=== PATIENT | male | born 1940 | race Caucasian/White ===

== ENCOUNTER → 2018-07-02 | Outpatient (CLI) | payer MEDICARE ==
[~2018-07-02] MED LIST: ADV250INH INH; ALBU17IN INH; AMLO5TAB6 PO; ASPI81TA85 PO; ATOR1TAB19 PO; CENTTAB PO; FLAX1200 PO; VITA200025 PO; VITA500T53 PO
[2018-07-02 08:03] LABS: BASO # 0.1 10^3/uL (0.0-0.2); BASO % 0.9 % (0.0-1.0); EOS # 0.2 10^3/uL (0.0-0.50); EOS % 3.2 % (0.0-3.0); HEMATOCRIT 41.2 % (42.0-52.0); HEMOGLOBIN 13.6 g/dl (13.5-17.5); LYMPH # 0.8 10^3/uL (1.5-4.5); MEAN CORPUSCULAR HEMOGLOBIN 32.5 pg (27.0-33.0); MEAN CORPUSCULAR VOLUME 98.6 fl (80.0-96.0); MONO # 0.5 10^3/uL (0.0-0.8); MONO % 9.1 % (0.0-5.0); NEUTROPHILS % 71.6 % (36.0-66.0); PLATELET COUNT, AUTOMATED 141 10^3/uL (150-450); RED BLOOD COUNT 4.18 10^6/uL (4.30-6.10); WHITE BLOOD COUNT 5.6 10^3/uL (4.0-10.0)
[2018-07-02 08:30] LABS: ALT/SGPT 39 U/L (12-78); BILIRUBIN,TOTAL 0.7 MG/DL (0.2-1.0); BLOOD UREA NITROGEN 23 MG/DL (7-18); CALCIUM LEVEL 8.4 MG/DL (8.8-10.2); CARBON DIOXIDE LEVEL 28 MEQ/L (21-32); CHLORIDE LEVEL 109 MEQ/L (98-107); CREATININE FOR GFR 0.95 MG/DL (0.70-1.30); GLOMERULAR FILTRATION RATE > 60.0 (>42); GLUCOSE, FASTING 125 MG/DL (70-100); SODIUM LEVEL 144 MEQ/L (136-145); TOTAL PROTEIN 6.4 GM/DL (6.4-8.2)
--- NOTE | 2018-07-02 09:20 | REP ---
CHEST, TWO VIEW: Two views of the chest are performed and compared with prior study of 03/02/2015. There is mild bibasilar fibrotic change which appears stable. No new infiltrate is seen. Heart is normal in size. There is calcification of the thoracic aorta. The mediastinal silhouette is unchanged. There are mild degenerative changes of the spine. IMPRESSION: Mild stable chronic findings without acute infiltrate. Electronically Signed by Ad Erwin MD 07/02/2018 04:58 P
--- NOTE | 2018-07-03 07:12 | ECGEPIP ---
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
== END ==
LOC: M LAB 07:22
PROVIDERS: ATTEND Podiatrist
DX: Z01.818 Encounter for other preprocedural examination (principal); M20.42 Other hammer toe(s) (acquired), left foot; M79.675 Pain in left toe(s); I70.0 Atherosclerosis of aorta; J84.10 Pulmonary fibrosis, unspecified; I44.0 Atrioventricular block, first degree

== ENCOUNTER 2018-07-17 07:11 | Day surgery (SDC) | payer MEDICARE ==
[~2018-07-17] VITALS: Ht 175.3 cm; Wt 94.1 kg
[~2018-07-17 07:11] MED LIST changes: +ALBU1TAB4 PO; +LR 1,000 ML IV ONE; +OCUVTAB PO; +VANCOMYCIN HCL 1,000 MG, VIAL MATE ADAPTER 1 EACH in D5W 250 ML IV ONE
[2018-07-17] MEDS ORDERED: NEOSPORIN GU IRRIG 20 ML VIAL As Ordered ONE (07:40)
[2018-07-17] MEDS ORDERED: LIDOCAINE 2% MDV 20 ML VIAL As Ordered ONE (07:40)
[2018-07-17] MEDS ORDERED: BUPIVACAINE HCL 0.5% 30 ML VIAL As Ordered ONE (07:40)
[2018-07-17] MEDS ORDERED: dexameTHASONE 4 MG/ML 1ML VIAL (J1100) As Ordered ONE ×2 (07:40→07:47)
[2018-07-17] MEDS ORDERED: BACITRACIN PWD 50,000 UNITS VIAL As Ordered ONE (07:40)
[2018-07-17] MEDS ORDERED: LIDOCAINE 2% INJ 100 MG/5 ML SDV (FOR ANES.) As Ordered ONE (07:47)
[2018-07-17] MEDS ORDERED: ONDANSETRON 4MG/2ML VIAL (J2405) As Ordered ONE (07:47)
[2018-07-17] MEDS ORDERED: PROPOFOL 500 MG/50 ML VIAL As Ordered ONE (07:49)
[2018-07-17] MEDS ORDERED: MIDAZOLAM INJ 2 MG/2 ML VIAL (J2250) As Ordered ONE (07:49)
[2018-07-17] MEDS ORDERED: fentaNYL 100 MCG/2 ML INJECTION (J3010) As Ordered ONE (07:49)
[2018-07-17] MEDS ORDERED: LIDOCAINE 1% MDV 20ML VIAL As Ordered ONE (09:13)
--- NOTE | 2018-07-17 09:21 | REP ---
Left foot three views History: None provided There is no acute fracture or dislocation. There is an old healed fracture of the 5th proximal phalange. There is narrowing of the first metatarsal-phalangeal joint space. The remaining joint spaces are normal in appearance. An osteophyte is present on the inferior calcaneus. Impression: There is no acute fracture or dislocation. Electronically Signed by Thad Bronson MD 07/17/2018 09:12 A
[2018-07-17 10:45] VITALS: BP 169/74
[2018-07-17] MEDS ORDERED: LR 1,000 ML IV SCH (11:00)
[2018-07-17] MEDS ORDERED: METOCLOPRAMIDE INJ 10MG/2ML VIAL (J2765) IV PRN (11:00)
[2018-07-17] MEDS ORDERED: fentaNYL 100 MCG/2 ML INJECTION (J3010) IV PRN (11:00)
[2018-07-17] MEDS ORDERED: PERCOCET 5MG/325MG TAB PO PRN (11:00)
[2018-07-17] MEDS ORDERED: ONDANSETRON 4MG/2ML VIAL (J2405) IV PRN (11:00)
--- NOTE | 2018-07-17 14:59 | REP ---
LEFT FOOT SERIES: THREE VIEWS OBTAINED PORTABLY. HISTORY: Postop. Comparison portable left foot radiographs are from July 17, 2018 before surgery. FINDINGS: Plantar heel spurring is noted. The patient has undergone osteotomy with removal of the distal aspect of the proximal phalanx of the 5th toe as well as the 2nd and 3rd toes distal phalanges. There are pins transfixing the IP joints of the 2nd, 3rd, and 4th digits. Associated soft tissue swelling and emphysema is seen. IMPRESSION: Postoperative changes as above. Electronically Signed by Geovani Childs MD 07/17/2018 04:17 P
--- NOTE | 2018-07-18 11:16 | RO ---
DATE OF PROCEDURE: 07/17/2018 PREOPERATIVE DIAGNOSES: 1. Hammertoe deformity 2nd toe, left foot. 2. Hammertoe deformity 3rd toe, left foot. 3. Hammertoe deformity 4th toe, left foot. 4. Hammertoe deformity 5th toe, left foot. POSTOPERATIVE DIAGNOSES: 1. Hammertoe deformity 2nd toe, left foot. 2. Hammertoe deformity 3rd toe, left foot. 3. Hammertoe deformity 4th toe, left foot. 4. Hammertoe deformity 5th toe, left foot. PROCEDURES PERFORMED: 1. Proximal interphalangeal joint arthroplasty with external wire fixation 0.045 times one, 2nd toe, left foot. 2. Proximal interphalangeal joint arthroplasty with external wire fixation 0.045 times one, 3rd toe, left foot. 3. Proximal interphalangeal joint arthroplasty with external wire fixation 0.045 times one, 4th toe, left foot. 4. Proximal interphalangeal joint arthroplasty, 5th toe, left foot. 5. Second metatarsophalangeal joint capsulotomy, left foot. 6. Third metatarsophalangeal joint capsulotomy, left foot. 7. Fourth metatarsophalangeal joint dorsal capsulotomy, left foot. 8. Fifth metatarsophalangeal joint dorsal capsulotomy, left foot. HARDWARE UTILIZED: 0.045 K wire times three. HEMOSTASIS: Ankle pneumatic tourniquet at 200 mmHg for 55 minutes. SURGEON: Yariel Vance DPM CHARTER DRIVER: None ANESTHESIA: Local MAC. IRRIGATION: Dilute bacitracin, neomycin and polymyxin B solution. IMPLANTABLES USED: DESCRIPTION OF OPERATION: On 07/17/2018, this 77-year-old white male was taken from his hospital room to the operating room and placed on the operating table in the supine position. Following the induction of intravenous (IV) sedation and local and regional anesthesia, the left lower extremity was prepped and draped in the usual aseptic manner. Attention was directed to the patient's second toe, where there was noted to be a hammertoe deformity. At this time, the following procedure was performed: PROXIMAL INTERPHALANGEAL JOINT ARTHROPLASTY WITH EXTERNAL WIRE FIXATION, 0.045 TIMES ONE, SECOND TOE, LEFT FOOT: Attention was directed to the patient's foot and there was noted to be a hammertoe deformity. At this time, a 3 cm incision was placed over the proximal interphalangeal joint, the incision was deepened into the subcutaneous tissues, and all coursing venous tributaries were identified, underscored, clamped, cut, ligated, and electrocoagulated as necessary. A transverse tenotomy and capsulotomy was performed to the level of the proximal interphalangeal joint and the extensor tendon was dissected free along the extensor expansion and wright. Medial and lateral collateral ligaments were sharply dissected free from the head of the proximal phalanx and utilizing a power saw, an osteotomy was performed to the level of the anatomical neck of the proximal phalanx from dorsal to plantar, through and through. Attention was then directed to the base of the middle phalanx, where utilizing a power saw an osteotomy was performed just distal to the cartilage on the middle phalanx from dorsal to plantar, through and through. This was extirpated from the wound in toto. There was still noted to be a contracture at the second metatarsophalangeal joint. Therefore, the following procedure was performed: DORSAL CAPSULOTOMY SECOND METATARSOPHALANGEAL JOINT OF THE LEFT FOOT: The incision was lengthened approximately 1 cm and attention was directed towards the second metatarsophalangeal joint. This was noted to be contracted and utilizing a scalpel, this was released dorsally. Utilizing a metatarsal elevator, the plantar plate was released. The wound was flushed with copious amounts of dilute bacitracin, neomycin, and polymyxin B solution. Attention was directed towards fixation, where utilizing a 0.045 Manjinder wire, a wire was driven through the middle and distal phalanx and was retrograded into the proximal phalanx, utilizing a C-Arm to control position of the K wire. The wire was then bent and a protective ball was placed on the distal end of the Manjinder wire. The extensor tendon was coapted and maintained utilizing #4-0 braided nylon loop suture with a four-stranded core repair. Attention was then directed towards skin closure where the skin was coapted and maintained utilizing #4-0 Prolene in a simple, interrupted and horizontal mattress type fashion. Attention was then directed to the patient's fourth toe of the left foot where the following procedure was performed: PROXIMAL INTERPHALANGEAL JOINT ARTHROPLASTY WITH EXTERNAL WIRE FIXATION, 0.045 TIMES ONE OF THE THIRD TOE OF THE LEFT FOOT: Attention was directed to the patient's third toe of the left foot. The procedure performed on the second toe was now performed on the third toe without variation or deletion, the only exception being that of anatomical location. Then, the following procedure was performed: THIRD METATARSOPHALANGEAL JOINT CAPSULOTOMY, LEFT FOOT: Attention was then directed to the patient's third metatarsophalangeal joint where the procedure performed on the second metatarsophalangeal joint was then performed on the third metatarsophalangeal joint without variation or deletion and the only exception being made was that of the anatomical location. Attention was then directed to the patient's third toe where the following procedure was performed: PROXIMAL INTERPHALANGEAL JOINT ARTHROPLASTY WITH EXTERNAL WIRE FIXATION, 0.045 TIMES ONE OF THE FOURTH TOE OF THE LEFT FOOT: Attention was directed to the patient's fourth toe of the left foot. The procedure performed on the second toe was now performed on the fourth toe without variation or deletion, the only exception being that of anatomical location. Attention was then directed to the fourth metatarsophalangeal joint where the following procedure was performed: FOURTH METATARSOPHALANGEAL JOINT CAPSULOTOMY, LEFT FOOT: Attention was then directed to the fourth metatarsophalangeal joint where the procedure performed on the second metatarsophalangeal joint was then performed on the fourth metatarsophalangeal joint without variation or deletion and the only exception being made was that of the anatomical location. Attention was then directed to the fifth toe of the left foot where the following procedure was performed: PROXIMAL INTERPHALANGEAL JOINT ARTHROPLASTY OF THE IRENE TOE OF THE LEFT FOOT: Attention was directed to the patient's fifth toe of the left foot. The procedure performed on the second toe was now performed on the fifth toe with the following variations: The base of the middle phalanx was not resected and no K wire was used for stabilization. Attention was then directed to the patient's fifth metatarsophalangeal joint where the following procedure was performed: FIFTH METATARSOPHALANGEAL JOINT CAPSULOTOMY, LEFT FOOT: Attention was directed to the patient's fifth toe of the left foot where the procedure performed on the second metatarsophalangeal joint was now performed on the fifth metatarsophalangeal joint without variation or deletion, the only exception being that of anatomical location. Attention was then directed towards bandaging where a sterile compressive bandage consisting of Adaptic, 4 x 4's, 4 x 4 splints, Romina, Kerlix, and Coban. The ankle pneumatic tourniquet was rapidly deflated, and instantaneous capillary filling time was noted in digits 1 through 5 of the patient's left foot. The patient, apparently having tolerated the surgical procedure well, was taken from the operating room (OR) to the recovery room for further monitoring by the anesthesia department. Postoperative instructions given upon discharge. CAMERON
== END 2018-07-17 12:00 | disposition home or self-care (01) ==
LOC: M SDC 07:11
PROVIDERS: ATTEND Podiatrist
DX: M20.42 Other hammer toe(s) (acquired), left foot (principal); M79.675 Pain in left toe(s); I10 Essential (primary) hypertension; E78.5 Hyperlipidemia, unspecified; J45.909 Unspecified asthma, uncomplicated; Z79.82 Long term (current) use of aspirin; Z79.899 Other long term (current) drug therapy; Z87.891 Personal history of nicotine dependence; Z79.51 Long term (current) use of inhaled steroids; Z88.0 Allergy status to penicillin
CPT/HCPCS: 28270; 28285; 73630; 88300; 97116; J1100; J2250; J2405; J3010; J3370

== ENCOUNTER → 2018-08-17 | Outpatient (CLI) | payer MEDICARE ==
[~2018-08-17] MED LIST changes: -LR 1,000 ML IV ONE; -VANCOMYCIN HCL 1,000 MG, VIAL MATE ADAPTER 1 EACH in D5W 250 ML IV ONE; +VITA500T17 PO; -VITA500T53 PO
== END ==
LOC: M RAD 10:52
PROVIDERS: ATTEND Podiatrist
DX: R22.42 Localized swelling, mass and lump, left lower limb (principal)

== ENCOUNTER → 2021-01-22 | Outpatient (CLI) | payer MEDICARE ==
[~2021-01-22] MED LIST changes: +AMLO1TAB24 PO; -AMLO5TAB6 PO; -ASPI81TA85 PO; +ASPI81TA86 PO; +CENT1TAB12 PO; +CHLO125TA OR; +D31000TA2 PO; +ECOT81TA5 PO; +FLAX100016 PO; +MYRB50TA PO; +RAMI1CAP22 OR; +TAMS1CAP17 PO
== END ==
LOC: M LABSMTC 10:44
PROVIDERS: ATTEND Anesthesiology
DX: Z01.812 Encounter for preprocedural laboratory examination (principal); Z20.822 Contact with and (suspected) exposure to COVID-19

== ENCOUNTER 2021-01-26 09:53 | Day surgery (SDC) | payer MEDICARE ==
[~2021-01-26] VITALS: Ht 175.3 cm; Wt 81.6 kg
[~2021-01-26 09:53] MED LIST changes: +NS 1,000 ML IV ONE
[2021-01-26] MEDS ORDERED: propofoL 200 MG/20 ML VIAL As Ordered ONE (10:16)
[2021-01-26] MEDS ORDERED: LIDOCAINE 2% 100MG/5ML SDV (FOR ANES.) As Ordered ONE (10:16)
[2021-01-26] MEDS ORDERED: PHENYLephrine 500MCG 5ML (100MCG/ML) SYRINGE As Ordered ONE (13:23)
--- NOTE | 2021-01-26 13:29 | ROOR ---
Patient Name: Charlie Falcon Procedure Date: 01/26/2021 1:01 PM Date of : 1940 Age: 80 Room: [facility] Gender: Male Note Status: Finalized Procedure: Colonoscopy Indications: High risk colon cancer surveillance: Personal history of colonic polyps, Last colonoscopy: September 2015 Providers: Rich Mcginnis MD Referring MD: MARVIN KIMBLE DO Requesting Provider: Medicines: Monitored Anesthesia Care Complications: No immediate complications. Procedure: Pre-Anesthesia Assessment: - The heart rate, respiratory rate, oxygen saturations, blood pressure, adequacy of pulmonary ventilation, and response to care were monitored throughout the procedure. The Colonoscope was introduced through the anus and advanced to the cecum, identified by appendiceal orifice and ileocecal valve. The colonoscopy was performed without difficulty. The patient tolerated the procedure well. The quality of the bowel preparation was good. Findings: The perianal and digital rectal examinations were normal. (EXAM: Complete, PREP: Suboptimal) Three sessile polyps were found in the rectum and sigmoid colon. The polyps were 4 to 5 mm in size. These polyps were removed with a cold snare. Resection and retrieval were complete. Mild to moderate sigmoid diverticulosis and small internal hemorrhoids. The exam was otherwise without abnormality on direct and retroflexion views. Impression: - (EXAM: Complete, PREP: Suboptimal) - Three 4 to 5 mm polyps in the rectum and in the sigmoid colon, removed with a cold snare. Resected and retrieved. - Mild to moderate sigmoid diverticulosis and small internal hemorrhoids. - The examination was otherwise normal on direct and retroflexion views. Recommendation: - Await pathology results. - Telephone endoscopist for pathology results in 2 weeks. - No repeat colonoscopy. Procedure Code(s): --- Professional --- 03169, Colonoscopy, flexible; with removal of tumor(s), polyp(s), or other lesion(s) by snare technique Diagnosis Code(s): --- Professional --- K63.5, Polyp of colon K62.1, Rectal polyp Z86.010, Personal history of colonic polyps CPT copyright 2019 [employer]. All rights reserved. The codes documented in this report are preliminary and upon mixer operator hot metal review may be revised to meet current compliance requirements. Rich Mcginnis MD Rich Mcginnis MD 01/26/2021 1:28:29 PM Electronically signed by Rich Mcginnis MD Number of Addenda: 0 Note Initiated On: 01/26/2021 1:01 PM Estimated Blood Loss: Estimated blood loss: none.
[2021-01-26 13:55] VITALS: BP 116/57
== END 2021-01-26 14:04 | disposition home or self-care (01) ==
LOC: M OPP 09:53
PROVIDERS: ATTEND Internal Medicine Gastroenterology
DX: Z12.11 Encounter for screening for malignant neoplasm of colon (principal); Z86.010 Personal history of colon polyps; Z80.0 Family history of malignant neoplasm of digestive organs; K63.5 Polyp of colon; K57.30 Diverticulosis of large intestine without perforation or abscess without bleeding; K64.8 Other hemorrhoids; Z79.899 Other long term (current) drug therapy; Z88.0 Allergy status to penicillin
CPT/HCPCS: 45385; 88305; J2370

== ENCOUNTER 2021-02-20 18:05 | Inpatient (IN) | payer MEDICARE, OTHER ==
[~2021-02-20] VITALS: Ht 177.8 cm; Wt 82.4 kg
[~2021-02-20 18:05] MED LIST changes: -CHLO125TA OR; +CHLO125TA PO; -NS 1,000 ML IV ONE; -RAMI1CAP22 OR; +RAMI1CAP22 PO
[2021-02-20 18:47] LABS: BASO # 0.1 10^3/uL (0.0-0.2); BASO % 0.8 % (0.0-1.0); EOS # 0.4 10^3/uL (0.0-0.5); EOS % 4.8 % (0.0-3.0); HEMATOCRIT 37.8 % (42.0-52.0); HEMOGLOBIN 12.6 g/dl (13.5-17.5); LYMPH % 23.5 % (24.0-44.0); MEAN CORPUSCULAR HEMOGLOBIN 32.3 pg (27.0-33.0); MEAN CORPUSCULAR HGB CONC 33.3 g/dl (32.0-36.5); MEAN CORPUSCULAR VOLUME 96.9 fl (80.0-96.0); MONO # 0.7 10^3/uL (0.0-0.8); MONO % 8.7 % (2.0-8.0); NEUTROPHILS # 5.2 10^3/uL (1.5-8.5); NEUTROPHILS % 61.6 % (36.0-66.0); PLATELET COUNT, AUTOMATED 177 10^3/uL (150-450); WHITE BLOOD COUNT 8.5 10^3/uL (4.0-10.0)
[2021-02-20 19:11] LABS: INR 1.07; PARTIAL THROMBOPLASTIN TIME 29.9 SECONDS (25.9-37.0); PROTHROMBIN TIME 14.3 SECONDS (12.7-14.5)
--- NOTE | 2021-02-20 19:13 | REP ---
INDICATION: CHEST PAIN. COMPARISON: PA and lateral chest, 07/02/2018 TECHNIQUE: Upright AP portable chest image was obtained. FINDINGS: There is scarring in the left lung base. The lungs are otherwise clear. There are no pleural effusions. There is cardiomegaly without congestive heart failure. There is calcific vascular disease of the thoracic aorta. IMPRESSION: Cardiomegaly. No evidence of acute cardiopulmonary pathology. <Electronically signed by Adelso Nelson > 02/20/21 1919
[2021-02-20 19:15] LABS: RSV AMPLIFICATION NEGATIVE (NEGATIVE)
[2021-02-20 19:21] LABS: ALBUMIN 3.3 GM/DL (3.2-5.2); ALT/SGPT 32 U/L (12-78); BILIRUBIN,DIRECT < 0.1 MG/DL (0.0-0.2); BILIRUBIN,TOTAL 0.5 MG/DL (0.2-1.0); BLOOD UREA NITROGEN 28 MG/DL (7-18); CALCIUM LEVEL 8.8 MG/DL (8.8-10.2); CARBON DIOXIDE LEVEL 30 MEQ/L (21-32); CHLORIDE LEVEL 103 MEQ/L (98-107); CPK CREATINE PHOSPHOKINASE 326 U/L (39-308); CREATININE FOR GFR 1.18 MG/DL (0.70-1.30); FREE T4 1.18 NG/DL (0.76-1.46); GLOMERULAR FILTRATION RATE > 60.0 (>35); GLUCOSE, FASTING 132 MG/DL (70-100); LIPASE 251 U/L (73-393); MB/CK RELATIVE INDEX 1.84 (< OR =4); NT-PRO BNP 102 PG/ML (<450); POTASSIUM SERUM 3.6 MEQ/L (3.5-5.1); SODIUM LEVEL 140 MEQ/L (136-145); TOTAL PROTEIN 6.6 GM/DL (6.4-8.2); TROPONIN I < 0.02 NG/ML (< 0.10)
--- OUTSIDE RECORDS SUMMARY | 2021-02-20 19:27 | CCD | Continuity of Care Document ---
Author Author Urology Resource Schedule, Sina Means Organization Unknown Address [address] [place] [id number] Phone [phone] Care Team Providers Care Stope Miner Name Role Phone Kelvin Sutton DO AUTM Unavailable Problems Active Problems Provider Date Essential hypertension Luis Alas M.D. Onset: 10/04/2020 Pure hypercholesterolemia Luis Alas M.D. Onset: 021 Overactive bladder GEORGINA Valera Onset: 2020 Social History Type Date Description Comments Sex Unknown Tobacco Use Start: Unknown End: Unknown Quit Tobacco Use Start: Unknown End: Unknown Quit Tobacco Use Start: Unknown End: Unknown Quit Smoking Status Reviewed: 10/25/20 Quit Tobacco Use Start: Unknown Never Used Smokeless Tobacco ETOH Use Occasionally consumes alcohol Tobacco Use Start: Unknown End: Unknown Patient is a former smoker Recreational Drug Use Denies Drug Use Allergies, Adverse Reactions, Alerts Active Allergies Criticality Reaction | Severity Comments Date Penicillins Unable to assess criticality rash 10/04/2020 Medications Active Medications SIG Qnty Indications Ordering Provide r Date Myrbetriq 50mg Tablets ER 24HR 1 by mouth every day 90tabs Luis Alas M.D. 12/26/2020 Advair Diskus 250-50mcg/Dose Aeros ol Inhale One puff By Mouth Twice A Day Unknown Atorvastatin Calcium 10mg Tablets Kelvin Sutton, Tamsulosin HCL 0.4mg Capsules Take One Capsule By Mouth Every Day Unknown Chlorthalidone 25mg Tablets Take One Tablet By Mouth Every Day Unknown Ramipril 2.5mg Capsules Take One Capsule By Mouth Every Day Unknown Centrum Silver 50+Men 50+Men Tablets Unknown Aspirin 81 Low Dose 81mg Chewtabs 1 tab by mouth 3x/week Unknown Vitamin D 50mcg (1999 Ut) Capsules 1 by mouth every day Unknown Vitamin B Complex Tablets 1 by mouth every day Unknown Preservision Areds Capsules Unknown History Medications Myrbetriq 25mg Tablets ER 24HR 1 by mouth every day 30tabs Luis Alas M.D. 10/25/2020 - 12/26/2020 Immunizations Description No Information Available Vital Signs Date Vital Result Comment 10/25/2020 9:58am BP Systolic 133 mmHg BP Diastolic 80 mmHg Heart Rate 66 /min O2 % BldC Oximetry 94 % Weight 183.00 lb Weight 83.009 kg 10/04/2020 1:58pm BP Systolic 133 mmHg BP Diastolic 75 mmHg Heart Rate 80 /min O2 % BldC Oximetry 95 % Weight 183.00 lb Weight 83.009 kg Height 69 inches 5'9" BMI (Body Mass Index) 27.0 kg/m2 BSA (Body Surface Area) 1.99 m2 Results Test Acquired Date Facility Test Result H/L Range Note Inhouse [facility] 10/04/2020 In Office [facility] Color yellow Normal: Yellow Ua Appearance clear Normal: Clear Spec [place] 1.015 1.001-1.030 Ua PH Test Strip 5 5-9 Leukocytes - Normal: Negative Ua Nitrate - Normal: Negative Ua Protein trace Normal: Negative Inhouse Glucose - Normal: Negative Ua Ketones - Noraml: Negative Urobilinogen - Normal: Negative Ua Bilirubin - Normal: Negative Blood - Noraml: Negative Procedures Date Code Description Status 12/26/2020 02359 Phone Evaluation/Management By Ryan cochran 5-10 Mins Completed 10/25/2020 52199 Office/Outpatient Established w MDM 20-29 Min Completed 10/25/2020 53346 Measurement Post Voi ding Residual Urine By Ultrasound,Non-Imaging Completed 10/04/2020 46817 Office/Outpatient New MDM 15- 29 Minutes Completed Medical Devices Description No Information Available Encounters Type Date Location Provider Dx Diagnosis Office Visit 12/26/2020 1:45p [facility] GEORGINA Campbell N32.81 Overactive bladder Assessments Date Code Description Provider 12/26/2020 N32.81 Overactive bladder GEORGINA Kilpatrick 10/25/2020 N32.81 Overactive bladder GEORGINA Kilpatrick 10/04/2020 R97.20 Elevated prostate specific antig en [PSA] Luis Alas M.D. 10/04/2020 R35.0 Frequency of micturition Luis Alas M.D. 10/04/2020 R39.15 Urgency of urination Luis apodaca M.D. 10/04/2020 R32 Unspecified urinary incontinence Luis Alas M.D. 10/04/2020 N50.3 Cyst of epididymis Luis Alas M.D. Plan of Treatment Future Appointment(s):* 05/01/2021 2:30 pm - Urology Resource Schedule at [facility] 12/26/2020 - GEORGINA Valera* N32.81 Overactive bladder* Comments:* Patient with history of elevated PSA, urinary frequency, urgency and urge incontinence was consulted via phone for medication check (Myrbetriq). Patient doing pretty well on Myrbetriq 25 mg PO daily, but medication seems to stop working as well around 1400. Physical examination and urinalysis were not performed as this is a telemedicine consultation. Patient dose was increased from 25 mg to 50 mg PO daily. Patient was advised to take the whole dose in the morning or to split the dose to 25 mg and take it morning and evening. Potential side effects of dry eyes, dry mouth and constipation were discussed in detail with the patient.Patient voiced understanding and agreement with plan of care.Patient will follow up with us in 4 months for medication check. * Follow up:* 4 Months * All * New Medication:* Myrbetriq 50 mg - 1 by mouth every day Functional Status Description No Information Available Mental Status Description No Information Available Referrals Description No Information Available
--- OUTSIDE RECORDS SUMMARY | 2021-02-20 19:27 | CCD | Continuity of Care Document ---
Author Author Charlie AMADOR PA Organization Unknown Address [facility] [place] [address] Phone [phone] Care Team Providers Care Levee Superintendent Name Role Phone Kelvin Sutton DO AUTM [...] Day Unknown Atorvastatin Calcium 10mg Tablets Kelvin Sutton DO Tamsulosin HCL 0.4mg Capsules Take One Capsule [...] Yellow Ua Appearance clear Normal: Clear Spec [place] 1.015 1.001-1.030 Ua PH Test Strip 5 5-9 Leukocytes - Normal: Negative Ua Nitrate - Normal: Negative Ua Protein trace Normal: Negative Inhouse Glucose - Normal: Negative Ua Ketones - Noraml: Negative Urobilinogen - Normal: Negative Ua Bilirubin - Normal: Negative Blood - Noraml: Negative Procedures Date Code Description Status 12/26/2020 85425 Phone Evaluation/Management By Ryan cochran 5-10 Mins Completed 10/25/2020 55441 Office/Outpatient Established w MDM 20-29 Min Completed 10/25/2020 91658 Measurement Post Voi ding Residual Urine By Ultrasound,Non-Imaging Completed 10/04/2020 62495 Office/Outpatient New MDM 15- 29 Minutes Completed Medical Devices Description No Information Available Encounters Type Date Location Provider Dx Diagnosis Office Visit 12/26/2020 1:45p [facility] GEORGINA Campbell N32.81 Overactive [...] 2:30 pm - Urology Resource Schedule at [facility] 12/26/2020 - GEORGINA Valera* [...]
--- OUTSIDE RECORDS SUMMARY | 2021-02-20 19:27 | CCD | Continuity of Care Document ---
Author Author Charlie AMADOR PA Organization Unknown Address [facility] [place] [address] Phone [phone] Care Team Providers Care It Project Manager Name Role Phone Kelvin Sutton DO AUTM [...] Yellow Ua Appearance clear Normal: Clear Spec [place] 1.015 1.001-1.030 Ua PH Test Strip 5 5-9 Leukocytes - Normal: Negative Ua Nitrate - Normal: Negative Ua Protein trace Normal: Negative Inhouse Glucose - Normal: Negative Ua Ketones - Noraml: Negative Urobilinogen - Normal: Negative Ua Bilirubin - Normal: Negative Blood - Noraml: Negative Procedures Date Code Description Status 12/26/2020 93509 Phone Evaluation/Management By Ryan cochran 5-10 Mins Completed 10/25/2020 15645 Office/Outpatient Established w MDM 20-29 Min Completed 10/25/2020 47117 Measurement Post Voi ding Residual Urine By Ultrasound,Non-Imaging Completed 10/04/2020 64580 Office/Outpatient New MDM 15- 29 Minutes Completed Medical Devices Description No Information Available Encounters Type Date Location Provider Dx Diagnosis Office Visit 12/26/2020 1:45p [facility] GEORGINA Campbell N32.81 Overactive [...] 2:30 pm - Urology Resource Schedule at [facility] 12/26/2020 - GEORGINA Valera* [...]
--- OUTSIDE RECORDS SUMMARY | 2021-02-20 19:27 | CCD ---
Author Author [facility] Organization [facility] Address Unknown Phone Unavailable Care Team Providers Care Upholsterer [employer] Name Role Phone Tessa Lorenzana Unavailable PROBLEMS No Information ALLERGIES No Known Allergies ENCOUNTERS from 1940 to 2021-02-03 Encounter Location Date Provider Diagnosis [facility] [address] [place] [address] [place] [address] Dec, Tessa Lorenzana Closed head injury, initial encounter S09.90XA and Fall, initial encounter W19.XXXA IMMUNIZATIONS No Information SOCIAL HISTORY Sex Assigned At : Social History Observation Description Sex Assigned At Unknown Language: Question Answer Notes Languages spoken: Greenlandic Gnosticist: Question Answer Notes Gnosticist 21 [address]ze REASON FOR REFERRAL No Information VITAL SIGNS Weight 182.8 lbs Dec, Weight-kg 82.92 kg Dec, Height 70 in Dec, BMI 26.23 kg/m2 Dec, Heart Rate 80 /min Dec, Respiratory Rate 18 /min Dec, Temperature 97.6 degrees Fahrenheit Dec, Oximetry 96 Dec, Blood pressure systolic 144 mm Hg Dec, Blood pressure diastolic 82 mm Hg Dec, MEDICATIONS Medication SIG (Take, Route, Frequency, Duration) Notes Start Da te End Date Status D3 50 MCG (1999) 1 tablet Orally Once a day for 30 day(s) Active Ramipril 2.5 MG 1 capsule Orally Once a day for 30 day(s) Active Tamsulosin HCl 0.4 MG 1 capsule Orally Once a day for 30 day(s) Active Myrbetriq 50 MG 1 tablet Orally Once a day Active Advair Diskus 100-50 MCG/DOSE 1 puff Inhalation Twice a day Active Aspirin 81 81 MG 1 tablet Orally Once a day for 30 day(s) Active Chlorthalidone 25 MG 1 tablet in the morning with food Orally Once a day for 30 day(s) Active B Complex - as directed Orally Activ e Centrum Silver Ultra Mens Active PreserVision AREDS 2+Multi Vit - as directed Orally Active Flaxseed Oil - as directed Active Atorvastatin Calcium 10 MG 1 tablet Orally Once a day for 30 day(s) Active PROCEDURES No Information RESULTS No Results REASON FOR VISIT Workers Comp MEDICAL (GENERAL) HISTORY Type Description Date Medical History Asthmatic Medical History hypertension Surgical History hammer toe repair Hospitalization History No know Hospitalization history Goals Section No Information Health Concerns No Information MEDICAL EQUIPMENT No Information MENTAL STATUS No Information FUNCTIONAL STATUS No Information ASSESSMENTS Encounter Date Diagnosis Assessment Notes Treatment Notes Treatm ent Clinical Notes Dec, Closed head injury, initial encounter (I CD-10 - S09.90XA) Symptoms have resolved, return in 4 weeks just to check up, and he is encouraged to call sooner if he should have any signs or symptoms of concussion Dec, Fall, initial encounter (ICD-10 - W19.XXXA) PLAN OF TREATMENT Next Appt Details 4 Weeks, 60 min Reason:w/c - post concus karen Provider Name:Tessa Lorenzana, 2020-10-2 8 10:00:00 AM, [address] [facility], , [place], [address], Follow Up:4 Weeks, 60 minw/c - post concussion Insurance Providers Payer Name Payer Address Payer Phone Insured Name Patient Relati onship to Insured Coverage Start Date Coverage End Date [address] MORRIS ANTHONY self 2020
--- OUTSIDE RECORDS SUMMARY | 2021-02-20 19:27 | CCD | Continuity of Care Document ---
Author Author Charlie AMADOR PA Organization Unknown Address [facility] [place] [address] Phone [phone] Care Team Providers Care Type Copyist Name Role Phone Kelvin Sutton DO AUTM [...] Yellow Ua Appearance clear Normal: Clear Spec [place] 1.015 1.001-1.030 Ua PH Test Strip 5 5-9 Leukocytes - Normal: Negative Ua Nitrate - Normal: Negative Ua Protein trace Normal: Negative Inhouse Glucose - Normal: Negative Ua Ketones - Noraml: Negative Urobilinogen - Normal: Negative Ua Bilirubin - Normal: Negative Blood - Noraml: Negative Procedures Date Code Description Status 12/26/2020 90135 Phone Evaluation/Management By Ryan cochran 5-10 Mins Completed 10/25/2020 83235 Office/Outpatient Established w MDM 20-29 Min Completed 10/25/2020 63736 Measurement Post Voi ding Residual Urine By Ultrasound,Non-Imaging Completed 10/04/2020 90904 Office/Outpatient New MDM 15- 29 Minutes Completed Medical Devices Description No Information Available Encounters Type Date Location Provider Dx Diagnosis Office Visit 12/26/2020 1:45p [facility] GEORGINA Campbell N32.81 Overactive [...] 2:30 pm - Urology Resource Schedule at [facility] 12/26/2020 - GEORGINA Valera* [...]
--- OUTSIDE RECORDS SUMMARY | 2021-02-20 19:27 | CCD | Continuity of Care Document ---
Author Author Charlie MCGINNIS MD Organization Unknown Address [address] [place] [address] Phone [phone] Care Team Providers Care Band Head Saw Operator Name Role Phone Kelvin Sutton Chichi AUTM [phone] Problems Active Problems Provider Date Digestive symptom Rich Mcginnis MD Onset: 07/08/2012 Benign neoplasm of colon Rich Mcginnis MD Onset: 07/09/19 13 Family history of malignant neoplasm of gastrointestinal tra ct Rich Mcginnis MD Onset: 07/08/2012 History of polyp of colon Rich Mcginnis MD Onset: 013 Cough Cheryl Brown M.D. Onset: 07/2014 Pulmonary function studies abnormal Cheryl Brown M.D. Onset: 03/01/2015 Posterior rhinorrhea Cheryl Brown M.D. Onset: Ex-smoker Cheryl Brown M.D. Onset: 07/2014 Other nonspecific abnormal finding of lung field Cheryl Rankin M.D. Onset: 03/01/2015 Mild persistent asthma Cheryl Brown M.D. Onset: 03/01/2015 Solitary nodule of lung Cheryl Brown M.D. Onset: 07/26/2015 Social History Type Date Description Comments Sex Unknown ETOH Use 2 A Day Tobacco Use Start: Unknown End: Unknown Patient is a former smoker hx: pipe x 25 yrs, quit 2005, cigs <1ppd x 7yrs, quit age 25 Allergies and adverse reactions Active Allergies Criticality Reaction | Severity Comments Date Penicillin Unable to assess criticality 06/28/2009 Medications Active Medications SIG Qnty Indications Ordering Provide r Date Miralax 17GM/Scoop Powder use as instructed by doctor for bowel prep 510gm Z12.11 Rich Mcginnis MD 10/26/2020 Milk Of Magnesia 1200mg/15ML Suspe nsion take 45 milliliters by mouth as directed on colonoscopy prep sheet. Z12.11 Rich Mcginnis MD 10/26/2020 Ventolin HFA 108(90Base) mcg/Act A erosol Inhale 2 Puffs By Mouth Four Times A Day as Needed 18units Cheryl Brown M.D. 03/01/2015 Advair Diskus 250-50mcg/Dose Misc 1 puff bid rinse mouth after using 1units Unknown Vitamin D-3 25mcg (1000 Ut) Capsul es 1 po qd 30caps Unknown Atorvastatin Calcium 10mg Tablets 1 tab po daily Unknown Centrum Silver Tablets 1 tab po daily Unknown Flaxseed Oil 1200mg Capsules 1 tab po daily Unknown Chlorthalidone 25mg Tablets 1 by mouth every day Unknown Vitamin B Complex Tablets on ce a day Unknown Ramipril 2.5mg Capsules 1 by mouth every day Unknown Preservision Areds Tablets 2 daily Unknown Tamsulosin HCL 0.4mg Capsules 1 by mouth every day Unknown Myrbetriq 25mg Tablets ER 24HR 1 by mouth every day Unknown Miralax 17GM/Scoop Powder prn Unknown Aspirin 81mg Tablets DR Take 1 tablet by mouth M, W, and F. Unknown Immunizations CPT Code Status Date Vaccine Lot # [id number] Given 02/19/2016 Influenza Virus Split 3 Yrs And Above For Intramuscular Use 82416 Given 04/03/2015 Influenza Virus Split 3 Yrs And Above For Intramuscular Use Vital Signs Date Vital Result Comment 10/26/2020 2:53pm BP Systolic 142 mmHg BP Diastolic 72 mmHg Height 69 inches 5'9" Weight 187.00 lb BMI (Body Mass Index) 27.6 kg/m2 [place] Body Weight 160 lb Weight 84.823 kg BSA (Body Surface Area) 2.01 m2 02/06/2017 7:59am BP Systolic 130 mmHg BP Diastolic 70 mmHg Heart Rate 66 /min O2 % BldC Oximetry 95 % Room Air Height 69 inches 5'9" Weight 204.00 lb BMI (Body Mass Index) 30.1 kg/m2 [place] Body Weight 160 lb Weight 92.534 kg BSA (Body Surface Area) 2.08 m2 Results Test Acquired Date Facility Test Result H/L Range Note Laboratory test finding 01/26/2021 [facility] Main Lab [address] [place] [address] [phone] Pathology Request For Service (SEE NOTE) 1 1 FINAL DIAGNOSIS A - Sigmoid colon, polyps, polypectomy: Adenomatous polyp/tubular adenoma fragments. B - Rectal polyp, polypectomy: Hyperplastic polyp. 01/29/2021 - 8 CLINICAL DIAGNOSIS Colon polyps 01/29/2021 - 722 GROSS DIAGNOSIS A - Received in formalin labeled "sigmoid polyps" is a 0.8 x 0.6 x 0.4 cm. aggregate of mucosal fragments. All in one. B - Received in formalin labeled "rectal polyp" is a 0.5 x 0.3 x 0.3 cm. portion of mucosa. All in one. - 01/29/2021 - 722 Signed Isabel Holbrook MD 01/29/2021 1405 Procedures Date Code Description Status 01/26/2021 03942 Colonoscopy W/ Poly Completed Medical Devices Description No Information Available Encounters Description No Information Available Assessments Date Code Description Provider 01/26/2021 Z12.11 Encounter for screening for uriel gnant neoplasm of colon Rich Mcginnis MD 01/26/2021 Z86.010 Personal history of colonic poly ps Rich Mcginnis MD 01/26/2021 D12.5 Benign neoplasm of sigmoid colon Rich Mcginnis MD 01/26/2021 K62.1 Rectal polyp Rich Mcginnis MD 10/26/2020 Z12.11 Encounter for screening for uriel gnant neoplasm of colon BO Rollins 10/26/2020 Z86.010 Personal history of colonic poly ps BO Rollins Plan of Treatment 10/26/2020 - BO Rollins* Z12.11 Encounter for screening for malignant neoplasm of colon * Z86.010 Personal history of colonic polyps * * New Medication:* Miralax 17 GM/Scoop * Milk Of Magnesia 1200 mg/15ML * New Orders:* Colonoscopy, Ordered: 10/26/20 * Comments:* Will arrange for colonoscopy. Reviewed risks and benefits of the procedure, as well as other options, with the patient. Bowel prep procedure was discussed with patient, as well as risks and side effects associated with the bowel prep. Patient verbalized understanding of all of the above and is in agreement to proceed. Patient will seek medical attention for any acute changes. Will monitor. * Follow up:* As scheduled, sooner if needed. Functional Status Functional Condition Comment Date Status Independent with all ADL's Activ e Independent with all IADL's Acti ve Mental Status Mental Condition Comment Date Status Cognitive ability not impaired A ctive Referrals Description No Information Available
--- OUTSIDE RECORDS SUMMARY | 2021-02-20 19:27 | CCD | Continuity of Care Document ---
Author Author Charlie MCGINNIS MD Organization Unknown Address [address] [place] [address] Phone [phone] Care Team Providers Care Agricultural Services Director Name Role Phone Kelvin Sutton Chichi AUTM [phone] Problems Active Problems Provider Date Digestive symptom Rich Mcginnis MD Onset: 07/08/2012 Benign neoplasm of colon Rihc Mcginnis MD Onset: 07/09/19 13 Family history [...] M.D. Onset: 03/01/2015 Solitary nodule of lung Cheyrl Brown M.D. Onset: 07/26/2015 Social History Type [...] CPT Code Status Date Vaccine Lot # [id number] Given 02/19/2016 Influenza Virus Split 3 Yrs And Above For Intramuscular Use 12367 Given 04/03/2015 Influenza Virus Split 3 Yrs And Above For Intramuscular Use Vital Signs Date Vital Result Comment 10/26/2020 2:53pm BP Systolic 142 mmHg BP Diastolic 72 mmHg Height 69 inches 5'9" Weight 187.00 lb BMI (Body Mass Index) 27.6 kg/m2 [place] Body Weight 160 lb Weight 84.823 kg BSA (Body Surface Area) 2.01 m2 02/06/2017 7:59am BP Systolic 130 mmHg BP Diastolic 70 mmHg Heart Rate 66 /min O2 % BldC Oximetry 95 % Room Air Height 69 inches 5'9" Weight 204.00 lb BMI (Body Mass Index) 30.1 kg/m2 [place] Body Weight 160 lb Weight 92.534 kg BSA (Body Surface Area) 2.08 m2 Results Test Acquired Date Facility Test Result H/L Range Note Laboratory test finding 01/26/2021 [facility] Main Lab [address] [place] [address] [phone] Pathology Request For Service (SEE NOTE) 1 [...] 1405 Procedures Date Code Description Status 01/26/2021 61175 Colonoscopy W/ Poly Completed Medical Devices Description No Information Available Encounters Description No Information Available Assessments Date Code Description Provider 01/26/2021 Z12.11 Encounter for screening for urile gnant neoplasm of colon Rich Mcginnis MD [...]
--- OUTSIDE RECORDS SUMMARY | 2021-02-20 19:28 | CCD | Continuity of Care Document ---
Author Author Charlie KIMBLE D.O. Organization Unknown Address [address] [place] [address] Phone [phone] Problems Active Problems Provider Date Asthma without status asthmaticus Mauro Cordoba M.D. Onse t: 01/08/2002 Hyperlipidemia Onset: 01/08/2002 Allergic rhinitis Mauro Cordoba M.D. Onset: 01/08/2002 Osteoarthritis Onset: 01/08/2002 Benign prostatic hyperplasia without outflow obstruction Fra cecil Cordoba M.D. Onset: 05/19/2006 Benign essential hypertension Mauro Cordoba M.D. Onset: 0 01/12/2008 Impaired fasting glycemia Mauro Cordoba M.D. Onset: 11/14 Nutritional anemia Dex Lucas, [facility] Onset: 05/22/2009 Social History Type Date Description Comments Sex Unknown Tobacco Use Start: Unknown Former pipe smoker: smoked 3 pipes daily for 30 years, quit 03/28/07. ETOH Use Consumes 2 glasses of wine per d ay Tobacco Use Start: Unknown End: Unknown Patient is a former smoker pipe-quit 2006 Smoking Status Reviewed: 11/23/20 Patient is a former smoker pi pe-quit 2006 Allergies, Adverse Reactions, Alerts Active Allergies Reaction Severity Comments Date Penicillin 01/08/2002 Medications Active Medications SIG Qnty Indications Ordering Provide r Date Tamsulosin HCL 0.4mg Capsules 1 by mouth every day 90caps Kelvin Kimble D.O., FAAFP Ramipril 2.5mg Capsules take one capsule by mouth every day 90caps Kelvin Kimble D.O., FAAFP 01/27/2020 Chlorthalidone 25mg Tablets take one tablet by mouth every day 90tabs Kelvin Kimble D.O., [facility] 10/12/2019 Shingrix 50mcg Suspension Rec recieved 1st inj 1 intramuscular today repeat in 2-6 months 1units Kelvin Kimble D.O., FAAFP Prevnar 13 Suspension as directed Done Kelvin Kimble D.O., FAAFP 02/06/2017 Proair HFA 108(90Base) mcg/Act Aer osol 1-2 puffs every 4-6 hours as needed for sob 8.500gm Kelvin iKmble D.O., FAAFP 01/09/2017 Atorvastatin Calcium 10mg Tablets take one tablet by mouth once daily mdd 1 90tabs [facility]., [facility] 09/07/2015 Advair Diskus 250-50mcg/Dose Aeros ol inhale one puff by mouth twice a day 60units Kelvin Kimble D.O., [facility] 05/06/2012 Myrbetriq 25mg Tablets ER 24HR 1 by mouth every day Unknown [employer] [place] Covid-19 Vaccine 30mcg/0.3ML Suspension both Unknown Ocuvite Extra Tablets OTC Unknown Vitamin B-12 100mcg Tablets 1 tab by mouth once a day OTC Unknown Vitamin D-3 2500 Capsules 1 by mouth every day Unknown Flaxseed Oil Capsules 1 vero y Unknown Super B Complex/C Unknown 000 Asa 81 Capsules m, w fri Unknown MV-One Capsules 1 by mouth d aily Unknown Medications Administered in Office Medication SIG Qnty Indications Ordering Provider Date Injection (SC)/(Im) Injection Kelvin Kimble D.O., FAAFP 03/11/2012 Injection (SC)/(Im) Injection Kelvin Kimble D.O., FAAFP 01/23/2012 Injection (SC)/(Im) Injection Kelvin Kimble D.O., FAAFP 01/31/2011 Injection (SC)/(Im) Injection Kelvin Kimble D.O., FAAFP 04/19/2010 Injection Subcutaneous Or Intramuscular Injection Fabiana Raymond RPA 6 Immunizations CPT Code Status Date Vaccine Lot # [id number] Given 01/27/2020 Influenza Virus Vaccine, Quadrivalent, Slit Virus, Im Use 3Y & Up [id number] 92048 Given 03/04/2019 Influenza Virus Vaccine, Quadrivalent, Slit Virus, Im Use 3Y & Up [id number] 50046 Given 02/06/2017 Influenza Virus Vaccine, Quadrivalent, Slit Virus, Im Use 3Y & Up [id number] 83318 Given 01/11/2016 Influenza Vaccin e (Fluzone) 3Yrs Of Age Or Older Medicare Plans [id number] 52914 Given 03/02/2015 Influenza Vaccin e (Fluzone) 3Yrs Of Age Or Older Medicare Plans [id number] 13539 Given 02/24/2014 Influenza Vaccin e (Fluzone) 3Yrs Of Age Or Older Medicare Plans [id number] 48193 Given 02/03/2013 Influenza Vaccin e (Fluzone) 3Yrs Of Age Or Older Medicare Plans 15640 Given 02/03/2013 Influenza Virus Vac. Split Virus Individuals 3 Years And Above [id number] 46822 Given 03/11/2012 [id number] 50776 Given 01/23/2012 Influenza Virus Vac. Split Virus Individuals 3 Years And Above [id number] 10032 Given 01/31/2011 Influenza Virus Vac. Split Virus Individuals 3 Years And Above [id number] 35135 Given 04/19/2010 Influenza Virus Vac. Split Virus Individuals 3 Years And Above [id number] 83216 Given 03/12/2006 Influenza Virus Vac. Split Virus Individuals 3 Years And Above Vital Signs Date Vital Result Comment 11/23/2020 1:08pm BP Systolic 140 mmHg BP Diastolic 70 mmHg Body Temperature 97.8 F Heart Rate 68 /min Respiratory Rate 16 /min Height 70 inches 5'10" Weight 181.00 lb [place] Body Weight 166 lb BMI (Body Mass Index) 26.0 kg/m2 O2 % BldC Oximetry 97 % 08/10/2020 10:27am BP Systolic 116 mmHg BP Diastolic 66 mmHg Body Temperature 98.1 F Heart Rate 78 /min Respiratory Rate 16 /min Height 70 inches 5'10" Weight 187.00 lb [place] Body Weight 166 lb BMI (Body Mass Index) 26.8 kg/m2 O2 % BldC Oximetry 97 % Results Test Acquired Date Facility Test Result H/L Range Note U/A DIP FPA 11/16/2020 [facility] Asso ciates Color Urine YELLOW Yellow Appearance CLEAR Clear Specific [place] 1.025 1.00-1.03 PH Urine 6.5 5.0-8.0 Glucose Urine NEG Negative Bilirubin Urine NEG Negative Ketones NEG Negative Blood Urine NEG Negative Protein Urine NEG Negative Urobilinogen .2 EU/dl 0.2-1.0 Nitrite NEG Negative Leukocytes NEG Negative CBC 11/16/2020 FPA/Inhouse WBC 6.5 10E3/uL 4.1 - 10.9 1 RBC 3.87 10E6/uL Low 4.20 - 6.30 HGB 12.5 g/dL 12.0 - 18.0 HCT 37.7 % 37.0 - 51.0 MCV 97.4 fL High 80.0 - 97.0 MCH 32.3 pg High 26.0 - 32.0 MCHC 33.2 g/dL 31.0 - 36.0 PLT 217 10E3/uL 140 - 440 RDW-CV 13.7 % 11.5 - 14.5 Lym% 18.0 % 10.0 - 58.5 Neut% 72.3 % 37.0 - 92.0 MXD% 9.7 % 0.1 - 24.0 Lym# 1.2 10E3/uL 0.6 - 4.1 Neut# 4.7 % 2.0 - 7.8 MXD# 0.6 10E3/uL 0.0 - 1.8 MPV 10.1 fL 9.0 - 13.0 CMP 11/16/2020 FPA/Inhouse Glu 109 mg/dL 70 - 110 BUN 27 mg/dL High 8 - 23 Creat 1.1 mg/dL 0.7 - 1.2 BUN/Creatinine Ratio 24.1 CALC Na 140 mmol/L 136 - 145 K 3.5 mmol/L 3.5 - 5.1 CL 100.2 mmol/L 98.0 - 107.0 Co2 23.9 mmol/L 22.0 - 29.0 CA 8.9 mg/dL 8.6 - 10.2 TP 6.2 g/dL Low 6.6 - 8.7 Alb 4.2 g/dL 3.5 - 5.2 A/G Ratio 2.0 CALC Globulin 2.1 CALC Alp 126.3 U/L 40 - 129 Alt (SGPT) 22 U/L 0 - 41 Ast (Sgot) 25 U/L 0 - 40 Tbili 0.51 mg/dL 0.0 - 1.2 Osmolality-Calculated 286.1 CALC Anion Gap 20 mmol/L eGFR 73 # Calc 2 eGFR Non-Afr. Gabonese 63 # Calc 3 Lipid Panel 11/16/2020 FPA/Inhouse Chol 115 mg/dL 0 - 200 Trig 39 mg/dL 35 - 200 HDL 57 mg/dL High 35 - 55 LDL_C 50 Calc Low 75 - 129 Cho/HDL Ratio 2.0 CALC Laboratory test finding 11/16/2020 FPA/Inhouse CK 271 U/L 39 - 308 U/A DIP FPA 08/02/2020 [facility] Asso ciates Color Urine YELLOW Yellow Appearance CLEAR Clear Specific [place] 1.025 1.00-1.03 PH Urine 7.0 5.0-8.0 Glucose Urine NEG Negative Bilirubin Urine NEG Negative Ketones NEG Negative Blood Urine NEG Negative Protein Urine NEG Negative Urobilinogen .2 EU/dl 0.2-1.0 Nitrite NEG Negative Leukocytes NEG Negative CBC 08/02/2020 FPA/Inhouse WBC 6.6 10E3/uL 4.1 - 10.9 RBC 3.84 10E6/uL Low 4.20 - 6.30 HGB 12.6 g/dL 12.0 - 18.0 HCT 37.8 % 37.0 - 51.0 MCV 98.4 fL High 80.0 - 97.0 MCH 32.8 pg High 26.0 - 32.0 MCHC 33.3 g/dL 31.0 - 36.0 PLT 292 10E3/uL 140 - 440 RDW-CV 13.1 % 11.5 - 14.5 Lym% 19.3 % 10.0 - 58.5 Neut% 73.1 % 37.0 - 92.0 MXD% 7.6 % 0.1 - 24.0 Lym# 1.3 10E3/uL 0.6 - 4.1 Neut# 4.8 % 2.0 - 7.8 MXD# 0.5 10E3/uL 0.0 - 1.8 MPV 9.6 fL 9.0 - 13.0 CMP 08/02/2020 FPA/Inhouse Glu 120 mg/dL High 70 - 110 BUN 29 mg/dL High 8 - 23 Creat 1.2 mg/dL 0.7 - 1.2 BUN/Creatinine Ratio 24.8 CALC Na 138 mmol/L 136 - 145 K 3.8 mmol/L 3.5 - 5.1 CL 101.1 mmol/L 98.0 - 107.0 Co2 25.3 mmol/L 22.0 - 29.0 CA 8.7 mg/dL 8.6 - 10.2 TP 6.3 g/dL Low 6.6 - 8.7 Alb 4.0 g/dL 3.5 - 5.2 A/G Ratio 1.7 CALC Globulin 2.3 CALC Alp 66.2 U/L 40 - 129 Alt (SGPT) 25 U/L 0 - 41 Ast (Sgot) 27 U/L 0 - 40 Tbili 0.38 mg/dL 0.0 - 1.2 Osmolality-Calculated 282.6 CALC Anion Gap 15 mmol/L eGFR 66 # Calc 4 eGFR Non-Afr. [place]e 57 # Calc 5 Lipid Panel 08/02/2020 FPA/Inhouse Chol 120 mg/dL 0 - 200 Trig 57 mg/dL 35 - 200 HDL 51 mg/dL 35 - 55 LDL_C 57 Calc Low 75 - 129 Cho/HDL Ratio 2.3 CALC Laboratory test finding 08/02/2020 FPA/Inhouse CK 290 U/L 39 - 308 1 NORMAL RANGES Age WBC RBC HGB HCT MCV PLT Adult M 4.1-10.9 4.20-6.30 12.0-18.0 37.0-51.0 80-97 140-440 Adult F 4.1-10.9 4.04-5.48 12.0-18.0 37.0-51.0 80-97 140-440 0 -1 Yr 5.0-20.0 3.9-5.9 15-18 MV: 44 MV: 91 MV: 277 2-9 Yr. 6.0-17.0 3.8-5.4 11-13 MV: 37 MV: 78 MV: 300 10 Yrs. 5.0-13.0 3.8-5.4 12-15 MV: 39 MV: 80 MV: 250 NOTE: * FOR ADULT BLACK MALES AND FEMALES, NORMAL WBC IS 2.9-7.7 K/ML * FOR ADULT BLACK MALES AND FEMALES, NORMAL RBC,HGB, AND HCT IS 5% LESS SOURCE FOR DATA: [employer] 1800 OPERATION MANUAL( AUTOMATED BLOOD COUNTS AND DIFF.) APPENDIX B-3 CHRONIC KIDNEY DISEASE STAGING PER NKF: MALE GFR INTERPRETATION: 20-49 YRS: >60 mL/min Normal 50-59 YRS: >56 mL/min Normal 60-69 YRS: >49 mL/min Normal 70-79 YRS: >42 mL/min Normal 80 and above >35 mL/min Normal FEMALE GRF INTERPRETATION: 20-39 YRS: >60 mL/min Normal 40-49 YRS: >58 mL/min Normal 50-59 YRS: >51 mL/min Normal 60-69 YRS: >45 mL/min Normal 70-79 YRS: >39 mL/min Normal 80 and above >32 mL/min NormalCLASSIFICATION CHOLESTEROL FOR ADULTS CHILDREN/ADOLESCENTS* DESIRABLE: <200 MG/DL <170 MG/DL BORDER-LINE HIGH RISK: 200-239 MG/DL 170-199 MG/DL HIGH RISK: >240 MG/DL >200 MG/DL CLASS. FOR PRIMARY LDL CHOL PREVENTION: LDL CHOL-CHILD/ADOLESCENTS* DESIRABLE: <130 MG/DL <110 MG/DL BORDERLINE-HIGH RISK: 130-159 MG/DL 110-129 MG/DL HIGH RISK: >160 MG/DL >130 MG/DL *CHILDREN AND ADOLESCENTS REPRESENTS INDIVIDUALA AGED 2-19 YEARS EXCLUSIVE. 2 CKD-EPI 3 CKD-EPI 4 CKD-EPI 5 CKD-EPI Procedures Date Code Description Status 08/10/2020 20268 Office/Outpatient Established Mo d MDM 30-39 Min Completed Medical Devices Description No Information Available Encounters Type Date Location Provider Dx Diagnosis Office Visit 08/10/2020 10:20a [place] Office Harika Burgess, [facility] I10 Essential (primary) hypertension E78.5 Hyperlipidemia, unspecified R73.01 Impaired fasting glucose J45.20 Mild intermittent asthma, un complicated R35.0 Frequency of micturition R39.15 Urgency of urination R97.20 Elevated prostate specific a ntigen [PSA] Assessments Date Code Description Provider 11/16/2020 R73.01 Impaired fasting glucose Kelvin Kimble D.O., [facility] 11/16/2020 R73.01 Impaired fasting glucose Laborat ory [place] Schedule 11/16/2020 I10 Essential (primary) hypertension Kelvin Kimble D.O., [facility] 11/16/2020 I10 Essential (primary) hypertension Laboratory [place] Schedule 11/16/2020 E78.5 Hyperlipidemia, unspecified Tutu Kimble D.O., [facility] 11/16/2020 E78.5 Hyperlipidemia, unspecified Labo ratory [place] Schedule 08/10/2020 I10 Essential (primary) hypertension Kelvin Kimble D.O., [facility] 08/10/2020 E78.5 Hyperlipidemia, unspecified Tutu skye Kimble D.O., [facility] 08/10/2020 R73.01 Impaired fasting glucose Kelvin Kimble D.O., [facility] 08/10/2020 J45.20 Mild intermittent asthma, uncomp licated Kelvin Kimble D.O., [facility] 08/10/2020 R35.0 Frequency of micturition Kelvin Kimble D.O., [facility] 08/10/2020 R39.15 Urgency of urination Kelvin Kimble D.O., [facility] 08/10/2020 R97.20 Elevated prostate specific antig en [PSA] Kelvin Kimble D.O., FAAFP 08/02/2020 I10 Essential (primary) hypertension Prashant Galvan M.D. 08/02/2020 I10 Essential (primary) hypertension Laboratory [place] Schedule 08/02/2020 E78.5 Hyperlipidemia, [facility] 08/02/2020 E78.5 Hyperlipidemia, unspecified Labo ratory [place] Schedule Plan of Treatment No Information Available Functional Status Description No Information Available Mental Status Description No Information Available Referrals Refer to Reason for Referral Status Appt Date Luis Alas MD lower urinary tract symptoms and elevated psa 4.2020 in 2012 1.61 Sent 10/04/2020 [facility] Urologist [address] [place] [id number] [phone]
--- OUTSIDE RECORDS SUMMARY | 2021-02-20 19:28 | CCD | Continuity of Care Document ---
Author Author Charlie KIMBLE D.O. Organization Unknown Address [address] [place] [address] Phone [phone] Problems Active Problems Provider Date Asthma without status asthmaticus Mauro Cordoba M.D. Onse t: 01/08/2002 Hyperlipidemia Onset: 01/08/2002 Allergic rhinitis Mauro Cordoba M.D. Onset: 01/08/2002 Osteoarthritis Onset: 01/08/2002 Benign prostatic hyperplasia without outflow obstruction Fra cecil Cordoba M.D. Onset: 05/19/2006 Benign essential hypertension Mauro Cordoba M.D. Onset: 0 01/12/2008 Impaired fasting glycemia Mauro Cordoba M.D. Onset: 11/14 Nutritional anemia Dex Lucas, [facility] Onset: 05/22/2009 Social History Type Date Description Comments Sex Unknown Tobacco Use Start: Unknown Former pipe smoker: smoked 3 pipes daily for 30 years, quit 03/28/07. ETOH Use Consumes 2 glasses of wine per d ay Tobacco Use Start: Unknown End: Unknown Patient is a former smoker pipe-quit 2006 Smoking Status Reviewed: 08/10/20 Patient is a former smoker pi pe-quit 2006 Allergies, Adverse Reactions, Alerts Active Allergies Reaction Severity Comments Date Penicillin 01/08/2002 Medications Active Medications SIG Qnty Indications Ordering Provide r Date Tamsulosin HCL 0.4mg Capsules Take One Capsule By Mouth Every Day 90caps Kelvin Kimble D.O. , FAAFP 08/10/2020 Ramipril 2.5mg Capsules take one capsule by mouth every day 90caps Kelvin Kimble D.O., FAAFP 01/27/2020 Chlorthalidone 25mg Tablets take one tablet by mouth every day 90tabs Harika BurgessO., FAAFP 10/12/2019 Shingrix 50mcg Suspension Rec recieved 1st inj 1 intramuscular today repeat in 2-6 months 1units Kelvin Kimble D.O., FAAFP Prevnar 13 Suspension as directed Done Kelvin Kimble D.O., FAAFP 02/06/2017 Proair HFA 108(90Base) mcg/Act Aer osol 1-2 puffs every 4-6 hours as needed for sob 8.500gm Kelvin Kimble D.O., FAAFP 01/09/2017 Atorvastatin Calcium 10mg Tablets take one tablet by mouth once daily mdd 1 90tabs Kelvin Kimble D.O., FAAFP 09/07/2015 Advair Diskus 250-50mcg/Dose Aeros ol inhale one puff by mouth twice a day 60units [facility] 05/06/2012 Myrbetriq 25mg Tablets ER 24HR 1 by mouth every day Unknown [employer] Covid-19 Vaccine 30mcg/0.3ML Suspension both Unknown Ocuvite [...] CPT Code Status Date Vaccine Lot # [id number] Given 01/27/2020 Influenza Virus Vaccine, Quadrivalent, Slit Virus, Im Use 3Y & Up [id number] 97688 Given 03/04/2019 Influenza Virus Vaccine, Quadrivalent, Slit Virus, Im Use 3Y & Up [id number] 60046 Given 02/06/2017 Influenza Virus Vaccine, Quadrivalent, Slit Virus, Im Use 3Y & Up [id number] 27428 Given 01/11/2016 Influenza Vaccin e (Fluzone) 3Yrs Of Age Or Older Medicare Plans [id number] 09562 Given 03/02/2015 Influenza Vaccin e (Fluzone) 3Yrs Of Age Or Older Medicare Plans [id number] 24891 Given 02/24/2014 Influenza Vaccin e (Fluzone) 3Yrs Of Age Or Older Medicare Plans [id number] 54092 Given 02/03/2013 Influenza Vaccin e (Fluzone) 3Yrs Of Age Or Older Medicare Plans 97966 Given 02/03/2013 Influenza Virus Vac. Split Virus Individuals 3 Years And Above [id number] 37553 Given 03/11/[address] [id number] 19549 Given 01/23/2012 Influenza Virus Vac. Split Virus Individuals 3 Years And Above [id number] 89624 Given 01/31/2011 Influenza Virus Vac. Split Virus Individuals 3 Years And Above [id number] 29047 Given 04/19/2010 Influenza Virus Vac. Split Virus Individuals 3 Years And Above [id number] 58280 Given 03/12/2006 Influenza Virus Vac. Split Virus Individuals 3 Years And Above Vital Signs Date Vital Result Comment 11/23/2020 1:08pm BP Systolic 140 mmHg BP Diastolic 70 mmHg Body Temperature 97.8 F Heart Rate 68 /min Respiratory Rate 16 /min Height 70 inches 5'10" Weight 181.00 lb [place] Body Weight 166 lb BMI (Body Mass Index) 26.0 kg/m2 O2 % BldC Oximetry 97 % 08/10/2020 10:27am BP Systolic 116 mmHg BP Diastolic 66 mmHg Body Temperature 98.1 F Heart Rate 78 /min Respiratory Rate 16 /min Height 70 inches 5'10" Weight 187.00 lb [place] Body Weight 166 lb BMI (Body Mass Index) 26.8 kg/m2 O2 % BldC Oximetry 97 % Results Test Acquired Date Facility Test Result H/L Range Note CBC W/Automated Diff 11/23/2020 [place] [address] [phone] CBC W/Automated Diff (SEE NOTE) 1 WBC 7.3 10^3/uL 4.2 - 11.0 RBC 4.09 10^6/uL Low 4.50 - 6.30 Hemoglobin 13.5 g/dL Low 14.0 - 16.0 Hematocrit 39.5 % Low 41.0 - 51.0 MCV 96.6 fL High 80.0 - 94.0 MCH 33.0 pg 27.0 - 34.0 MCHC 34.2 g/dL 31.0 - 36.0 RDW 13.1 % 11.5 - 14.8 Platelets 210 10^3/uL 150 - 450 MPV 10.1 fL 7.4 - 10.4 Neut 75.5 % 37.0 - 80.0 Lymph 13.7 % Low 25.0 - 40.0 Jack 7.9 % 3.0 - 8.0 Eos 1.8 % 0.0 - 7.0 Baso 0.7 % 0.0 - 2.0 %Ig 0.4 % High 0.0 - 0.0 %NRBC 0.0 % 0.0 - 0.0 #Neut 5.53 10^3/uL 2.00 - 6.90 #Lymph 1.00 10^3/uL 0.60 - 3.40 #Jack 0.58 10^3/uL 0.00 - 0.90 #Eos 0.13 10^3/uL 0.00 - 0.70 #Baso 0.05 10^3/uL 0.00 - 0.20 #Ig 0.03 10^3/uL 0.00 - 0.10 #NRBC 0.00 10^3/uL 0.00 - 0.00 Manual Diff NOT INDICATED RBC Morph NOT INDICATED Comprehensive Metabolic Panel 11/23/2020 [place] [address] [phone] Comprehensive Metabo (SEE NOTE) 2 Sodium 141 mEq/L 134 - 153 Potassium 3.7 mEq/L 3.6 - 5.0 Chloride 102 mEq/L 98 - 107 Co2 29 mEq/L 22 - 30 Glucose 85 mg/dL 70 - 99 BUN 19 mg/dL 7 - 21 Creatinine 1.0 mg/dL 0.7 - 1.5 BUN/Creat 19 8 - 27 Total Protein 7.1 g/dL 6.3 - 8.2 Albumin 4.3 g/dL 3.9 - 5.0 Globulin 2.8 GM/DL 2.4 - 3.2 A/G Ratio 1.5 0.8 - 2.0 Calcium 9.5 mg/dL 8.4 - 10.2 Total Bili <0.7 mg/dL 0.2 - 1.3 Alkaline Phos 146 U/L High 38 - 126 Sgot/Ast 26 U/L 5 - 40 SGPT/Alt 22 U/L 7 - 56 Anion Gap 10.0 mmol/L 8.0 - 16.0 Age 80 yrs Non-Aa GFR >60 mL/min Afr Amer GFR >60 mL/min 3 Laboratory test finding 11/23/2020 [place] [id number] [phone] Magnesium Serum 2.1 mg/dL 1.7 - 2.2 U/A DIP FPA 11/16/2020 [facility] Asso ciates Color Urine YELLOW Yellow Appearance CLEAR Clear Specific [place] 1.025 1.00-1.03 PH Urine 6.5 5.0-8.0 Glucose Urine NEG Negative Bilirubin Urine NEG Negative Ketones NEG Negative Blood Urine NEG Negative Protein Urine NEG Negative Urobilinogen .2 EU/dl 0.2-1.0 Nitrite NEG Negative Leukocytes NEG Negative CBC 11/16/2020 FPA/Inhouse WBC 6.5 10E3/uL 4.1 - 10.9 4 RBC 3.87 10E6/uL Low 4.20 - 6.30 [...] Gap 20 mmol/L eGFR 73 # Calc 5 eGFR Non-Afr. Ukrainian 63 # Calc 6 Lipid Panel 11/16/2020 FPA/Inhouse Chol 115 mg/dL 0 - 200 Trig 39 mg/dL 35 - 200 HDL 57 mg/dL High 35 - 55 LDL_C 50 Calc Low 75 - 129 Cho/HDL Ratio 2.0 CALC Laboratory test finding 11/16/2020 FPA/Inhouse CK 271 U/L 39 - 308 U/A DIP FPA 08/02/2020 [facility] Asso ciates Color Urine YELLOW Yellow Appearance CLEAR Clear Specific [place] 1.025 1.00-1.03 PH Urine 7.0 5.0-8.0 Glucose [...] Gap 15 mmol/L eGFR 66 # Calc 7 eGFR Non-Afr. Ukrainian 57 # Calc 8 Lipid Panel 08/02/2020 FPA/Inhouse Chol 120 mg/dL 0 - 200 Trig 57 mg/dL 35 - 200 HDL 51 mg/dL 35 - 55 LDL_C 57 Calc Low 75 - 129 Cho/HDL Ratio 2.3 CALC Laboratory test finding 08/02/2020 FPA/Inhouse CK 290 U/L 39 - 308 1 COMPLETE BLOOD COUNT 2 COMPREHENSIVE METABOLIC PANE L 3 Male GFR Interprentation 20-49 yrs >60 mL/min Normal 50-59 yrs >56 mL/min Normal 60-69 yrs >49 mL/min Normal 70-79yrs >42 mL/min Normal 80 and above >35 mL/min Normal Female GFR Interpretation 20-39 yrs >60 mL/min Normal 40-49 yrs >58 mL/min Normal 50-59 yrs >51 mL/min Normal 60-69 yrs >45 mL/min Normal 70-79 yrs >39 mL/min Normal 80 and above >32 mL/min Normal 4 NORMAL RANGES Age WBC RBC HGB HCT [...] HCT IS 5% LESS SOURCE FOR DATA: [email or web address] 1800 OPERATION MANUAL( AUTOMATED BLOOD COUNTS AND [...] ADOLESCENTS REPRESENTS INDIVIDUALA AGED 2-19 YEARS EXCLUSIVE. 5 CKD-EPI 6 CKD-EPI 7 CKD-EPI 8 CKD-EPI Procedures Date Code Description Status 11/23/2020 18211 Office/Outpatient Established Mo d MDM 30-39 Min Completed 08/10/2020 02810 Office/Outpatient Established Mo d MDM 30-39 Min Completed Medical Devices Description No Information Available Encounters Type Date Location Provider Dx Diagnosis Office Visit 11/23/2020 1:00p [place] [facility] Harika Burgess, FAAFP I10 Essential (primary) hypertension Office Visit 08/10/2020 10:20a [place] [facility] Harika Burgess, FAAFP I10 Essential (primary) hypertension E78.5 Hyperlipidemia, unspecified R73.01 Impaired fasting glucose J45.20 Mild intermittent asthma, un complicated R35.0 Frequency of micturition R39.15 Urgency of urination R97.20 Elevated prostate specific a ntigen [PSA] Assessments Date Code Description Provider 11/23/2020 I10 Essential (primary) hypertension Kelvin Kimble D.O., [facility] 11/16/2020 R73.01 Impaired fasting glucose Kelvin Kimble D.O., [facility] 11/16/2020 R73.01 Impaired fasting glucose Laborat ory [place] Schedule 11/16/2020 I10 Essential (primary) hypertension Kelvin Kimble D.O., [facility] 11/16/2020 I10 Essential (primary) hypertension Laboratory [place] Schedule 11/16/2020 E78.5 Hyperlipidemia, unspecified Tutu skye Kimble D.O., [facility] 11/16/2020 E78.5 Hyperlipidemia, unspecified Labo ratory [place] Schedule 08/10/2020 I10 Essential (primary) hypertension Kelvin Kimble D.O., [facility] 08/10/2020 E78.5 Hyperlipidemia, unspecified Tutu skye Kimble D.O., [facility] 08/10/2020 R73.01 Impaired fasting glucose Kelvin Kimble D.O., [facility] 08/10/2020 J45.20 Mild intermittent asthma, uncomp licated Kelvin Kimble D.O., [facility] 08/10/2020 R35.0 Frequency of micturition Kelvin Kimble D.O., [facility] 08/10/2020 R39.15 Urgency of urination Kelvin Kimble D.O., [facility] 08/10/2020 R97.20 Elevated prostate specific antig en [PSA] Kelvin Kimble D.O., [facility] 08/02/2020 I10 Essential (primary) hypertension Prashant Galvan M.D. 08/02/2020 I10 Essential (primary) hypertension Laboratory [place] Schedule 08/02/2020 E78.5 [facility] 08/02/2020 E78.5 Hyperlipidemia, unspecified Labo ratory [place] Schedule Plan of Treatment Future Appointment(s):* 02/22/2021 9:30 am - Laboratory [place] Schedule at [facility] * 03/01/2021 1:30 pm - Kelvin Kimble D.O., FAAFP at [facility] Functional Status Description No Information Available Mental Status Description No Information Available Referrals Refer to Reason for Referral Status Appt Date Luis Alas MD lower urinary tract symptoms and elevated psa 4.2020 in 2012 1.61 Sent 10/04/2020 [facility] Urologist [address] [place] [address] [phone]
--- OUTSIDE RECORDS SUMMARY | 2021-02-20 19:29 | CCD ---
Author Author [facility] Organization [facility] Address Unknown Phone Unavailable Care Team Providers Care Environmental Intern Name Role Phone Nakita Bedoya PA Unavailable Unavailable Nakita Bedoya Jacinda PA Unavailable Unavailable Nakita Bedoya Jacinda PA Unavailable Unavailable Nakita Bedoya Jacinda PA Unavailable Unavailable Nakita Bedoya Jacinda PA Unavailable Unavailable Nakita Bedoya Jacinda PA Unavailable Unavailable Nakita Bedoya Jacinda PA Unavailable Unavailable Luis E Handy MD Unavailable Unavailable Luis E Handy MD Unavailable Unavailable Luis E Handy MD Unavailable Unavailable Luis E Handy MD Unavailable Unavailable Luis E Handy MD Unavailable Unavailable Luis E Handy MD Unavailable Unavailable BartoszeRose man MS, RPA-C Unavailable Unav ailable Bartoszewski, Rose Ade MS, RPA-C Unavailable Unav ailable Bartoszewski, Rose Ade MS, RPA-C Unavailable Unav ailable Bartoszewski, Rose Ade MS, RPA-C Unavailable Unav ailable Bartoszewski, Rose Ade MS, RPA-C Unavailable Unav ailable Bartoszewski, Rose Ade MS, RPA-C Unavailable Unav ailable Bartoszewski, Rose Ade MS, RPA-C Unavailable Unav ailable Bartoszewski, Rose Ade MS, RPA-C Unavailable Unav ailable Bartoszewski, Rose Ade MS, RPA-C Unavailable Unav ailable Bartoszewski, Rose Ade MS, RPA-C Unavailable Unav ailable Bartoszewski, Rose Ade MS, RPA-C Unavailable Unav ailable Bartoszewski, Rose Ade MS, RPA-C Unavailable Unav ailable Bartoszewski, Rose Ade MS, RPA-C Unavailable Unav ailable Bartoszewski, Rose Ade MS, RPA-C Unavailable Unav ailable Bartoszewski, Rose Ade MS, RPA-C Unavailable Unav ailable Bartoszewski, Rose Ade MS, RPA-C Unavailable Unav ailable Bartoszewski, Rose Ade MS, RPA-C Unavailable Unav ailable Bartoszewski, Rose Ade MS, RPA-C Unavailable Unav ailable Bartoszewski, Rose Ade MS, RPA-C Unavailable Unav ailable Bartoszewski, Rose Ade MS, RPA-C Unavailable Unav ailable Bartoszewski, Rose Ade MS, RPA-C Unavailable Unav ailable Bartoszewski, Rose Ade MS, RPA-C Unavailable Unav ailable Bartoszewski, Rose Ade MS, RPA-C Unavailable Unav ailable Bartoszewski, Rose Ade MS, RPA-C Unavailable Unav ailable Bartoszewski, Rose Ade MS, RPA-C Unavailable Unav ailable Bartoszewski, Rose Ade MS, RPA-C Unavailable Unav ailable Bartoszewski, Rose Ade MS, RPA-C Unavailable Unav ailable Bartoszewski, Rose Ade MS, RPA-C Unavailable Unav ailable Bartoszewski, Rose Ade MS, RPA-C Unavailable Unav ailable Sina SMALLS MD Unavailable Unavailable Sina SMALLS MD Unavailable Unavailable Sina SMALLS MD Unavailable Unavailable Sina SMALLS MD Unavailable Unavailable OBSina KING MD Unavailable Unavailable OBFERNANDO T VENKATESH CELAYA Unavailable Unavailable OBSina KING MD Unavailable Unavailable OBFERNANDO T VENKATESH CELAYA Unavailable Unavailable OBEN, T VENKATESH MD Unavailable Unavailable OBEN, T VENKATESH MD Unavailable Unavailable OBEN, T VENKATESH MD Unavailable Unavailable OBEN, T VENKATESH MD Unavailable Unavailable OBEN, T VENKATESH MD Unavailable Unavailable OBEN, T VENKATESH MD Unavailable Unavailable OBEN, T VENKATESH MD Unavailable Unavailable OBEN, T VENKATESH MD Unavailable Unavailable OBEN, T VENKATESH MD Unavailable Unavailable OBEN, T VENKATESH MD Unavailable Unavailable OBEN, T VENKATESH MD Unavailable Unavailable OBEN, T VENKATESH MD Unavailable Unavailable OBEN, T VENKATESH MD Unavailable Unavailable OBEN, T VENKATESH MD Unavailable Unavailable OBEN, T VENKATESH MD Unavailable Unavailable OBEN, T VENKATESH MD Unavailable Unavailable OBEN, T VENKATESH MD Unavailable Unavailable OBEN, T VENKATESH MD Unavailable Unavailable OBEN, T VENKATESH MD Unavailable Unavailable OBEN, T VENKATESH MD Unavailable Unavailable OBEN, T VENKATESH MD Unavailable Unavailable OBEN, T VENKATESH MD Unavailable Unavailable OBEN, T VENKATESH MD Unavailable Unavailable OBEN, T VENKATESH MD Unavailable Unavailable OBEN, T VENKATESH MD Unavailable Unavailable OBEN, T VENKATESH MD Unavailable Unavailable OBEN, T VENKATESH MD Unavailable Unavailable OBEN, T VENKATESH MD Unavailable Unavailable OBEN, T VENKATESH MD Unavailable Unavailable OBEN, T VENKATESH MD Unavailable Unavailable OBEN, T VENKATESH MD Unavailable Unavailable OBEN, T VENKATESH MD Unavailable Unavailable OBEN, T VENKATESH MD Unavailable Unavailable OBEN, T VENKATESH MD Unavailable Unavailable OBEN, T VENKATESH MD Unavailable Unavailable OBEN, T VENKATESH MD Unavailable Unavailable OBEN, T VENKATESH MD Unavailable Unavailable OBEN, T VENKATESH MD Unavailable Unavailable OBEN, T VENKATESH MD Unavailable Unavailable OBEN, T VENKATESH MD Unavailable Unavailable OBEN, T VENKATESH MD Unavailable Unavailable OBEN, T VENKATESH MD Unavailable Unavailable OBEN, T VENKATESH MD Unavailable Unavailable OBEN, T VENKATESH MD Unavailable Unavailable OBEN, T VENKATESH MD Unavailable Unavailable OBEN, T VENKATESH MD Unavailable Unavailable OBEN, T VENKATESH MD Unavailable Unavailable OBEN, T VENKATESH MD Unavailable Unavailable OBEN, T VENKATESH MD Unavailable Unavailable Fish, J Kelvin Unavailable Unavailable Fish, J Kelvin Unavailable Unavailable Fish, J Kelvin Unavailable Unavailable Fish, J Kelvin Unavailable Unavailable Fish, J Kelvin Unavailable Unavailable Fish, J Kelvin Unavailable Unavailable Fish, J Kelvin Unavailable Unavailable Fish, J Kelvin Unavailable Unavailable Fish, J Kelvin Unavailable Unavailable Fish, J Kelvin Unavailable Unavailable Fish, J Kelvin Unavailable Unavailable Fish, J Kelvin Unavailable Unavailable Fish, J Kelvin Unavailable Unavailable Fish, J Kelvin Unavailable Unavailable Fish, J Kelvin Unavailable Unavailable Fish, J Kelvin Unavailable Unavailable Fish, J Kelvin Unavailable Unavailable Fish, J Kelvin Unavailable Unavailable Fish, J Kelvin Unavailable Unavailable Fish, J Kelvin Unavailable Unavailable Fish, J Kelvin Unavailable Unavailable Fish, J Kelvin Unavailable Unavailable Fish, J Kelvin Unavailable Unavailable Fish, J Kelvin Unavailable Unavailable Fish, J Kelvin Unavailable Unavailable Fish, J Kelvin Unavailable Unavailable Fish, J Kelvin Unavailable Unavailable Fish, J Kelvin Unavailable Unavailable Fish, J Kelvin Unavailable Unavailable Fish, J Kelvin Unavailable Unavailable Fish, J Kelvin Unavailable Unavailable Fish, J Kelvin Unavailable Unavailable Fish, J Kelvin Unavailable Unavailable Fish, J Kelvin Unavailable Unavailable Fish, J Kelvin Unavailable Unavailable Fish, J Kelvin Unavailable Unavailable Fish, J Kelvin Unavailable Unavailable Fish, J Kelvin Unavailable Unavailable Fish, J Kelvin Unavailable Unavailable Fish, J Kelvin Unavailable Unavailable Fish, J Kelvin Unavailable Unavailable Fish, J Kelvin Unavailable Unavailable Fish, J Kelvin Unavailable Unavailable Fish, J Kelvin Unavailable Unavailable Fish, J Kelvin Unavailable Unavailable Fish, J Kelvin Unavailable Unavailable Fish, J Kelvin Unavailable Unavailable Fish, J Kelvin Unavailable Unavailable Fish, J Kelvin Unavailable Unavailable Fish, J Kelvin Unavailable Unavailable Fish, J Kelvin Unavailable Unavailable Fish, J Kelvin Unavailable Unavailable Fish, J Kelvin Unavailable Unavailable Fish, J Kelvin Unavailable Unavailable Fish, J Kelvin Unavailable Unavailable Fish, J Kelvin Unavailable Unavailable Fish, J Kelvin Unavailable Unavailable Fish, J Kelvin Unavailable Unavailable Fish, J Kelvin Unavailable Unavailable Fish, J Kelvin Unavailable Unavailable Fish, J Kelvin Unavailable Unavailable Fish, J Kelvin Unavailable Unavailable Fish, J Kelvin Unavailable Unavailable Fish, J Kelvin Unavailable Unavailable Fish, J Kelvin Unavailable Unavailable Fish, J Kelvin Unavailable Unavailable Fish, J Kelvin Unavailable Unavailable Fish, J Kelvin Unavailable Unavailable Fish, J Kelvin Unavailable Unavailable Fish, J Kelvin Unavailable Unavailable Fish, J Kelvin Unavailable Unavailable Fish, J Kelvin Unavailable Unavailable Fish, J Kelvin Unavailable Unavailable Fish, J Kelvin Unavailable Unavailable Fish, J Kelvin Unavailable Unavailable Fish, J Kelvin Unavailable Unavailable Fish, J Kelvin Unavailable Unavailable Fish, J Kelvin Unavailable Unavailable Fish, J Kelvin Unavailable Unavailable Fish, J Kelvin Unavailable Unavailable Fish, J Kelvin Unavailable Unavailable Fish, J Kelvin Unavailable Unavailable Fish, J Kelvin Unavailable Unavailable Fish, J Kelvin Unavailable Unavailable OBEN, T VENKATESH MD Unavailable Unavailable OBEN, T VENKATESH MD Unavailable Unavailable OBEN, T VENKATESH MD Unavailable Unavailable OBEN, T VENKATESH MD Unavailable Unavailable OBEN, T VENKATESH MD Unavailable Unavailable OBEN, T VENKATESH MD Unavailable Unavailable OBEN, T VENKATESH MD Unavailable Unavailable OBEN, T VENKATESH MD Unavailable Unavailable OBEN, T VENKATESH MD Unavailable Unavailable OBEN, T VENKATESH MD Unavailable Unavailable OBEN, T VENKATESH MD Unavailable Unavailable OBEN, T VENKATESH MD Unavailable Unavailable OBEN, T VENKATESH MD Unavailable Unavailable OBEN, T VENKATESH MD Unavailable Unavailable OBEN, T VENKATESH MD Unavailable Unavailable OBEN, T VENKATESH MD Unavailable Unavailable OBEN, T VENKATESH MD Unavailable Unavailable OBEN, T VENKATESH MD Unavailable Unavailable OBEN, T VENKATESH MD Unavailable Unavailable OBEN, T VENKATESH MD Unavailable Unavailable OBEN, T VENKATESH MD Unavailable Unavailable OBEN, T VENKATESH MD Unavailable Unavailable OBEN, T VENKATESH MD Unavailable Unavailable OBEN, T VENKATESH MD Unavailable Unavailable OBEN, T VENKATESH MD Unavailable Unavailable OBEN, T VENKATESH MD Unavailable Unavailable OBEN, T VENKATESH MD Unavailable Unavailable OBEN, T VENKATESH MD Unavailable Unavailable OBEN, T VENKATESH MD Unavailable Unavailable OBEN, T VENKATESH MD Unavailable Unavailable OBEN, T VENKATESH MD Unavailable Unavailable OBEN, T VENKATESH MD Unavailable Unavailable OBEN, T VENKATESH MD Unavailable Unavailable OBEN, T VENKATESH MD Unavailable Unavailable OBEN, T VENKATESH MD Unavailable Unavailable OBEN, T VENKATESH MD Unavailable Unavailable OBEN, T VENKATESH MD Unavailable Unavailable OBEN, T VENKATESH MD Unavailable Unavailable OBEN, T VENKATESH MD Unavailable Unavailable OBEN, T VENKATESH MD Unavailable Unavailable OBEN, T VENKATESH MD Unavailable Unavailable OBEN, T VENKATESH MD Unavailable Unavailable OBEN, T VENKATESH MD Unavailable Unavailable OBEN, T VENKATESH MD Unavailable Unavailable OBEN, T VENKATESH MD Unavailable Unavailable OBEN, T VENKATESH MD Unavailable Unavailable OBEN, T VENKATESH MD Unavailable Unavailable OBEN, T VENKATESH MD Unavailable Unavailable OBEN, T VENKATESH MD Unavailable Unavailable OBEN, T VENKATESH MD Unavailable Unavailable OBEN, T VENKATESH MD Unavailable Unavailable OBEN, T VENKATESH MD Unavailable Unavailable OBEN, T VENKATESH MD Unavailable Unavailable OBEN, T VENKATESH MD Unavailable Unavailable OBEN, T VENKATESH MD Unavailable Unavailable OBEN, T VENKATESH MD Unavailable Unavailable OBEN, T VENKATESH MD Unavailable Unavailable Fish, J Kelvin Unavailable Unavailable Fish, J Kelvin Unavailable Unavailable Fish, J Kelvin Unavailable Unavailable Fish, J Kelvin Unavailable Unavailable Fish, J Kelvin Unavailable Unavailable Fish, J Kelvin Unavailable Unavailable Fish, J Kelvin Unavailable Unavailable Fish, J Kelvin Unavailable Unavailable Fish, J Kelvin Unavailable Unavailable Fish, J Kelvin Unavailable Unavailable Fish, J Kelvin Unavailable Unavailable Fish, J Kelvin Unavailable Unavailable Fish, J Kelvni Unavailable Unavailable Fish, J Kelvin Unavailable Unavailable Fish, J Kelvin Unavailable Unavailable Fish, J Kelvin Unavailable Unavailable Fish, J Kelvin Unavailable Unavailable Fish, J Kelvin Unavailable Unavailable Fish, J Kelvin Unavailable Unavailable Fish, J Kelvin Unavailable Unavailable Fish, J Kelvin Unavailable Unavailable Fish, J Kelvin Unavailable Unavailable Fish, J Kelvin Unavailable Unavailable Fish, J Kelvin Unavailable Unavailable Fish, J Kelvin Unavailable Unavailable Fish, J Kelvin Unavailable Unavailable Fish, J Kelvin Unavailable Unavailable Fish, J Kelvin Unavailable Unavailable Fish, J Kelvin Unavailable Unavailable Fish, J Kelvin Unavailable Unavailable Fish, J Kelvin Unavailable Unavailable Fish, J Kelvin Unavailable Unavailable Fish, J Kelvin Unavailable Unavailable Fish, J Kelvin Unavailable Unavailable Fish, J Kelvin Unavailable Unavailable Fish, J Kelvin Unavailable Unavailable Fish, J Kelvin Unavailable Unavailable Fish, J Kelvin Unavailable Unavailable Fish, J Kelvin Unavailable Unavailable Fish, J Kelvin Unavailable Unavailable Fish, J Kelvin Unavailable Unavailable Fish, J Kelvin Unavailable Unavailable Fish, J Kelvin Unavailable Unavailable Fish, J Kelvin Unavailable Unavailable Fish, J Kelvin Unavailable Unavailable Fish, J Kelvin Unavailable Unavailable Fish, J Kelvin Unavailable Unavailable Fish, J Kelvin Unavailable Unavailable Fish, J Kelvin Unavailable Unavailable Fish, J Kelvin Unavailable Unavailable Fish, J Kelvin Unavailable Unavailable Fish, J Kelvin Unavailable Unavailable Fish, J Kelvin Unavailable Unavailable Fish, J Kelvin Unavailable Unavailable Fish, J Kelvin Unavailable Unavailable Fish, J Kelvin Unavailable Unavailable Fish, J Kelvin Unavailable Unavailable Fish, J Kelvin Unavailable Unavailable Fish, J Kelvin Unavailable Unavailable Fish, J Kelvin Unavailable Unavailable Fish, J Kelvin Unavailable Unavailable Fish, J Kelvin Unavailable Unavailable Fish, J Kelvin Unavailable Unavailable Fish, J Kelvin Unavailable Unavailable Fish, J Kelvin Unavailable Unavailable Fish, J Kelvin Unavailable Unavailable Fish, J Kelvin Unavailable Unavailable Fish, J Kelvin Unavailable Unavailable Fish, J Kelvin Unavailable Unavailable Fish, J Kelvin Unavailable Unavailable Fish, J Kelvin Unavailable Unavailable Fish, J Kelvin Unavailable Unavailable Fish, J Kelvin Unavailable Unavailable Fish, J Kelvin Unavailable Unavailable Fish, J Kelvin Unavailable Unavailable Fish, J Kelvin Unavailable Unavailable Fish, J Kelvin Unavailable Unavailable Fish, J Kelvin Unavailable Unavailable Fish, J Kelvin Unavailable Unavailable Fish, J Kelvin Unavailable Unavailable Fish, J Kelvin Unavailable Unavailable Fish, J Kelvin Unavailable Unavailable Fish, J Kelvin Unavailable Unavailable Fish, J Kelvin Unavailable Unavailable Re-disclosure Warning The records that you are about to access may contain information from federally-assisted alcohol or drug abuse programs. If such information is present, then the following federally mandated warning applies: This information has been disclosed to you from records protected by federal confidentiality rules (42 CFR part 2). The federal rules prohibit you from making any further disclosure of this information unless further disclosure is expressly permitted by the written consent of the person to whom it pertains or as otherwise permitted by 42 CFR part 2. A general authorization for the release of medical or other information is NOT sufficient for this purpose. The Federal rules restrict any use of the information to criminally investigate or prosecute any alcohol or drug abuse patient.The records that you are about to access may contain highly sensitive health information, the redisclosure of which is protected by Article 27-F of the [place] State Public Health law. If you continue you may have access to information: Regarding HIV / AIDS; Provided by facilities licensed or operated by the [facility] Office of Mental Health; or Provided by the [facility] Office for People With Developmental Disabilities. If such information is present, then the following [facility] mandated warning applies: This information has been disclosed to you from confidential records which are protected by state law. State law prohibits you from making any further disclosure of this information without the specific written consent of the person to whom it pertains, or as otherwise permitted by law. Any unauthorized further disclosure in violation of state law may result in a fine or care home sentence or both. A general authorization for the release of medical or other information is NOT sufficient authorization for further disc losure. Family History Family Member Name Family Member Gender Family Member Status Date o f Status Description Data Source(s) Unknown Unknown Problem [facility] ([facility] Encounters Encounter Providers Location Date Indications Data Source(s ) Outpatient [id number] [place] [id number] 01/25/2021 12:00:00 AM EDT eCW1 ([facility]) Outpatient Attender: VENKATESH SMALLS MDConsultant: Kelvin Sutton 12/26/2020 02:26:00 PM EDT - 12/26/2020 02:26:00 PM EDT [facility] Office Visit Attender: Ade Abernathy MS, RPA-C Family [facility] 12/26/2020 01:45:00 PM EDT [facility] ([facility] Emergency Attender: Luis E Handy MDConsultant: Kelvin Sutton 11/23/2020 02:27:00 PM EDT - 11/23/2020 04:12:00 PM EDT [facility] Patient discharged. Outpatient Attender: Kelvin Sutton [place] [facility] 11/23/2020 01:00:0 0 PM EDT [facility] ([facility] Outpatient Attender: VENKATESH SMALLS MDConsultant: Kelvin Sutton 10/25/2020 09:42:00 AM EDT - 10/25/2020 09:42:00 AM EDT [facility] Out[facility] Attender: VENKATESH SMALLS MD Family [facility] 10/04/2020 02:00:0 0 PM EDT [facility] ([facility]) Outpatient Attender: VENKATESH SMALLS MDConsultant: Kelvin Sutton 10/04/2020 01:44:00 PM EDT - 10/04/2020 01:44:00 PM EDT [facility] Outpatient Attender: Kelvin Sutton [place] [facility] 08/10/2020 10:20:0 0 AM EDT [facility] ([facility] Outpatient Attender: Kelvin Sutton [place] [facility] 05/04/2020 09:00:0 0 AM EST [facility] ([facility] 03/07/2020 01:00:00 PM EST [facility] Outpatient Attender: Jacinda ERICKSON [facility] 02/29/2020 01:00:00 PM EST [facility] ([facility] Outpatient Attender: Kelvin Herman [place] [facility] 01/27/2020 01:00:0 0 PM EDT [facility] ([facility] Immunizations Vaccine Date Status Description Data Source(s) COVID-19 VACCINE [facility] 06/18/2020 12:00:00 AM EST completed [facility] Vaccine Series Complete: YESThis Data wa s Submitted to [facility] Via [email or web address]. COVID-19 VACCINE Pfizer 05/28/2020 12:00:00 AM EST completed [facility] Vaccine Series Complete: NOThis Data was Submitted to [facility] Via [email or web address]. New in 2012. IIV4 01/27/2020 01:05:00 PM EDT completed [facility] ([facility] Medications Medication Brand Name Start Date Product Form Dose Route Admi nistrative Instructions Pharmacy Instructions Status Indications Reaction Description Data Source(s) 2.5 mg 01/23/2021 12:00:00 AM EDT capsule 90 TAKE ONE CAPSULE BY MOUTH EVERY DAY TAKE ONE CAPSULE BY MOUTH EVERY DAY SOLD: 01/27/2021 [facility] 25 mg 01/23/2021 12:00:00 AM EDT tablet 90 TAKE ONE TABLET BY MOUTH EVERY DAY TAKE ONE TABLET BY MOUTH EVERY DAY SOLD: 01/27/2021 [facility] 240 mcg/0.7 mL 01/17/2021 12:00:00 AM EDT syringe 0 DIRECTED IN THE LEFT ARM DIRECTED IN THE LEFT ARM SOLD: 01/17/2021 [facility] 50 mg 12/27/2020 12:00:00 AM EDT tablet extended release 24 hr 90 TAKE ONE TABLET BY MOUTH ONCE DAILY TAKE ONE TABLET BY MOUTH ONCE DAILY SOLD: 01/08/2021 [facility] 24 HR mirabegron 50 MG Extended Release Oral Tablet [Myrbetr iq] Myrbetriq 12/26/2020 12:00:00 AM EDT ORAL active [facility] ([facility]) atorvastatin 10 MG Oral Tablet ATORVASTATIN CALCIUM 11/24/2020 1 2:00:00 AM EDT tablet 90 TAKE ONE TABLET BY MOUTH EVERY D AY TAKE ONE TABLET BY MOUTH EVERY DAY SOLD: 11/25/2020 [facility] 0.4 mg 11/24/2020 12:00:00 AM EDT capsule 90 TAKE ONE CAPSULE BY MOUTH EVERY DAY TAKE ONE CAPSULE BY MOUTH EVERY DAY SOLD: 11/25/2020 [facility] 25 mg 10/26/2020 12:00:00 AM EDT tablet 90 TAKE ONE TABLET BY MOUTH EVERY DAY TAKE ONE TABLET BY MOUTH EVERY DAY SOLD: 10/27/2020 [facility] 2.5 mg 10/26/2020 12:00:00 AM EDT capsule 90 TAKE ONE CAPSULE BY MOUTH EVERY DAY TAKE ONE CAPSULE BY MOUTH EVERY DAY SOLD: 10/27/2020 [facility] POLYETHYLENE GLYCOL 3350 142 MG/ML Oral Solution [Miralax] M iralax 10/26/2020 12:00:00 AM EDT active [facility] ([facility] ) Magnesium Hydroxide 80 MG/ML Oral Suspension Milk Of Magnesi a 10/26/2020 12:00:00 AM EDT ORAL active [facility] ([facility] ) 25 mg 10/25/2020 12:00:00 AM EDT tablet extended release 24 hr 30 TAKE ONE TABLET BY MOUTH EVERY DAY TAKE ONE TABLET BY MOUTH EVERY DAY SOLD: 12/21/2020 [facility] 25 mg 10/25/2020 12:00:00 AM EDT tablet extended release 24 hr 30 TAKE ONE TABLET BY MOUTH EVERY DAY TAKE ONE TABLET BY MOUTH EVERY DAY SOLD: 11/24/2020 [facility] 24 HR mirabegron 25 MG Extended Release Oral Tablet [Myrbetr iq] Myrbetriq 10/25/2020 12:00:00 AM EDT ORAL completed [facility] ([facility]) 25 mg 10/25/2020 12:00:00 AM EDT tablet extended release 24 hr 30 TAKE ONE TABLET BY MOUTH EVERY DAY TAKE ONE TABLET BY MOUTH EVERY DAY SOLD: 10/25/2020 [facility] 0.4 mg 08/10/2020 12:00:00 AM EDT capsule 90 TAKE ONE CAPSULE BY MOUTH EVERY DAY TAKE ONE CAPSULE BY MOUTH EVERY DAY SOLD: 08/12/2020 [facility] Tamsulosin hydrochloride 0.4 MG Oral Capsule Tamsulosin HCL 08/10/2020 12:00:00 AM EDT active [facility] ([facility] 25 mg 07/26/2020 12:00:00 AM EDT tablet 90 TAKE ONE TABLET BY MOUTH EVERY DAY TAKE ONE TABLET BY MOUTH EVERY DAY SOLD: 07/29/2020 [facility] 2.5 mg 07/26/2020 12:00:00 AM EDT capsule 90 TAKE ONE CAPSULE BY MOUTH EVERY DAY TAKE ONE CAPSULE BY MOUTH EVERY DAY SOLD: 07/29/2020 [facility] atorvastatin 10 MG Oral Tablet ATORVASTATIN CALCIUM 05/04/2020 1 2:00:00 AM EST tablet 90 TAKE ONE TABLET BY MOUTH EVERY D AY TAKE ONE TABLET BY MOUTH EVERY DAY SOLD: 05/06/2020 [facility] 60 ACTUAT Fluticasone propionate 0.25 MG /ACTUAT / salmeterol 0.05 MG/ACTUAT Dry Powder Inhaler [Advair] 250-50 mcg/dose FLUTICASONE PROPION/SALMETEROL 05/04/2020 12:00:00 AM EST blister with device 60 I NHALE ONE PUFF BY MOUTH TWICE A DAY INHALE ONE PUFF BY MOUTH TWICE A DAY SOLD: 11/17/2020 [facility] atorvastatin 10 MG Oral Tablet ATORVASTATIN CALCIUM 05/04/2020 1 2:00:00 AM EST tablet 90 TAKE ONE TABLET BY MOUTH EVERY D AY TAKE ONE TABLET BY MOUTH EVERY DAY SOLD: 08/19/2020 [facility] 60 ACTUAT Fluticasone propionate 0.25 MG /ACTUAT / salmeterol 0.05 MG/ACTUAT Dry Powder Inhaler [Advair] 250-50 mcg/dose FLUTICASONE PROPION/SALMETEROL 05/04/2020 12:00:00 AM EST blister with device 60 I NHALE ONE PUFF BY MOUTH TWICE A DAY INHALE ONE PUFF BY MOUTH TWICE A DAY SOLD: 09/25/2020 [facility] 250-50 mcg/dose 05/04/2020 12:00:00 AM EST blister with chandrakant ce 60 INHALE ONE PUFF BY MOUTH TWICE A DAY INHALE ONE PUFF BY MOUTH TWICE A DAY SOLD: 05/06/2020 [facility] 60 ACTUAT Fluticasone propionate 0.25 MG /ACTUAT / salmeterol 0.05 MG/ACTUAT Dry Powder Inhaler [Advair] 250-50 mcg/dose FLUTICASONE PROPION/SALMETEROL 05/04/2020 12:00:00 AM EST blister with device 60 I NHALE ONE PUFF BY MOUTH TWICE A DAY INHALE ONE PUFF BY MOUTH TWICE A DAY SOLD: 01/10/2021 [facility] 250-50 mcg/dose 05/04/2020 12:00:00 AM EST blister with chandrakant ce 60 INHALE ONE PUFF BY MOUTH TWICE A DAY INHALE ONE PUFF BY MOUTH TWICE A DAY SOLD: 07/16/2020 [facility] 2.5 mg 04/26/2020 12:00:00 AM EST capsule 90 TAKE ONE CAPSULE BY MOUTH EVERY DAY TAKE ONE CAPSULE BY MOUTH EVERY DAY SOLD: 04/28/2020 [facility] 25 mg 04/26/2020 12:00:00 AM EST tablet 90 TAKE ONE TABLET BY MOUTH EVERY DAY TAKE ONE TABLET BY MOUTH EVERY DAY SOLD: 04/28/2020 [facility] atorvastatin 10 MG Oral Tablet ATORVASTATIN CALCIUM 02/24/2020 1 2:00:00 AM EDT tablet 90 TAKE ONE TABLET BY MOUTH EVERY D AY TAKE ONE TABLET BY MOUTH EVERY DAY SOLD: 02/26/2020 [facility] 2.5 mg 01/28/2020 12:00:00 AM EDT capsule 90 TAKE ONE CAPSULE BY MOUTH EVERY DAY TAKE ONE CAPSULE BY MOUTH EVERY DAY SOLD: 01/28/2020 [facility] 25 mg 01/28/2020 12:00:00 AM EDT tablet 90 TAKE ONE TABLET BY MOUTH EVERY DAY TAKE ONE TABLET BY MOUTH EVERY DAY SOLD: 01/28/2020 [facility] Ramipril 2.5 MG Oral Capsule Ramipril 01/27/2020 12:00:00 AM EDT ORAL active [facility] ([facility] 250-50 mcg/dose 06/17/2019 12:00:00 AM EST blister with chandrakant ce 60 INHALE ONE PUFF BY MOUTH TWICE A DAY INHALE ONE PUFF BY MOUTH TWICE A DAY SOLD: 01/28/2020 [facility] 250-50 mcg/dose 06/17/2019 12:00:00 AM EST blister with chandrakant ce 60 INHALE ONE PUFF BY MOUTH TWICE A DAY INHALE ONE PUFF BY MOUTH TWICE A DAY SOLD: 04/05/2020 [facility] Insurance Providers Payer name Policy type / Coverage type Policy ID Covered republican ID Covered republican's relationship to villanueva Policy [place] Plan Information MEDICARE COMPLETE [id number] SP [id number] MEDICARE COMPLETE [id number] SP [id number] MEDICARE COMPLETE [id number] SP [id number] [facility] PPO [id number] SP [id number] DSI MET-TECH [id number] Medicare Ppo [id number] Self [id number] Medicare Ppo [employer] MEDICARE O/P [id number] 18 [id number] [employer] MEDICARE O/P [id number] 18 [id number] MEDICARE [id number] SP [id number] A DSI MET-TECH [id number] Self [id number] Medicare [place] Medicare Primary [id number] Self 0 [id number] [employer] Medigap Part B [id number] Family Dependent [id number] [facility] Medicare Commercial [id number] Self 9 [id number] Medicare [facility] Medicare Primary [id number] Self 0 [id number] Excell[employer] [facility] Medigap Part B [id number] Family Dependent [id number] Medicare [facility] Medicare Primary [id number] Self Excellus [facility] Medigap Part B [id number] Family Dependent [facility] Medicare Commercial [id number] Self [employer] O [id number] S [id number] [facility] O [id number] S [id number] [place] [id number] 18 [id number] [facility] [id number] 0 [id number] [facility]LY [facility] MEDICARE COMPLETE -[place] [id number] 18 [id number] [facility] -O/P [id number] 20 [id number] Problems, Conditions, and Diagnoses Code Display Name Description Problem Type Effective Dates Data Source(s) Y9289 Other specified places as the place of o ccurrence of the external cause Other specified places as the place of occurrence of the external cause Diagnosis 11/23/2020 02:27:00 PM EDT [facility] [id number] Fall on same level from slip ping, tripping and stumbling with subsequent striking against other object, initial encounter Fall on same level from slipping, tripping and stumbling with subsequent striking against other object, initial encounter Diagnosis 11/23/2020 02:27:00 PM EDT [facility] 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 [facility] (cu rrent) use of aspirin Diagnosis 11/23/2020 02:27:00 PM T [facility] 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, first degree Atrioventri cular block, first degree Diagnosis 11/23/2020 02:27:00 PM T [facility] R569 Unspecified convulsions Unspecified convulsions Diagno sis 11/23/2020 02:27:00 PM T [facility] [id number] Unspecified asthma, uncomplicated Unspecified as thma, uncomplicated Diagnosis 11/23/2020 02:27:00 PM EDT [facility] I10 Essential (primary) hypertension Essential (primary) h ypertension Diagnosis 11/23/2020 02:27:00 PM EDT [facility] [id number] Concussion with loss of cons ciousness of 30 minutes or less, initial encounter Concussion with loss of consciousness of 30 minutes or less, initial encounter Diagnosis 11/23/2020 02:27:00 PM EDT [facility] [id number] Unspecified injury of head, initial enco unter Unspecified injury of head, initial encounter Diagnosis 11/23/2020 02:27:00 PM EDT [facility] N503 Cyst of epididymis Cyst of epididymis Diagnosis 01:44:00 PM EDT [facility] R32 Unspecified urinary incontinence Unspecified urinary i ncontinence Diagnosis 10/04/2020 01:44:00 PM EDT [facility] R3915 Urgency of urination Urgency of urination Diagnosis 10/04/2020 01:44:00 PM EDT [facility] R350 Frequency of micturition Frequency of micturition Diag nosis 10/04/2020 01:44:00 PM EDT [facility] R9720 Elevated prostate specific antigen [PSA] Elevated prostate specific antigen [PSA] Diagnosis 10/04/2020 01:44:00 PM EDT [facility] N32.81 Overactive bladder Overactive bladder Problem 12:00:00 AM EDT [facility] ([facility]) [id number] Pure hypercholesterolemia Pure hypercholesterolemia Pr oblem 10/04/2020 12:00:00 AM EDT [facility] ([facility]) [id number] Essential hypertension Essential hypertension Problem 10/04/2020 12:00:00 AM EDT [facility] ([facility]) Surgeries/Procedures Procedure Description Date Indications Data Source(s) Colonoscopy W/ Poly 01/26/2021 12:00:00 AM EDT [facility] ([facility], ) PHYSICIAN TELEPHONE EVALUATION 5-10 MIN 12/26/2020 12: 00:00 AM EDT [facility] ([facility]) OFFICE OUTPATIENT VISIT 25 MINUTES 11/23/2020 12:00:00 AM EDT [facility] ([facility] Measurement Post Voiding Residual Urine By Ultrasound,Non-Im aging 10/25/2020 12:00:00 AM EDT [facility] ([facility]) OFFICE OUTPATIENT VISIT 15 MINUTES 10/25/2020 12:00:00 AM EDT [facility] ([facility]) OFFICE OUTPATIENT NEW 20 MINUTES 10/04/2020 12:00:00 A M EDT [facility] ([facility]) OFFICE OUTPATIENT VISIT 25 MINUTES 08/10/2020 12:00:00 AM EDT [facility] ([facility] Results ID Date Data Source [id number] 01/26/2021 01:13:00 PM EDT [facility] ([facility] ) Name Value Range Interpretation Code Description Data Denise rce(s) Supporting Document(s) Surgical pathology study Laboratory test result [facility] ([facility], ) FINAL DIAGNOSIS A - Sigmoid colon, polyps, polypectomy: Adenomatous polyp/tubular adenoma fragments. B - Rectal polyp, polypectomy: Hyperplastic polyp. 01/29/20211247 CLINICAL DIAGNOSIS Colon polyps 01/29/2021722 GROSS DIAGNOSIS A - Received in formalin labeled "sigmoid polyps" is a 0.8 x 0.6 x 0.4 cm. aggregate of mucosal fragments. All in one. B - Received in formalin labeled "rectal polyp" is a 0.5 x 0.3 x 0.3 cm. portion of mucosa. All in one. - 01/29/2021722 Signed Isabel [place] MD 01/29/2021 1405 ID Date Data Source [id number] 01/22/2021 10:40:00 AM EDT [facility] Name Value Range Interpretation Code Description Data Denise rce(s) Supporting Document(s) SARS-CoV-2 (COVID-19) RNA [Presence] in Respiratory specimen by ANAND with probe detection Not Detected [facility] This lab was ordered by [facility] and reported by [employer] ID Date Data Source [id number] 11/27/2020 09:46:00 AM EDT [facility] [address] [place] [address] PHONE: [phone] FAX: [phone] Name .................. : GABRIELLE Means Acct Number.................. : [id number] ROOM. ................. : TR-06 MR Number ................... : [id number] Stay type ............. : E/R Discharge Date......... ... : 11/23/20 Admit Date ......... : 11/23/20 Admit Phys .................... : AYLEEN Lentz Date of ....... : 1940 Family Phys ................... : HERMAN TIERNEY Phone .................. : [phone] Age ................................ : 80 Film# .................. .:[id number] Sex ................................. : M Unsigned transcriptions are preliminary reports and do not represent a medical or legal document CT HEAD W/O CONTRAST 55150 COMPLETE:11/23/20 16:01 [place] [address] Reason(s): Head Injury CT OF THE HEAD WITHOUT CONTRAST: CLINICAL HISTORY: Head injury and headache. FINDINGS: The basal cisterns and ventricles are within normal limits. No space occupying lesions or any intracranial bleeds. No signs of any intracranial bleeds or any other significant findings identified. There is no evidence for any fractures to the skull. No signs of any acute abnormalities noted. IMPRESSION: No acute abnormalities noted. While performing the above CT examination, radiation dose reduction was accomplished utilizing automated exposure control, adjusting of the mA and kV based on the patient's body size and/or the use of imperative reconstructive techniques. CT dose: 894.4 mGycm Electronically Reviewed and Signed By CALLY HOLT MD , 11/27/20 09:46, [facility] Transcribe Initials: DZ , Transcribe Date: 11/23/20 23:16, Dictation Date: Copy for: HERMAN WONG via fax Copy for: EMERGENCY DEPT via [facility] Copy for: [facility] DISCHARGED Page 1 of 1 Name Value Range Interpretation Code Description Data Denise rce(s) Supporting Document(s) ID Date Data Source [id number] 11/24/2020 03:41:00 [place] [address] RESPIRATORY CARE REPORT ==== ---------NAME------- NUMBER SEX AGE ADMIT DISC. XRAY# F/C KAMERON Means [id number] M 80 11/23/20 11/23/20 [id number] HEATHER E/R DATE OF : 1940 M/R# [id number] PH#: [phone] TR-06 LOCATION: EMERGENCY DEPT EKG 11290 COMP LETE:11/24/20 07:59 [facility] [address] PHYSICIAN: AYLEEN Lentz Name Value Range Interpretation Code Description Data Denise rce(s) Supporting Document(s) ID Date Data Source [id number] 11/23/2020 02:27:00 PM EDT [facility] 1 OrderSheet [facility] Emergency Department [address] [place] [address] Phone #: ext- [phone] 11/23/2020 14:18 Patient: MORRIS ANTHONY Sex: M : 1940 Age: 80yWEIGHT:82.1 kg (S) HEIGHT:69 inches (S) BMI:26.7ALLERGIES: PenicillinsCHIEF COMPLAINT: headDIAGNOSIS: ConcussionLAB ORDERSOrder Description Priority Entered Acknowledged InitialedCMP STAT 14:54 11/23/2020 14:57 Luis E Olmedo ; Scarlett RNCBC w Diff STAT 14:54 11/23/2020 14:57 Luis E Olmedo ; Scarlett RNMagnesium STAT 14:54 11/23/2020 14:57 Luis E Olmedo ; Scarlett RNDIAGNOSTIC STUDY ORDERSOrder Description Priority Entered Acknowledged InitialedCT Head W/O Cont STAT 14:54 11/23/2020 14:57 José(Oxygen?(No)) Luis E Handy ; Scarlett RENTERIA Reason for Study: Head Injury, HeadacheMEDICATION/IV/DRIP/FLUID ORDERSOrder Description Priority Entered Acknowledged InitialedGENERAL ORDERSOrder Description Priority Entered Acknowledged InitialedEKG 14:54 11/23/2020 15:09 Luis E Olmedo ; Scarlett RN[Electronically signed by Luis E Handy (18:11 11/23/2020)][Electronically signed by José Pantoja RN (18:48 11/23/2020)][Electronically locked by José Pantoja RN (18:48 11/23/2020)] Name Value Range Interpretation Code Description Data Denise rce(s) Supporting Document(s) ID Date Data Source [id number] 11/23/2020 02:27:00 PM EDT [facility] 1 Medication Reconciliation Report [facility] Emergency Department [address] [place] [address] Phone #: ext- [phone] 11/23/2020 14:18 Patient: MORRIS ANTHONY Sex: M : 1940 Age: 80yWeight: 82.1 kgHeight/Length: 69 in.BMI: 26.7ALLERGIES: PenicillinsThe patient's Home Medications are listed below:CONTINUE TAKING THE FOLLOWING MEDICATIONS: Advair Diskus Inhalation Aspir-Low Oral (81 mg) 1 tablet, daily, on friday, friday, friday Flaxseed (Linseed) Oral Lobectr ic Multivitamin Prevavision Ramipril Oral Vitamin B Complex OralThe source(s) of the original Home Medication information:Not obtained.The following Medications were given to the patient in the Emergency Department:None.The following Medications were prescribed to the patient:None. Name Value Range Interpretation Code Description Data [facility](s) Supporting Document(s) ID Date Data Source [id number] 11/23/2020 02:27:00 PM EDT [place] [address] Medication Administration Record [facility] Emergency Department [address] [place] [address] Phone #: ext- [phone] 11/23/2020 14:18 Patient: MORRIS ANTHONY Sex: M : 1940 Age: 80yWeight: 82.1 kgHeight/Length: 69 inBMI: 26.7ALLERGIES: PenicillinsDate/Time Medication Administered Medication Ordered Name Value Range Interpretation Code Description Data [facility](s) Supporting Document(s) ID Date Data Source [id number] 11/23/2020 02:27:00 PM EDT [facility] 1 General Instructions [facility] Emergency Department [address] [place] [address] Phone #: ext- [phone] 11/23/2020 14:18 Patient: MORRIS ANTHONY Sex: M : 1940 Age: 80yConcussion. Loss of consciousness for less than one minute. Seizure.INSTRUCTIONSWarnings: HEAD INJURY PRECAUTIONS: An observer must check on the patient frequently for the next24 hours to confirm that the patient responds as expected, is not confused, has no new weakness ornumbness, and has no other problems.GENERAL WARNINGS: Return or contact your physician immediately if your condition worsens orchanges unexpectedly, if not improving as expected, or if other problems arise.Your Current Medications: Your current home medications have been reviewed.CONTINUE TAKING THE FOLLOWING MEDICATIONS:Advair Diskus Inhalation.Aspir-Low Oral : Tablet Delayed Release 81 mg, 1 tablet daily, on , friday, friday.Flaxseed (Linseed) Oral.Lobectric*.Multivitamin*.Prevavision*.Ramipril Oral.Vitamin B Complex Oral.Understanding of the discharge instructions verbalized by patient.Follow-up with: Kelvin Sutton, , , [address] [place], [address] Follow up in three days if not well. Call for an appointment. Reason for referral: evaluation. ADDITIONAL INFORMATIONHead Injury with Sleep Monitoring (Adult) 2 General Instructions [facility] Emergency Department [address] [place] [address] Phone #: ext- [phone] 11/23/2020 14:18 Patient: MORRIS ANTHONY Sex: M : 1940 Age: 80yYou have a head injury. It does not appear serious at this time. But symptoms of a more seriousproblem, such as mild brain injury (concussion), or bruising or bleeding in the brain, may appear later.For this reason, you and someone caring for you will need to watch for the symptoms listedbelow. Once at home, also be sure to follow any care instructions you're given.Home careWatch for the following symptomsSomeone must stay with you for the next 24 hours (or longer, if directed). If you fall asleep, thisperson should wake you up every 2 hours, or as directed, to check your symptoms. This is calledsleep monitoring. Symptoms to watch for include: Headache Nausea or vomiting Dizziness Sensitivity to light or noise Unusual sleepiness or grogginess Trouble falling asleep Personality changes Vision changes Memory loss 3 General Instructions [facility] Emergency Department [address] [place] [address] Phone #: ext- [phone] 11/23/2020 14:18 Patient: MORRIS ANTHONY Sex: M : 1940 Age: 80y Confusion Trouble walking or clumsiness Loss of consciousness (even for a short time) Inability to be awakened Stiff neck Weakness or numbness in any part of the body Seizures Bruising behind the ears or around the eyesIf you develop any of these symptoms, seek emergency medical care right away. If none ofthese symptoms are noted during the first 24 hours, keep watching for symptoms for the next day orso. Ask your provider if someone should stay with you during this time.General care If you were prescribed medicines for pain, use them as directed. Don't use other pain medicines without checking with your provider first. To help reduce swelling and pain, apply a cold source to the injured area for up to 20 minutes at a time. Do this as often as directed. Use a cold pack or bag of ice wrapped in a thin towel. Never apply a cold source directly to the skin. If you have cuts or scrapes as a result of your injury, care for them as directed. For the next 24 hours (or longer, if instructed): o Don't drink alcohol or use sedatives or other medicines that make you sleepy. o Don't drive or operate machinery. o Don't do anything strenuous, such as heavy lifting or straining. o Limit tasks that require concentration. This includes reading, using a smartphone or computer, watching TV, and playing video games. o Don't return to sports or other activity that could result in another head injury.Follow-up careFollow up with your healthcare provider, or as directed. If imaging tests were done, they will bereviewed by a doctor. You will be told the results and any new findings that may affect your care. 4 General Instructions [facility] Emergency Department [address] [place] [address] Phone #: ext- [phone] 11/23/2020 14:18 Patient: MORRIS ANTHONY Sex: M : 1940 Age: 80yWhen to seek medical adviceCall your healthcare provider right away if any of these occur: Pain doesn't get better or worsens New or increased swelling or bruising Fever of 100.4F (38C) or higher, or as directed by your provider Redness, warmth, bleeding, or drainage from the injured area Any depression or bony abnormality in the injured area Fluid drainage or bleeding from the nose or ears Bruising behind the ears or around the eyes Lethargy or excessive sleepiness [phone] [employer]. [address] [place] [address], [place] [address]. All rights reserved. This information is not intended as asubstitute for professional medical care. Always follow your healthcare professional's instructions. You have been given the following additional information: Head Injury with Sleep Monitoring (Adult)(Electronically signed by Luis E Handy 11/23/2020 18:11) Name Value Range Interpretation Code Description Data Denise rce(s) Supporting Document(s) ID Date Data Source [id number] 11/23/2020 02:27:00 PM EDT [facility] 1 Clinical Report - Nurses [facility] Emergency Department [address] [place] [address] Phone #: ext- [phone] 11/23/2020 14:18 Patient: MORRIS ANTHONY Sex: M : 1940 Age: 80yTRIAGEArrived by private vehicle. Historian: patient. ( 3 weeks ago pt fell at work striking back of head on benchor floor loosing consciousness for 1 minute, past week pt has had 3 episodes of body tensing with armsdrawn in with pt not aware of what is happening , episodes only last a few seconds. last episode [id number]).Triage time: 14:24 11/23/2020. Acuity: LEVEL 3.Chief Complaint: (? seizures).14:25 11/23/20.Onset. (1 weeks ago). No fever, weakness, cough, difficulty breathing or skin rash. 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 SEPSIS SCREEN NEGATIVE. No suspected or confirmedsigns of infection present. (14:43 11/23/2020). --14:44 11/23/20 José Pantoja RN14:25 11/23/20. BP: 153/89. MAP: 110. HR: 59. RR: 21. O2 saturation: 97% on room air. Temp: 96.6 F(oral). Pain level now: 0/10. --14:44 11/23/20 José Pantoja RN.Weight: 82.1 kg stated. Height/Length: 69 inches Per Patient. BMI: 26.7. --14:33 11/23/20 José Pantoja RN.MedicationsAdvair Diskus Inhalation. --14:45 11/23/20 José Pantoja RN Ramipril Oral. --14:45 11/23/20 José Pantoja RN Lobectric. --14:46 11/23/20 José Pantoja RN Prevavision. --14:46 11/23/20 José Pantoja RN Multivitamin. --14:47 11/23/20 José Pantoja RN Flaxseed (Linseed) Oral. --14:47 11/23/20 José Pantoja RN Aspir-Low Oral (Tablet Delayed Release 81 mg) 1 tablet, daily (on friday, friday, friday). --14:4711/23/20 José Pantoja RN Vitamin B Complex Oral. --14:48 11/23/20 José Pantoja RN.AllergiesPenicillins. --14:48 11/23/20 José Pantoja RN.PROBLEMS: 2 Clinical Report - Nurses [facility] Emergency Department [address] [place] [address] Phone #: ext- [phone] 11/23/2020 14:18 [id number] Sex: M : 1940 Age: 80y Hy pertension. Hypercholesterolemia. Asthma. --14:48 11/23/20 José Pantoja RN. ADDITIONAL SURGERIES: Circumcision. --14:48 11/23/20 José Pantoja RN. History 14:25 11/23/20. PAST MEDICAL HX: Hypertension. SOCIAL HX: Never smoker. Alcohol use; consumes two wine daily. No drug use. He was offered HIV testing but declined and hepatitis C testing but declined. He has not traveled outside the [place] Infectious disease exposure: No infectious disease exposure. SELF HARM ASSESSMENT: Self harm assessment was performed. The patient answered "no" to the question(s) "Have you recently felt down, depressed, or hopeless?", "Do you have thoughts of harming or killing yourself?", "Do you have a plan for harming or killing yourself?", "Have you recently had thoughts about harming or killing others?", "Do you have any dangerous items in your possession?", "Have you noticed less interest or pleasure in doing things?", "Are you here because you tried to hurt yourself?" and "Have you ever tried to hurt yourself before today?". ABUSE ASSESSMENT: Abuse history: reports abuse. (no). Abuse assessment. No suspicion of abuse. NUTRITIONAL RISK ASSESSMENT: The nutritional risk assessment revealed no deficiencies. FUNCTIONAL ASSESSMENT: Functional assessment: no impairments noted. LEARNING NEEDS ASSESSMENT: The learning needs assessment revealed no barriers. FALL RISK ASSESSMENT: Fall risk assessment completed. No risk factors identified. SKIN INTEGRITY ASSESSMENT: Skin integrity risk assessment completed. No skin integrity risk identified. --14:44 11/23/20 José Pantoja RN. Interventions 14:25 11/23/20. Identification band on patient. To room. --14:44 11/23/20 José Pantoja RN Allergy band on patient. --14:45 11/23/20 José Pantoja RN.PHYSICAL [id number]:44 11/23/20. Ambulatory to room.GENERAL / NEURO / PSYCH: Alert. Oriented X 4.HEENT: No facial asymmetry noted. Mucous membranes are pink. 3 Clinical Report - Nurses [facility] Emergency Department [address] [place] [address] Phone #: ext- [phone] 11/23/2020 14:18 Patient: MORRIS ANTHONY Sex: M : 1940 Age: 80y RESPIRATORY: Respirations not labored. Chest nontender. Breath sounds within normal limits. CVS: Capillary refill less than 2 seconds. Pulses within normal limits. GI / : Abdomen soft and nontender and normal bowel sounds. SKIN: Skin is warm and dry. --14:44 11/23/20 José Pantoja RN.NURSING PROGRESS NOTES14:45 11/23/20. Head of bed elevated 75 degrees. Two patient identifiers checked. Call light placed inreach. Bed placed in lowest position. Brakes of bed on. Patient ready for evaluation- ED physiciannotified. --14:45 11/23/20 José Pantoja RN 15:02 11/23/20. BP: 160/84. --15:02 11/23/20 [facility] Tech1 EKG time: (15:03 11/23/2020). EKG was performed by a nurse and shown to the ED physician. 1 degree av block. Checked patient name and birthdate. Blood samples drawn by tech. (1500). --15:10 11/23/20 José Pantoja RN Patient transported to CT by wheelchair with mask and proof technician. (1505). --15:10 11/23/20 José Pantoja RN Patient returned from CT by wheelchair with mask and proof technician. (1515). --15:16 11/23/20 José Pantoja RN 15:58 11/23/20. BP: 133/86. HR: 75. RR: 16. O2 saturation: 94%. --15:58 11/23/20 [facility].DISPOSITION / DISCHARGE 15:58 11/23/20. BP: 133/86. MAP: 101. HR: 75. RR: 16. O2 saturation: 94% on room air. Temp: 97.1 F (oral). Pain level now: 0/10. --16:09 11/23/20 José Pantoja RN 16:12 11/23/20. Departure time: 16:12 11/23/2020. Condition at departure: unchanged. No learning barriers present. Discharge instructions provided and reviewed with the patient and spouse. Reviewed medication(s) (no changes). Reviewed referrals. Provided to follow-up provider. Patient and spouse verbalized understanding. Written instructions provided in Nicaraguan. The patient was discharged by the physician. He was discharged home and accompanied by spouse. He left ambulatory and via private vehicle. Spouse driving. --16:17 11/23/20 José Pantoja RN.Locked/Released at 11/23/2020 18:48 by José Pantoja RN 4 Clinical Report - Nurses [facility] Emergency Department [address] [place] [address] Phone #: ext- [phone] 11/23/2020 14:18 Patient: MORRIS VALDOVINOS Sex: M : 1940 Age: 80y Name Value Range Interpretation Code Description Data Denise rce(s) Supporting Document(s) ID Date Data Source [id number] 11/23/2020 02:27:00 PM EDT [facility] 1 Clinical Report - Physicians/Mid Levels [facility] Emergency Department [address] [place] [address] Phone #: ext- [phone] 11/23/2020 14:18 Patient: MORRIS ANTHONY Sex: M : 1940 Age: 80y Time Seen: 14:53 11/23/2020. Arrived- By private vehicle. Historian- patient.HISTORY OF PRESENT ILLNESS Chief Complaint: INJURY TO HEAD. Location of injuries- head. The injury occurred 3 weeks ago. Occurred at work. ( He believes he tripped at work walking around a bench, and hit ground.). Fell: The patient complains of mild pain. The patient sustained a blow to the head. He had seizure activity. (Pressure to front of head for 3 weeks, better at end of day. reported observing two brief(seconds) seizure activity last week and yesterday.).REVIEW OF SYSTEMSNo numbness, hearing loss, nausea, chest pain or depression. No weakness, loss of vision, vomiting,difficulty breathing or fever. No fatigue, urinary incontinence, back pain, joint pain or neck pain. Nodizziness, headache, numbness, diabetic symptoms or easy bruising. The patient sustained skinlaceration and had seizure activity. Has not recently been ill. He sustained a single small skin lacerationto the scalp. No difficulty walking. All other systems reviewed and are negative.PAST HISTORYSee nurses notes. Hypertension. Tetanus immunization status is up-to-date. Problems: Hypertension. Hypercholesterolemia. Asthma. Additional Surgeries: Circumcision. Medications: Vitamin B Complex Oral. Aspir-Low Oral (Tablet Delayed Release 81 mg) 1 tablet, daily (on friday, friday, friday). Flaxseed (Linseed) Oral. Multivitamin. Prevavision. Lobectric. Ramipril Oral. Advair Diskus Inhalation. 2 Clinical Report - Physicians/Mid Levels [facility] Emergency Department [address] [place] [address] Phone #: ext- [phone] 11/23/2020 14:18 Patient: MORRIS ANTHONY Sex: M : 1940 Age: 80y Allergies: Penicillins.SOCIAL HISTORYNever smoker. Alcohol use. No recent travel.ADDITIONAL NOTESThe nursing notes have been reviewed.PHYSICAL EXAMVital Signs: 11/23/2020 14:25 BP: 153/89. MAP: 110. HR: 59. RR: 21. O2 saturation: 97% on room air.Temp: 96.6 F. Pain level now: 0/10.Appearance: Alert. No acute distress.Head: Head non-tender. No swelling of head. Left parietal area: mild swelling.Eyes: Pupils equal, round and reactive to light. EOM intact.ENT: No de ntal injury. Pharynx normal.Neck: Neck non-tender. Painless ROM.CVS: Heart sounds normal. Pulses normal.Respiratory: Chest nontender.Abdomen: Soft and nontender.Back: No tenderness.Skin: Skin intact. Skin warm.Extremities: Normal inspection. Pelvis stable. Extremities atraumatic.Neuro: Oriented X 3. Mood/affect normal. Speech normal. No motor deficit. Normal gait. No sensorydeficit. Reflexes normal.LABS, X-RAYS, AND EKGEKG: EKG time: 15:03 11/23/2020. No acute ischemia. Rate: 69. Normal P waves. First- degreeatrioventricular block. Normal QRS complex. Normal ST and T waves and QT. The study has beeninterpreted contemporaneously by me. Interpretation time: 15:07 11/23/2020.Laboratory Tests: CMP: (MAURO: 11/23/2020 15:03) ( MsgRcvd 11/23/2020 15:28) Final results Test Result Flag Units (Reference) COMPREHENSIVE METABOLIC PANEL COMPREHENSIVE METABOLIC PANEL SODIUM 141 mEq/L (134 - 153) POTASSIUM 3.7 mEq/L (3.6 - 5.0) CHLORIDE 102 mEq/L (98 - 107) CO2 29 MEQ/L (22 - 30) GLUCOSE 85 MG/DL (70 - 99) BUN 19 MG/DL (7 - 21) CREATININE 1.0 MG/DL (0.7 - 1.5) BUN/CREAT 19 (8 - 27) TOTAL PROTEIN 7.1 G/DL (6.3 - 8.2) ALBUMIN 4.3 G/DL (3.9 - 5.0) GLOBULIN 2.8 GM/DL (2.4 - 3.2) A/G RATIO 1.5 (0.8 - 2.0) 3 Clinical Report - Physicians/Mid Levels [facility] Emergency Department [address] [place] [address] Phone #: [phone]- [phone] 11/23/2020 14:18 Patient: MORRIS ANTHONY Sex: M : 1940 Age: 80y CALCIUM 9.5 MG/DL (8.4 - 10.2) TOTAL BILI <0.7 MG/DL (0.2 - 1.3) ALKALINE PHOS 146 H U/L (38 - 126) SGOT/AST 26 U/L (5 - 40) SGPT/ALT 22 U/L (7 - 56) ANION GAP 10.0 mmol/L (8.0 - 16.0) AGE 80 yrs NON-AA GFR >60 mL/min AFR AMER GFR > 60 mL/min Male GFR Interprentation 20-49 yrs >60 mL/min [id number] yrs >56 mL/min Normal 60-69 yrs >49 mL/min Normal 70-79yrs>42 mL/min Normal 80 and above >35 mL/min Normal Female GFRInterpretation 20-39 yrs >60 mL/min Normal 40-49 yrs >58 mL/minNormal 50-59 yrs >51 mL/min Normal 60-69 yrs >45 mL/min [id number] yrs >39 mL/min Normal 80 and above >32 mL/min NormalCBC w Diff: (MAURO: 11/23/2020 15:03) ( MsgRcvd 11/23/2020 15:13) Final results Test Result Flag Units (Reference) CBC W/AUTOMATED DIFF COMPLETE BLOOD COUNT WBC 7.3 10/uL (4.2 - 11.0) RBC 4.09 L 10/uL (4.50 - 6.30) HEMOGLOBIN 13.5 L g/dL (14.0 - 16.0) HEMATOCRIT 39.5 L % (41.0 - 51.0) MCV 96.6 H fL (80.0 - 94.0) MCH 33.0 pg (27.0 - 34.0) MCHC 34.2 g/dL (31.0 - 36.0) RDW 13.1 % (11.5 - 14.8) PLATELETS 210 10/uL (150 - 450) MPV 10.1 fL (7.4 - 10.4) NEUT 75.5 % (37.0 - 80.0) LYMPH 13.7 L % (25.0 - 40.0) MONO 7.9 % (3.0 - 8.0) EOS 1.8 % (0.0 - 7.0) BASO 0.7 % (0.0 - 2.0) %IG 0.4 H % (0.0 - 0.0) %NRBC 0.0 % (0.0 - 0.0) #NEUT 5.53 10/uL (2.00 - 6.90) #LYMPH 1.00 10/uL (0.60 - 3.40) #MONO 0.58 10/uL (0.00 - 0.90) #EOS 0.13 10/uL (0.00 - 0.70) #BASO 0.05 10/uL (0.00 - 0.20) #IG 0.03 10/uL (0.00 - 0.10) #NRBC 0.00 10/uL (0.00 - 0.00) MANUAL DIFF NOT INDICATED RBC MORPH NOT INDICATEDMagnesium: (MAURO: 11/23/2020 15:03) ( [facility] 11/23/2020 15:28) Final results Test Result Flag Units (Reference) MAGNESIUM 2.1 MG/DL (1.7 - 2.2)CT Head W/O Cont: (MAURO: 11/23/2020 14:54) ( [facility] 11/23/2020 16:01) In ProgressCT HEAD W/O CONTRASTReason(s): Head InjuryTRANSPORTATION: S IV? O2? Oxygen?(No) Room: ED 4 Clinical Report - Physicians/Mid Levels [facility] Emergency Department [address] [place] [address] Phone #: ext- [phone] 11/23/2020 14:18 [id number] Sex[facility] M : 1940 Age: 80y.PROGRESS AND PROCEDURESCourse of Care: 15:08 11/23/20. Seizure disorder vs vasovagal syncope. CT done to rule out subduralhematoma. No evidence of any skull fracture. No focal neurologic findings. 15:53 11/23/20. CT head unremarkable. Patient has no complaints at this time. Patient and made aware of possibility of seizure. Disposition: Discharged. Condition: stable.CLINICAL IMPRESSION Concussion. Loss of consciousness for less than one minute. Seizure.INSTRUCTIONS Warnings: HEAD INJURY PRECAUTIONS: An observer must check on the patient frequently for the next 24 hours to confirm that the patient responds as expected, is not confused, has no new weakness or numbness, and has no other problems. GENERAL WARNINGS: Return or contact your physician immediately if your condition worsens or changes unexpectedly, if not improving as expected, or if other problems arise. Your Current Medications: Your current home medications have been reviewed. CONTINUE TAKING THE FOLLOWING MEDICATIONS: Advair Diskus Inhalation. Aspir-Low Oral : Tablet Delayed Release 81 mg, 1 tablet daily, on friday, friday, friday. Flaxseed (Linseed) Oral. Lobectric*. Multivitamin*. Prevavision*. Ramipril Oral. Vitamin B Complex Oral. Understanding of the discharge instructions verbalized by patient. Follow-up with: Kelvin Sutton, , , [address] [place] [address], [facility] Follow up in three days if not well. Call for an appointment. Reason for referral: evaluation. 5 Clinical Report - Physicians/[facility] Emergency Department [address] [place] [address] Phone #: ext- [phone] 11/23/2020 14:18 Patient: MORRIS ANTHONY Sex: M : 1940 Age: 80y(Electronically signed by Luis E Handy 11/23/2020 18:11) Name Value Range Interpretation Code Description Data Denise rce(s) Supporting Document(s) ID Date Data Source [id number] 11/23/2020 03:03:00 PM EDT [facility] ([facility] Name Value Range Interpretation Code Description Data Denise rce(s) Supporting Document(s) Magnesium [Mass/volume] in Serum or Plasma 2.1 mg/dL 1.7-2.2 [facility] ([facility] ID Date Data Source [id number] 11/23/2020 03:03:00 PM EDT [facility] ([facility] Name Value Range Interpretation Code Description Data Denise rce(s) Supporting Document(s) Comprehensive [employer] Laboratory test result [facility] ([facility] COMPREHENSIVE METABOLIC PANEL Sodium 141 meq/L 134-153 [facility] ([facility] Chloride 102 meq/L 98-107 [facility] ([facility] Potassium 3.7 meq/L 3.6-5.0 [facility] ([facility] Co2 29 meq/L 22-30 [facility] ([facility] Glucose 85 mg/dL 70-99 [facility] ([facility] BUN 19 mg/dL 7-21 [facility] ([facility] Creatinine 1.0 mg/dL 0.7-1.5 [facility] ([facility] BUN/Creat 19 8-27 [facility] ([facility] Total Protein 7.1 g/dL 6.3-8.2 [facility] ([facility] Globulin 2.8 GM/DL 2.4-3.2 [facility] ([facility] Albumin 4.3 g/dL 3.9-5.0 [facility] ([facility] A/G Ratio 1.5 0.8-2.0 [facility] ([facility] Calcium 9.5 mg/dL 8.4-10.2 [facility] ([facility] Total Bili Laboratory test result 0.2-1.3 ME DENT ([facility] Alkaline Phos 146 U/L 38-126 Above high normal MEDE NT ([facility] Sgot/Ast 26 U/L 5-40 [facility] ([facility] SGPT/Alt 22 U/L 7-56 [facility] ([facility] Anion Gap 10.0 mmol/L 8.0-16.0 [facility] ([facility] Age 80 yrs [facility] ([facility] Non-Aa GFR Laboratory test result ME DENT ([facility] Afr Amer GFR Laboratory test result [facility] ([facility] Male GFR Interprentation 20-49 yrs >60 mL/min Normal 50-59 yrs >56 mL/min Normal 60-69 yrs >49 mL/min Normal 70-79yrs >42 mL/min Normal 80 and above >35 mL/min Normal Female GFR Interpretation 20-39 yrs >60 mL/min Normal 40-49 yrs >58 mL/min Normal 50-59 yrs >51 mL/min Normal 60-69 yrs >45 mL/min Normal 70-79 yrs >39 mL/min Normal 80 and above >32 mL/min Normal ID Date Data Source [id number] 11/23/2020 03:03:00 PM EDT [facility] ([facility] Name Value Range Interpretation Code Description Data Denise rce(s) Supporting Document(s) WBC 7.3 10^3/uL 4.2-11.0 [facility] ([facility] CBC W/Automated Diff Laboratory test result [facility] ([facility] COMPLETE BLOOD COUNT Hemoglobin 13.5 g/dL 14.0-16.0 Below low normal [facility] ( [facility] RBC 4.09 10^6/uL 4.50-6.30 Below low normal [facility] ([facility] Hematocrit 39.5 % 41.0-51.0 Below low normal [facility] ( [facility] MCV 96.6 fL 80.0-94.0 Above high normal [facility] ([facility] MCH 33.0 pg 27.0-34.0 [facility] ([facility] RDW 13.1 % 11.5-14.8 [facility] ([facility] MCHC 34.2 g/dL 31.0-36.0 [facility] ([facility] Platelets 210 10^3/uL 150-450 [facility] MPV 10.1 fL 7.4-10.4 [facility] ([facility] Lymph 13.7 % 25.0-40.0 Below low normal [facility] ( [facility] Neut 75.5 % 37.0-80.0 [facility] ([facility] Thayer 7.9 % 3.0-8.0 [facility] ([facility] Eos 1.8 % 0.0-7.0 [facility] ([facility] Baso 0.7 % 0.0-2.0 [facility] ([facility] %Ig 0.4 % 0.0-0.0 Above high normal [facility] %NRBC 0.0 % 0.0-0.0 [facility] ([facility] #Neut 5.53 10^3/uL 2.00-6.90 [facility] ([facility] #Lymph 1.00 10^3/uL 0.60-3.40 [facility] ([facility] #Eos 0.13 10^3/uL 0.00-0.70 [facility] ([facility] #Thayer 0.58 10^3/uL 0.00-0.90 [facility] ([facility] #Baso 0.05 10^3/uL 0.00-0.20 [facility] ([facility] #Ig 0.03 10^3/uL 0.00-0.10 [facility] ([facility] #NRBC 0.00 10^3/uL 0.00-0.00 [facility] ([facility] Manual Diff Laboratory test result M IVAN ([facility] RBC Morph Laboratory test result NOE ([facility] ID Date Data Source [id number] 11/23/2020 03:28:00 PM EDT [facility] Name Value Range Interpretation Code Description Data Denise rce(s) Supporting Document(s) Magnesium [Mass/volume] in Serum or Plasma 2.1 MG/DL 1.7 - 2.2 [facility] ID Date Data Source [id number] 11/23/2020 03:28:00 PM EDT [facility] Name Value Range Interpretation Code Description Data Denise rce(s) Supporting Document(s) COMPREHENSIVE METABOLIC PANEL [facility] COMPREHENSIVE METABOLIC PANEL Sodium [Moles/volume] in Serum or Plasma 141 mEq/L 134 - 153 [facility] Potassium [Moles/volume] in Serum or Plasma 3.7 mEq/L 3.6 - 5.0 [facility] Chloride [Moles/volume] in Serum or Plasma 102 mEq/L 98 - 107 [facility] Carbon dioxide, total [Moles/volume] in Serum or Plasma 29 MEQ/L 22 - 30 [facility] Glucose [Mass/volume] in Serum or Plasma 85 MG/DL 70 - 99 [facility] BUN 19 MG/DL 7 - 21 [facility] Creatinine [Mass/volume] in Serum or Plasma 1.0 MG/DL 0.7 - 1.5 [facility] BUN/CREAT 19 8 - 27 [facility] Protein [Mass/volume] in Serum or Plasma 7.1 G/DL 6.3 - 8.2 [facility] Albumin [Mass/volume] in Serum or Plasma 4.3 G/DL 3.9 - 5.0 [facility] Globulin [Mass/volume] in Serum by calculation 2.8 GM/DL 2.4 - 3.2 [facility] A/G RATIO 1.5 0.8 - 2.0 [facility] Calcium [Mass/volume] in Serum or Plasma 9.5 MG/DL 8.4 - 10.2 [facility] Bilirubin.total [Mass/volume] in Serum or Plasma <0.7 MG/DL 0.2 - 1.3 [facility] Alkaline phosphatase [Enzymatic activity/volume] in Serum or Plasma 146 U/L 38 - 126 H [facility] Aspartate aminotransferase [Enzymatic activity/volume] in Serum or Plasma 26 U/L 5 - 40 [facility] Alanine aminotransferase [Enzymatic activity/volume] in Seru m or Plasma 22 U/L 7 - 56 [facility] Anion gap 3 in Serum or Plasma 10.0 mmol/L 8.0 - 16.0 [facility] AGE 80 yrs [facility] NON-AA GFR >60 mL/min [facility] AFR AMER GFR >60 mL/min [facility] Male GFR In terprentation 20-49 yrs >60 mL/min Normal 50-59 yrs >56 mL/min Normal 60-69 yrs >49 mL/min Normal 70-79yrs >42 mL/min Normal 80 and above >35 mL/min Normal Female GFR Interpretation 20-39 yrs >60 mL/min Normal 40-49 yrs >58 mL/min Normal 50-59 yrs >51 mL/min Normal 60-69 yrs >45 mL/min Normal 70-79 yrs >39 mL/min Normal 80 and above >32 mL/min Normal ID Date Data Source [id number] 11/23/2020 03:13:00 PM EDT [facility] Name Value Range Interpretation Code Description Data Denise rce(s) Supporting Document(s) CBC W/AUTOMATED DIFF [facility] COMPLETE BLOOD COUNT Leukocytes [#/volume] in Blood by Automated count 7.3 10^3/uL 4.2 - 1 1.0 [facility] Erythrocytes [#/volume] in Blood by Automated count 4.09 10^6/uL 4. 50 - 6.30 L [facility] Hemoglobin [Mass/volume] in Blood 13.5 g/dL 14.0 - 16.0 L [facility] Hematocrit [Volume Fraction] of Blood by Automated count 39.5 % 4 1.0 - 51.0 L [facility] Erythrocyte mean corpuscular volume [Entitic volume] by Auto mated count 96.6 fL 80.0 - 94.0 H [facility] Erythrocyte mean corpuscular hemoglobin [Entitic mass] by Automated count 33.0 pg 27.0 - 34.0 [facility] Erythrocyte mean corpuscular hemoglobin concentration [Mass/volume] by Automated count 34.2 g/dL 31.0 - 36.0 [facility] Erythrocyte distribution width [Ratio] by Automated count 13.1 % 11.5 - 14.8 [facility] Platelets [#/volume] in Blood by Automated count 210 10^3/uL 150 - 45 0 [facility] Platelet mean volume [Entitic volume] in Blood by Automated count 10.1 fL 7.4 - 10.4 [facility] Neutrophils/100 leukocytes in Blood by Automated count 75.5 % 37. 0 - 80.0 [facility] Lymphocytes/100 leukocytes in Blood by Manual count 13.7 % 25.0 - 40.0 L [facility] Monocytes/100 leukocytes in Blood by Automated count 7.9 % 3.0 - 8.0 [facility] Eosinophils/100 leukocytes in Blood by Automated count 1.8 % 0.0 - 7.0 [facility] Basophils/100 leukocytes in Blood by Automated count 0.7 % 0.0 - 2.0 [facility] %IG 0.4 % 0.0 - 0.0 [facility] 0.0 % 0.0 - 0.0 [facility] al Neutrophils [#/volume] in Blood by Automated count 5.53 10^3/uL 2.00 - 6.90 [facility] Lymphocytes [#/volume] in Blood by Automated count 1.00 10^3/uL 0.60 - 3.40 [facility] Monocytes [#/volume] in Blood by Automated count 0.58 10^3/uL 0.00 - 0.90 [facility] Eosinophils [#/volume] in Blood by Automated count 0.13 10^3/uL 0.00 - 0.70 [facility] Basophils [#/volume] in Blood by Automated count 0.05 10^3/uL 0.00 - 0.20 [facility] #IG 0.03 10^3/uL 0.00 - 0.10 [facility] ospital #NRBC 0.00 10^3/uL 0.00 - 0.00 [facility] MANUAL DIFF NOT INDICATED [facility] RBC MORPH NOT INDICATED [facility] ID Date Data Source [id number] 11/16/2020 09:04:00 AM EDT [facility] ([facility] Name Value Range Interpretation Code Description Data Denise rce(s) Supporting Document(s) Appearance of Urine Laboratory test result [facility] ([facility] Color Urine Laboratory test result M EDENT ([facility] Specific [place] 1.025 1.00-1.03 [facility] ([facility] PH Urine 6.5 5.0-8.0 [facility] ([facility] Glucose Urine Laboratory test result [facility] ([facility] Bilirubin.total [Presence] in Urine by Test strip Laboratory test res ult [facility] ([facility] Blood Urine Laboratory test result M [facility] ([facility] Ketones Laboratory test result [facility] ([facility] Urobilinogen 0.2 EU/dl 0.2-1.0 [facility] ([facility] Protein Urine Laboratory test result [facility] ([facility] Leukocytes Laboratory test result ME DENT ([facility] Nitrite Laboratory test result [facility] ([facility] ID Date Data Source [id number] 11/16/2020 09:03:00 AM EDT [facility] ([facility] Name Value Range Interpretation Code Description Data Denise rce(s) Supporting Document(s) Creatine kinase [Enzymatic activity/volume] in Serum or Plasma 271 U/L 39-308 [facility] ([facility] NORMAL RANGES Age WBC RBC HGB HCT [...] HCT IS 5% LESS SOURCE FOR DATA: Magine 1800 OPERATION MANUAL( AUTOMATED BLOOD COUNTS AND [...] ADOLESCENTS REPRESENTS INDIVIDUALA AGED 2-19 YEARS EXCLUSIVE. ID Date Data Source [id number] 11/16/2020 09:03:00 AM EDT [facility] ([facility] Name Value Range Interpretation Code Description Data Denise rce(s) Supporting Document(s) Trig 39 mg/dL 35-200 [facility] ([facility] NORMAL RANGES Age WBC RBC HGB HCT [...] HCT IS 5% LESS SOURCE FOR DATA: BASIL DYN 1800 OPERATION MANUAL( AUTOMATED BLOOD COUNTS [...] ADOLESCENTS REPRESENTS INDIVIDUALA AGED 2-19 YEARS EXCLUSIVE. Chol 115 mg/dL 0-200 [facility] ([facility] NORMAL RANGES Age WBC RBC HGB HCT [...] HCT IS 5% LESS SOURCE FOR DATA: Magine 1800 OPERATION MANUAL( AUTOMATED BLOOD COUNTS AND [...] ADOLESCENTS REPRESENTS INDIVIDUALA AGED 2-19 YEARS EXCLUSIVE. Cholesterol in HDL [Mass/volume] in Serum or Plasma 57 mg/dL 35-55 Above high normal [facility] ([facility] NORMAL RANGES Age WBC RBC HGB HCT [...] HCT IS 5% LESS SOURCE FOR DATA: Magine 1800 OPERATION MANUAL( AUTOMATED BLOOD COUNTS AND [...] DESIRABLE: <130 MG/DL <110 MG/DL BORDERLINE-HIGH RISK: 130- 159 MG/DL 110-129 MG/DL HIGH RISK: >160 MG/DL >130 MG/DL *CHILDREN AND ADOLESCENTS REPRESENTS INDIVIDUALA AGED 2-19 YEARS EXCLUSIVE. LDL_C 50 Calc 75-129 Below low normal [facility] ( [facility] NORMAL RANGES Age WBC RBC HGB HCT [...] HCT IS 5% LESS SOURCE FOR DATA: Semmle DYN 1800 OPERATION MANUAL( AUTOMATED BLOOD COUNTS [...] DESIRABLE: <130 MG/DL <110 MG/DL BORDERLINE-HIGH RISK: 130- 159 MG/DL 110-129 MG/DL HIGH RISK: >160 MG/DL >130 MG/DL *CHILDREN AND ADOLESCENTS REPRESENTS INDIVIDUALA AGED 2-19 YEARS EXCLUSIVE. Cho/HDL Ratio 2.0 CALC [facility] ([facility] NORMAL RANGES Age WBC RBC HGB HCT [...] HCT IS 5% LESS SOURCE FOR DATA: Magine 1800 OPERATION MANUAL( AUTOMATED BLOOD COUNTS AND [...] DESIRABLE: <130 MG/DL <110 MG/DL BORDERLINE-HIGH RISK: 130- 159 MG/DL 110-129 MG/DL HIGH RISK: >160 MG/DL >130 MG/DL *CHILDREN AND ADOLESCENTS REPRESENTS INDIVIDUALA AGED 2-19 YEARS EXCLUSIVE. ID Date Data Source [id number] 11/16/2020 09:03:00 AM CYNTHIA CLAROS ([facility] Name Value Range Interpretation Code Description Data Denise rce(s) Supporting Document(s) Glu 109 mg/dL 70-110 HYACINTH ([facility] NORMAL RANGES Age WBC RBC HGB HCT [...] HCT IS 5% LESS SOURCE FOR DATA: Magine 1800 OPERATION MANUAL( AUTOMATED BLOOD COUNTS AND [...] DESIRABLE: <130 MG/DL <110 MG/DL BORDERLINE-HIGH RISK: 130- 159 MG/DL 110-129 MG/DL HIGH RISK: >160 MG/DL >130 MG/DL *CHILDREN AND ADOLESCENTS REPRESENTS INDIVIDUALA AGED 2-19 YEARS EXCLUSIVE. BUN 27 mg/dL 8-23 Above high normal [facility] ([facility] NORMAL RANGES Age WBC RBC HGB HCT [...] HCT IS 5% LESS SOURCE FOR DATA: Semmle DYN 1800 OPERATION MANUAL( AUTOMATED BLOOD COUNTS [...] DESIRABLE: <130 MG/DL <110 MG/DL BORDERLINE-HIGH RISK: 130- 159 MG/DL 110-129 MG/DL HIGH RISK: >160 MG/DL >130 MG/DL *CHILDREN AND ADOLESCENTS REPRESENTS INDIVIDUALA AGED 2-19 YEARS EXCLUSIVE. BUN/Creatinine Ratio 24.1 CALC [facility] ([facility] NORMAL RANGES Age WBC RBC HGB HCT [...] HCT IS 5% LESS SOURCE FOR DATA: Magine 1800 OPERATION MANUAL( AUTOMATED BLOOD COUNTS AND [...] DESIRABLE: <130 MG/DL <110 MG/DL BORDERLINE-HIGH RISK: 130- 159 MG/DL 110-129 MG/DL HIGH RISK: >160 MG/DL >130 MG/DL *CHILDREN AND ADOLESCENTS REPRESENTS INDIVIDUALA AGED 2-19 YEARS EXCLUSIVE. Creat 1.1 mg/dL 0.7-1.2 [facility] ([facility] NORMAL RANGES Age WBC RBC HGB HCT [...] HCT IS 5% LESS SOURCE FOR DATA: Magine 1800 OPERATION MANUAL( AUTOMATED BLOOD COUNTS AND [...] DESIRABLE: <130 MG/DL <110 MG/DL BORDERLINE-HIGH RISK: 130- 159 MG/DL 110-129 MG/DL HIGH RISK: >160 MG/DL >130 MG/DL *CHILDREN AND ADOLESCENTS REPRESENTS INDIVIDUALA AGED 2-19 YEARS EXCLUSIVE. Na 140 mmol/L 136-145 [facility] ([facility] NORMAL RANGES Age WBC RBC HGB HCT [...] HCT IS 5% LESS SOURCE FOR DATA: Magine 1800 OPERATION MANUAL( AUTOMATED BLOOD COUNTS AND [...] DESIRABLE: <130 MG/DL <110 MG/DL BORDERLINE-HIGH RISK: 130- 159 MG/DL 110-129 MG/DL HIGH RISK: >160 MG/DL >130 MG/DL *CHILDREN AND ADOLESCENTS REPRESENTS INDIVIDUALA AGED 2-19 YEARS EXCLUSIVE. K 3.5 mmol/L 3.5-5.1 [facility] ([facility] NORMAL RANGES Age WBC RBC HGB HCT [...] HCT IS 5% LESS SOURCE FOR DATA: Magine 1800 OPERATION MANUAL( AUTOMATED BLOOD COUNTS AND [...] DESIRABLE: <130 MG/DL <110 MG/DL BORDERLINE-HIGH RISK: 130- 159 MG/DL 110-129 MG/DL HIGH RISK: >160 MG/DL >130 MG/DL *CHILDREN AND ADOLESCENTS REPRESENTS INDIVIDUALA AGED 2-19 YEARS EXCLUSIVE. CL 100.2 mmol/L 98.0-107.0 [facility] ([facility] NORMAL RANGES Age WBC RBC HGB HCT [...] HCT IS 5% LESS SOURCE FOR DATA: Magine 1800 OPERATION MANUAL( AUTOMATED BLOOD COUNTS AND [...] DESIRABLE: <130 MG/DL <110 MG/DL BORDERLINE-HIGH RISK: 130- 159 MG/DL 110-129 MG/DL HIGH RISK: >160 MG/DL >130 MG/DL *CHILDREN AND ADOLESCENTS REPRESENTS INDIVIDUALA AGED 2-19 YEARS EXCLUSIVE. CA 8.9 mg/dL 8.6-10.2 [facility] ([facility] NORMAL RANGES Age WBC RBC HGB HCT [...] HCT IS 5% LESS SOURCE FOR DATA: Magine 1800 OPERATION MANUAL( AUTOMATED BLOOD COUNTS AND [...] DESIRABLE: <130 MG/DL <110 MG/DL BORDERLINE-HIGH RISK: 130- 159 MG/DL 110-129 MG/DL HIGH RISK: >160 MG/DL >130 MG/DL *CHILDREN AND ADOLESCENTS REPRESENTS INDIVIDUALA AGED 2-19 YEARS EXCLUSIVE. Co2 23.9 mmol/L 22.0-29.0 [facility] ([facility] NORMAL RANGES Age WBC RBC HGB HCT [...] HCT IS 5% LESS SOURCE FOR DATA: Magine 1800 OPERATION MANUAL( AUTOMATED BLOOD COUNTS AND [...] DESIRABLE: <130 MG/DL <110 MG/DL BORDERLINE-HIGH RISK: 130- 159 MG/DL 110-129 MG/DL HIGH RISK: >160 MG/DL >130 MG/DL *CHILDREN AND ADOLESCENTS REPRESENTS INDIVIDUALA AGED 2-19 YEARS EXCLUSIVE. TP 6.2 g/dL 6.6-8.7 Below low normal [facility] ( [facility] NORMAL RANGES Age WBC RBC HGB HCT [...] HCT IS 5% LESS SOURCE FOR DATA: BASIL DYN 1800 OPERATION MANUAL( AUTOMATED BLOOD COUNTS [...] DESIRABLE: <130 MG/DL <110 MG/DL BORDERLINE-HIGH RISK: 130- 159 MG/DL 110-129 MG/DL HIGH RISK: >160 MG/DL >130 MG/DL *CHILDREN AND ADOLESCENTS REPRESENTS INDIVIDUALA AGED 2-19 YEARS EXCLUSIVE. Alb 4.2 g/dL 3.5-5.2 [facility] ([facility] NORMAL RANGES Age WBC RBC HGB HCT [...] HCT IS 5% LESS SOURCE FOR DATA: Magine 1800 OPERATION MANUAL( AUTOMATED BLOOD COUNTS AND [...] DESIRABLE: <130 MG/DL <110 MG/DL BORDERLINE-HIGH RISK: 130- 159 MG/DL 110-129 MG/DL HIGH RISK: >160 MG/DL >130 MG/DL *CHILDREN AND ADOLESCENTS REPRESENTS INDIVIDUALA AGED 2-19 YEARS EXCLUSIVE. A/G Ratio 2.0 CALC [facility] ([facility] NORMAL RANGES Age WBC RBC HGB HCT [...] HCT IS 5% LESS SOURCE FOR DATA: Magine 1800 OPERATION MANUAL( AUTOMATED BLOOD COUNTS AND [...] DESIRABLE: <130 MG/DL <110 MG/DL BORDERLINE-HIGH RISK: 130- 159 MG/DL 110-129 MG/DL HIGH RISK: >160 MG/DL >130 MG/DL *CHILDREN AND ADOLESCENTS REPRESENTS INDIVIDUALA AGED 2-19 YEARS EXCLUSIVE. Globulin 2.1 CALC [facility] ([facility] NORMAL RANGES Age WBC RBC HGB HCT [...] HCT IS 5% LESS SOURCE FOR DATA: Semmle DYN 1800 OPERATION MANUAL( AUTOMATED BLOOD COUNTS [...] DESIRABLE: <130 MG/DL <110 MG/DL BORDERLINE-HIGH RISK: 130- 159 MG/DL 110-129 MG/DL HIGH RISK: >160 MG/DL >130 MG/DL *CHILDREN AND ADOLESCENTS REPRESENTS INDIVIDUALA AGED 2-19 YEARS EXCLUSIVE. Alp 126.3 U/L 40-129 [facility] ([facility] NORMAL RANGES Age WBC RBC HGB HCT [...] HCT IS 5% LESS SOURCE FOR DATA: Magine 1800 OPERATION MANUAL( AUTOMATED BLOOD COUNTS AND [...] DESIRABLE: <130 MG/DL <110 MG/DL BORDERLINE-HIGH RISK: 130- 159 MG/DL 110-129 MG/DL HIGH RISK: >160 MG/DL >130 MG/DL *CHILDREN AND ADOLESCENTS REPRESENTS INDIVIDUALA AGED 2-19 YEARS EXCLUSIVE. Alt (SGPT) 22 U/L 0-41 [facility] ([facility] NORMAL RANGES Age WBC RBC HGB HCT [...] HCT IS 5% LESS SOURCE FOR DATA: Magine 1800 OPERATION MANUAL( AUTOMATED BLOOD COUNTS AND [...] DESIRABLE: <130 MG/DL <110 MG/DL BORDERLINE-HIGH RISK: 130- 159 MG/DL 110-129 MG/DL HIGH RISK: >160 MG/DL >130 MG/DL *CHILDREN AND ADOLESCENTS REPRESENTS INDIVIDUALA AGED 2-19 YEARS EXCLUSIVE. Tbili 0.51 mg/dL 0.0-1.2 [facility] NORMAL RANGES Age WBC RBC HGB HCT [...] HCT IS 5% LESS SOURCE FOR DATA: Magine 1800 OPERATION MANUAL( AUTOMATED BLOOD COUNTS AND [...] DESIRABLE: <130 MG/DL <110 MG/DL BORDERLINE-HIGH RISK: 130- 159 MG/DL 110-129 MG/DL HIGH RISK: >160 MG/DL >130 MG/DL *CHILDREN AND ADOLESCENTS REPRESENTS INDIVIDUALA AGED 2-19 YEARS EXCLUSIVE. Ast (Sgot) 25 U/L 0-40 [facility] ([facility] NORMAL RANGES Age WBC RBC HGB HCT [...] HCT IS 5% LESS SOURCE FOR DATA: Magine 1800 OPERATION MANUAL( AUTOMATED BLOOD COUNTS AND [...] DESIRABLE: <130 MG/DL <110 MG/DL BORDERLINE-HIGH RISK: 130- 159 MG/DL 110-129 MG/DL HIGH RISK: >160 MG/DL >130 MG/DL *CHILDREN AND ADOLESCENTS REPRESENTS INDIVIDUALA AGED 2-19 YEARS EXCLUSIVE. Osmolality-Calculated 286.1 CALC MED [facility] ([facility] NORMAL RANGES Age WBC RBC HGB HCT [...] HCT IS 5% LESS SOURCE FOR DATA: Magine 1800 OPERATION MANUAL( AUTOMATED BLOOD COUNTS AND [...] DESIRABLE: <130 MG/DL <110 MG/DL BORDERLINE-HIGH RISK: 130- 159 MG/DL 110-129 MG/DL HIGH RISK: >160 MG/DL >130 MG/DL *CHILDREN AND ADOLESCENTS REPRESENTS INDIVIDUALA AGED 2-19 YEARS EXCLUSIVE. Anion Gap 20 mmol/L [facility] ([facility] NORMAL RANGES Age WBC RBC HGB HCT [...] HCT IS 5% LESS SOURCE FOR DATA: Semmle DYN 1800 OPERATION MANUAL( AUTOMATED BLOOD COUNTS [...] DESIRABLE: <130 MG/DL <110 MG/DL BORDERLINE-HIGH RISK: 130- 159 MG/DL 110-129 MG/DL HIGH RISK: >160 MG/DL >130 MG/DL *CHILDREN AND ADOLESCENTS REPRESENTS INDIVIDUALA AGED 2-19 YEARS EXCLUSIVE. eGFR 73 # [facility] ( [facility] NORMAL RANGES Age WBC RBC HGB HCT [...] HCT IS 5% LESS SOURCE FOR DATA: Magine 1800 OPERATION MANUAL( AUTOMATED BLOOD COUNTS AND [...] DESIRABLE: <130 MG/DL <110 MG/DL BORDERLINE-HIGH RISK: 130- 159 MG/DL 110-129 MG/DL HIGH RISK: >160 MG/DL >130 MG/DL *CHILDREN AND ADOLESCENTS REPRESENTS INDIVIDUALA AGED 2-19 YEARS EXCLUSIVE. eGFR Non-Afr. Gibraltarian 63 # [facility] ([facility] NORMAL RANGES Age WBC RBC HGB HCT [...] HCT IS 5% LESS SOURCE FOR DATA: Magine 1800 OPERATION MANUAL( AUTOMATED BLOOD COUNTS AND [...] DESIRABLE: <130 MG/DL <110 MG/DL BORDERLINE-HIGH RISK: 130- 159 MG/DL 110-129 MG/DL HIGH RISK: >160 MG/DL >130 MG/DL *CHILDREN AND ADOLESCENTS REPRESENTS INDIVIDUALA AGED 2-19 YEARS EXCLUSIVE. ID Date Data Source [id number] 11/16/2020 09:03:00 AM EDT [facility] ([facility] Name Value Range Interpretation Code Description Data Denise rce(s) Supporting Document(s) WBC 6.5 10E3/uL 4.1-10.9 [facility] NORMAL RANGES Age WBC RBC HGB HCT [...] HCT IS 5% LESS SOURCE FOR DATA: Magine 1800 OPERATION MANUAL( AUTOMATED BLOOD COUNTS AND [...] DESIRABLE: <130 MG/DL <110 MG/DL BORDERLINE-HIGH RISK: 130- 159 MG/DL 110-129 MG/DL HIGH RISK: >160 MG/DL >130 MG/DL *CHILDREN AND ADOLESCENTS REPRESENTS INDIVIDUALA AGED 2-19 YEARS EXCLUSIVE. RBC 3.87 10E6/uL 4.20-6.30 Below low normal [facility] ([facility] NORMAL RANGES Age WBC RBC HGB HCT [...] HCT IS 5% LESS SOURCE FOR DATA: Magine 1800 OPERATION MANUAL( AUTOMATED BLOOD COUNTS AND [...] DESIRABLE: <130 MG/DL <110 MG/DL BORDERLINE-HIGH RISK: 130- 159 MG/DL 110-129 MG/DL HIGH RISK: >160 MG/DL >130 MG/DL *CHILDREN AND ADOLESCENTS REPRESENTS INDIVIDUALA AGED 2-19 YEARS EXCLUSIVE. HCT 37.7 % 37.0-51.0 [facility] ([facility] NORMAL RANGES Age WBC RBC HGB HCT [...] HCT IS 5% LESS SOURCE FOR DATA: BASIL DYN 1800 OPERATION MANUAL( AUTOMATED BLOOD COUNTS [...] DESIRABLE: <130 MG/DL <110 MG/DL BORDERLINE-HIGH RISK: 130- 159 MG/DL 110-129 MG/DL HIGH RISK: >160 MG/DL >130 MG/DL *CHILDREN AND ADOLESCENTS REPRESENTS INDIVIDUALA AGED 2-19 YEARS EXCLUSIVE. HGB 12.5 g/dL 12.0-18.0 [facility] ([facility] NORMAL RANGES Age WBC RBC HGB HCT [...] HCT IS 5% LESS SOURCE FOR DATA: Magine 1800 OPERATION MANUAL( AUTOMATED BLOOD COUNTS AND [...] DESIRABLE: <130 MG/DL <110 MG/DL BORDERLINE-HIGH RISK: 130- 159 MG/DL 110-129 MG/DL HIGH RISK: >160 MG/DL >130 MG/DL *CHILDREN AND ADOLESCENTS REPRESENTS INDIVIDUALA AGED 2-19 YEARS EXCLUSIVE. MCV 97.4 fL 80.0-97.0 Above high normal [facility] ([facility] NORMAL RANGES Age WBC RBC HGB HCT [...] HCT IS 5% LESS SOURCE FOR DATA: Magine 1800 OPERATION MANUAL( AUTOMATED BLOOD COUNTS AND [...] DESIRABLE: <130 MG/DL <110 MG/DL BORDERLINE-HIGH RISK: 130- 159 MG/DL 110-129 MG/DL HIGH RISK: >160 MG/DL >130 MG/DL *CHILDREN AND ADOLESCENTS REPRESENTS INDIVIDUALA AGED 2-19 YEARS EXCLUSIVE. MCH 32.3 pg 26.0-32.0 Above high normal [facility] ([facility] NORMAL RANGES Age WBC RBC HGB HCT [...] HCT IS 5% LESS SOURCE FOR DATA: Semmle DYN 1800 OPERATION MANUAL( AUTOMATED BLOOD COUNTS [...] DESIRABLE: <130 MG/DL <110 MG/DL BORDERLINE-HIGH RISK: 130- 159 MG/DL 110-129 MG/DL HIGH RISK: >160 MG/DL >130 MG/DL *CHILDREN AND ADOLESCENTS REPRESENTS INDIVIDUALA AGED 2-19 YEARS EXCLUSIVE. MCHC 33.2 g/dL 31.0-36.0 [facility] ([facility] NORMAL RANGES Age WBC RBC HGB HCT [...] HCT IS 5% LESS SOURCE FOR DATA: Magine 1800 OPERATION MANUAL( AUTOMATED BLOOD COUNTS AND [...] DESIRABLE: <130 MG/DL <110 MG/DL BORDERLINE-HIGH RISK: 130- 159 MG/DL 110-129 MG/DL HIGH RISK: >160 MG/DL >130 MG/DL *CHILDREN AND ADOLESCENTS REPRESENTS INDIVIDUALA AGED 2-19 YEARS EXCLUSIVE. PLT 217 10E3/uL 140-440 [facility] ([facility] NORMAL RANGES Age WBC RBC HGB HCT [...] HCT IS 5% LESS SOURCE FOR DATA: Magine 1800 OPERATION MANUAL( AUTOMATED BLOOD COUNTS AND [...] DESIRABLE: <130 MG/DL <110 MG/DL BORDERLINE-HIGH RISK: 130- 159 MG/DL 110-129 MG/DL HIGH RISK: >160 MG/DL >130 MG/DL *CHILDREN AND ADOLESCENTS REPRESENTS INDIVIDUALA AGED 2-19 YEARS EXCLUSIVE. RDW-CV 13.7 % 11.5-14.5 [facility] ([facility] NORMAL RANGES Age WBC RBC HGB HCT [...] HCT IS 5% LESS SOURCE FOR DATA: Magine 1800 OPERATION MANUAL( AUTOMATED BLOOD COUNTS AND [...] DESIRABLE: <130 MG/DL <110 MG/DL BORDERLINE-HIGH RISK: 130- 159 MG/DL 110-129 MG/DL HIGH RISK: >160 MG/DL >130 MG/DL *CHILDREN AND ADOLESCENTS REPRESENTS INDIVIDUALA AGED 2-19 YEARS EXCLUSIVE. Lym% 18.0 % 10.0-58.5 [facility] ([facility] NORMAL RANGES Age WBC RBC HGB HCT [...] HCT IS 5% LESS SOURCE FOR DATA: Magine 1800 OPERATION MANUAL( AUTOMATED BLOOD COUNTS AND [...] DESIRABLE: <130 MG/DL <110 MG/DL BORDERLINE-HIGH RISK: 130- 159 MG/DL 110-129 MG/DL HIGH RISK: >160 MG/DL >130 MG/DL *CHILDREN AND ADOLESCENTS REPRESENTS INDIVIDUALA AGED 2-19 YEARS EXCLUSIVE. Neut% 72.3 % 37.0-92.0 [facility] ([facility] NORMAL RANGES Age WBC RBC HGB HCT [...] HCT IS 5% LESS SOURCE FOR DATA: Semmle DYN 1800 OPERATION MANUAL( AUTOMATED BLOOD COUNTS [...] DESIRABLE: <130 MG/DL <110 MG/DL BORDERLINE-HIGH RISK: 130- 159 MG/DL 110-129 MG/DL HIGH RISK: >160 MG/DL >130 MG/DL *CHILDREN AND ADOLESCENTS REPRESENTS INDIVIDUALA AGED 2-19 YEARS EXCLUSIVE. MXD% 9.7 % 0.1-24.0 [facility] ([facility] NORMAL RANGES Age WBC RBC HGB HCT [...] HCT IS 5% LESS SOURCE FOR DATA: Magine 1800 OPERATION MANUAL( AUTOMATED BLOOD COUNTS AND [...] DESIRABLE: <130 MG/DL <110 MG/DL BORDERLINE-HIGH RISK: 130- 159 MG/DL 110-129 MG/DL HIGH RISK: >160 MG/DL >130 MG/DL *CHILDREN AND ADOLESCENTS REPRESENTS INDIVIDUALA AGED 2-19 YEARS EXCLUSIVE. Lym# 1.2 10E3/uL 0.6-4.1 [facility] ([facility] NORMAL RANGES Age WBC RBC HGB HCT [...] HCT IS 5% LESS SOURCE FOR DATA: Semmle DYN 1800 OPERATION MANUAL( AUTOMATED BLOOD COUNTS [...] DESIRABLE: <130 MG/DL <110 MG/DL BORDERLINE-HIGH RISK: 130- 159 MG/DL 110-129 MG/DL HIGH RISK: >160 MG/DL >130 MG/DL *CHILDREN AND ADOLESCENTS REPRESENTS INDIVIDUALA AGED 2-19 YEARS EXCLUSIVE. Neut# 4.7 % 2.0-7.8 [facility] ([facility] NORMAL RANGES Age WBC RBC HGB HCT [...] HCT IS 5% LESS SOURCE FOR DATA: Magine 1800 OPERATION MANUAL( AUTOMATED BLOOD COUNTS AND [...] DESIRABLE: <130 MG/DL <110 MG/DL BORDERLINE-HIGH RISK: 130- 159 MG/DL 110-129 MG/DL HIGH RISK: >160 MG/DL >130 MG/DL *CHILDREN AND ADOLESCENTS REPRESENTS INDIVIDUALA AGED 2-19 YEARS EXCLUSIVE. MXD# 0.6 10E3/uL 0.0-1.8 [facility] ([facility] NORMAL RANGES Age WBC RBC HGB HCT [...] HCT IS 5% LESS SOURCE FOR DATA: Magine 1800 OPERATION MANUAL( AUTOMATED BLOOD COUNTS AND [...] DESIRABLE: <130 MG/DL <110 MG/DL BORDERLINE-HIGH RISK: 130- 159 MG/DL 110-129 MG/DL HIGH RISK: >160 MG/DL >130 MG/DL *CHILDREN AND ADOLESCENTS REPRESENTS INDIVIDUALA AGED 2-19 YEARS EXCLUSIVE. MPV 10.1 fL 9.0-13.0 [facility] ([facility] NORMAL RANGES Age WBC RBC HGB HCT [...] HCT IS 5% LESS SOURCE FOR DATA: Magine 1800 OPERATION MANUAL( AUTOMATED BLOOD COUNTS AND [...] DESIRABLE: <130 MG/DL <110 MG/DL BORDERLINE-HIGH RISK: 130- 159 MG/DL 110-129 MG/DL HIGH RISK: >160 MG/DL >130 MG/DL *CHILDREN AND ADOLESCENTS REPRESENTS INDIVIDUALA AGED 2-19 YEARS EXCLUSIVE. ID Date Data Source [id number] 10/04/2020 03:08:00 PM EDT [facility] ([facility]) Name Value Range Interpretation Code Description Data Denise rce(s) Supporting Document(s) Color of Urine Laboratory test result [facility] ([facility]) Appearance of Urine Laboratory test result [facility] ([facility]) pH of Urine by Test strip 5 5-9 MED[facility] NT ([facility]) Spec [place] 1.015 1.001-1.030 [facility] ([facility]) Leukocytes Laboratory test result [facility] ([facility]) Nitrate [Presence] in Urine Laboratory test result [facility] ([facility]) Inhouse Glucose Laboratory test result [facility] ([facility]) Protein [Presence] in Urine by Test strip Laboratory test result [facility] ([facility]) Urobilinogen Laboratory test result [facility] ([facility]) Ketones [Presence] in Urine by Test strip Laboratory test result [facility] ([facility]) Bilirubin.total [Presence] in Urine by Test strip Laboratory test res ult [facility] ([facility]) Blood type and Indirect antibody screen panel - Blood Laboratory test result [facility] ([facility]) ID Date Data Source [id number] 08/02/2020 10:53:00 AM EDT [facility] ([facility] Name Value Range Interpretation Code Description Data Denise rce(s) Supporting Document(s) Color Urine Laboratory test result M [facility]ENT ([facility] Appearance of Urine Laboratory test result [facility] ([facility] Specific [place] 1.025 1.00-1.03 [facility] ([facility] PH Urine 7.0 5.0-8.0 [facility] ([facility] Glucose Urine Laboratory test result [facility] ([facility] Bilirubin.total [Presence] in Urine by Test strip Laboratory test res ult [facility] ([facility] Ketones Laboratory test result [facility] ([facility] Blood Urine Laboratory test result M EDENT ([facility] Urobilinogen 0.2 EU/dl 0.2-1.0 [facility] ([facility] Protein Urine Laboratory test result [facility] ([facility] Nitrite Laboratory test result [facility] ([facility] Leukocytes Laboratory test result ME DENT ([facility] ID Date Data Source [id number] 08/02/2020 08:51:00 AM EDT [facility] ([facility] Name Value Range Interpretation Code Description Data Denise rce(s) Supporting Document(s) Creatine kinase [Enzymatic activity/volume] in Serum or Plasma 290 U/L 39-308 [facility] ([facility] NORMAL RANGES Age WBC RBC HGB HCT [...] HCT IS 5% LESS SOURCE FOR DATA: Magine 1800 OPERATION MANUAL( AUTOMATED BLOOD COUNTS AND [...] ADOLESCENTS REPRESENTS INDIVIDUALA AGED 2-19 YEARS EXCLUSIVE. ID Date Data Source [id number] 08/02/2020 08:51:00 AM EDT [facility] ([facility] Name Value Range Interpretation Code Description Data Denise rce(s) Supporting Document(s) Chol 120 mg/dL 0-200 [facility] ([facility] NORMAL RANGES Age WBC RBC HGB HCT [...] HCT IS 5% LESS SOURCE FOR DATA: Magine 1800 OPERATION MANUAL( AUTOMATED BLOOD COUNTS AND [...] ADOLESCENTS REPRESENTS INDIVIDUALA AGED 2-19 YEARS EXCLUSIVE. Trig 57 mg/dL 35-200 [facility] ([facility] NORMAL RANGES Age WBC RBC HGB HCT [...] HCT IS 5% LESS SOURCE FOR DATA: BASIL DYN 1800 OPERATION MANUAL( AUTOMATED BLOOD COUNTS [...] ADOLESCENTS REPRESENTS INDIVIDUALA AGED 2-19 YEARS EXCLUSIVE. Cholesterol in HDL [Mass/volume] in Serum or Plasma 51 mg/dL 35-55 [facility] ([facility] NORMAL RANGES Age WBC RBC HGB HCT [...] HCT IS 5% LESS SOURCE FOR DATA: Magine 1800 OPERATION MANUAL( AUTOMATED BLOOD COUNTS AND [...] DESIRABLE: <130 MG/DL <110 MG/DL BORDERLINE-HIGH RISK: 130- 159 MG/DL 110-129 MG/DL HIGH RISK: >160 MG/DL >130 MG/DL *CHILDREN AND ADOLESCENTS REPRESENTS INDIVIDUALA AGED 2-19 YEARS EXCLUSIVE. LDL_C 57 Calc 75-129 Below low normal [facility] ( [facility] NORMAL RANGES Age WBC RBC HGB HCT [...] HCT IS 5% LESS SOURCE FOR DATA: Magine 1800 OPERATION MANUAL( AUTOMATED BLOOD COUNTS AND [...] DESIRABLE: <130 MG/DL <110 MG/DL BORDERLINE-HIGH RISK: 130- 159 MG/DL 110-129 MG/DL HIGH RISK: >160 MG/DL >130 MG/DL *CHILDREN AND ADOLESCENTS REPRESENTS INDIVIDUALA AGED 2-19 YEARS EXCLUSIVE. Cho/HDL Ratio 2.3 CALC [employer] ([facility] NORMAL RANGES Age WBC RBC HGB HCT [...] HCT IS 5% LESS SOURCE FOR DATA: Semmle DYN 1800 OPERATION MANUAL( AUTOMATED BLOOD COUNTS [...] DESIRABLE: <130 MG/DL <110 MG/DL BORDERLINE-HIGH RISK: 130- 159 MG/DL 110-129 MG/DL HIGH RISK: >160 MG/DL >130 MG/DL *CHILDREN AND ADOLESCENTS REPRESENTS INDIVIDUALA AGED 2-19 YEARS EXCLUSIVE. ID Date Data Source [id number] 08/02/2020 08:51:00 AM EDT [facility] ([facility] Name Value Range Interpretation Code Description Data Denise rce(s) Supporting Document(s) Glu 120 mg/dL 70-110 Above high normal [facility] ([facility] NORMAL RANGES Age WBC RBC HGB HCT [...] HCT IS 5% LESS SOURCE FOR DATA: Magine 1800 OPERATION MANUAL( AUTOMATED BLOOD COUNTS AND [...] DESIRABLE: <130 MG/DL <110 MG/DL BORDERLINE-HIGH RISK: 130- 159 MG/DL 110-129 MG/DL HIGH RISK: >160 MG/DL >130 MG/DL *CHILDREN AND ADOLESCENTS REPRESENTS INDIVIDUALA AGED 2-19 YEARS EXCLUSIVE. BUN 29 mg/dL 8-23 Above high normal [facility] ([facility] NORMAL RANGES Age WBC RBC HGB HCT [...] HCT IS 5% LESS SOURCE FOR DATA: Magine 1800 OPERATION MANUAL( AUTOMATED BLOOD COUNTS AND [...] DESIRABLE: <130 MG/DL <110 MG/DL BORDERLINE-HIGH RISK: 130- 159 MG/DL 110-129 MG/DL HIGH RISK: >160 MG/DL >130 MG/DL *CHILDREN AND ADOLESCENTS REPRESENTS INDIVIDUALA AGED 2-19 YEARS EXCLUSIVE. Creat 1.2 mg/dL 0.7-1.2 [facility] ([facility] NORMAL RANGES Age WBC RBC HGB HCT [...] HCT IS 5% LESS SOURCE FOR DATA: Semmle DYN 1800 OPERATION MANUAL( AUTOMATED BLOOD COUNTS [...] DESIRABLE: <130 MG/DL <110 MG/DL BORDERLINE-HIGH RISK: 130- 159 MG/DL 110-129 MG/DL HIGH RISK: >160 MG/DL >130 MG/DL *CHILDREN AND ADOLESCENTS REPRESENTS INDIVIDUALA AGED 2-19 YEARS EXCLUSIVE. BUN/Creatinine Ratio 24.8 CALC [facility] ([facility] NORMAL RANGES Age WBC RBC HGB HCT [...] HCT IS 5% LESS SOURCE FOR DATA: Magine 1800 OPERATION MANUAL( AUTOMATED BLOOD COUNTS AND [...] DESIRABLE: <130 MG/DL <110 MG/DL BORDERLINE-HIGH RISK: 130- 159 MG/DL 110-129 MG/DL HIGH RISK: >160 MG/DL >130 MG/DL *CHILDREN AND ADOLESCENTS REPRESENTS INDIVIDUALA AGED 2-19 YEARS EXCLUSIVE. Na 138 mmol/L 136-145 [facility] ([facility] NORMAL RANGES Age WBC RBC HGB HCT [...] HCT IS 5% LESS SOURCE FOR DATA: Magine 1800 OPERATION MANUAL( AUTOMATED BLOOD COUNTS AND [...] DESIRABLE: <130 MG/DL <110 MG/DL BORDERLINE-HIGH RISK: 130- 159 MG/DL 110-129 MG/DL HIGH RISK: >160 MG/DL >130 MG/DL *CHILDREN AND ADOLESCENTS REPRESENTS INDIVIDUALA AGED 2-19 YEARS EXCLUSIVE. CL 101.1 mmol/L 98.0-107.0 [facility] ([facility] NORMAL RANGES Age WBC RBC HGB HCT [...] HCT IS 5% LESS SOURCE FOR DATA: Magine 1800 OPERATION MANUAL( AUTOMATED BLOOD COUNTS AND [...] DESIRABLE: <130 MG/DL <110 MG/DL BORDERLINE-HIGH RISK: 130- 159 MG/DL 110-129 MG/DL HIGH RISK: >160 MG/DL >130 MG/DL *CHILDREN AND ADOLESCENTS REPRESENTS INDIVIDUALA AGED 2-19 YEARS EXCLUSIVE. K 3.8 mmol/L 3.5-5.1 [facility] ([facility] NORMAL RANGES Age WBC RBC HGB HCT [...] HCT IS 5% LESS SOURCE FOR DATA: Magine 1800 OPERATION MANUAL( AUTOMATED BLOOD COUNTS AND [...] DESIRABLE: <130 MG/DL <110 MG/DL BORDERLINE-HIGH RISK: 130- 159 MG/DL 110-129 MG/DL HIGH RISK: >160 MG/DL >130 MG/DL *CHILDREN AND ADOLESCENTS REPRESENTS INDIVIDUALA AGED 2-19 YEARS EXCLUSIVE. Co2 25.3 mmol/L 22.0-29.0 [facility] ([facility] NORMAL RANGES Age WBC RBC HGB HCT [...] HCT IS 5% LESS SOURCE FOR DATA: Magine 1800 OPERATION MANUAL( AUTOMATED BLOOD COUNTS AND [...] DESIRABLE: <130 MG/DL <110 MG/DL BORDERLINE-HIGH RISK: 130- 159 MG/DL 110-129 MG/DL HIGH RISK: >160 MG/DL >130 MG/DL *CHILDREN AND ADOLESCENTS REPRESENTS INDIVIDUALA AGED 2-19 YEARS EXCLUSIVE. CA 8.7 mg/dL 8.6-10.2 [facility] ([facility] NORMAL RANGES Age WBC RBC HGB HCT [...] HCT IS 5% LESS SOURCE FOR DATA: [employer] 1800 OPERATION MANUAL( AUTOMATED BLOOD COUNTS AND [...] DESIRABLE: <130 MG/DL <110 MG/DL BORDERLINE-HIGH RISK: 130- 159 MG/DL 110-129 MG/DL HIGH RISK: >160 MG/DL >130 MG/DL *CHILDREN AND ADOLESCENTS REPRESENTS INDIVIDUALA AGED 2-19 YEARS EXCLUSIVE. TP 6.3 g/dL 6.6-8.7 Below low normal [facility] ( [facility] NORMAL RANGES Age WBC RBC HGB HCT [...] HCT IS 5% LESS SOURCE FOR DATA: [employer] 1800 OPERATION MANUAL( AUTOMATED BLOOD COUNTS AND [...] DESIRABLE: <130 MG/DL <110 MG/DL BORDERLINE-HIGH RISK: 130- 159 MG/DL 110-129 MG/DL HIGH RISK: >160 MG/DL >130 MG/DL *CHILDREN AND ADOLESCENTS REPRESENTS INDIVIDUALA AGED 2-19 YEARS EXCLUSIVE. A/G Ratio 1.7 [facility]C [facility] ([facility] NORMAL RANGES Age WBC RBC HGB HCT [...] HCT IS 5% LESS SOURCE FOR DATA: BASIL DYN 1800 OPERATION MANUAL( AUTOMATED BLOOD COUNTS [...] DESIRABLE: <130 MG/DL <110 MG/DL BORDERLINE-HIGH RISK: 130- 159 MG/DL 110-129 MG/DL HIGH RISK: >160 MG/DL >130 MG/DL *CHILDREN AND ADOLESCENTS REPRESENTS INDIVIDUALA AGED 2-19 YEARS EXCLUSIVE. Alb 4.0 g/dL 3.5-5.2 [facility] ([facility] NORMAL RANGES Age WBC RBC HGB HCT [...] HCT IS 5% LESS SOURCE FOR DATA: Magine 1800 OPERATION MANUAL( AUTOMATED BLOOD COUNTS AND [...] DESIRABLE: <130 MG/DL <110 MG/DL BORDERLINE-HIGH RISK: 130- 159 MG/DL 110-129 MG/DL HIGH RISK: >160 MG/DL >130 MG/DL *CHILDREN AND ADOLESCENTS REPRESENTS INDIVIDUALA AGED 2-19 YEARS EXCLUSIVE. Globulin 2.3 CALC [facility] ([facility] NORMAL RANGES Age WBC RBC HGB HCT [...] HCT IS 5% LESS SOURCE FOR DATA: Magine 1800 OPERATION MANUAL( AUTOMATED BLOOD COUNTS AND [...] DESIRABLE: <130 MG/DL <110 MG/DL BORDERLINE-HIGH RISK: 130- 159 MG/DL 110-129 MG/DL HIGH RISK: >160 MG/DL >130 MG/DL *CHILDREN AND ADOLESCENTS REPRESENTS INDIVIDUALA AGED 2-19 YEARS EXCLUSIVE. Alp 66.2 U/L 40-129 [facility] ([facility] NORMAL RANGES Age WBC RBC HGB HCT [...] HCT IS 5% LESS SOURCE FOR DATA: Semmle DYN 1800 OPERATION MANUAL( AUTOMATED BLOOD COUNTS [...] DESIRABLE: <130 MG/DL <110 MG/DL BORDERLINE-HIGH RISK: 130- 159 MG/DL 110-129 MG/DL HIGH RISK: >160 MG/DL >130 MG/DL *CHILDREN AND ADOLESCENTS REPRESENTS INDIVIDUALA AGED 2-19 YEARS EXCLUSIVE. Alt (SGPT) 25 U/L 0-41 [facility] NORMAL RANGES Age WBC RBC HGB HCT [...] HCT IS 5% LESS SOURCE FOR DATA: Magine 1800 OPERATION MANUAL( AUTOMATED BLOOD COUNTS AND [...] DESIRABLE: <130 MG/DL <110 MG/DL BORDERLINE-HIGH RISK: 130- 159 MG/DL 110-129 MG/DL HIGH RISK: >160 MG/DL >130 MG/DL *CHILDREN AND ADOLESCENTS REPRESENTS INDIVIDUALA AGED 2-19 YEARS EXCLUSIVE. Ast (Sgot) 27 U/L 0-40 [facility] ([facility] NORMAL RANGES Age WBC RBC HGB HCT [...] HCT IS 5% LESS SOURCE FOR DATA: Magine 1800 OPERATION MANUAL( AUTOMATED BLOOD COUNTS AND [...] DESIRABLE: <130 MG/DL <110 MG/DL BORDERLINE-HIGH RISK: 130- 159 MG/DL 110-129 MG/DL HIGH RISK: >160 MG/DL >130 MG/DL *CHILDREN AND ADOLESCENTS REPRESENTS INDIVIDUALA AGED 2-19 YEARS EXCLUSIVE. Tbili 0.38 mg/dL 0.0-1.2 [facility] NORMAL RANGES Age WBC RBC HGB HCT [...] HCT IS 5% LESS SOURCE FOR DATA: Semmle DYN 1800 OPERATION MANUAL( AUTOMATED BLOOD COUNTS [...] DESIRABLE: <130 MG/DL <110 MG/DL BORDERLINE-HIGH RISK: 130- 159 MG/DL 110-129 MG/DL HIGH RISK: >160 MG/DL >130 MG/DL *CHILDREN AND ADOLESCENTS REPRESENTS INDIVIDUALA AGED 2-19 YEARS EXCLUSIVE. Osmolality-Calculated 282.6 [facility]C [facility] ([facility] NORMAL RANGES Age WBC RBC HGB HCT [...] HCT IS 5% LESS SOURCE FOR DATA: Magine 1800 OPERATION MANUAL( AUTOMATED BLOOD COUNTS AND [...] DESIRABLE: <130 MG/DL <110 MG/DL BORDERLINE-HIGH RISK: 130- 159 MG/DL 110-129 MG/DL HIGH RISK: >160 MG/DL >130 MG/DL *CHILDREN AND ADOLESCENTS REPRESENTS INDIVIDUALA AGED 2-19 YEARS EXCLUSIVE. eGFR 66 # [facility] ( [facility] CKD-EPI Anion Gap 15 mmol/L [facility] ([facility] NORMAL RANGES Age WBC RBC HGB HCT [...] HCT IS 5% LESS SOURCE FOR DATA: Magine 1800 OPERATION MANUAL( AUTOMATED BLOOD COUNTS AND [...] DESIRABLE: <130 MG/DL <110 MG/DL BORDERLINE-HIGH RISK: 130- 159 MG/DL 110-129 MG/DL HIGH RISK: >160 MG/DL >130 MG/DL *CHILDREN AND ADOLESCENTS REPRESENTS INDIVIDUALA AGED 2-19 YEARS EXCLUSIVE. eGFR Non-Afr. Gibraltarian 57 # [facility] ([facility] CKD-EPI ID Date Data Source [id number] 08/02/2020 08:51:00 AM EDT [facility] ([facility] Name Value Range Interpretation Code Description Data Denise rce(s) Supporting Document(s) WBC 6.6 10E3/uL 4.1-10.9 [facility] ([facility] NORMAL RANGES Age WBC RBC HGB HCT [...] HCT IS 5% LESS SOURCE FOR DATA: Magine 1800 OPERATION MANUAL( AUTOMATED BLOOD COUNTS AND [...] DESIRABLE: <130 MG/DL <110 MG/DL BORDERLINE-HIGH RISK: 130- 159 MG/DL 110-129 MG/DL HIGH RISK: >160 MG/DL >130 MG/DL *CHILDREN AND ADOLESCENTS REPRESENTS INDIVIDUALA AGED 2-19 YEARS EXCLUSIVE. HGB 12.6 g/dL 12.0-18.0 [facility] ([facility] NORMAL RANGES Age WBC RBC HGB HCT [...] HCT IS 5% LESS SOURCE FOR DATA: Magine 1800 OPERATION MANUAL( AUTOMATED BLOOD COUNTS AND [...] DESIRABLE: <130 MG/DL <110 MG/DL BORDERLINE-HIGH RISK: 130- 159 MG/DL 110-129 MG/DL HIGH RISK: >160 MG/DL >130 MG/DL *CHILDREN AND ADOLESCENTS REPRESENTS INDIVIDUALA AGED 2-19 YEARS EXCLUSIVE. RBC 3.84 10E6/uL 4.20-6.30 Below low normal [facility] ([facility] NORMAL RANGES Age WBC RBC HGB HCT [...] HCT IS 5% LESS SOURCE FOR DATA: Semmle DYN 1800 OPERATION MANUAL( AUTOMATED BLOOD COUNTS [...] DESIRABLE: <130 MG/DL <110 MG/DL BORDERLINE-HIGH RISK: 130- 159 MG/DL 110-129 MG/DL HIGH RISK: >160 MG/DL >130 MG/DL *CHILDREN AND ADOLESCENTS REPRESENTS INDIVIDUALA AGED 2-19 YEARS EXCLUSIVE. HCT 37.8 % 37.0-51.0 [facility] ([facility] NORMAL RANGES Age WBC RBC HGB HCT [...] HCT IS 5% LESS SOURCE FOR DATA: Magine 1800 OPERATION MANUAL( AUTOMATED BLOOD COUNTS AND [...] DESIRABLE: <130 MG/DL <110 MG/DL BORDERLINE-HIGH RISK: 130- 159 MG/DL 110-129 MG/DL HIGH RISK: >160 MG/DL >130 MG/DL *CHILDREN AND ADOLESCENTS REPRESENTS INDIVIDUALA AGED 2-19 YEARS EXCLUSIVE. MCV 98.4 fL 80.0-97.0 Above high normal [facility] ([facility] NORMAL RANGES Age WBC RBC HGB HCT [...] HCT IS 5% LESS SOURCE FOR DATA: Magine 1800 OPERATION MANUAL( AUTOMATED BLOOD COUNTS AND [...] DESIRABLE: <130 MG/DL <110 MG/DL BORDERLINE-HIGH RISK: 130- 159 MG/DL 110-129 MG/DL HIGH RISK: >160 MG/DL >130 MG/DL *CHILDREN AND ADOLESCENTS REPRESENTS INDIVIDUALA AGED 2-19 YEARS EXCLUSIVE. MCH 32.8 pg 26.0-32.0 Above high normal [facility] ([facility] NORMAL RANGES Age WBC RBC HGB HCT [...] HCT IS 5% LESS SOURCE FOR DATA: Magine 1800 OPERATION MANUAL( AUTOMATED BLOOD COUNTS AND [...] DESIRABLE: <130 MG/DL <110 MG/DL BORDERLINE-HIGH RISK: 130- 159 MG/DL 110-129 MG/DL HIGH RISK: >160 MG/DL >130 MG/DL *CHILDREN AND ADOLESCENTS REPRESENTS INDIVIDUALA AGED 2-19 YEARS EXCLUSIVE. MCHC 33.3 g/dL 31.0-36.0 [facility] ([facility] NORMAL RANGES Age WBC RBC HGB HCT [...] HCT IS 5% LESS SOURCE FOR DATA: Magine 1800 OPERATION MANUAL( AUTOMATED BLOOD COUNTS AND [...] DESIRABLE: <130 MG/DL <110 MG/DL BORDERLINE-HIGH RISK: 130- 159 MG/DL 110-129 MG/DL HIGH RISK: >160 MG/DL >130 MG/DL *CHILDREN AND ADOLESCENTS REPRESENTS INDIVIDUALA AGED 2-19 YEARS EXCLUSIVE. PLT 292 10E3/uL 140-440 [facility] ([facility] NORMAL RANGES Age WBC RBC HGB HCT [...] HCT IS 5% LESS SOURCE FOR DATA: Semmle DYN 1800 OPERATION MANUAL( AUTOMATED BLOOD COUNTS [...] DESIRABLE: <130 MG/DL <110 MG/DL BORDERLINE-HIGH RISK: 130- 159 MG/DL 110-129 MG/DL HIGH RISK: >160 MG/DL >130 MG/DL *CHILDREN AND ADOLESCENTS REPRESENTS INDIVIDUALA AGED 2-19 YEARS EXCLUSIVE. RDW-CV 13.1 % 11.5-14.5 [facility] ([facility] NORMAL RANGES Age WBC RBC HGB HCT [...] HCT IS 5% LESS SOURCE FOR DATA: Magine 1800 OPERATION MANUAL( AUTOMATED BLOOD COUNTS AND [...] DESIRABLE: <130 MG/DL <110 MG/DL BORDERLINE-HIGH RISK: 130- 159 MG/DL 110-129 MG/DL HIGH RISK: >160 MG/DL >130 MG/DL *CHILDREN AND ADOLESCENTS REPRESENTS INDIVIDUALA AGED 2-19 YEARS EXCLUSIVE. Lym% 19.3 % 10.0-58.5 [facility] ([facility] NORMAL RANGES Age WBC RBC HGB HCT [...] HCT IS 5% LESS SOURCE FOR DATA: Magine 1800 OPERATION MANUAL( AUTOMATED BLOOD COUNTS AND [...] DESIRABLE: <130 MG/DL <110 MG/DL BORDERLINE-HIGH RISK: 130- 159 MG/DL 110-129 MG/DL HIGH RISK: >160 MG/DL >130 MG/DL *CHILDREN AND ADOLESCENTS REPRESENTS INDIVIDUALA AGED 2-19 YEARS EXCLUSIVE. Neut% 73.1 % 37.0-92.0 [facility] ([facility] NORMAL RANGES Age WBC RBC HGB HCT [...] HCT IS 5% LESS SOURCE FOR DATA: Magine 1800 OPERATION MANUAL( AUTOMATED BLOOD COUNTS AND [...] DESIRABLE: <130 MG/DL <110 MG/DL BORDERLINE-HIGH RISK: 130- 159 MG/DL 110-129 MG/DL HIGH RISK: >160 MG/DL >130 MG/DL *CHILDREN AND ADOLESCENTS REPRESENTS INDIVIDUALA AGED 2-19 YEARS EXCLUSIVE. MXD% 7.6 % 0.1-24.0 [facility] ([facility] NORMAL RANGES Age WBC RBC HGB HCT [...] HCT IS 5% LESS SOURCE FOR DATA: Semmle DYN 1800 OPERATION MANUAL( AUTOMATED BLOOD COUNTS [...] DESIRABLE: <130 MG/DL <110 MG/DL BORDERLINE-HIGH RISK: 130- 159 MG/DL 110-129 MG/DL HIGH RISK: >160 MG/DL >130 MG/DL *CHILDREN AND ADOLESCENTS REPRESENTS INDIVIDUALA AGED 2-19 YEARS EXCLUSIVE. Lym# 1.3 10E3/uL 0.6-4.1 [facility] ([facility] NORMAL RANGES Age WBC RBC HGB HCT [...] HCT IS 5% LESS SOURCE FOR DATA: Magine 1800 OPERATION MANUAL( AUTOMATED BLOOD COUNTS AND [...] DESIRABLE: <130 MG/DL <110 MG/DL BORDERLINE-HIGH RISK: 130- 159 MG/DL 110-129 MG/DL HIGH RISK: >160 MG/DL >130 MG/DL *CHILDREN AND ADOLESCENTS REPRESENTS INDIVIDUALA AGED 2-19 YEARS EXCLUSIVE. Neut# 4.8 % 2.0-7.8 [facility] NORMAL RANGES Age WBC RBC HGB HCT [...] HCT IS 5% LESS SOURCE FOR DATA: Magine 1800 OPERATION MANUAL( AUTOMATED BLOOD COUNTS AND [...] DESIRABLE: <130 MG/DL <110 MG/DL BORDERLINE-HIGH RISK: 130- 159 MG/DL 110-129 MG/DL HIGH RISK: >160 MG/DL >130 MG/DL *CHILDREN AND ADOLESCENTS REPRESENTS INDIVIDUALA AGED 2-19 YEARS EXCLUSIVE. MXD# 0.5 10E3/uL 0.0-1.8 [facility] ([facility] NORMAL RANGES Age WBC RBC HGB HCT [...] HCT IS 5% LESS SOURCE FOR DATA: Magine 1800 OPERATION MANUAL( AUTOMATED BLOOD COUNTS AND [...] DESIRABLE: <130 MG/DL <110 MG/DL BORDERLINE-HIGH RISK: 130- 159 MG/DL 110-129 MG/DL HIGH RISK: >160 MG/DL >130 MG/DL *CHILDREN AND ADOLESCENTS REPRESENTS INDIVIDUALA AGED 2-19 YEARS EXCLUSIVE. MPV 9.6 fL 9.0-13.0 [facility] ([facility] NORMAL RANGES Age WBC RBC HGB HCT [...] HCT IS 5% LESS SOURCE FOR DATA: Magine 1800 OPERATION MANUAL( AUTOMATED BLOOD COUNTS AND [...] DESIRABLE: <130 MG/DL <110 MG/DL BORDERLINE-HIGH RISK: 130- 159 MG/DL 110-129 MG/DL HIGH RISK: >160 MG/DL >130 MG/DL *CHILDREN AND ADOLESCENTS REPRESENTS INDIVIDUALA AGED 2-19 YEARS EXCLUSIVE. ID Date Data Source [id number] 05/04/2020 10:21:00 AM EST [facility] ([facility] Name Value Range Interpretation Code Description Data Denise rce(s) Supporting Document(s) Prostate specific Ag [Mass/volume] in Serum or Plasma 4.26 ng/mL 0.0-4.0 Above high normal [facility] ([facility] ) ID Date Data Source [id number] 05/04/2020 10:21:00 AM EST [facility] ([facility] Name Value Range Interpretation Code Description Data Denise rce(s) Supporting Document(s) Chol 126 mg/dL 0-200 [facility] ([facility] NORMAL RANGES Age WBC RBC HGB HCT [...] HCT IS 5% LESS SOURCE FOR DATA: Magine 1800 OPERATION MANUAL( AUTOMATED BLOOD COUNTS AND [...] DESIRABLE: <130 MG/DL <110 MG/DL BORDERLINE-HIGH RISK: 130- 159 MG/DL 110-129 MG/DL HIGH RISK: >160 MG/DL >130 MG/DL *CHILDREN AND ADOLESCENTS REPRESENTS INDIVIDUALA AGED 2-19 YEARS EXCLUSIVE. Trig 54 mg/dL 35-200 [facility] ([facility] NORMAL RANGES Age WBC RBC HGB HCT [...] HCT IS 5% LESS SOURCE FOR DATA: Magine 1800 OPERATION MANUAL( AUTOMATED BLOOD COUNTS AND [...] DESIRABLE: <130 MG/DL <110 MG/DL BORDERLINE-HIGH RISK: 130- 159 MG/DL 110-129 MG/DL HIGH RISK: >160 MG/DL >130 MG/DL *CHILDREN AND ADOLESCENTS REPRESENTS INDIVIDUALA AGED 2-19 YEARS EXCLUSIVE. Cholesterol in HDL [Mass/volume] in Serum or Plasma 61 mg/dL 35-55 Above high normal [facility] ([facility] NORMAL RANGES Age WBC RBC HGB HCT [...] HCT IS 5% LESS SOURCE FOR DATA: BASIL DYN 1800 OPERATION MANUAL( AUTOMATED BLOOD COUNTS [...] DESIRABLE: <130 MG/DL <110 MG/DL BORDERLINE-HIGH RISK: 130- 159 MG/DL 110-129 MG/DL HIGH RISK: >160 MG/DL >130 MG/DL *CHILDREN AND ADOLESCENTS REPRESENTS INDIVIDUALA AGED 2-19 YEARS EXCLUSIVE. LDL_C 54 Calc 75-129 Below low normal [facility] ( [facility] NORMAL RANGES Age WBC RBC HGB HCT [...] HCT IS 5% LESS SOURCE FOR DATA: Magine 1800 OPERATION MANUAL( AUTOMATED BLOOD COUNTS AND [...] DESIRABLE: <130 MG/DL <110 MG/DL BORDERLINE-HIGH RISK: 130- 159 MG/DL 110-129 MG/DL HIGH RISK: >160 MG/DL >130 MG/DL *CHILDREN AND ADOLESCENTS REPRESENTS INDIVIDUALA AGED 2-19 YEARS EXCLUSIVE. Cho/HDL Ratio 2.1 Calc [facility] ([facility] NORMAL RANGES Age WBC RBC HGB HCT [...] HCT IS 5% LESS SOURCE FOR DATA: Magine 1800 OPERATION MANUAL( AUTOMATED BLOOD COUNTS AND [...] DESIRABLE: <130 MG/DL <110 MG/DL BORDERLINE-HIGH RISK: 130- 159 MG/DL 110-129 MG/DL HIGH RISK: >160 MG/DL >130 MG/DL *CHILDREN AND ADOLESCENTS REPRESENTS INDIVIDUALA AGED 2-19 YEARS EXCLUSIVE. ID Date Data Source [id number] 05/04/2020 10:21:00 AM EST [facility] ([facility] Name Value Range Interpretation Code Description Data Denise rce(s) Supporting Document(s) Glu 110 mg/dL 70-110 [facility] ([facility] NORMAL RANGES Age WBC RBC HGB HCT [...] HCT IS 5% LESS SOURCE FOR DATA: Magine 1800 OPERATION MANUAL( AUTOMATED BLOOD COUNTS AND [...] DESIRABLE: <130 MG/DL <110 MG/DL BORDERLINE-HIGH RISK: 130- 159 MG/DL 110-129 MG/DL HIGH RISK: >160 MG/DL >130 MG/DL *CHILDREN AND ADOLESCENTS REPRESENTS INDIVIDUALA AGED 2-19 YEARS EXCLUSIVE. BUN 29 mg/dL 8-23 Above high normal [facility] ([facility] NORMAL RANGES Age WBC RBC HGB HCT [...] HCT IS 5% LESS SOURCE FOR DATA: Magine 1800 OPERATION MANUAL( AUTOMATED BLOOD COUNTS AND [...] DESIRABLE: <130 MG/DL <110 MG/DL BORDERLINE-HIGH RISK: 130- 159 MG/DL 110-129 MG/DL HIGH RISK: >160 MG/DL >130 MG/DL *CHILDREN AND ADOLESCENTS REPRESENTS INDIVIDUALA AGED 2-19 YEARS EXCLUSIVE. Creat 1.1 mg/dL 0.7-1.2 [facility] ([facility] NORMAL RANGES Age WBC RBC HGB HCT [...] HCT IS 5% LESS SOURCE FOR DATA: Magine 1800 OPERATION MANUAL( AUTOMATED BLOOD COUNTS AND [...] DESIRABLE: <130 MG/DL <110 MG/DL BORDERLINE-HIGH RISK: 130- 159 MG/DL 110-129 MG/DL HIGH RISK: >160 MG/DL >130 MG/DL *CHILDREN AND ADOLESCENTS REPRESENTS INDIVIDUALA AGED 2-19 YEARS EXCLUSIVE. BUN/Creatinine Ratio 26.1 CALC [facility] ([facility] NORMAL RANGES Age WBC RBC HGB HCT [...] HCT IS 5% LESS SOURCE FOR DATA: Magine 1800 OPERATION MANUAL( AUTOMATED BLOOD COUNTS AND [...] DESIRABLE: <130 MG/DL <110 MG/DL BORDERLINE-HIGH RISK: 130- 159 MG/DL 110-129 MG/DL HIGH RISK: >160 MG/DL >130 MG/DL *CHILDREN AND ADOLESCENTS REPRESENTS INDIVIDUALA AGED 2-19 YEARS EXCLUSIVE. Na 136 mmol/L 136-145 [facility] ([facility] NORMAL RANGES Age WBC RBC HGB HCT [...] HCT IS 5% LESS SOURCE FOR DATA: Magine 1800 OPERATION MANUAL( AUTOMATED BLOOD COUNTS AND [...] DESIRABLE: <130 MG/DL <110 MG/DL BORDERLINE-HIGH RISK: 130- 159 MG/DL 110-129 MG/DL HIGH RISK: >160 MG/DL >130 MG/DL *CHILDREN AND ADOLESCENTS REPRESENTS INDIVIDUALA AGED 2-19 YEARS EXCLUSIVE. K 3.2 mmol/L 3.5-5.1 Below low normal [facility] ( [facility] NORMAL RANGES Age WBC RBC HGB HCT [...] HCT IS 5% LESS SOURCE FOR DATA: Magine 1800 OPERATION MANUAL( AUTOMATED BLOOD COUNTS AND [...] DESIRABLE: <130 MG/DL <110 MG/DL BORDERLINE-HIGH RISK: 130- 159 MG/DL 110-129 MG/DL HIGH RISK: >160 MG/DL >130 MG/DL *CHILDREN AND ADOLESCENTS REPRESENTS INDIVIDUALA AGED 2-19 YEARS EXCLUSIVE. Co2 25.7 mmol/L 22.0-29.0 [facility] NORMAL RANGES Age WBC RBC HGB HCT [...] HCT IS 5% LESS SOURCE FOR DATA: Semmle DYN 1800 OPERATION MANUAL( AUTOMATED BLOOD COUNTS [...] DESIRABLE: <130 MG/DL <110 MG/DL BORDERLINE-HIGH RISK: 130- 159 MG/DL 110-129 MG/DL HIGH RISK: >160 MG/DL >130 MG/DL *CHILDREN AND ADOLESCENTS REPRESENTS INDIVIDUALA AGED 2-19 YEARS EXCLUSIVE. CL 98.6 mmol/L 98.0-107.0 [facility] ([facility] NORMAL RANGES Age WBC RBC HGB HCT [...] HCT IS 5% LESS SOURCE FOR DATA: Magine 1800 OPERATION MANUAL( AUTOMATED BLOOD COUNTS AND [...] DESIRABLE: <130 MG/DL <110 MG/DL BORDERLINE-HIGH RISK: 130- 159 MG/DL 110-129 MG/DL HIGH RISK: >160 MG/DL >130 MG/DL *CHILDREN AND ADOLESCENTS REPRESENTS INDIVIDUALA AGED 2-19 YEARS EXCLUSIVE. CA 8.8 mg/dL 8.6-10.2 [facility] NORMAL RANGES Age WBC RBC HGB HCT [...] HCT IS 5% LESS SOURCE FOR DATA: Magine 1800 OPERATION MANUAL( AUTOMATED BLOOD COUNTS AND [...] DESIRABLE: <130 MG/DL <110 MG/DL BORDERLINE-HIGH RISK: 130- 159 MG/DL 110-129 MG/DL HIGH RISK: >160 MG/DL >130 MG/DL *CHILDREN AND ADOLESCENTS REPRESENTS INDIVIDUALA AGED 2-19 YEARS EXCLUSIVE. TP 6.2 g/dL 6.6-8.7 Below low normal [facility] ( [facility] NORMAL RANGES Age WBC RBC HGB HCT [...] HCT IS 5% LESS SOURCE FOR DATA: Magine 1800 OPERATION MANUAL( AUTOMATED BLOOD COUNTS AND [...] DESIRABLE: <130 MG/DL <110 MG/DL BORDERLINE-HIGH RISK: 130- 159 MG/DL 110-129 MG/DL HIGH RISK: >160 MG/DL >130 MG/DL *CHILDREN AND ADOLESCENTS REPRESENTS INDIVIDUALA AGED 2-19 YEARS EXCLUSIVE. Alb 4.5 g/dL 3.5-5.2 [facility] ([facility] NORMAL RANGES Age WBC RBC HGB HCT [...] HCT IS 5% LESS SOURCE FOR DATA: Magine 1800 OPERATION MANUAL( AUTOMATED BLOOD COUNTS AND [...] DESIRABLE: <130 MG/DL <110 MG/DL BORDERLINE-HIGH RISK: 130- 159 MG/DL 110-129 MG/DL HIGH RISK: >160 MG/DL >130 MG/DL *CHILDREN AND ADOLESCENTS REPRESENTS INDIVIDUALA AGED 2-19 YEARS EXCLUSIVE. A/G Ratio 2.6 CALC [facility] ([facility] NORMAL RANGES Age WBC RBC HGB HCT [...] HCT IS 5% LESS SOURCE FOR DATA: Magine 1800 OPERATION MANUAL( AUTOMATED BLOOD COUNTS AND [...] DESIRABLE: <130 MG/DL <110 MG/DL BORDERLINE-HIGH RISK: 130- 159 MG/DL 110-129 MG/DL HIGH RISK: >160 MG/DL >130 MG/DL *CHILDREN AND ADOLESCENTS REPRESENTS INDIVIDUALA AGED 2-19 YEARS EXCLUSIVE. Alp 65.3 U/L 40-129 [facility] ([facility] NORMAL RANGES Age WBC RBC HGB HCT [...] HCT IS 5% LESS SOURCE FOR DATA: Magine 1800 OPERATION MANUAL( AUTOMATED BLOOD COUNTS AND [...] DESIRABLE: <130 MG/DL <110 MG/DL BORDERLINE-HIGH RISK: 130- 159 MG/DL 110-129 MG/DL HIGH RISK: >160 MG/DL >130 MG/DL *CHILDREN AND ADOLESCENTS REPRESENTS INDIVIDUALA AGED 2-19 YEARS EXCLUSIVE. Alt (SGPT) 22 U/L 0-41 [facility] ([facility] NORMAL RANGES Age WBC RBC HGB HCT [...] HCT IS 5% LESS SOURCE FOR DATA: Magine 1800 OPERATION MANUAL( AUTOMATED BLOOD COUNTS AND [...] DESIRABLE: <130 MG/DL <110 MG/DL BORDERLINE-HIGH RISK: 130- 159 MG/DL 110-129 MG/DL HIGH RISK: >160 MG/DL >130 MG/DL *CHILDREN AND ADOLESCENTS REPRESENTS INDIVIDUALA AGED 2-19 YEARS EXCLUSIVE. Globulin 1.7 CALC [facility] ([facility] NORMAL RANGES Age WBC RBC HGB HCT [...] HCT IS 5% LESS SOURCE FOR DATA: BASIL DYN 1800 OPERATION MANUAL( AUTOMATED BLOOD COUNTS [...] DESIRABLE: <130 MG/DL <110 MG/DL BORDERLINE-HIGH RISK: 130- 159 MG/DL 110-129 MG/DL HIGH RISK: >160 MG/DL >130 MG/DL *CHILDREN AND ADOLESCENTS REPRESENTS INDIVIDUALA AGED 2-19 YEARS EXCLUSIVE. Ast (Sgot) 25 U/L 0-40 [facility] ([facility] NORMAL RANGES Age WBC RBC HGB HCT [...] HCT IS 5% LESS SOURCE FOR DATA: Magine 1800 OPERATION MANUAL( AUTOMATED BLOOD COUNTS AND [...] DESIRABLE: <130 MG/DL <110 MG/DL BORDERLINE-HIGH RISK: 130- 159 MG/DL 110-129 MG/DL HIGH RISK: >160 MG/DL >130 MG/DL *CHILDREN AND ADOLESCENTS REPRESENTS INDIVIDUALA AGED 2-19 YEARS EXCLUSIVE. Tbili 0.69 mg/dL 0.0-1.2 [facility] ([facility] NORMAL RANGES Age WBC RBC HGB HCT [...] HCT IS 5% LESS SOURCE FOR DATA: Magine 1800 OPERATION MANUAL( AUTOMATED BLOOD COUNTS AND [...] DESIRABLE: <130 MG/DL <110 MG/DL BORDERLINE-HIGH RISK: 130- 159 MG/DL 110-129 MG/DL HIGH RISK: >160 MG/DL >130 MG/DL *CHILDREN AND ADOLESCENTS REPRESENTS INDIVIDUALA AGED 2-19 YEARS EXCLUSIVE. Osmolality-Calculated 278.6 [facility]C [facility] ([facility] NORMAL RANGES Age WBC RBC HGB HCT [...] HCT IS 5% LESS SOURCE FOR DATA: Semmle DYN 1800 OPERATION MANUAL( AUTOMATED BLOOD COUNTS [...] DESIRABLE: <130 MG/DL <110 MG/DL BORDERLINE-HIGH RISK: 130- 159 MG/DL 110-129 MG/DL HIGH RISK: >160 MG/DL >130 MG/DL *CHILDREN AND ADOLESCENTS REPRESENTS INDIVIDUALA AGED 2-19 YEARS EXCLUSIVE. Anion Gap 15 mmol/L [facility] ([facility] NORMAL RANGES Age WBC RBC HGB HCT [...] HCT IS 5% LESS SOURCE FOR DATA: Magine 1800 OPERATION MANUAL( AUTOMATED BLOOD COUNTS AND [...] DESIRABLE: <130 MG/DL <110 MG/DL BORDERLINE-HIGH RISK: 130- 159 MG/DL 110-129 MG/DL HIGH RISK: >160 MG/DL >130 MG/DL *CHILDREN AND ADOLESCENTS REPRESENTS INDIVIDUALA AGED 2-19 YEARS EXCLUSIVE. eGFR Non-Afr. Gibraltarian 63 # [facility] ([facility] CKD-EPI eGFR 73 # [facility] ( [facility] CKD-EPI ID Date Data Source [id number] 05/04/2020 10:21:00 AM EST [facility] ([facility] Name Value Range Interpretation Code Description Data Denise rce(s) Supporting Document(s) Creatine kinase [Enzymatic activity/volume] in Serum or Plasma 279 U/L 39-308 [facility] ([facility] NORMAL RANGES Age WBC RBC HGB HCT [...] HCT IS 5% LESS SOURCE FOR DATA: Magine 1800 OPERATION MANUAL( AUTOMATED BLOOD COUNTS AND [...] ADOLESCENTS REPRESENTS INDIVIDUALA AGED 2-19 YEARS EXCLUSIVE. ID Date Data Source [id number] 05/04/2020 10:21:00 AM EST [facility] ([facility] Name Value Range Interpretation Code Description Data Denise rce(s) Supporting Document(s) WBC 9.1 10E3/uL 4.1-10.9 [facility] NORMAL RANGES Age WBC RBC HGB HCT [...] HCT IS 5% LESS SOURCE FOR DATA: [employer]ine 1800 OPERATION MANUAL( AUTOMATED BLOOD COUNTS AND [...] ADOLESCENTS REPRESENTS INDIVIDUALA AGED 2-19 YEARS EXCLUSIVE. HGB 13.4 g/dL 12.0-18.0 [facility] ([facility] NORMAL RANGES Age WBC RBC HGB HCT [...] HCT IS 5% LESS SOURCE FOR DATA: [employer]ine 1800 OPERATION MANUAL( AUTOMATED BLOOD COUNTS AND [...] ADOLESCENTS REPRESENTS INDIVIDUALA AGED 2-19 YEARS EXCLUSIVE. RBC 4.05 10E6/uL 4.20-6.30 Below low normal [facility] ([facility] NORMAL RANGES Age WBC RBC HGB HCT [...] HCT IS 5% LESS SOURCE FOR DATA: [employer]ine 1800 OPERATION MANUAL( AUTOMATED BLOOD COUNTS AND [...] ADOLESCENTS REPRESENTS INDIVIDUALA AGED 2-19 YEARS EXCLUSIVE. MCV 98.0 fL 80.0-97.0 Above high normal [facility] ([facility] NORMAL RANGES Age WBC RBC HGB HCT [...] HCT IS 5% LESS SOURCE FOR DATA: [employer]ine 1800 OPERATION MANUAL( AUTOMATED BLOOD COUNTS AND [...] ADOLESCENTS REPRESENTS INDIVIDUALA AGED 2-19 YEARS EXCLUSIVE. HCT 39.7 % 37.0-51.0 HYACIN[facility] ([facility] NORMAL RANGES Age WBC RBC HGB HCT [...] HCT IS 5% LESS SOURCE FOR DATA: [employer]ine 1800 OPERATION MANUAL( AUTOMATED BLOOD COUNTS AND [...] ADOLESCENTS REPRESENTS INDIVIDUALA AGED 2-19 YEARS EXCLUSIVE. MCHC 33.8 g/dL 31.0-36.0 [facility] ([facility] NORMAL RANGES Age WBC RBC HGB HCT [...] HCT IS 5% LESS SOURCE FOR DATA: [employer] DYN 1800 OPERATION MANUAL( AUTOMATED BLOOD COUNTS [...] ADOLESCENTS REPRESENTS INDIVIDUALA AGED 2-19 YEARS EXCLUSIVE. MCH 33.1 pg 26.0-32.0 Above high normal [facility] ([facility] [facility] NORMAL RANGES Age WBC RBC HGB HCT [...] HCT IS 5% LESS SOURCE FOR DATA: Magine 1800 OPERATION MANUAL( AUTOMATED BLOOD COUNTS AND [...] ADOLESCENTS REPRESENTS INDIVIDUALA AGED 2-19 YEARS EXCLUSIVE. PLT 156 10E3/uL 140-440 [facility] ([facility] NORMAL RANGES Age WBC RBC HGB HCT [...] HCT IS 5% LESS SOURCE FOR DATA: Magine 1800 OPERATION MANUAL( AUTOMATED BLOOD COUNTS AND [...] ADOLESCENTS REPRESENTS INDIVIDUALA AGED 2-19 YEARS EXCLUSIVE. Lym% 16.0 % 10.0-58.5 [facility] ([facility] NORMAL RANGES Age WBC RBC HGB HCT [...] HCT IS 5% LESS SOURCE FOR DATA: Magine 1800 OPERATION MANUAL( AUTOMATED BLOOD COUNTS AND [...] ADOLESCENTS REPRESENTS INDIVIDUALA AGED 2-19 YEARS EXCLUSIVE. RDW-CV 14.0 % 11.5-14.5 [facility] ([facility] NORMAL RANGES Age WBC RBC HGB HCT [...] HCT IS 5% LESS SOURCE FOR DATA: Magine 1800 OPERATION MANUAL( AUTOMATED BLOOD COUNTS AND [...] ADOLESCENTS REPRESENTS INDIVIDUALA AGED 2-19 YEARS EXCLUSIVE. Neut% 73.1 % 37.0-92.0 [facility] ([facility] NORMAL RANGES Age WBC RBC HGB HCT [...] HCT IS 5% LESS SOURCE FOR DATA: Magine 1800 OPERATION MANUAL( AUTOMATED BLOOD COUNTS AND [...] ADOLESCENTS REPRESENTS INDIVIDUALA AGED 2-19 YEARS EXCLUSIVE. MXD% 10.9 % 0.1-24.0 [facility] ([facility] NORMAL RANGES Age WBC RBC HGB HCT [...] HCT IS 5% LESS SOURCE FOR DATA: Magine 1800 OPERATION MANUAL( AUTOMATED BLOOD COUNTS AND [...] ADOLESCENTS REPRESENTS INDIVIDUALA AGED 2-19 YEARS EXCLUSIVE. Lym# 1.5 10E3/uL 0.6-4.1 [facility] ([facility] NORMAL RANGES Age WBC RBC HGB HCT [...] HCT IS 5% LESS SOURCE FOR DATA: Magine 1800 OPERATION MANUAL( AUTOMATED BLOOD COUNTS AND [...] ADOLESCENTS REPRESENTS INDIVIDUALA AGED 2-19 YEARS EXCLUSIVE. Neut# 6.6 % 2.0-7.8 [facility] ([facility] NORMAL RANGES Age WBC RBC HGB HCT [...] HCT IS 5% LESS SOURCE FOR DATA: BASIL DYN 1800 OPERATION MANUAL( AUTOMATED BLOOD COUNTS [...] ADOLESCENTS REPRESENTS INDIVIDUALA AGED 2-19 YEARS EXCLUSIVE. MPV 11.0 fL 9.0-13.0 [facility] ([facility] NORMAL RANGES Age WBC RBC HGB HCT [...] HCT IS 5% LESS SOURCE FOR DATA: Magine 1800 OPERATION MANUAL( AUTOMATED BLOOD COUNTS AND [...] ADOLESCENTS REPRESENTS INDIVIDUALA AGED 2-19 YEARS EXCLUSIVE. MXD# 1.0 10E3/uL 0.0-1.8 [facility] ([facility] NORMAL RANGES Age WBC RBC HGB HCT [...] HCT IS 5% LESS SOURCE FOR DATA: Magine 1800 OPERATION MANUAL( AUTOMATED BLOOD COUNTS AND [...] ADOLESCENTS REPRESENTS INDIVIDUALA AGED 2-19 YEARS EXCLUSIVE. ID Date Data Source [id number] 01/19/2020 09:27:00 AM EDT [facility] ([employer] [facility] Name Value Range Interpretation Code Description Data Denise rce(s) Supporting Document(s) Hemoglobin A1c/Hemoglobin.total in Blood 6.0 % 4.8-5.6 Above high normal [facility] ([employer] [facility] <content>Prediabetes: 5.7 - 6.4</content >
<content>Diabetes: >6.4</content>
<content>Glycemic control for adults with diabetes: <7.0</content>
<content></content> ID Date Data Source [id number] 01/19/2020 09:26:00 AM EDT [facility] ([employer] [facility] Name Value Range Interpretation Code Description Data Denise rce(s) Supporting Document(s) Creatine kinase [Enzymatic activity/volume] in Serum or Plasma 3 79 U/L 39-308 Above high normal [facility] ([facility] [facility] ) NORMAL RANGES Age WBC RBC HGB HCT [...] HCT IS 5% LESS SOURCE FOR DATA: Semmle DYN 1800 OPERATION MANUAL( AUTOMATED BLOOD COUNTS [...] ADOLESCENTS REPRESENTS INDIVIDUALA AGED 2-19 YEARS EXCLUSIVE. ID Date Data Source [id number] 01/19/2020 09:26:00 AM CYNTHIA CLAROS ([facility] Name Value Range Interpretation Code Description Data Denise rce(s) Supporting Document(s) Chol 130 mg/dL 0-200 [facility] ([facility] NORMAL RANGES Age WBC RBC HGB HCT [...] HCT IS 5% LESS SOURCE FOR DATA: Magine 1800 OPERATION MANUAL( AUTOMATED BLOOD COUNTS AND [...] ADOLESCENTS REPRESENTS INDIVIDUALA AGED 2-19 YEARS EXCLUSIVE. Cholesterol in HDL [Mass/volume] in Serum or Plasma 54 mg/dL 35-55 [facility] ([facility] NORMAL RANGES Age WBC RBC HGB HCT [...] HCT IS 5% LESS SOURCE FOR DATA: Magine 1800 OPERATION MANUAL( AUTOMATED BLOOD COUNTS AND [...] DESIRABLE: <130 MG/DL <110 MG/DL BORDERLINE-HIGH RISK: 130- 159 MG/DL 110-129 MG/DL HIGH RISK: >160 MG/DL >130 MG/DL *CHILDREN AND ADOLESCENTS REPRESENTS INDIVIDUALA AGED 2-19 YEARS EXCLUSIVE. Trig 56 mg/dL 35-200 [facility] ([facility] NORMAL RANGES Age WBC RBC HGB HCT [...] HCT IS 5% LESS SOURCE FOR DATA: Magine 1800 OPERATION MANUAL( AUTOMATED BLOOD COUNTS AND [...] DESIRABLE: <130 MG/DL <110 MG/DL BORDERLINE-HIGH RISK: 130- 159 MG/DL 110-129 MG/DL HIGH RISK: >160 MG/DL >130 MG/DL *CHILDREN AND ADOLESCENTS REPRESENTS INDIVIDUALA AGED 2-19 YEARS EXCLUSIVE. Cho/HDL Ratio 2.4 CALC [facility] ([facility] NORMAL RANGES Age WBC RBC HGB HCT [...] HCT IS 5% LESS SOURCE FOR DATA: Magine 1800 OPERATION MANUAL( AUTOMATED BLOOD COUNTS AND [...] DESIRABLE: <130 MG/DL <110 MG/DL BORDERLINE-HIGH RISK: 130- 159 MG/DL 110-129 MG/DL HIGH RISK: >160 MG/DL >130 MG/DL *CHILDREN AND ADOLESCENTS REPRESENTS INDIVIDUALA AGED 2-19 YEARS EXCLUSIVE. LDL_C 64 Calc 75-129 Below low normal [facility] ( [facility] NORMAL RANGES Age WBC RBC HGB HCT [...] HCT IS 5% LESS SOURCE FOR DATA: Magine 1800 OPERATION MANUAL( AUTOMATED BLOOD COUNTS AND [...] DESIRABLE: <130 MG/DL <110 MG/DL BORDERLINE-HIGH RISK: 130- 159 MG/DL 110-129 MG/DL HIGH RISK: >160 MG/DL >130 MG/DL *CHILDREN AND ADOLESCENTS REPRESENTS INDIVIDUALA AGED 2-19 YEARS EXCLUSIVE. ID Date Data Source [id number] 01/19/2020 09:26:00 AM EDT [facility] ([facility] Name Value Range Interpretation Code Description Data Denise rce(s) Supporting Document(s) BUN 26 mg/dL 8- Above high normal [facility] ([facility] NORMAL RANGES Age WBC RBC HGB HCT [...] HCT IS 5% LESS SOURCE FOR DATA: Magine 1800 OPERATION MANUAL( AUTOMATED BLOOD COUNTS AND [...] DESIRABLE: <130 MG/DL <110 MG/DL BORDERLINE-HIGH RISK: 130- 159 MG/DL 110-129 MG/DL HIGH RISK: >160 MG/DL >130 MG/DL *CHILDREN AND ADOLESCENTS REPRESENTS INDIVIDUALA AGED 2-19 YEARS EXCLUSIVE. Glu 115 mg/dL 70-110 Above high normal [facility] ([facility] NORMAL RANGES Age WBC RBC HGB HCT [...] HCT IS 5% LESS SOURCE FOR DATA: Magine 1800 OPERATION MANUAL( AUTOMATED BLOOD COUNTS AND [...] DESIRABLE: <130 MG/DL <110 MG/DL BORDERLINE-HIGH RISK: 130- 159 MG/DL 110-129 MG/DL HIGH RISK: >160 MG/DL >130 MG/DL *CHILDREN AND ADOLESCENTS REPRESENTS INDIVIDUALA AGED 2-19 YEARS EXCLUSIVE. Na 139 mmol/L 136-145 [facility] ([facility] NORMAL RANGES Age WBC RBC HGB HCT [...] HCT IS 5% LESS SOURCE FOR DATA: Magine 1800 OPERATION MANUAL( AUTOMATED BLOOD COUNTS AND [...] DESIRABLE: <130 MG/DL <110 MG/DL BORDERLINE-HIGH RISK: 130- 159 MG/DL 110-129 MG/DL HIGH RISK: >160 MG/DL >130 MG/DL *CHILDREN AND ADOLESCENTS REPRESENTS INDIVIDUALA AGED 2-19 YEARS EXCLUSIVE. Creat 1.0 mg/dL 0.7-1.2 [facility] ([facility] NORMAL RANGES Age WBC RBC HGB HCT [...] HCT IS 5% LESS SOURCE FOR DATA: Magine 1800 OPERATION MANUAL( AUTOMATED BLOOD COUNTS AND [...] DESIRABLE: <130 MG/DL <110 MG/DL BORDERLINE-HIGH RISK: 130- 159 MG/DL 110-129 MG/DL HIGH RISK: >160 MG/DL >130 MG/DL *CHILDREN AND ADOLESCENTS REPRESENTS INDIVIDUALA AGED 2-19 YEARS EXCLUSIVE. BUN/Creatinine Ratio 26.4 [facility]C [facility] NORMAL RANGES Age WBC RBC HGB HCT [...] HCT IS 5% LESS SOURCE FOR DATA: Magine 1800 OPERATION MANUAL( AUTOMATED BLOOD COUNTS AND [...] DESIRABLE: <130 MG/DL <110 MG/DL BORDERLINE-HIGH RISK: 130- 159 MG/DL 110-129 MG/DL HIGH RISK: >160 MG/DL >130 MG/DL *CHILDREN AND ADOLESCENTS REPRESENTS INDIVIDUALA AGED 2-19 YEARS EXCLUSIVE. CL 101.7 mmol/L 98.0-107.0 [facility] ([facility] NORMAL RANGES Age WBC RBC HGB HCT [...] HCT IS 5% LESS SOURCE FOR DATA: Magine 1800 OPERATION MANUAL( AUTOMATED BLOOD COUNTS AND [...] DESIRABLE: <130 MG/DL <110 MG/DL BORDERLINE-HIGH RISK: 130- 159 MG/DL 110-129 MG/DL HIGH RISK: >160 MG/DL >130 MG/DL *CHILDREN AND ADOLESCENTS REPRESENTS INDIVIDUALA AGED 2-19 YEARS EXCLUSIVE. K 3.7 mmol/L 3.5-5.1 [facility] NORMAL RANGES Age WBC RBC HGB HCT [...] HCT IS 5% LESS SOURCE FOR DATA: Magine 1800 OPERATION MANUAL( AUTOMATED BLOOD COUNTS AND [...] DESIRABLE: <130 MG/DL <110 MG/DL BORDERLINE-HIGH RISK: 130- 159 MG/DL 110-129 MG/DL HIGH RISK: >160 MG/DL >130 MG/DL *CHILDREN AND ADOLESCENTS REPRESENTS INDIVIDUALA AGED 2-19 YEARS EXCLUSIVE. CA 9.2 mg/dL 8.6-10.2 [facility] ([facility] NORMAL RANGES Age WBC RBC HGB HCT [...] HCT IS 5% LESS SOURCE FOR DATA: Magine 1800 OPERATION MANUAL( AUTOMATED BLOOD COUNTS AND [...] DESIRABLE: <130 MG/DL <110 MG/DL BORDERLINE-HIGH RISK: 130- 159 MG/DL 110-129 MG/DL HIGH RISK: >160 MG/DL >130 MG/DL *CHILDREN AND ADOLESCENTS REPRESENTS INDIVIDUALA AGED 2-19 YEARS EXCLUSIVE. TP 6.1 g/dL 6.6-8.7 Below low normal [facility] ( [facility] NORMAL RANGES Age WBC RBC HGB HCT [...] HCT IS 5% LESS SOURCE FOR DATA: Magine 1800 OPERATION MANUAL( AUTOMATED BLOOD COUNTS AND [...] DESIRABLE: <130 MG/DL <110 MG/DL BORDERLINE-HIGH RISK: 130- 159 MG/DL 110-129 MG/DL HIGH RISK: >160 MG/DL >130 MG/DL *CHILDREN AND ADOLESCENTS REPRESENTS INDIVIDUALA AGED 2-19 YEARS EXCLUSIVE. Co2 28.0 mmol/L 22.0-29.0 [facility] ([facility] NORMAL RANGES Age WBC RBC HGB HCT [...] HCT IS 5% LESS SOURCE FOR DATA: Magine 1800 OPERATION MANUAL( AUTOMATED BLOOD COUNTS AND [...] DESIRABLE: <130 MG/DL <110 MG/DL BORDERLINE-HIGH RISK: 130- 159 MG/DL 110-129 MG/DL HIGH RISK: >160 MG/DL >130 MG/DL *CHILDREN AND ADOLESCENTS REPRESENTS INDIVIDUALA AGED 2-19 YEARS EXCLUSIVE. A/G Ratio 2.4 CALC [employer] ([facility] NORMAL RANGES Age WBC RBC HGB HCT [...] HCT IS 5% LESS SOURCE FOR DATA: Magine 1800 OPERATION MANUAL( AUTOMATED BLOOD COUNTS AND [...] DESIRABLE: <130 MG/DL <110 MG/DL BORDERLINE-HIGH RISK: 130- 159 MG/DL 110-129 MG/DL HIGH RISK: >160 MG/DL >130 MG/DL *CHILDREN AND ADOLESCENTS REPRESENTS INDIVIDUALA AGED 2-19 YEARS EXCLUSIVE. Alb 4.3 g/dL 3.5-5.2 [facility] ([facility] NORMAL RANGES Age WBC RBC HGB HCT [...] HCT IS 5% LESS SOURCE FOR DATA: Magine 1800 OPERATION MANUAL( AUTOMATED BLOOD COUNTS AND [...] DESIRABLE: <130 MG/DL <110 MG/DL BORDERLINE-HIGH RISK: 130- 159 MG/DL 110-129 MG/DL HIGH RISK: >160 MG/DL >130 MG/DL *CHILDREN AND ADOLESCENTS REPRESENTS INDIVIDUALA AGED 2-19 YEARS EXCLUSIVE. Alp 67.4 U/L 40-129 [facility] ([facility] NORMAL RANGES Age WBC RBC HGB HCT [...] HCT IS 5% LESS SOURCE FOR DATA: BASIL DYN 1800 OPERATION MANUAL( AUTOMATED BLOOD COUNTS [...] DESIRABLE: <130 MG/DL <110 MG/DL BORDERLINE-HIGH RISK: 130- 159 MG/DL 110-129 MG/DL HIGH RISK: >160 MG/DL >130 MG/DL *CHILDREN AND ADOLESCENTS REPRESENTS INDIVIDUALA AGED 2-19 YEARS EXCLUSIVE. Globulin 1.8 CALC [facility] ([facility] NORMAL RANGES Age WBC RBC HGB HCT [...] HCT IS 5% LESS SOURCE FOR DATA: Magine 1800 OPERATION MANUAL( AUTOMATED BLOOD COUNTS AND [...] DESIRABLE: <130 MG/DL <110 MG/DL BORDERLINE-HIGH RISK: 130- 159 MG/DL 110-129 MG/DL HIGH RISK: >160 MG/DL >130 MG/DL *CHILDREN AND ADOLESCENTS REPRESENTS INDIVIDUALA AGED 2-19 YEARS EXCLUSIVE. Tbili 0.72 mg/dL 0.0-1.2 [facility] ([facility] NORMAL RANGES Age WBC RBC HGB HCT [...] HCT IS 5% LESS SOURCE FOR DATA: Magine 1800 OPERATION MANUAL( AUTOMATED BLOOD COUNTS AND [...] DESIRABLE: <130 MG/DL <110 MG/DL BORDERLINE-HIGH RISK: 130- 159 MG/DL 110-129 MG/DL HIGH RISK: >160 MG/DL >130 MG/DL *CHILDREN AND ADOLESCENTS REPRESENTS INDIVIDUALA AGED 2-19 YEARS EXCLUSIVE. Ast (Sgot) 29 U/L 0-40 [facility] ([facility] NORMAL RANGES Age WBC RBC HGB HCT [...] HCT IS 5% LESS SOURCE FOR DATA: BASIL DYN 1800 OPERATION MANUAL( AUTOMATED BLOOD COUNTS [...] DESIRABLE: <130 MG/DL <110 MG/DL BORDERLINE-HIGH RISK: 130- 159 MG/DL 110-129 MG/DL HIGH RISK: >160 MG/DL >130 MG/DL *CHILDREN AND ADOLESCENTS REPRESENTS INDIVIDUALA AGED 2-19 YEARS EXCLUSIVE. Alt (SGPT) 26 U/L 0-41 [facility] NORMAL RANGES Age WBC RBC HGB HCT [...] HCT IS 5% LESS SOURCE FOR DATA: Magine 1800 OPERATION MANUAL( AUTOMATED BLOOD COUNTS AND [...] DESIRABLE: <130 MG/DL <110 MG/DL BORDERLINE-HIGH RISK: 130- 159 MG/DL 110-129 MG/DL HIGH RISK: >160 MG/DL >130 MG/DL *CHILDREN AND ADOLESCENTS REPRESENTS INDIVIDUALA AGED 2-19 YEARS EXCLUSIVE. Osmolality-Calculated 284.1 CALC [facility] ([facility] NORMAL RANGES Age WBC RBC HGB HCT [...] HCT IS 5% LESS SOURCE FOR DATA: Magine 1800 OPERATION MANUAL( AUTOMATED BLOOD COUNTS AND [...] DESIRABLE: <130 MG/DL <110 MG/DL BORDERLINE-HIGH RISK: 130- 159 MG/DL 110-129 MG/DL HIGH RISK: >160 MG/DL >130 MG/DL *CHILDREN AND ADOLESCENTS REPRESENTS INDIVIDUALA AGED 2-19 YEARS EXCLUSIVE. Anion Gap 13 mmol/L [facility] ([facility] NORMAL RANGES Age WBC RBC HGB HCT [...] HCT IS 5% LESS SOURCE FOR DATA: Semmle DYN 1800 OPERATION MANUAL( AUTOMATED BLOOD COUNTS [...] DESIRABLE: <130 MG/DL <110 MG/DL BORDERLINE-HIGH RISK: 130- 159 MG/DL 110-129 MG/DL HIGH RISK: >160 MG/DL >130 MG/DL *CHILDREN AND ADOLESCENTS REPRESENTS INDIVIDUALA AGED 2-19 YEARS EXCLUSIVE. eGFR Non-Afr. Gibraltarian 71 # [facility] ([facility] CKD-EPI eGFR 83 # [facility] ( [facility] CKD-EPI ID Date Data Source [id number] 01/19/2020 09:26:00 AM EDT [facility] ([facility] Name Value Range Interpretation Code Description Data Denise rce(s) Supporting Document(s) WBC 7.7 10E3/uL 4.1-10.9 [facility] ([facility] NORMAL RANGES Age WBC RBC HGB HCT [...] HCT IS 5% LESS SOURCE FOR DATA: Magine 1800 OPERATION MANUAL( AUTOMATED BLOOD COUNTS AND [...] DESIRABLE: <130 MG/DL <110 MG/DL BORDERLINE-HIGH RISK: 130- 159 MG/DL 110-129 MG/DL HIGH RISK: >160 MG/DL >130 MG/DL *CHILDREN AND ADOLESCENTS REPRESENTS INDIVIDUALA AGED 2-19 YEARS EXCLUSIVE. HGB 13.3 g/dL 12.0-18.0 [facility] ([facility] NORMAL RANGES Age WBC RBC HGB HCT [...] HCT IS 5% LESS SOURCE FOR DATA: Magine 1800 OPERATION MANUAL( AUTOMATED BLOOD COUNTS AND [...] DESIRABLE: <130 MG/DL <110 MG/DL BORDERLINE-HIGH RISK: 130- 159 MG/DL 110-129 MG/DL HIGH RISK: >160 MG/DL >130 MG/DL *CHILDREN AND ADOLESCENTS REPRESENTS INDIVIDUALA AGED 2-19 YEARS EXCLUSIVE. RBC 3.99 10E6/uL 4.20-6.30 Below low normal [facility] ([facility] NORMAL RANGES Age WBC RBC HGB HCT [...] HCT IS 5% LESS SOURCE FOR DATA: Magine 1800 OPERATION MANUAL( AUTOMATED BLOOD COUNTS AND [...] DESIRABLE: <130 MG/DL <110 MG/DL BORDERLINE-HIGH RISK: 130- 159 MG/DL 110-129 MG/DL HIGH RISK: >160 MG/DL >130 MG/DL *CHILDREN AND ADOLESCENTS REPRESENTS INDIVIDUALA AGED 2-19 YEARS EXCLUSIVE. MCH 33.3 pg 26.0-32.0 Above high normal [facility] ([facility] NORMAL RANGES Age WBC RBC HGB HCT [...] HCT IS 5% LESS SOURCE FOR DATA: Magine 1800 OPERATION MANUAL( AUTOMATED BLOOD COUNTS AND [...] DESIRABLE: <130 MG/DL <110 MG/DL BORDERLINE-HIGH RISK: 130- 159 MG/DL 110-129 MG/DL HIGH RISK: >160 MG/DL >130 MG/DL *CHILDREN AND ADOLESCENTS REPRESENTS INDIVIDUALA AGED 2-19 YEARS EXCLUSIVE. MCV 99.0 fL 80.0-97.0 Above high normal [facility] ([facility] NORMAL RANGES Age WBC RBC HGB HCT [...] HCT IS 5% LESS SOURCE FOR DATA: BASIL DYN 1800 OPERATION MANUAL( AUTOMATED BLOOD COUNTS [...] DESIRABLE: <130 MG/DL <110 MG/DL BORDERLINE-HIGH RISK: 130- 159 MG/DL 110-129 MG/DL HIGH RISK: >160 MG/DL >130 MG/DL *CHILDREN AND ADOLESCENTS REPRESENTS INDIVIDUALA AGED 2-19 YEARS EXCLUSIVE. HCT 39.5 % 37.0-51.0 [facility] ([facility] NORMAL RANGES Age WBC RBC HGB HCT [...] HCT IS 5% LESS SOURCE FOR DATA: Magine 1800 OPERATION MANUAL( AUTOMATED BLOOD COUNTS AND [...] DESIRABLE: <130 MG/DL <110 MG/DL BORDERLINE-HIGH RISK: 130- 159 MG/DL 110-129 MG/DL HIGH RISK: >160 MG/DL >130 MG/DL *CHILDREN AND ADOLESCENTS REPRESENTS INDIVIDUALA AGED 2-19 YEARS EXCLUSIVE. MCHC 33.7 g/dL 31.0-36.0 [facility] ([facility] NORMAL RANGES Age WBC RBC HGB HCT [...] HCT IS 5% LESS SOURCE FOR DATA: Magine 1800 OPERATION MANUAL( AUTOMATED BLOOD COUNTS AND [...] DESIRABLE: <130 MG/DL <110 MG/DL BORDERLINE-HIGH RISK: 130- 159 MG/DL 110-129 MG/DL HIGH RISK: >160 MG/DL >130 MG/DL *CHILDREN AND ADOLESCENTS REPRESENTS INDIVIDUALA AGED 2-19 YEARS EXCLUSIVE. PLT 162 10E3/uL 140-440 [employer] ([facility] NORMAL RANGES Age WBC RBC HGB HCT [...] HCT IS 5% LESS SOURCE FOR DATA: Semmle DYN 1800 OPERATION MANUAL( AUTOMATED BLOOD COUNTS [...] DESIRABLE: <130 MG/DL <110 MG/DL BORDERLINE-HIGH RISK: 130- 159 MG/DL 110-129 MG/DL HIGH RISK: >160 MG/DL >130 MG/DL *CHILDREN AND ADOLESCENTS REPRESENTS INDIVIDUALA AGED 2-19 YEARS EXCLUSIVE. Lym% 14.8 % 10.0-58.5 [facility] ([facility] NORMAL RANGES Age WBC RBC HGB HCT [...] HCT IS 5% LESS SOURCE FOR DATA: Magine 1800 OPERATION MANUAL( AUTOMATED BLOOD COUNTS AND [...] DESIRABLE: <130 MG/DL <110 MG/DL BORDERLINE-HIGH RISK: 130- 159 MG/DL 110-129 MG/DL HIGH RISK: >160 MG/DL >130 MG/DL *CHILDREN AND ADOLESCENTS REPRESENTS INDIVIDUALA AGED 2-19 YEARS EXCLUSIVE. RDW-CV 13.4 % 11.5-14.5 [facility] ([facility] NORMAL RANGES Age WBC RBC HGB HCT [...] HCT IS 5% LESS SOURCE FOR DATA: Magine 1800 OPERATION MANUAL( AUTOMATED BLOOD COUNTS AND [...] DESIRABLE: <130 MG/DL <110 MG/DL BORDERLINE-HIGH RISK: 130- 159 MG/DL 110-129 MG/DL HIGH RISK: >160 MG/DL >130 MG/DL *CHILDREN AND ADOLESCENTS REPRESENTS INDIVIDUALA AGED 2-19 YEARS EXCLUSIVE. Neut% 75.4 % 37.0-92.0 [facility] ([facility] NORMAL RANGES Age WBC RBC HGB HCT [...] HCT IS 5% LESS SOURCE FOR DATA: Magine 1800 OPERATION MANUAL( AUTOMATED BLOOD COUNTS AND [...] DESIRABLE: <130 MG/DL <110 MG/DL BORDERLINE-HIGH RISK: 130- 159 MG/DL 110-129 MG/DL HIGH RISK: >160 MG/DL >130 MG/DL *CHILDREN AND ADOLESCENTS REPRESENTS INDIVIDUALA AGED 2-19 YEARS EXCLUSIVE. MXD% 9.8 % 0.1-24.0 [facility] ([facility] NORMAL RANGES Age WBC RBC HGB HCT [...] HCT IS 5% LESS SOURCE FOR DATA: Magine 1800 OPERATION MANUAL( AUTOMATED BLOOD COUNTS AND [...] DESIRABLE: <130 MG/DL <110 MG/DL BORDERLINE-HIGH RISK: 130- 159 MG/DL 110-129 MG/DL HIGH RISK: >160 MG/DL >130 MG/DL *CHILDREN AND ADOLESCENTS REPRESENTS INDIVIDUALA AGED 2-19 YEARS EXCLUSIVE. Lym# 1.1 10E3/uL 0.6-4.1 [facility] ([facility] NORMAL RANGES Age WBC RBC HGB HCT [...] HCT IS 5% LESS SOURCE FOR DATA: Magine 1800 OPERATION MANUAL( AUTOMATED BLOOD COUNTS AND [...] DESIRABLE: <130 MG/DL <110 MG/DL BORDERLINE-HIGH RISK: 130- 159 MG/DL 110-129 MG/DL HIGH RISK: >160 MG/DL >130 MG/DL *CHILDREN AND ADOLESCENTS REPRESENTS INDIVIDUALA AGED 2-19 YEARS EXCLUSIVE. Neut# 5.8 % 2.0-7.8 [facility] ([facility] NORMAL RANGES Age WBC RBC HGB HCT [...] HCT IS 5% LESS SOURCE FOR DATA: Magine 1800 OPERATION MANUAL( AUTOMATED BLOOD COUNTS AND [...] DESIRABLE: <130 MG/DL <110 MG/DL BORDERLINE-HIGH RISK: 130- 159 MG/DL 110-129 MG/DL HIGH RISK: >160 MG/DL >130 MG/DL *CHILDREN AND ADOLESCENTS REPRESENTS INDIVIDUALA AGED 2-19 YEARS EXCLUSIVE. MPV 10.6 fL 9.0-13.0 [facility] ([facility] NORMAL RANGES Age WBC RBC HGB HCT [...] HCT IS 5% LESS SOURCE FOR DATA: Magine 1800 OPERATION MANUAL( AUTOMATED BLOOD COUNTS AND [...] DESIRABLE: <130 MG/DL <110 MG/DL BORDERLINE-HIGH RISK: 130- 159 MG/DL 110-129 MG/DL HIGH RISK: >160 MG/DL >130 MG/DL *CHILDREN AND ADOLESCENTS REPRESENTS INDIVIDUALA AGED 2-19 YEARS EXCLUSIVE. MXD# 0.8 10E3/uL 0.0-1.8 [facility] ([facility] NORMAL RANGES Age WBC RBC HGB HCT [...] HCT IS 5% LESS SOURCE FOR DATA: Magine 1800 OPERATION MANUAL( AUTOMATED BLOOD COUNTS AND [...] DESIRABLE: <130 MG/DL <110 MG/DL BORDERLINE-HIGH RISK: 130- 159 MG/DL 110-129 MG/DL HIGH RISK: >160 MG/DL >130 MG/DL *CHILDREN AND ADOLESCENTS REPRESENTS INDIVIDUALA AGED 2-19 YEARS EXCLUSIVE. Procedure Social History Code Duration Value Status Description Data Source(s ) Smoking 10/25/2020 12:00:00 AM EDT Quit completed Quit [facility] ([facility]) Smoking 08/10/2020 12:00:00 AM EDT Patient is a former smoker completed Patient is a former smoker [facility] ([facility] Vital Signs ID Date Data Source UNK Name Value Range Interpretation Code Description Data Source(s) Body weight 182.8 [lb_av] 182.8 [lb_av] eCW1 ([facility]) Body weight 82.92 kg 82.92 kg eCW1 ([facility]) Body height 70 [in_i] 70 [in_i] eCW1 ([facility]) Body mass index (BMI) [Ratio] 26.23 kg/m2 26.23 kg/m2 W1 ([facility]) Heart rate 80 /min 80 /min eCW1 ([facility]) Respiratory rate 18 /min 18 /min eCW1 ([facility]) Body temperature 97.6 [degF] 97.6 [degF] eCW1 ( [facility]) Systolic blood pressure 144 mm[Hg] 144 mm[Hg] e CW1 ([facility]) Diastolic blood pressure 82 mm[Hg] 82 mm[Hg] eCW1 ([facility]) Body weight 181.00 [lb_av] 181.00 [lb_av] MEDEN T ([facility] [place] body weight 166 [lb_av] 166 [lb_av] MEDEN T ([facility] Body mass index (BMI) [Ratio] 26.0 kg/m2 26.0 k g/m2 MEDENT ([facility] Oxygen saturation in Arterial blood by Pulse oximetry 97 % 97 % MEDENT ([facility] Systolic blood pressure 140 mm[Hg] 140 mm[Hg] M EDENT ([facility] Diastolic blood pressure 70 mm[Hg] 70 mm[Hg] MEDENT ([facility] Body temperature 97.8 [degF] 97.8 [degF] MEDENT ([facility] Heart rate 68 /min 68 /min MEDENT ([facility] Respiratory rate 16 /min 16 /min MEDENT ( [facility] Body height 70 [in_i] 70 [in_i] MEDENT ([facility] 5'10" Systolic blood pressure 142 mm[Hg] 142 mm[Hg] M EDENT ([facility], ) Diastolic blood pressure 72 mm[Hg] 72 mm[Hg] MEDENT ([facility], ) Body height 69 [in_i] 69 [in_i] MEDENT ([facility], ) 5'9" Body mass index (BMI) [Ratio] 27.6 kg/m2 27.6 k g/m2 [facility]ENT [facility] [facility] Body weight 187.00 [lb_av] 187.00 [lb_av] [facility] T ([facility], ) [place] body weight 160 [lb_av] 160 [lb_av] [facility] T ([facility], ) Body surface area Derived from formula 2.01 m2 2.01 m2 [facility] ([facility]) Body weight 84.823 kg 84.823 kg [facility] ([facility]) Body height 69 [in_i] 69 [in_i] [facility] ([facility]) 5'9" Body weight 187.00 [lb_av] 187.00 [lb_av] [facility] T ([facility]) Body mass index (BMI) [Ratio] 27.6 kg/m2 27.6 k g/m2 [facility] ([facility]) [place] body weight 160 [lb_av] 160 [lb_av] [facility] T ([facility]) Body weight 84.823 kg 84.823 kg [facility] ([facility]) Body surface area Derived from formula 2.01 m2 2.01 m2 [facility] ([facility]) Systolic blood pressure 133 mm[Hg] 133 mm[Hg] M EDENT ([facility]) Heart rate 66 /min 66 /min [facility] ([facility]) Oxygen saturation in Arterial blood by Pulse oximetry 94 % 94 % [facility] ([facility]) Body weight 183.00 [lb_av] 183.00 [lb_av] [facility] T ([facility]) Body weight 83.009 kg 83.009 kg [facility] ([facility]) Diastolic blood pressure 80 mm[Hg] 80 mm[Hg] [facility] ([facility]) Systolic blood pressure 133 mm[Hg] 133 mm[Hg] M EDENT ([facility]) Oxygen saturation in Arterial blood by Pulse oximetry 95 % 95 % [facility] ([facility]) Body weight 183.00 [lb_av] 183.00 [lb_av] [facility] T ([facility]) Body weight 83.009 kg 83.009 kg [facility] ([facility]) Diastolic blood pressure 75 mm[Hg] 75 mm[Hg] [facility] ([facility]) Heart rate 80 /min 80 /min [facility] ([facility]) Body height 69 [in_i] 69 [in_i] [facility] 5[facility] Body mass index (BMI) [Ratio] 27.0 kg/m2 27.0 k g/m2 [facility] ([facility]) Body surface area Derived from formula 1.99 m2 1.99 m2 [facility] ([facility]) Systolic blood pressure 116 mm[Hg] 116 mm[Hg] M EDENT ([facility] Diastolic blood pressure 66 mm[Hg] 66 mm[Hg] [facility] ([facility] Body temperature 98.1 [degF] 98.1 [degF] [facility] ([facility] Body height 70 [in_i] 70 [in_i] [facility] ([facility] 5'10" Body weight 187.00 [lb_av] 187.00 [lb_av] [facility] T ([facility] [place] body weight 166 [lb_av] 166 [lb_av] [facility] T ([facility] Heart rate 78 /min 78 /min [facility] ([facility] Respiratory rate 16 /min 16 /min [facility] ( [facility] Body mass index (BMI) [Ratio] 26.8 kg/m2 26.8 k g/m2 [facility] ([facility] Oxygen saturation in Arterial blood by Pulse oximetry 97 % 97 % [facility] ([facility] [place] body weight 166 [lb_av] 166 [lb_av] [facility] T ([facility] Systolic blood pressure 128 mm[Hg] 128 mm[Hg] M EDENT ([facility] Oxygen saturation in Arterial blood by Pulse oximetry 97 % 97 % [facility] ([facility] Diastolic blood pressure 62 mm[Hg] 62 mm[Hg] [facility] ([facility] Body temperature 97.4 [degF] 97.4 [degF] [facility] ([facility] Heart rate 84 /min 84 /min [facility] ([facility] Respiratory rate 16 /min 16 /min [facility] ( [facility] Body height 70 [in_i] 70 [in_i] [facility] ([facility] 5'10" Body weight 192.00 [lb_av] 192.00 [lb_av] [facility] T ([facility] Body mass index (BMI) [Ratio] 27.5 kg/m2 27.5 k g/m2 [facility] ([facility] [place] body weight 166 [lb_av] 166 [lb_av] [facility] T ([facility] Body weight 193.00 [lb_av] 193.00 [lb_av] [facility] T ([facility] Body mass index (BMI) [Ratio] 27.7 kg/m2 27.7 k g/m2 [facility] ([facility] Oxygen saturation in Arterial blood by Pulse oximetry 99 % 99 % [facility] ([facility] Systolic blood pressure 140 mm[Hg] 140 mm[Hg] M ED[facility] ([facility] Diastolic blood pressure 60 mm[Hg] 60 mm[Hg] [facility] ([facility] Body temperature 97.2 [degF] 97.2 [degF] [facility] ([facility] Heart rate 82 /min 82 /min [facility] ([facility] Respiratory rate 16 /min 16 /min [facility] ( [facility] Body height 70 [in_i] 70 [in_i] [facility] ([facility] 5'10" Systolic blood pressure 146 mm[Hg] 146 mm[Hg] M EDENT ([facility] [place] body weight 166 [lb_av] 166 [lb_av] [facility] T ([facility] Body mass index (BMI) [Ratio] 27.8 kg/m2 27.8 k g/m2 [facility] ([facility] Oxygen saturation in Arterial blood by Pulse oximetry 97 % 97 % [facility] ([facility] Diastolic blood pressure 70 mm[Hg] 70 mm[Hg] [facility] ([facility] Body temperature 98.2 [degF] 98.2 [degF] [facility] ([facility] Heart rate 84 /min 84 /min [facility] ([facility] Respiratory rate 16 /min 16 /min [facility] ( [facility] Body height 70 [in_i] 70 [in_i] [facility] ([facility] 5'10" Body weight 194.00 [lb_av] 194.00 [lb_av] [facility] T ([facility]
[2021-02-20] MEDS ORDERED: HOME MED LIST COMPLETE! XX SCH (19:35)
--- NOTE | 2021-02-20 19:42 | REPVR ---
PROCEDURE INFORMATION: Exam: CT Head Without Contrast Exam date and time: 02/20/2021 7:12 PM Age: 80 years old Clinical indication: Syncope and collapse; Additional info: Syncope w incontinence possible sz vs arrhythmia TECHNIQUE: Imaging protocol: Computed tomography of the head without contrast. Radiation optimization: All CT scans at this facility use at least one of these dose optimization techniques: automated exposure control; mA and/or kV adjustment per patient size (includes targeted exams where dose is matched to clinical indication); or iterative reconstruction. COMPARISON: No relevant prior studies available. FINDINGS: Brain: There is mild age related parenchymal volume loss. White matter changes are demonstrated in the subcortical, centrum semiovale and periventricular white matter consistent with chronic age related small vessel ischemic changes. 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 Cerebral ventricles: The degree of ventricular dilatation is normal for age and/or degree of atrophy present. Paranasal sinuses: Visualized sinuses are unremarkable. No fluid levels. Mastoid air cells: Visualized mastoid air cells are well aerated. Bones/joints: Unremarkable. No acute fracture. Soft tissues: Unremarkable. IMPRESSION: 1. There is mild age related parenchymal volume loss. White matter changes are demonstrated in the subcortical, centrum semiovale and periventricular white matter consistent with chronic age related small vessel ischemic changes. 2. The degree of ventricular dilatation is normal for age and/or degree of atrophy present. 3. 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 4. No acute intracranial findings. Electronically signed by: Og Magaña On 02/20/2021 19:41:31 PM
[2021-02-20] MEDS ORDERED: ACETAMINOPHEN TAB 650MG DOSE (2X325MG) PO PRN (20:40)
[2021-02-20] MEDS ORDERED: MOM 30ML SUSPENSION UDC PO PRN (20:40)
[2021-02-20] MEDS ORDERED: MAALOX 30 ML SUSP *UDC PO PRN (20:40)
[2021-02-20] MEDS ORDERED: ramipriL 1.25 MG CAP PO ONE (20:50)
--- OUTSIDE RECORDS SUMMARY | 2021-02-20 21:18 | CCD ---
Author Author [facility] Organization [facility] Address Unknown Phone Unavailable Care Team Providers Care Family Service Worker Name Role Phone Nakita Bedoya PA Unavailable Unavailable Nakita Bedoya Jacinda PA Unavailable Unavailable Nakita Bedoya Jacinda PA Unavailable Unavailable Nakita Bedoya Jacinda PA Unavailable Unavailable Nakita Bedoya Jacinda PA Unavailable Unavailable Nakita Bedoya Jacinda PA Unavailable Unavailable Nakita Bedoya Jacinda PA Unavailable Unavailable Lusi E Handy MD Unavailable Unavailable Luis E [...] Fish, J Kelvin Unavailable Unavailable Fish, J Kelivn Unavailable Unavailable Fish, J Kelvin Unavailable Unavailable [...] Fish, J Kelvin Unavailable Unavailable OBEN, T VENKATSEH MD Unavailable Unavailable OBEN, T VENKATESH MD [...] is protected by Article 27-F of the [place] State Public Health law. If you continue you may have access to information: Regarding HIV / AIDS; Provided by facilities licensed or operated by the [facility] Office of Mental Health; or Provided by the [facility] Office for People With Developmental Disabilities. If such information is present, then the following [facility] mandated warning applies: This information has been [...] law may result in a fine or long term sentence or both. A general authorization for the release of medical or other information is NOT sufficient authorization for further disc losure. Family History Family Member Name Family Member Gender Family Member Status Date o f Status Description Data Source(s) Unknown Unknown Problem [facility] ([facility] Encounters Encounter Providers Location Date Indications Data Source(s ) Outpatient [address] [facility] [address] 01/25/2021 12:00:00 AM EDT eCW1 ([facility]) Outpatient Attender: VENKATESH SMALLS MDConsultant: Kelvin Sutton 12/26/2020 02:26:00 PM EDT - 12/26/2020 02:26:00 PM EDT [facility] ital Office Visit Attender: Ade Abernathy MS, RPA-C Family Ryan brock 12/26/2020 01:45:00 PM EDT [facility] ([facility] Emergency Attender: Luis E Handy MDConsultant: Kelvin Sutton 11/23/2020 02:27:00 PM EDT - 11/23/2020 04:12:00 PM EDT [facility] Patient discharged. Outpatient Attender: Kelvin Sutton [place] [facility] 11/23/2020 01:00:0 0 PM EDT MED[facility] ([facility] Outpatient Attender: VENKATESH SMALLS MDConsultant: Kelvin Sutton 10/25/2020 09:42:00 AM EDT - 10/25/2020 09:42:00 AM EDT [facility] Outpatient Attender: VENKATESH SMALLS MD Family [facility] 10/04/2020 02:00:0 0 PM EDT MED[facility] ([facility]) Outpatient Attender: VENKATESH SMALLS MDConsultant: Kelvin Sutton 10/04/2020 01:44:00 PM EDT - 10/04/2020 01:44:00 PM EDT [facility] Outpatient Attender: Kelvin Sutton [place] [facility] 08/10/2020 10:20:0 0 AM EDT [facility] ([facility] Outpatient Attender: Kelvin Sutton [place] [facility] 05/04/2020 09:00:0 0 AM EST [facility] ([facility] Att[facility]: [facility] 03/07/2020 01:00:00 PM EST [facility] Outpatient Attender: Jacinda ERICKSON [place] [facility] 02/29/2020 01:00:00 PM EST [facility] ([facility] Outpatient Attender: Kelvin Herman [place] [facility] 01/27/2020 01:00:0 0 PM EDT [facility] ([facility] Immunizations Vaccine Date Status Description Data Source(s) COVID-19 VACCINE [facility] 06/18/2020 12:00:00 AM EST completed [facility] Vaccine Series Complete: YESThis Data wa s Submitted to [facility] Via [facility]. COVID-19 VACCINE Pfizer 05/28/2020 12:00:00 AM EST completed [facility] Vaccine Series Complete: NOThis Data was Submitted to [facility] Via [employer]. New in 2012. IIV4 01/27/2020 01:05:00 PM [...] 12/26/2020 12:00:00 AM EDT ORAL active MEDENT ([facility]) atorvastatin 10 MG Oral Tablet ATORVASTATIN CALCIUM [...] 10/26/2020 12:00:00 AM EDT active M EDENT ([facility], ) Magnesium Hydroxide 80 MG/ML Oral Suspension Milk Of Magnesi a 10/26/2020 12:00:00 AM EDT ORAL active M EDENT ([facility], ) 25 mg 10/25/2020 12:00:00 AM [...] 10/25/2020 12:00:00 AM EDT ORAL completed [facility] ([facility]) 25 mg 10/25/2020 12:00:00 AM EDT tablet [...] HCL 08/10/2020 12:00:00 AM EDT active MEDENT ([facility] 25 mg 07/26/2020 12:00:00 AM [...] TABLET BY MOUTH EVERY DAY SOLD: 01/28/2020 [facility] Ramipril 2.5 MG Oral Capsule Ramipril [...] BY MOUTH TWICE A DAY SOLD: 04/05/2020 [facility] Insurance Providers Payer name Policy type / Coverage type Policy ID Covered constitution party ID Covered constitution party's relationship to villanueva Policy [place] Plan Information MEDICARE COMPLETE [id number] SP [id number] MEDICARE COMPLETE [id number] SP [id number] MEDICARE COMPLETE [id number] SP [id number] [facility] [place] PPO [id number] SP [id number] [place] [phone] Medicare Ppo [id number] Self [id number] Medicare Ppo [employer] MEDICARE O/P [id number] 18 [id number] [employer] MEDICARE O/P [id number] 18 [id number] MEDICARE [id number] SP [id number] A [employer] [place] [id number] Self [id number] Medicare [place] Medicare Primary [id number] Self 0 [id number] [employer] Medigap Part B [id number] Family Dependent [id number] [facility] Medicare Commercial [id number] Self 9 [id number] Medicare [facility] Medicare Primary [id number] Self 0 [id number] [employer] [facility] Medigap Part B [id number] Family Dependent [id number] Medicare [facility] Medicare Primary [id number] Self [employer] [facility] Medigap Part B [id number] Family Dependent [facility] Medicare Commercial [id number] Self [employer] O [id number] S [id number] [facility] O [id number] S [id number] [place] [id number] 18 [id number] [facility] -PHYSICIAN [id number] 2 [id number] [facility] MEDICARE COMPLETE -[place] [id number] 18 [id number] [facility] -O/P [id number] 20 [id number] Problems, Conditions, and Diagnoses Code Display Name Description Problem Type Effective Dates Data Source(s) Y9289 Other specified places as the place of o ccurrence of the external cause Other specified places as the place of occurrence of the external cause Diagnosis 11/23/2020 02:27:00 PM EDT [facility] [id number] Fall on same level from slip ping, tripping and stumbling with subsequent striking against other object, initial encounter Fall on same level from slipping, tripping and stumbling with subsequent striking against other object, initial encounter Diagnosis 11/23/2020 02:27:00 PM EDT [facility] 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 senior care (cu rrent) use of aspirin Diagnosis 11/23/2020 02:27:00 PM T [facility] 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, first degree Atrioventri cular block, first degree Diagnosis 11/23/2020 02:27:00 PM T [facility] R569 Unspecified convulsions Unspecified convulsions Diagno sis 11/23/2020 02:27:00 PM T [facility] [id number] Unspecified asthma, uncomplicated Unspecified as thma, uncomplicated Diagnosis 11/23/2020 02:27:00 PM EDT [facility] I10 Essential (primary) hypertension Essential (primary) h ypertension Diagnosis 11/23/2020 02:27:00 PM EDT [facility] [id number] Concussion with loss of cons ciousness of 30 minutes or less, initial encounter Concussion with loss of consciousness of 30 minutes or less, initial encounter Diagnosis 11/23/2020 02:27:00 PM EDT [facility] [id number] Unspecified injury of head, initial enco unter Unspecified injury of head, initial encounter Diagnosis 11/23/2020 02:27:00 PM EDT [facility] N503 Cyst of epididymis Cyst of epididymis Diagnosis 01:44:00 PM EDT [facility] R32 Unspecified urinary incontinence Unspecified urinary i ncontinence Diagnosis 10/04/2020 01:44:00 PM EDT [facility] R3915 Urgency of urination Urgency of urination Diagnosis 10/04/2020 01:44:00 PM EDT [facility] R350 Frequency of micturition Frequency of micturition Diag nosis 10/04/2020 01:44:00 PM EDT [facility] R9720 Elevated prostate specific antigen [PSA] Elevated prostate specific antigen [PSA] Diagnosis 10/04/2020 01:44:00 PM EDT [facility] N32.81 Overactive bladder Overactive bladder Problem 12:00:00 AM EDT [facility] ([facility]) [id number] Pure hypercholesterolemia Pure hypercholesterolemia Pr oblem 10/04/2020 12:00:00 AM EDT [facility] ([facility]) [id number] Essential hypertension Essential hypertension Problem 10/04/2020 12:00:00 AM EDT [facility] ([facility]) Surgeries/Procedures Procedure Description Date Indications Data Source(s) Colonoscopy W/ Poly 01/26/2021 12:00:00 AM EDT MED[facility] ([facility], ) PHYSICIAN TELEPHONE EVALUATION 5-10 MIN 12/26/2020 12: 00:00 AM EDT MED[facility] ([facility]) OFFICE OUTPATIENT VISIT 25 MINUTES 11/23/2020 12:00:00 AM EDT MED[facility] ([facility] Measurement Post Voiding Residual Urine By Ultrasound,Non-Im aging 10/25/2020 12:00:00 AM EDT MEDENT ([facility]) OFFICE OUTPATIENT VISIT 15 MINUTES 10/25/2020 12:00:00 AM EDT [facility] ([facility]) OFFICE OUTPATIENT NEW 20 MINUTES 10/04/2020 12:00:00 A M EDT [facility] ([facility]) OFFICE OUTPATIENT VISIT 25 MINUTES 08/10/2020 12:00:00 AM EDT MED[facility] ([facility] Results ID Date Data Source [id number] 01/26/2021 01:13:00 PM EDT MED[facility] ([facility], ) Name Value Range Interpretation Code Description Data Denise rce(s) Supporting Document(s) Surgical pathology study Laboratory test result [facility] ([facility] ) FINAL DIAGNOSIS A - Sigmoid [...] MD 01/29/2021 1405 ID Date Data Source [id number] 01/22/2021 10:40:00 AM EDT [facility] Name Value Range Interpretation Code Description Data Denise rce(s) Supporting Document(s) SARS-CoV-2 (COVID-19) RNA [Presence] in Respiratory specimen by ANAND with probe detection Not Detected [facility] This lab was ordered by [facility] and reported by [employer] ID Date Data Source [id number] 11/27/2020 09:46:00 AM EDT [facility] [address] [place] [address] PHONE: [phone] FAX: [phone] Name .................. : AGBRIELLE Means Acct Number.................. : [id number] ROOM. ................. : TR-06 MR Number ................... : [id number] Stay type ............. : E/R Discharge Date......... ... : 11/23/20 Admit Date ......... : 11/23/20 Admit Phys .................... : AYLEEN Lenzt Date of ....... : 1940 Family Phys ................... : HERMAN TIERNEY Phone .................. : [phone] Age ................................ : 80 Film# .................. .:[id number] Sex ................................. : M Unsigned transcriptions are preliminary reports and do not represent a medical or legal document CT HEAD W/O CONTRAST 78047 COMPLETE:11/23/20 16:01 [place] [address]36 Reason(s): Head Injury CT OF THE HEAD [...] By CALLY HOLT MD , 11/27/20 09:46, [facility] Transcribe Initials: DZ , Transcribe Date: 11/23/20 23:16, Dictation Date: Copy for: HERMAN WONG via fax Copy for: EMERGENCY DEPT via [employer] Copy for: [facility]oon MED REC DISCHARGED Page 1 of 1 Name Value Range Interpretation Code Description Data Denise rce(s) Supporting Document(s) ID Date Data Source [id number] 11/24/2020 03:41:00 [place] [address] RESPIRATORY CARE REPORT ==== ---------NAME------- NUMBER SEX AGE ADMIT DISC. XRAY# F/C KAMERON Means [id number] M 80 11/23/20 11/23/20 [id number] HEATHER E/R DATE OF : 1940 M/R# [id number] PH#: [phone] TR-06 LOCATION: EMERGENCY DEPT EKG 29790 COMP LETE:11/24/20 07:59 [facility] [address] PHYSICIAN: AYLEEN Lentz Name Value Range Interpretation Code Description Data Denise rce(s) Supporting Document(s) ID Date Data Source [id number] 11/23/2020 02:27:00 PM EDT [facility] 1 OrderSheet [facility] Emergency Department [address] [place] [address] Phone #: ext- [phone] 11/23/2020 14:18 Patient: MORRIS ANTHONY Sex: M [...] rce(s) Supporting Document(s) ID Date Data Source [id number] 11/23/2020 02:27:00 PM EDT [facility] 1 Medication Reconciliation Report [facility] Emergency Department [address] [place] [address] Phone #: ext- [phone] 11/23/2020 14:18 Patient: MORRIS ANTHONY Sex: M [...] Name Value Range Interpretation Code Description Data [facility](s) Supporting Document(s) ID Date Data Source [id number] 11/23/2020 02:27:00 PM EDT [place] [address] Medication Administration Record [facility] Emergency Department [address] [place] [address] Phone #: ext- [phone] 11/23/2020 14:18 Patient: MORRIS ANTHONY Sex: M : 1940 Age: 80yWeight: 82.1 kgHeight/Length: 69 inBMI: 26.7ALLERGIES: PenicillinsDate/Time Medication Administered Medication Ordered Name Value Range Interpretation Code Description Data [facility](s) Supporting Document(s) ID Date Data Source [id number] 11/23/2020 02:27:00 PM EDT [facility] 1 General Instructions [facility] Emergency Department [address] [place] [address] Phone #: ext- [phone] 11/23/2020 14:18 Patient: [...] patient.Follow-up with: Kelvin Sutton, , , [address] [place], [address] Follow up in three days if not well. Call for an appointment. Reason for referral: evaluation. ADDITIONAL INFORMATIONHead Injury with Sleep Monitoring (Adult) 2 General Instructions [facility] Emergency Department [address] [place] [address] Phone #: ext- [phone] 11/23/2020 14:18 Patient: [...] Vision changes Memory loss 3 General Instructions [facility] Emergency Department [address] [place] [address] Phone #: ext- [phone] 11/23/2020 14:18 Patient: [...] may affect your care. 4 General Instructions [facility] Emergency Department [address] [place] [address] Phone #: ext- [phone] 11/23/2020 14:18 Patient: [...] around the eyes Lethargy or excessive sleepiness [id number] [employer]. [address] [place] [address], [place] [address]. All rights reserved. This information is not intended as asubstitute for professional medical care. Always follow your healthcare professional's instructions. You have been given the following additional information: Head Injury with Sleep Monitoring (Adult)(Electronically signed by Luis E Handy 11/23/2020 18:11) Name Value Range Interpretation Code Description Data Denise rce(s) Supporting Document(s) ID Date Data Source [id number] 11/23/2020 02:27:00 PM EDT [facility] 1 Clinical Report - Nurses [facility] Emergency Department [address] [place] [address] Phone #: ext- [phone] 11/23/2020 14:18 Patient: [...] only last a few seconds. last episode [id number]).Triage time: 14:24 11/23/2020. Acuity: LEVEL 3.Chief Complaint: (? seizures).14:25 11/23/20.Onset. (1 weeks ago). No fever, weakness, cough, difficulty breathing or skin rash. 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 SEPSIS SCREEN NEGATIVE. [...] Pantoja RN.PROBLEMS: 2 Clinical Report - Nurses [facility] Emergency Department [address] [place] [address] Phone #: ext- [phone] 11/23/2020 14:18 [id number] Sex: M : 1940 Age: 80y Hy [...] on patient. --14:45 11/23/20 José Pantoja RN.PHYSICAL [id number] 11/23/20. Ambulatory to room.GENERAL / NEURO / PSYCH: Alert. Oriented X 4.HEENT: No facial asymmetry noted. Mucous membranes are pink. 3 Clinical Report - Nurses [facility] Emergency Department [address] [place] [address] Phone #: ext- [phone] 11/23/2020 14:18 Patient: MORRIS ANTHONY Sex: M [...] RN 15:02 11/23/20. BP: 160/84. --15:02 11/23/20 [facility] Tech1 EKG time: (15:03 11/23/2020). EKG was performed by a nurse and shown to the ED physician. 1 degree av block. Checked patient name and birthdate. Blood samples drawn by tech. (1500). --15:10 11/23/20 José Pantoja RN Patient transported to CT by wheelchair with mask and radiology transporter. (1505). --15:10 11/23/20 José Pantoja RN Patient returned from CT by wheelchair with mask and radiology transporter. (1515). --15:16 11/23/20 José Pantoja RN 15:58 11/23/20. BP: 133/86. HR: 75. RR: 16. O2 saturation: 94%. --15:58 11/23/20 [facility].DISPOSITION / DISCHARGE 15:58 11/23/20. BP: 133/86. [...] spouse verbalized understanding. Written instructions provided in Mosotho. The patient was discharged by the physician. He was discharged home and accompanied by spouse. He left ambulatory and via private vehicle. Spouse driving. --16:17 11/23/20 José Pantoja RN.Locked/Released at 11/23/2020 18:48 by José Pantoja RN 4 Clinical Report - Nurses [facility] Emergency Department [address] [place] [address] Phone #: ext- [phone] 11/23/2020 14:18 Patient: MORRIS VALDOVINOS Sex: M : 1940 Age: 80y Name Value Range Interpretation Code Description Data Denise rce(s) Supporting Document(s) ID Date Data Source [id number] 11/23/2020 02:27:00 PM EDT [facility] 1 Clinical Report - Physicians/Mid Levels [facility] Emergency Department [address] [place] [address] Phone #: ext- [phone] 11/23/2020 14:18 Patient: [...] Inhalation. 2 Clinical Report - Physicians/Mid Levels [facility] Emergency Department [address] [place] [address] Phone #: ext- [phone] 11/23/2020 14:18 Patient: [...] 2.0) 3 Clinical Report - Physicians/Mid Levels [facility] Emergency Department [address] [place] [address] Phone #: eqf- [phone] 11/23/2020 14:18 Patient: MORRIS ANTHONY Sex: M [...] Male GFR Interprentation 20-49 yrs >60 mL/min Anmrpe86-58 yrs >56 mL/min Normal 60-69 yrs >49 mL/min Normal 70-79yrs>42 mL/min Normal 80 and above >35 mL/min Normal Female GFRInterpretation 20-39 yrs >60 mL/min Normal 40-49 yrs >58 mL/minNormal 50-59 yrs >51 mL/min Normal 60-69 yrs >45 mL/min Wfccvc30-50 yrs >39 mL/min Normal 80 and above [...] MORPH NOT INDICATEDMagnesium: (MAURO: 11/23/2020 15:03) ( [facility] 11/23/2020 15:28) Final results Test Result Flag Units (Reference) MAGNESIUM 2.1 MG/DL (1.7 - 2.2)CT Head W/O Cont: (MAURO: 11/23/2020 14:54) ( [facility] 11/23/2020 16:01) In ProgressCT HEAD W/O CONTRASTReason(s): Head InjuryTRANSPORTATION: S IV? O2? Oxygen?(No) Room: ED 4 Clinical Report - Physicians/Mid Levels [facility] Emergency Department [address] [place] [address] Phone #: ext- [phone] 11/23/2020 14:18 [id number] Sex: M : 1940 Age: 80y.PROGRESS AND [...] patient. Follow-up with: Kelvin Sutton, , , [address] [place] [address], [facility] Follow up in three days if not well. Call for an appointment. Reason for referral: evaluation. 5 Clinical Report - Physicians/[facility] Emergency Department [address] [place] [address] Phone #: ext- [phone] 11/23/2020 14:18 Patient: MORRIS ANTHONY Sex: M : 1940 Age: 80y(Electronically signed by Luis E Handy 11/23/2020 18:11) Name Value Range Interpretation Code Description Data Denise rce(s) Supporting Document(s) ID Date Data Source [id number] 11/23/2020 03:03:00 PM EDT [facility] ([facility] Name Value Range Interpretation Code Description Data Denise rce(s) Supporting Document(s) Magnesium [Mass/volume] in Serum or Plasma 2.1 mg/dL 1.7-2.2 [facility] ([facility] ID Date Data Source [id number] 11/23/2020 03:03:00 PM EDT [facility] ([facility] Name Value Range Interpretation Code Description Data Denise rce(s) Supporting Document(s) Comprehensive [facility] Laboratory test result [facility] ([facility] COMPREHENSIVE METABOLIC PANEL Sodium 141 meq/L 134-153 [facility] ([facility] Chloride 102 meq/L 98-107 [facility] ([facility] Potassium 3.7 meq/L 3.6-5.0 [facility] ([facility] Co2 29 meq/L 22-30 [facility] ([facility] Glucose 85 mg/dL 70-99 [facility] ([facility] BUN 19 mg/dL 7-21 [facility] ([facility] Creatinine 1.0 mg/dL 0.7-1.5 [facility] ([facility] BUN/Creat 19 8-27 [facility] ([facility] Total Protein 7.1 g/dL 6.3-8.2 [facility] ([facility] Globulin 2.8 GM/DL 2.4-3.2 [facility] ([facility] Albumin 4.3 g/dL 3.9-5.0 [facility] ([facility] A/G Ratio 1.5 0.8-2.0 [facility] ([facility] Calcium 9.5 mg/dL 8.4-10.2 [facility] ([facility] Total Bili Laboratory test result 0.2-1.3 ME DENT ([facility] Alkaline Phos 146 U/L 38-126 Above high normal MEDE NT ([facility] Sgot/Ast 26 U/L 5-40 [facility] SGPT/Alt 22 U/L 7-56 [facility] ([facility] Anion Gap 10.0 mmol/L 8.0-16.0 [facility] ([facility] Age 80 yrs MEDENT ([facility] Non-Aa GFR Laboratory test result ME DENT ([facility] Afr Amer GFR Laboratory test result [facility] ([facility] Male GFR Interprentation 20-49 yrs >60 [...] >32 mL/min Normal ID Date Data Source [id number] 11/23/2020 03:03:00 PM EDT [facility] ([facility] Name Value Range Interpretation Code Description Data Denise rce(s) Supporting Document(s) WBC 7.3 10^3/uL 4.2-11.0 [facility] ([facility] CBC W/Automated Diff Laboratory test result [facility] ([facility] COMPLETE BLOOD COUNT Hemoglobin 13.5 g/dL 14.0-16.0 Below low normal [facility] ( [facility] RBC 4.09 10^6/uL 4.50-6.30 Below low normal [facility] ([facility] Hematocrit 39.5 % 41.0-51.0 Below low normal [facility] ( [facility] MCV 96.6 fL 80.0-94.0 Above high normal [facility] ([facility] MCH 33.0 pg 27.0-34.0 [facility] ([facility] RDW 13.1 % 11.5-14.8 [...] 37.0-80.0 [facility] ([facility] [place] 7.9 % 3.0-8.0 [facility] ([facility] Eos 1.8 % 0.0-7.0 [facility] ([facility] Baso 0.7 % 0.0-2.0 [facility] ([facility] %Ig 0.4 % 0.0-0.0 Above high normal [facility] %NRBC 0.0 % 0.0-0.0 [facility] ([facility] #Neut 5.53 10^3/uL 2.00-6.90 [facility] ([facility] #Lymph 1.00 10^3/uL 0.60-3.40 [facility] ([facility] #Eos 0.13 10^3/uL 0.00-0.70 [facility] ([facility] #[place] 0.58 10^3/uL 0.00-0.90 [facility] ([facility] #Baso 0.05 10^3/uL 0.00-0.20 [facility] ([facility] #Ig 0.03 10^3/uL 0.00-0.10 [facility] ([facility] #NRBC 0.00 10^3/uL 0.00-0.00 [facility] ([facility] Manual Diff Laboratory test result M IVAN ([facility] RBC Morph Laboratory test result NOE ([facility] ID Date Data Source [id number] 11/23/2020 03:28:00 PM EDT [facility] Name Value Range Interpretation Code Description Data Denise rce(s) Supporting Document(s) Magnesium [Mass/volume] in Serum or Plasma 2.1 MG/DL 1.7 - 2.2 [facility] ID Date Data Source [id number] 11/23/2020 03:28:00 PM EDT [facility] Name Value Range Interpretation Code Description Data Denise rce(s) Supporting Document(s) COMPREHENSIVE METABOLIC PANEL [facility] COMPREHENSIVE METABOLIC PANEL Sodium [Moles/volume] in Serum or Plasma 141 mEq/L 134 - 153 [facility] Potassium [Moles/volume] in Serum or Plasma 3.7 mEq/L 3.6 - 5.0 [facility] Chloride [Moles/volume] in Serum or Plasma 102 mEq/L 98 - 107 [facility] Carbon dioxide, total [Moles/volume] in Serum or Plasma 29 MEQ/L 22 - 30 [facility] Glucose [Mass/volume] in Serum or Plasma 85 MG/DL 70 - 99 [facility] BUN 19 MG/DL 7 - 21 [facility] al Creatinine [Mass/volume] in Serum or Plasma 1.0 MG/DL 0.7 - 1.5 [facility] BUN/CREAT 19 8 - 27 [facility] Protein [Mass/volume] in Serum or Plasma 7.1 G/DL 6.3 - 8.2 [facility] Albumin [Mass/volume] in Serum or Plasma 4.3 G/DL 3.9 - 5.0 [facility] Globulin [Mass/volume] in Serum by calculation 2.8 GM/DL 2.4 - 3.2 [facility] A/G RATIO 1.5 0.8 - 2.0 [facility] Calcium [Mass/volume] in Serum or Plasma 9.5 MG/DL 8.4 - 10.2 [facility] Bilirubin.total [Mass/volume] in Serum or Plasma <0.7 MG/DL 0.2 - 1.3 [facility] Alkaline phosphatase [Enzymatic activity/volume] in Serum or Plasma 146 U/L 38 - 126 H [facility] Aspartate aminotransferase [Enzymatic activity/volume] in Serum or Plasma 26 U/L 5 - 40 [facility] Alanine aminotransferase [Enzymatic activity/volume] in Seru m or Plasma 22 U/L 7 - 56 [facility] Anion gap 3 in Serum or Plasma 10.0 mmol/L 8.0 - 16.0 [facility] AGE 80 yrs [facility] NON-AA GFR >60 mL/min [facility] AFR AMER GFR >60 mL/min [facility] Ho spital Male GFR In terprentation 20-49 [...] >32 mL/min Normal ID Date Data Source [id number] 11/23/2020 03:13:00 PM EDT [facility] Name Value Range Interpretation Code Description Data Denise rce(s) Supporting Document(s) CBC W/AUTOMATED DIFF [facility] COMPLETE BLOOD COUNT Leukocytes [#/volume] in Blood by Automated count 7.3 10^3/uL 4.2 - 1 1.0 [facility] Erythrocytes [#/volume] in Blood by Automated count 4.09 10^6/uL 4. 50 - 6.30 L [facility] Hemoglobin [Mass/volume] in Blood 13.5 g/dL 14.0 - 16.0 L [facility] Hematocrit [Volume Fraction] of Blood by Automated count 39.5 % 4 1.0 - 51.0 L [facility] Erythrocyte mean corpuscular volume [Entitic volume] by Auto mated count 96.6 fL 80.0 - 94.0 H [facility] Erythrocyte mean corpuscular hemoglobin [Entitic mass] by Automated count 33.0 pg 27.0 - 34.0 [facility] Erythrocyte mean corpuscular hemoglobin concentration [Mass/volume] by Automated count 34.2 g/dL 31.0 - 36.0 [facility] Erythrocyte distribution width [Ratio] by Automated count 13.1 % 11.5 - 14.8 [facility] Platelets [#/volume] in Blood by Automated count 210 10^3/uL 150 - 45 0 [facility] Platelet mean volume [Entitic volume] in Blood by Automated count 10.1 fL 7.4 - 10.4 [facility] Neutrophils/100 leukocytes in Blood by Automated count 75.5 % 37. 0 - 80.0 [facility] Lymphocytes/100 leukocytes in Blood by Manual count 13.7 % 25.0 - 40.0 L [facility] Monocytes/100 leukocytes in Blood by Automated count 7.9 % 3.0 - 8.0 [facility] Eosinophils/100 leukocytes in Blood by Automated count 1.8 % 0.0 - 7.0 [facility] Basophils/100 leukocytes in Blood by Automated count 0.7 % 0.0 - 2.0 [facility] %IG 0.4 % 0.0 - 0.0 [facility] 0.0 % 0.0 - 0.0 [facility] al Neutrophils [#/volume] in Blood by Automated count 5.53 10^3/uL 2.00 - 6.90 [facility] Lymphocytes [#/volume] in Blood by Automated count 1.00 10^3/uL 0.60 - 3.40 [facility] Monocytes [#/volume] in Blood by Automated count 0.58 10^3/uL 0.00 - 0.90 [facility] Eosinophils [#/volume] in Blood by Automated count 0.13 10^3/uL 0.00 - 0.70 [facility] Basophils [#/volume] in Blood by Automated count 0.05 10^3/uL 0.00 - 0.20 [facility] #IG 0.03 10^3/uL 0.00 - 0.10 [facility] ospital #NRBC 0.00 10^3/uL 0.00 - 0.00 [facility] MANUAL DIFF NOT INDICATED [facility] RBC MORPH NOT INDICATED [facility] ID Date Data Source [id number] 11/16/2020 09:04:00 AM EDT [facility] ([facility] Name Value Range Interpretation Code Description Data Denise rce(s) Supporting Document(s) Appearance of Urine Laboratory test result [facility] ([facility] Color Urine Laboratory test result M EDENT ([facility] Specific Howe 1.025 1.00-1.03 [facility] ([facility] PH Urine 6.5 5.0-8.0 [facility] ([facility] Glucose Urine Laboratory test result [facility] ([facility] Bilirubin.total [Presence] in Urine by Test strip Laboratory test res ult [facility] ([facility] Blood Urine Laboratory test result M EDENT ([facility] Ketones Laboratory test result [facility] ([facility] Urobilinogen 0.2 EU/dl 0.2-1.0 [facility] ([facility] Protein Urine Laboratory test result [facility] ([facility] Leukocytes Laboratory test result ME DENT ([facility] Nitrite Laboratory test result [facility] ([facility] ID Date Data Source [id number] 11/16/2020 09:03:00 AM EDT [facility] ([facility] Name Value Range [...] HCT IS 5% LESS SOURCE FOR DATA: [employer] 1800 OPERATION MANUAL( AUTOMATED BLOOD COUNTS AND [...] 2-19 YEARS EXCLUSIVE. ID Date Data Source [id number] 11/16/2020 09:03:00 AM EDT [facility] ([facility] Name Value Range Interpretation [...] 2-19 YEARS EXCLUSIVE. Chol 115 mg/dL 0-200 [facility] ([facility] NORMAL [...] HCT IS 5% LESS SOURCE FOR DATA: [employer] 1800 OPERATION MANUAL( AUTOMATED BLOOD COUNTS AND [...] HCT IS 5% LESS SOURCE FOR DATA: [employer] 1800 OPERATION MANUAL( AUTOMATED BLOOD COUNTS AND [...] HCT IS 5% LESS SOURCE FOR DATA: [employer] 1800 OPERATION MANUAL( AUTOMATED BLOOD COUNTS [...] 2-19 YEARS EXCLUSIVE. Cho/HDL Ratio 2.0 CALC [facility] ([facility] NORMAL RANGES Age WBC RBC [...] HCT IS 5% LESS SOURCE FOR DATA: [employer] 1800 OPERATION MANUAL( AUTOMATED BLOOD COUNTS AND [...] 2-19 YEARS EXCLUSIVE. ID Date Data Source [id number] 11/16/2020 09:03:00 AM CYNTHIA CLAROS ([facility] Name Value Range Interpretation Code Description Data Denise rce(s) Supporting Document(s) Glu 109 mg/dL 70-110 HYACINTH ([facility] NORMAL RANGES Age [...] HCT IS 5% LESS SOURCE FOR DATA: [employer] 1800 OPERATION MANUAL( AUTOMATED BLOOD COUNTS AND [...] BUN 27 mg/dL 8-23 Above high normal [facility] ([facility] NORMAL RANGES Age [...] HCT IS 5% LESS SOURCE FOR DATA: [employer] 1800 OPERATION MANUAL( AUTOMATED BLOOD COUNTS [...] YEARS EXCLUSIVE. BUN/Creatinine Ratio 24.1 CALC [facility] ([facility] NORMAL RANGES Age [...] HCT IS 5% LESS SOURCE FOR DATA: [employer] 1800 OPERATION MANUAL( AUTOMATED BLOOD COUNTS AND [...] 2-19 YEARS EXCLUSIVE. Creat 1.1 mg/dL 0.7-1.2 [facility] ([facility] NORMAL RANGES Age WBC RBC [...] HCT IS 5% LESS SOURCE FOR DATA: [employer] 1800 OPERATION MANUAL( AUTOMATED BLOOD COUNTS AND [...] 2-19 YEARS EXCLUSIVE. Na 140 mmol/L 136-145 [facility] ([facility] NORMAL [...] HCT IS 5% LESS SOURCE FOR DATA: [employer] 1800 OPERATION MANUAL( AUTOMATED BLOOD COUNTS AND [...] HCT IS 5% LESS SOURCE FOR DATA: [employer] 1800 OPERATION MANUAL( AUTOMATED BLOOD COUNTS AND [...] 2-19 YEARS EXCLUSIVE. CL 100.2 mmol/L 98.0-107.0 [facility] ([facility] NORMAL RANGES Age WBC RBC HGB [...] HCT IS 5% LESS SOURCE FOR DATA: [employer] 1800 OPERATION MANUAL( AUTOMATED BLOOD COUNTS AND [...] 2-19 YEARS EXCLUSIVE. CA 8.9 mg/dL 8.6-10.2 [facility] ([facility] NORMAL [...] HCT IS 5% LESS SOURCE FOR DATA: [employer] 1800 OPERATION MANUAL( AUTOMATED BLOOD COUNTS AND [...] YEARS EXCLUSIVE. Co2 23.9 mmol/L 22.0-29.0 [facility] ([facility] NORMAL RANGES Age WBC RBC [...] HCT IS 5% LESS SOURCE FOR DATA: [employer] 1800 OPERATION MANUAL( AUTOMATED BLOOD COUNTS AND [...] 2-19 YEARS EXCLUSIVE. Alb 4.2 g/dL 3.5-5.2 [facility] ([facility] NORMAL [...] HCT IS 5% LESS SOURCE FOR DATA: [employer] 1800 OPERATION MANUAL( AUTOMATED BLOOD COUNTS AND [...] HCT IS 5% LESS SOURCE FOR DATA: [employer] 1800 OPERATION MANUAL( AUTOMATED BLOOD COUNTS AND [...] HCT IS 5% LESS SOURCE FOR DATA: [employer] 1800 OPERATION MANUAL( AUTOMATED BLOOD COUNTS [...] HCT IS 5% LESS SOURCE FOR DATA: [employer] 1800 OPERATION MANUAL( AUTOMATED BLOOD COUNTS AND [...] YEARS EXCLUSIVE. Alt (SGPT) 22 U/L 0-41 [facility] ([facility] NORMAL [...] HCT IS 5% LESS SOURCE FOR DATA: [employer] 1800 OPERATION MANUAL( AUTOMATED BLOOD COUNTS AND [...] 2-19 YEARS EXCLUSIVE. Tbili 0.51 mg/dL 0.0-1.2 [facility] NORMAL RANGES Age WBC RBC [...] HCT IS 5% LESS SOURCE FOR DATA: [employer] 1800 OPERATION MANUAL( AUTOMATED BLOOD COUNTS AND [...] YEARS EXCLUSIVE. Ast (Sgot) 25 U/L 0-40 [facility] ([facility] NORMAL RANGES [...] HCT IS 5% LESS SOURCE FOR DATA: [employer] 1800 OPERATION MANUAL( AUTOMATED BLOOD COUNTS AND [...] YEARS EXCLUSIVE. Osmolality-Calculated 286.1 CALC MED [facility] ([facility] NORMAL RANGES Age [...] HCT IS 5% LESS SOURCE FOR DATA: [employer] 1800 OPERATION MANUAL( AUTOMATED BLOOD COUNTS AND [...] 2-19 YEARS EXCLUSIVE. Anion Gap 20 mmol/L [facility] NORMAL [...] HCT IS 5% LESS SOURCE FOR DATA: [employer] 1800 OPERATION MANUAL( AUTOMATED BLOOD COUNTS [...] HCT IS 5% LESS SOURCE FOR DATA: [employer] 1800 OPERATION MANUAL( AUTOMATED BLOOD COUNTS AND [...] INDIVIDUALA AGED 2-19 YEARS EXCLUSIVE. eGFR Non-Afr. Malaysian 63 # [facility] ([facility] NORMAL RANGES Age [...] HCT IS 5% LESS SOURCE FOR DATA: [employer] 1800 OPERATION MANUAL( AUTOMATED BLOOD COUNTS AND [...] 2-19 YEARS EXCLUSIVE. ID Date Data Source [id number] 11/16/2020 09:03:00 AM EDT [facility] ([facility] Name Value Range Interpretation Code Description Data Denise rce(s) Supporting Document(s) WBC 6.5 10E3/uL 4.1-10.9 [facility] NORMAL RANGES Age WBC RBC [...] HCT IS 5% LESS SOURCE FOR DATA: [employer] 1800 OPERATION MANUAL( AUTOMATED BLOOD COUNTS AND [...] HCT IS 5% LESS SOURCE FOR DATA: [employer] 1800 OPERATION MANUAL( AUTOMATED BLOOD COUNTS AND [...] 2-19 YEARS EXCLUSIVE. HCT 37.7 % 37.0-51.0 [facility] ([facility] NORMAL RANGES [...] 2-19 YEARS EXCLUSIVE. HGB 12.5 g/dL 12.0-18.0 [facility] ([facility] NORMAL [...] HCT IS 5% LESS SOURCE FOR DATA: [employer] 1800 OPERATION MANUAL( AUTOMATED BLOOD COUNTS AND [...] HCT IS 5% LESS SOURCE FOR DATA: [employer] 1800 OPERATION MANUAL( AUTOMATED BLOOD COUNTS AND [...] HCT IS 5% LESS SOURCE FOR DATA: [employer] 1800 OPERATION MANUAL( AUTOMATED BLOOD COUNTS [...] 2-19 YEARS EXCLUSIVE. MCHC 33.2 g/dL 31.0-36.0 [facility] ([facility] NORMAL [...] HCT IS 5% LESS SOURCE FOR DATA: [employer] 1800 OPERATION MANUAL( AUTOMATED BLOOD COUNTS AND [...] 2-19 YEARS EXCLUSIVE. PLT 217 10E3/uL 140-440 [facility] ([facility] NORMAL RANGES Age WBC RBC [...] HCT IS 5% LESS SOURCE FOR DATA: [employer] 1800 OPERATION MANUAL( AUTOMATED BLOOD COUNTS AND [...] 2-19 YEARS EXCLUSIVE. RDW-CV 13.7 % 11.5-14.5 [facility] ([facility] NORMAL [...] HCT IS 5% LESS SOURCE FOR DATA: [employer] 1800 OPERATION MANUAL( AUTOMATED BLOOD COUNTS AND [...] 2-19 YEARS EXCLUSIVE. Lym% 18.0 % 10.0-58.5 [facility] ([facility] NORMAL [...] HCT IS 5% LESS SOURCE FOR DATA: [employer] 1800 OPERATION MANUAL( AUTOMATED BLOOD COUNTS AND [...] 2-19 YEARS EXCLUSIVE. Neut% 72.3 % 37.0-92.0 [facility] ([facility] NORMAL RANGES Age WBC RBC [...] HCT IS 5% LESS SOURCE FOR DATA: [employer] 1800 OPERATION MANUAL( AUTOMATED BLOOD COUNTS [...] 2-19 YEARS EXCLUSIVE. MXD% 9.7 % 0.1-24.0 [facility] ([facility] NORMAL [...] HCT IS 5% LESS SOURCE FOR DATA: [employer] 1800 OPERATION MANUAL( AUTOMATED BLOOD COUNTS AND [...] 2-19 YEARS EXCLUSIVE. Lym# 1.2 10E3/uL 0.6-4.1 [facility] ([facility] NORMAL RANGES Age WBC RBC [...] HCT IS 5% LESS SOURCE FOR DATA: [employer] 1800 OPERATION MANUAL( AUTOMATED BLOOD COUNTS [...] YEARS EXCLUSIVE. Neut# 4.7 % 2.0-7.8 HYACINTH ([facility] NORMAL RANGES [...] HCT IS 5% LESS SOURCE FOR DATA: [employer] 1800 OPERATION MANUAL( AUTOMATED BLOOD COUNTS AND [...] 2-19 YEARS EXCLUSIVE. MXD# 0.6 10E3/uL 0.0-1.8 [facility] ([facility] NORMAL RANGES Age WBC RBC [...] HCT IS 5% LESS SOURCE FOR DATA: [employer] 1800 OPERATION MANUAL( AUTOMATED BLOOD COUNTS AND [...] HCT IS 5% LESS SOURCE FOR DATA: [employer] 1800 OPERATION MANUAL( AUTOMATED BLOOD COUNTS AND [...] 2-19 YEARS EXCLUSIVE. ID Date Data Source [id number] 10/04/2020 03:08:00 PM EDT [facility] ([facility]) Name Value Range Interpretation Code Description Data Denise rce(s) Supporting Document(s) Color of Urine Laboratory test result [facility] ([facility]) Appearance of Urine Laboratory test result [facility] ([facility]) pH of Urine by Test strip 5 5-9 MEDE NT ([facility]) Spec Howe 1.015 1.001-1.030 [facility] ([facility]) Leukocytes Laboratory test result [facility] ([facility]) Nitrate [Presence] in Urine Laboratory test result [facility] ([facility]) Inhouse Glucose Laboratory test result [facility] ([facility]) Protein [Presence] in Urine by Test strip Laboratory test result [facility] ([facility]) Urobilinogen Laboratory test result [facility] ([facility]) Ketones [Presence] in Urine by Test strip Laboratory test result [facility] ([facility]) Bilirubin.total [Presence] in Urine by Test strip Laboratory test res ult [facility] ([facility]) Blood type and Indirect antibody screen panel - Blood Laboratory test result [facility] ([facility]) ID Date Data Source [id number] 08/02/2020 10:53:00 AM EDT [facility] ([facility] Name Value Range Interpretation Code Description Data Denise rce(s) Supporting Document(s) Color Urine Laboratory test result M EDENT ([facility] Appearance of Urine Laboratory test result [facility] ([facility] Specific Howe 1.025 1.00-1.03 [facility] ([facility] PH Urine 7.0 5.0-8.0 [facility] ([facility] Glucose Urine Laboratory test result [facility] ([facility] Bilirubin.total [Presence] in Urine by Test strip Laboratory test res ult [facility] ([facility] Ketones Laboratory test result [facility] ([facility] Blood Urine Laboratory test result M EDENT ([facility] Urobilinogen 0.2 EU/dl 0.2-1.0 [facility] ([facility] Protein Urine Laboratory test result [facility] ([facility] Nitrite Laboratory test result [facility] ([facility] Leukocytes Laboratory test result ME DENT ([facility] ID Date Data Source [id number] 08/02/2020 08:51:00 AM EDT [facility] ([facility] Name Value Range Interpretation Code Description Data Denise rce(s) Supporting Document(s) Creatine kinase [Enzymatic activity/volume] in Serum or Plasma 290 U/L 39-308 [facility] ([facility] NORMAL RANGES Age WBC RBC [...] HCT IS 5% LESS SOURCE FOR DATA: [employer] 1800 OPERATION MANUAL( AUTOMATED BLOOD COUNTS AND [...] 2-19 YEARS EXCLUSIVE. ID Date Data Source [id number] 08/02/2020 08:51:00 AM EDT [facility] ([facility] [...] HCT IS 5% LESS SOURCE FOR DATA: [employer] 1800 OPERATION MANUAL( AUTOMATED BLOOD COUNTS AND [...] 2-19 YEARS EXCLUSIVE. Trig 57 mg/dL 35-200 [facility] ([facility] NORMAL [...] in Serum or Plasma 51 mg/dL 35-55 [facility] ([facility] NORMAL RANGES [...] HCT IS 5% LESS SOURCE FOR DATA: [employer] 1800 OPERATION MANUAL( AUTOMATED BLOOD COUNTS AND [...] HCT IS 5% LESS SOURCE FOR DATA: [employer] 1800 OPERATION MANUAL( AUTOMATED BLOOD COUNTS AND [...] 2-19 YEARS EXCLUSIVE. Cho/HDL Ratio 2.3 CALC [employer] [facility] NORMAL RANGES Age WBC RBC HGB [...] HCT IS 5% LESS SOURCE FOR DATA: [employer] 1800 OPERATION MANUAL( AUTOMATED BLOOD COUNTS [...] 2-19 YEARS EXCLUSIVE. ID Date Data Source [id number] 08/02/2020 08:51:00 AM EDT [facility] ([facility] Name Value Range Interpretation Code Description Data Denise rce(s) Supporting Document(s) Glu 120 mg/dL 70-110 Above high normal [facility] ([facility] NORMAL RANGES Age [...] HCT IS 5% LESS SOURCE FOR DATA: [employer] 1800 OPERATION MANUAL( AUTOMATED BLOOD COUNTS AND [...] BUN 29 mg/dL 8-23 Above high normal [facility] ([facility] NORMAL RANGES Age [...] HCT IS 5% LESS SOURCE FOR DATA: [employer] 1800 OPERATION MANUAL( AUTOMATED BLOOD COUNTS AND [...] 2-19 YEARS EXCLUSIVE. Creat 1.2 mg/dL 0.7-1.2 [facility] ([facility] NORMAL [...] HCT IS 5% LESS SOURCE FOR DATA: [employer] 1800 OPERATION MANUAL( AUTOMATED BLOOD COUNTS [...] 2-19 YEARS EXCLUSIVE. BUN/Creatinine Ratio 24.8 CALC [facility] ([facility] NORMAL RANGES Age [...] HCT IS 5% LESS SOURCE FOR DATA: [employer] 1800 OPERATION MANUAL( AUTOMATED BLOOD COUNTS AND [...] 2-19 YEARS EXCLUSIVE. Na 138 mmol/L 136-145 [facility] ([facility] NORMAL RANGES Age [...] HCT IS 5% LESS SOURCE FOR DATA: [employer] 1800 OPERATION MANUAL( AUTOMATED BLOOD COUNTS AND [...] 2-19 YEARS EXCLUSIVE. CL 101.1 mmol/L 98.0-107.0 [facility] ([facility] NORMAL RANGES Age WBC [...] HCT IS 5% LESS SOURCE FOR DATA: [employer] 1800 OPERATION MANUAL( AUTOMATED BLOOD COUNTS AND [...] HCT IS 5% LESS SOURCE FOR DATA: [employer] 1800 OPERATION MANUAL( AUTOMATED BLOOD COUNTS AND [...] 2-19 YEARS EXCLUSIVE. Co2 25.3 mmol/L 22.0-29.0 [facility] ([facility] NORMAL RANGES Age WBC [...] HCT IS 5% LESS SOURCE FOR DATA: [employer] 1800 OPERATION MANUAL( AUTOMATED BLOOD COUNTS AND [...] 2-19 YEARS EXCLUSIVE. CA 8.7 mg/dL 8.6-10.2 [facility] ([facility] NORMAL [...] HCT IS 5% LESS SOURCE FOR DATA: [employer] 1800 OPERATION MANUAL( AUTOMATED BLOOD COUNTS AND [...] HCT IS 5% LESS SOURCE FOR DATA: [employer] 1800 OPERATION MANUAL( AUTOMATED BLOOD COUNTS AND [...] 2-19 YEARS EXCLUSIVE. Alb 4.0 g/dL 3.5-5.2 [facility] ([facility] NORMAL [...] HCT IS 5% LESS SOURCE FOR DATA: [employer] 1800 OPERATION MANUAL( AUTOMATED BLOOD COUNTS AND [...] HCT IS 5% LESS SOURCE FOR DATA: [employer] 1800 OPERATION MANUAL( AUTOMATED BLOOD COUNTS AND [...] HCT IS 5% LESS SOURCE FOR DATA: [employer] 1800 OPERATION MANUAL( AUTOMATED BLOOD COUNTS [...] YEARS EXCLUSIVE. Alt (SGPT) 25 U/L 0-41 [facility] NORMAL RANGES Age WBC RBC [...] HCT IS 5% LESS SOURCE FOR DATA: [employer] 1800 OPERATION MANUAL( AUTOMATED BLOOD COUNTS AND [...] HCT IS 5% LESS SOURCE FOR DATA: [employer] 1800 OPERATION MANUAL( AUTOMATED BLOOD COUNTS AND [...] 2-19 YEARS EXCLUSIVE. Tbili 0.38 mg/dL 0.0-1.2 [facility] NORMAL RANGES Age WBC RBC [...] HCT IS 5% LESS SOURCE FOR DATA: [employer] 1800 OPERATION MANUAL( AUTOMATED BLOOD COUNTS [...] HCT IS 5% LESS SOURCE FOR DATA: [employer] 1800 OPERATION MANUAL( AUTOMATED BLOOD COUNTS AND [...] YEARS EXCLUSIVE. eGFR 66 # [facility] ( [facility] CKD-EPI Anion Gap 15 mmol/L HYACINTH ([facility] NORMAL RANGES Age WBC RBC [...] HCT IS 5% LESS SOURCE FOR DATA: [employer] 1800 OPERATION MANUAL( AUTOMATED BLOOD COUNTS AND [...] INDIVIDUALA AGED 2-19 YEARS EXCLUSIVE. eGFR Non-Afr. Malaysian 57 # HYACINTH ([facility] CKD-EPI ID Date Data Source [id number] 08/02/2020 08:51:00 AM EDT HYACINTH ([facility] Name Value Range Interpretation Code Description Data Denise rce(s) Supporting Document(s) WBC 6.6 10E3/uL 4.1-10.9 MEDENT ([facility] NORMAL RANGES Age WBC RBC [...] HCT IS 5% LESS SOURCE FOR DATA: [employer] 1800 OPERATION MANUAL( AUTOMATED BLOOD COUNTS AND [...] HCT IS 5% LESS SOURCE FOR DATA: [employer] 1800 OPERATION MANUAL( AUTOMATED BLOOD COUNTS AND [...] RBC 3.84 10E6/uL 4.20-6.30 Below low normal [facility] NORMAL RANGES [...] HCT IS 5% LESS SOURCE FOR DATA: [employer] 1800 OPERATION MANUAL( AUTOMATED BLOOD COUNTS [...] 2-19 YEARS EXCLUSIVE. HCT 37.8 % 37.0-51.0 [facility] NORMAL [...] HCT IS 5% LESS SOURCE FOR DATA: [employer] 1800 OPERATION MANUAL( AUTOMATED BLOOD COUNTS AND [...] MCV 98.4 fL 80.0-97.0 Above high normal [facility] ([facility] NORMAL RANGES [...] HCT IS 5% LESS SOURCE FOR DATA: [employer] 1800 OPERATION MANUAL( AUTOMATED BLOOD COUNTS AND [...] MCH 32.8 pg 26.0-32.0 Above high normal [facility] ([facility] NORMAL RANGES [...] HCT IS 5% LESS SOURCE FOR DATA: [employer] 1800 OPERATION MANUAL( AUTOMATED BLOOD COUNTS AND [...] HCT IS 5% LESS SOURCE FOR DATA: [employer] 1800 OPERATION MANUAL( AUTOMATED BLOOD COUNTS AND [...] EXCLUSIVE. PLT 292 10E3/uL 140-440 MEDENT ([facility] NORMAL RANGES Age WBC [...] HCT IS 5% LESS SOURCE FOR DATA: [employer] DYN 1800 OPERATION MANUAL( AUTOMATED BLOOD COUNTS [...] 2-19 YEARS EXCLUSIVE. RDW-CV 13.1 % 11.5-14.5 [facility] ([facility] NORMAL [...] HCT IS 5% LESS SOURCE FOR DATA: [employer] 1800 OPERATION MANUAL( AUTOMATED BLOOD COUNTS AND [...] HCT IS 5% LESS SOURCE FOR DATA: [employer] 1800 OPERATION MANUAL( AUTOMATED BLOOD COUNTS AND [...] 2-19 YEARS EXCLUSIVE. Neut% 73.1 % 37.0-92.0 [facility] ([facility] NORMAL RANGES [...] HCT IS 5% LESS SOURCE FOR DATA: [employer] 1800 OPERATION MANUAL( AUTOMATED BLOOD COUNTS AND [...] 2-19 YEARS EXCLUSIVE. MXD% 7.6 % 0.1-24.0 [facility] ([facility] NORMAL [...] HCT IS 5% LESS SOURCE FOR DATA: [employer] 1800 OPERATION MANUAL( AUTOMATED BLOOD COUNTS [...] YEARS EXCLUSIVE. Lym# 1.3 10E3/uL 0.6-4.1 MEDENT ([facility] NORMAL RANGES Age WBC RBC [...] HCT IS 5% LESS SOURCE FOR DATA: [employer] 1800 OPERATION MANUAL( AUTOMATED BLOOD COUNTS AND [...] 2-19 YEARS EXCLUSIVE. Neut# 4.8 % 2.0-7.8 [facility] NORMAL RANGES Age WBC RBC [...] HCT IS 5% LESS SOURCE FOR DATA: [employer] 1800 OPERATION MANUAL( AUTOMATED BLOOD COUNTS AND [...] 2-19 YEARS EXCLUSIVE. MXD# 0.5 10E3/uL 0.0-1.8 [facility] ([facility] NORMAL RANGES Age WBC RBC [...] HCT IS 5% LESS SOURCE FOR DATA: [employer] 1800 OPERATION MANUAL( AUTOMATED BLOOD COUNTS AND [...] HCT IS 5% LESS SOURCE FOR DATA: [employer] 1800 OPERATION MANUAL( AUTOMATED BLOOD COUNTS AND [...] 2-19 YEARS EXCLUSIVE. ID Date Data Source [id number] 05/04/2020 10:21:00 AM EST MEDENT ([facility] Name Value Range Interpretation Code Description Data Denise rce(s) Supporting Document(s) Prostate specific Ag [Mass/volume] in Serum or Plasma 4.26 ng/mL 0.0-4.0 Above high normal MEDENT ([facility] ) ID Date Data Source [id number] 05/04/2020 10:21:00 AM EST MEDENT ([facility] Name Value Range Interpretation Code Description Data Denise rce(s) Supporting Document(s) Chol 126 mg/dL 0-200 MEDENT ([employer] [facility] NORMAL RANGES Age WBC RBC [...] HCT IS 5% LESS SOURCE FOR DATA: [employer] 1800 OPERATION MANUAL( AUTOMATED BLOOD COUNTS AND [...] HCT IS 5% LESS SOURCE FOR DATA: [employer] 1800 OPERATION MANUAL( AUTOMATED BLOOD COUNTS AND [...] Plasma 61 mg/dL 35-55 Above high normal [facility] ([facility] NORMAL RANGES [...] HCT IS 5% LESS SOURCE FOR DATA: [employer] 1800 OPERATION MANUAL( AUTOMATED BLOOD COUNTS AND [...] 2-19 YEARS EXCLUSIVE. Cho/HDL Ratio 2.1 Calc [facility] ([facility] NORMAL RANGES Age WBC RBC HGB [...] HCT IS 5% LESS SOURCE FOR DATA: [employer] 1800 OPERATION MANUAL( AUTOMATED BLOOD COUNTS AND [...] 2-19 YEARS EXCLUSIVE. ID Date Data Source [id number] 05/04/2020 10:21:00 AM EST MEDENT ([facility] Name Value Range Interpretation [...] HCT IS 5% LESS SOURCE FOR DATA: [employer] 1800 OPERATION MANUAL( AUTOMATED BLOOD COUNTS AND [...] 29 mg/dL 8-23 Above high normal MEDENT ([facility] NORMAL RANGES Age [...] HCT IS 5% LESS SOURCE FOR DATA: [employer] 1800 OPERATION MANUAL( AUTOMATED BLOOD COUNTS AND [...] HCT IS 5% LESS SOURCE FOR DATA: [employer] 1800 OPERATION MANUAL( AUTOMATED BLOOD COUNTS AND [...] YEARS EXCLUSIVE. BUN/Creatinine Ratio 26.1 CALC MEDENT ([facility] NORMAL RANGES Age [...] HCT IS 5% LESS SOURCE FOR DATA: [employer] 1800 OPERATION MANUAL( AUTOMATED BLOOD COUNTS AND [...] HCT IS 5% LESS SOURCE FOR DATA: [employer] 1800 OPERATION MANUAL( AUTOMATED BLOOD COUNTS AND [...] K 3.2 mmol/L 3.5-5.1 Below low normal [facility] ( [facility] NORMAL RANGES Age [...] HCT IS 5% LESS SOURCE FOR DATA: [employer] 1800 OPERATION MANUAL( AUTOMATED BLOOD COUNTS AND [...] 2-19 YEARS EXCLUSIVE. Co2 25.7 mmol/L 22.0-29.0 [facility] NORMAL RANGES Age WBC RBC [...] HCT IS 5% LESS SOURCE FOR DATA: [employer] 1800 OPERATION MANUAL( AUTOMATED BLOOD COUNTS [...] HCT IS 5% LESS SOURCE FOR DATA: [employer] 1800 OPERATION MANUAL( AUTOMATED BLOOD COUNTS AND [...] 2-19 YEARS EXCLUSIVE. CA 8.8 mg/dL 8.6-10.2 [facility] NORMAL RANGES Age WBC RBC [...] HCT IS 5% LESS SOURCE FOR DATA: [employer] 1800 OPERATION MANUAL( AUTOMATED BLOOD COUNTS AND [...] HCT IS 5% LESS SOURCE FOR DATA: [employer] 1800 OPERATION MANUAL( AUTOMATED BLOOD COUNTS AND [...] HCT IS 5% LESS SOURCE FOR DATA: [employer] 1800 OPERATION MANUAL( AUTOMATED BLOOD COUNTS AND [...] 2-19 YEARS EXCLUSIVE. A/G Ratio 2.6 CALC [facility] ([facility] NORMAL [...] HCT IS 5% LESS SOURCE FOR DATA: [employer] 1800 OPERATION MANUAL( AUTOMATED BLOOD COUNTS AND [...] 2-19 YEARS EXCLUSIVE. Alp 65.3 U/L 40-129 [facility] ([facility] NORMAL [...] HCT IS 5% LESS SOURCE FOR DATA: [employer] 1800 OPERATION MANUAL( AUTOMATED BLOOD COUNTS AND [...] HCT IS 5% LESS SOURCE FOR DATA: [employer] 1800 OPERATION MANUAL( AUTOMATED BLOOD COUNTS AND [...] YEARS EXCLUSIVE. Ast (Sgot) 25 U/L 0-40 [facility] ([facility] NORMAL [...] HCT IS 5% LESS SOURCE FOR DATA: [employer] 1800 OPERATION MANUAL( AUTOMATED BLOOD COUNTS AND [...] HCT IS 5% LESS SOURCE FOR DATA: [employer] 1800 OPERATION MANUAL( AUTOMATED BLOOD COUNTS AND [...] HCT IS 5% LESS SOURCE FOR DATA: [employer] 1800 OPERATION MANUAL( AUTOMATED BLOOD COUNTS [...] 2-19 YEARS EXCLUSIVE. Anion Gap 15 mmol/L [facility] ([facility] NORMAL [...] HCT IS 5% LESS SOURCE FOR DATA: [employer] 1800 OPERATION MANUAL( AUTOMATED BLOOD COUNTS AND [...] INDIVIDUALA AGED 2-19 YEARS EXCLUSIVE. eGFR Non-Afr. Malaysian 63 # MEDENT ([facility] CKD-EPI eGFR 73 # MEDENT ( [facility] CKD-EPI ID Date Data Source [id number] 05/04/2020 10:21:00 AM EST HYACINTH ([facility] Name Value Range Interpretation Code Description Data Denise rce(s) Supporting Document(s) Creatine kinase [Enzymatic activity/volume] in Serum or Plasma 279 U/L 39-308 HYACINTH ([facility] NORMAL RANGES Age WBC RBC [...] HCT IS 5% LESS SOURCE FOR DATA: [employer] 1800 OPERATION MANUAL( AUTOMATED BLOOD COUNTS AND [...] 2-19 YEARS EXCLUSIVE. ID Date Data Source [id number] 05/04/2020 10:21:00 AM EST MEDENT ([facility] Name Value Range Interpretation Code Description Data Denise rce(s) Supporting Document(s) WBC 9.1 10E3/uL 4.1-10.9 [facility] NORMAL RANGES Age WBC RBC [...] HCT IS 5% LESS SOURCE FOR DATA: [employer] 1800 OPERATION MANUAL( AUTOMATED BLOOD COUNTS AND [...] HCT IS 5% LESS SOURCE FOR DATA: [employer] 1800 OPERATION MANUAL( AUTOMATED BLOOD COUNTS AND [...] RBC 4.05 10E6/uL 4.20-6.30 Below low normal [facility] ([facility] NORMAL RANGES [...] HCT IS 5% LESS SOURCE FOR DATA: [employer] 1800 OPERATION MANUAL( AUTOMATED BLOOD COUNTS AND [...] MCV 98.0 fL 80.0-97.0 Above high normal [facility] ([facility] NORMAL RANGES [...] HCT IS 5% LESS SOURCE FOR DATA: [employer] 1800 OPERATION MANUAL( AUTOMATED BLOOD COUNTS AND [...] HCT IS 5% LESS SOURCE FOR DATA: [employer] 1800 OPERATION MANUAL( AUTOMATED BLOOD COUNTS AND [...] 2-19 YEARS EXCLUSIVE. MCHC 33.8 g/dL 31.0-36.0 [facility] ([facility] NORMAL [...] HCT IS 5% LESS SOURCE FOR DATA: [employer] 1800 OPERATION MANUAL( AUTOMATED BLOOD COUNTS [...] HCT IS 5% LESS SOURCE FOR DATA: [employer] 1800 OPERATION MANUAL( AUTOMATED BLOOD COUNTS AND [...] 2-19 YEARS EXCLUSIVE. PLT 156 10E3/uL 140-440 [facility] NORMAL RANGES Age WBC [...] HCT IS 5% LESS SOURCE FOR DATA: [employer] 1800 OPERATION MANUAL( AUTOMATED BLOOD COUNTS AND [...] 2-19 YEARS EXCLUSIVE. Lym% 16.0 % 10.0-58.5 [facility] ([facility] NORMAL [...] HCT IS 5% LESS SOURCE FOR DATA: [employer] 1800 OPERATION MANUAL( AUTOMATED BLOOD COUNTS AND [...] HCT IS 5% LESS SOURCE FOR DATA: [employer] 1800 OPERATION MANUAL( AUTOMATED BLOOD COUNTS AND [...] 2-19 YEARS EXCLUSIVE. Neut% 73.1 % 37.0-92.0 [facility] ([facility] NORMAL RANGES [...] HCT IS 5% LESS SOURCE FOR DATA: [employer] 1800 OPERATION MANUAL( AUTOMATED BLOOD COUNTS AND [...] 2-19 YEARS EXCLUSIVE. MXD% 10.9 % 0.1-24.0 [facility] ([facility] NORMAL [...] HCT IS 5% LESS SOURCE FOR DATA: [employer] 1800 OPERATION MANUAL( AUTOMATED BLOOD COUNTS AND [...] YEARS EXCLUSIVE. Lym# 1.5 10E3/uL 0.6-4.1 MEDRUDDY ([facility] NORMAL RANGES Age WBC RBC [...] HCT IS 5% LESS SOURCE FOR DATA: [employer] 1800 OPERATION MANUAL( AUTOMATED BLOOD COUNTS AND [...] 2-19 YEARS EXCLUSIVE. Neut# 6.6 % 2.0-7.8 [facility] ([facility] NORMAL [...] 2-19 YEARS EXCLUSIVE. MPV 11.0 fL 9.0-13.0 [facility] ([facility] NORMAL [...] HCT IS 5% LESS SOURCE FOR DATA: [employer] 1800 OPERATION MANUAL( AUTOMATED BLOOD COUNTS AND [...] YEARS EXCLUSIVE. MXD# 1.0 10E3/uL 0.0-1.8 MEDENT ([facility] NORMAL RANGES Age WBC RBC [...] HCT IS 5% LESS SOURCE FOR DATA: [employer] 1800 OPERATION MANUAL( AUTOMATED BLOOD COUNTS AND [...] 2-19 YEARS EXCLUSIVE. ID Date Data Source [id number] 01/19/2020 09:27:00 AM EDT MEDENT ([facility] Name Value Range Interpretation Code Description Data Denise rce(s) Supporting Document(s) Hemoglobin A1c/Hemoglobin.total in Blood 6.0 % 4.8-5.6 Above high normal MEDENT ([facility] <content>Prediabetes: 5.7 - 6.4</content >
<content>Diabetes: >6.4</content>
<content>Glycemic control for adults with diabetes: <7.0</content>
<content></content> ID Date Data Source [id number] 01/19/2020 09:26:00 AM EDT MEDENT ([facility] Name Value Range Interpretation Code Description Data Denise rce(s) Supporting Document(s) Creatine kinase [Enzymatic activity/volume] in Serum or Plasma 3 79 U/L 39-308 Above high normal MEDENT ([facility] ) NORMAL RANGES Age [...] HCT IS 5% LESS SOURCE FOR DATA: [employer] 1800 OPERATION MANUAL( AUTOMATED BLOOD COUNTS [...] 2-19 YEARS EXCLUSIVE. ID Date Data Source [id number] 01/19/2020 09:26:00 AM CYNTHIA CLAROS ([facility] Name Value Range Interpretation Code Description Data Denise rce(s) Supporting Document(s) Chol 130 mg/dL 0-200 MEDRUDDY ([facility] NORMAL RANGES [...] HCT IS 5% LESS SOURCE FOR DATA: [employer] 1800 OPERATION MANUAL( AUTOMATED BLOOD COUNTS AND [...] HCT IS 5% LESS SOURCE FOR DATA: [employer] 1800 OPERATION MANUAL( AUTOMATED BLOOD COUNTS AND [...] HCT IS 5% LESS SOURCE FOR DATA: [employer] 1800 OPERATION MANUAL( AUTOMATED BLOOD COUNTS AND [...] 2-19 YEARS EXCLUSIVE. Cho/HDL Ratio 2.4 CALC [facility] ([facility] NORMAL RANGES Age WBC RBC [...] HCT IS 5% LESS SOURCE FOR DATA: [employer] 1800 OPERATION MANUAL( AUTOMATED BLOOD COUNTS AND [...] HCT IS 5% LESS SOURCE FOR DATA: [employer] 1800 OPERATION MANUAL( AUTOMATED BLOOD COUNTS AND [...] 2-19 YEARS EXCLUSIVE. ID Date Data Source [id number] 01/19/2020 09:26:00 AM EDT [facility] ([facility] Name Value Range Interpretation Code Description Data Denise rce(s) Supporting Document(s) BUN 26 mg/dL 8- Above high normal [facility] ([facility] NORMAL RANGES Age WBC RBC [...] HCT IS 5% LESS SOURCE FOR DATA: [employer] 1800 OPERATION MANUAL( AUTOMATED BLOOD COUNTS AND [...] Glu 115 mg/dL 70-110 Above high normal [facility] ([facility] NORMAL RANGES [...] HCT IS 5% LESS SOURCE FOR DATA: [employer] 1800 OPERATION MANUAL( AUTOMATED BLOOD COUNTS AND [...] HCT IS 5% LESS SOURCE FOR DATA: [employer] 1800 OPERATION MANUAL( AUTOMATED BLOOD COUNTS AND [...] 2-19 YEARS EXCLUSIVE. Creat 1.0 mg/dL 0.7-1.2 [facility] ([facility] NORMAL [...] HCT IS 5% LESS SOURCE FOR DATA: [employer] 1800 OPERATION MANUAL( AUTOMATED BLOOD COUNTS AND [...] 2-19 YEARS EXCLUSIVE. BUN/Creatinine Ratio 26.4 [facility] NORMAL RANGES Age [...] HCT IS 5% LESS SOURCE FOR DATA: [employer] 1800 OPERATION MANUAL( AUTOMATED BLOOD COUNTS AND [...] 2-19 YEARS EXCLUSIVE. CL 101.7 mmol/L 98.0-107.0 [facility] ([facility] NORMAL RANGES Age WBC [...] HCT IS 5% LESS SOURCE FOR DATA: [employer] 1800 OPERATION MANUAL( AUTOMATED BLOOD COUNTS AND [...] YEARS EXCLUSIVE. K 3.7 mmol/L 3.5-5.1 HYACINTH ([facility] NORMAL RANGES Age WBC RBC [...] HCT IS 5% LESS SOURCE FOR DATA: [employer] 1800 OPERATION MANUAL( AUTOMATED BLOOD COUNTS AND [...] 2-19 YEARS EXCLUSIVE. CA 9.2 mg/dL 8.6-10.2 [facility] NORMAL [...] HCT IS 5% LESS SOURCE FOR DATA: [employer] 1800 OPERATION MANUAL( AUTOMATED BLOOD COUNTS AND [...] HCT IS 5% LESS SOURCE FOR DATA: [employer] 1800 OPERATION MANUAL( AUTOMATED BLOOD COUNTS AND [...] 2-19 YEARS EXCLUSIVE. Co2 28.0 mmol/L 22.0-29.0 [facility] NORMAL RANGES Age WBC RBC [...] HCT IS 5% LESS SOURCE FOR DATA: [employer] 1800 OPERATION MANUAL( AUTOMATED BLOOD COUNTS AND [...] 2-19 YEARS EXCLUSIVE. A/G Ratio 2.4 CALC [employer] ([facility] NORMAL RANGES [...] HCT IS 5% LESS SOURCE FOR DATA: [employer] 1800 OPERATION MANUAL( AUTOMATED BLOOD COUNTS AND [...] HCT IS 5% LESS SOURCE FOR DATA: [employer] 1800 OPERATION MANUAL( AUTOMATED BLOOD COUNTS AND [...] 2-19 YEARS EXCLUSIVE. Alp 67.4 U/L 40-129 [facility] ([facility] NORMAL [...] HCT IS 5% LESS SOURCE FOR DATA: [employer] 1800 OPERATION MANUAL( AUTOMATED BLOOD COUNTS AND [...] HCT IS 5% LESS SOURCE FOR DATA: [employer] 1800 OPERATION MANUAL( AUTOMATED BLOOD COUNTS AND [...] YEARS EXCLUSIVE. Ast (Sgot) 29 U/L 0-40 [facility] NORMAL RANGES Age [...] YEARS EXCLUSIVE. Alt (SGPT) 26 U/L 0-41 [facility] ([facility] NORMAL RANGES Age WBC RBC [...] HCT IS 5% LESS SOURCE FOR DATA: [employer] 1800 OPERATION MANUAL( AUTOMATED BLOOD COUNTS AND [...] HCT IS 5% LESS SOURCE FOR DATA: [employer] 1800 OPERATION MANUAL( AUTOMATED BLOOD COUNTS AND [...] 2-19 YEARS EXCLUSIVE. Anion Gap 13 mmol/L [facility] NORMAL [...] HCT IS 5% LESS SOURCE FOR DATA: [employer] 1800 OPERATION MANUAL( AUTOMATED BLOOD COUNTS [...] INDIVIDUALA AGED 2-19 YEARS EXCLUSIVE. eGFR Non-Afr. Malaysian 71 # [facility] ([facility] CKD-EPI eGFR 83 # MEDENT ( [facility] CKD-EPI ID Date Data Source [id number] 01/19/2020 09:26:00 AM EDT MEDENT ([facility] Name Value Range Interpretation Code Description Data Denise rce(s) Supporting Document(s) WBC 7.7 10E3/uL 4.1-10.9 [facility] ([facility] NORMAL RANGES Age WBC RBC [...] HCT IS 5% LESS SOURCE FOR DATA: [employer] 1800 OPERATION MANUAL( AUTOMATED BLOOD COUNTS AND [...] 2-19 YEARS EXCLUSIVE. HGB 13.3 g/dL 12.0-18.0 [facility] ([facility] NORMAL [...] HCT IS 5% LESS SOURCE FOR DATA: [employer] 1800 OPERATION MANUAL( AUTOMATED BLOOD COUNTS AND [...] RBC 3.99 10E6/uL 4.20-6.30 Below low normal [facility] ([facility] NORMAL RANGES [...] HCT IS 5% LESS SOURCE FOR DATA: [employer] 1800 OPERATION MANUAL( AUTOMATED BLOOD COUNTS AND [...] HCT IS 5% LESS SOURCE FOR DATA: [employer] 1800 OPERATION MANUAL( AUTOMATED BLOOD COUNTS AND [...] MCV 99.0 fL 80.0-97.0 Above high normal [facility] ([facility] NORMAL RANGES [...] HCT IS 5% LESS SOURCE FOR DATA: [employer] 1800 OPERATION MANUAL( AUTOMATED BLOOD COUNTS AND [...] HCT IS 5% LESS SOURCE FOR DATA: [employer] 1800 OPERATION MANUAL( AUTOMATED BLOOD COUNTS AND [...] 2-19 YEARS EXCLUSIVE. PLT 162 10E3/uL 140-440 [employer] ([facility] NORMAL RANGES Age WBC RBC [...] HCT IS 5% LESS SOURCE FOR DATA: [employer] 1800 OPERATION MANUAL( AUTOMATED BLOOD COUNTS [...] 2-19 YEARS EXCLUSIVE. Lym% 14.8 % 10.0-58.5 [facility] ([facility] NORMAL [...] HCT IS 5% LESS SOURCE FOR DATA: [employer] 1800 OPERATION MANUAL( AUTOMATED BLOOD COUNTS AND [...] YEARS EXCLUSIVE. RDW-CV 13.4 % 11.5-14.5 [facility] ([facility] NORMAL RANGES Age WBC RBC [...] HCT IS 5% LESS SOURCE FOR DATA: [employer] 1800 OPERATION MANUAL( AUTOMATED BLOOD COUNTS AND [...] 2-19 YEARS EXCLUSIVE. Neut% 75.4 % 37.0-92.0 [facility] ([facility] NORMAL [...] HCT IS 5% LESS SOURCE FOR DATA: [employer] 1800 OPERATION MANUAL( AUTOMATED BLOOD COUNTS AND [...] 2-19 YEARS EXCLUSIVE. MXD% 9.8 % 0.1-24.0 [facility] ([facility] NORMAL [...] HCT IS 5% LESS SOURCE FOR DATA: [employer] 1800 OPERATION MANUAL( AUTOMATED BLOOD COUNTS AND [...] YEARS EXCLUSIVE. Lym# 1.1 10E3/uL 0.6-4.1 HYACINTH ([facility] NORMAL RANGES Age WBC RBC [...] HCT IS 5% LESS SOURCE FOR DATA: [employer] 1800 OPERATION MANUAL( AUTOMATED BLOOD COUNTS AND [...] 2-19 YEARS EXCLUSIVE. Neut# 5.8 % 2.0-7.8 [facility] NORMAL [...] HCT IS 5% LESS SOURCE FOR DATA: [employer] 1800 OPERATION MANUAL( AUTOMATED BLOOD COUNTS AND [...] HCT IS 5% LESS SOURCE FOR DATA: [employer] 1800 OPERATION MANUAL( AUTOMATED BLOOD COUNTS AND [...] 2-19 YEARS EXCLUSIVE. MXD# 0.8 10E3/uL 0.0-1.8 [facility] NORMAL RANGES Age WBC [...] HCT IS 5% LESS SOURCE FOR DATA: [employer] 1800 OPERATION MANUAL( AUTOMATED BLOOD COUNTS AND [...] 12:00:00 AM EDT Quit completed Quit [facility] ([facility]) Smoking 08/10/2020 12:00:00 AM EDT Patient is a former smoker completed Patient is a former smoker [facility] ([facility] Vital Signs ID Date Data Source UNK Name Value Range Interpretation Code Description Data Source(s) Body weight 182.8 [lb_av] 182.8 [lb_av] eCW1 ([facility]) Body weight 82.92 kg 82.92 kg eCW1 ([facility]) Body height 70 [in_i] 70 [in_i] eCW1 ([facility]) Body mass index (BMI) [Ratio] 26.23 kg/m2 26.23 kg/m2 W1 ([facility]) Heart rate 80 /min 80 /min eCW1 ([facility]) Respiratory rate 18 /min 18 /min eCW1 ([facility]) Body temperature 97.6 [degF] 97.6 [degF] eCW1 ( [facility]) Systolic blood pressure 144 mm[Hg] 144 mm[Hg] e CW1 ([facility]) Diastolic blood pressure 82 mm[Hg] 82 mm[Hg] eCW1 ([facility]) Body weight 181.00 [lb_av] 181.00 [lb_av] MEDEN T ([facility] [place] body weight 166 [lb_av] 166 [lb_av] MEDEN T ([facility] Body mass index (BMI) [Ratio] 26.0 kg/m2 26.0 k g/m2 MED[facility] ([facility] Oxygen saturation in Arterial blood by Pulse oximetry 97 % 97 % [facility] ([facility] Systolic blood pressure 140 mm[Hg] 140 mm[Hg] M EDENT ([facility] Diastolic blood pressure 70 mm[Hg] 70 mm[Hg] MED[facility] ([facility] Body temperature 97.8 [degF] 97.8 [degF] MED[facility] ([facility] Heart rate 68 /min 68 /min MED[facility] ([facility] Respiratory rate 16 /min 16 /min MED[facility] ( [facility] Body height 70 [in_i] 70 [in_i] MEDENT ([facility] 5'10" Systolic blood pressure 142 mm[Hg] 142 mm[Hg] M EDENT ([facility], ) Diastolic blood pressure 72 mm[Hg] 72 mm[Hg] MEDENT ([facility], ) Body height 69 [in_i] 69 [in_i] MED[facility] ([facility], ) 5'9" Body weight 187.00 [lb_av] 187.00 [lb_av] MEDEN T ([facility], ) Body mass index (BMI) [Ratio] 27.6 kg/m2 27.6 k g/m2 [facility] [facility] [place] body weight 160 [lb_av] 160 [lb_av] MEDEN T ([facility], ) Body weight 84.823 kg 84.823 kg MEDENT ([facility]) Body surface area Derived from formula 2.01 m2 2.01 m2 [facility] ([facility]) Body height 69 [in_i] 69 [in_i] [facility] ([facility]) 5'9" Body weight 187.00 [lb_av] 187.00 [lb_av] MEDEN T ([facility]) Body mass index (BMI) [Ratio] 27.6 kg/m2 27.6 k g/m2 [facility] ([facility]) [place] body weight 160 [lb_av] 160 [lb_av] MEDEN T ([facility]) Body weight 84.823 kg 84.823 kg [facility] ([facility]) Body surface area Derived from formula 2.01 m2 2.01 m2 [facility] ([facility]) Heart rate 66 /min 66 /min MEDENT ([facility]) Systolic blood pressure 133 mm[Hg] 133 mm[Hg] M EDENT ([facility]) Diastolic blood pressure 80 mm[Hg] 80 mm[Hg] [facility] ([facility]) Oxygen saturation in Arterial blood by Pulse oximetry 94 % 94 % [facility] ([facility]) Body weight 183.00 [lb_av] 183.00 [lb_av] MEDEN T ([facility]) Body weight 83.009 kg 83.009 kg MEDENT ([facility]) Systolic blood pressure 133 mm[Hg] 133 mm[Hg] M EDENT ([facility]) Oxygen saturation in Arterial blood by Pulse oximetry 95 % 95 % [facility] Body weight 183.00 [lb_av] 183.00 [lb_av] MEDEN T ([facility]) Body weight 83.009 kg 83.009 kg MEDENT ([facility]) Diastolic blood pressure 75 mm[Hg] 75 mm[Hg] [facility] ([facility]) Heart rate 80 /min 80 /min [facility] ([facility]) Body height 69 [in_i] 69 [in_i] [facility] ([facility]) 5'9" Body mass index (BMI) [Ratio] 27.0 kg/m2 27.0 k g/m2 [facility] ([facility]) Body surface area Derived from formula 1.99 m2 1.99 m2 [facility] ([facility]) Systolic blood pressure 116 mm[Hg] 116 mm[Hg] M EDENT ([facility] Diastolic blood pressure 66 mm[Hg] 66 mm[Hg] [facility] ([facility] Body temperature 98.1 [degF] 98.1 [degF] [facility] ([facility] Body height 70 [in_i] 70 [in_i] MEDENT ([facility] 5'10" Body weight 187.00 [lb_av] 187.00 [lb_av] MEDEN T ([facility] [place] body weight 166 [lb_av] 166 [lb_av] MEDEN [...] 97 % MEDENT ([facility] Systolic blood pressure 128 mm[Hg] 128 mm[Hg] M EDENT ([facility] [place] body weight 166 [lb_av] 166 [lb_av] MEDEN T ([facility] Oxygen saturation in [...] Body height 70 [in_i] 70 [in_i] [facility] ([facility] 5'10" Body weight 192.00 [lb_av] 192.00 [lb_av] MEDEN T ([facility] Body mass index (BMI) [Ratio] 27.5 kg/m2 27.5 k g/m2 [facility] ([facility] Body weight 193.00 [lb_av] 193.00 [lb_av] MEDEN T ([facility] [place] body weight 166 [lb_av] 166 [lb_av] MEDEN [...] Body height 70 [in_i] 70 [in_i] MEDENT ([facility] 5'10" [place] body weight 166 [lb_av] 166 [lb_av] MEDEN T ([facility] Body mass index (BMI) [Ratio] 27.8 kg/m2 27.8 k g/m2 [facility] ([facility] Oxygen saturation in Arterial blood by Pulse oximetry 97 % 97 % [facility] ([facility] Systolic blood pressure 146 mm[Hg] 146 mm[Hg] M EDENT ([facility] Diastolic blood pressure 70 mm[Hg] 70 mm[Hg] MED[facility] ([facility] Body temperature 98.2 [degF] 98.2 [degF] MED[facility] ([facility] Heart rate 84 /min 84 /min MED[facility] ([facility] Respiratory rate 16 /min 16 /min MEDENT ( [facility] Body height 70 [in_i] 70 [in_i] MEDENT ([facility] 5'10" Body weight 194.00 [lb_av] 194.00 [lb_av] MEDEN T ([facility]
[2021-02-20] MEDS: ATORVASTATIN 10 MG TAB PO SCH (21:27)
[2021-02-20] MEDS: CHLORTHALIDONE 25 MG TAB PO SCH (21:27)
[2021-02-20] MEDS: DOCUSATE SODIUM 100MG CAPSULE PO SCH (21:27)
[2021-02-20] MEDS ORDERED: PROHANCE 279.3MG/ML 15ML VIAL As Ordered ONE (22:08)
[2021-02-20 23:13] VITALS: BP 144/78
--- NOTE | 2021-02-20 23:23 | REPVR ---
PROCEDURE INFORMATION: Exam: MR Head Without and With Contrast Exam date and time: 02/20/2021 9:49 PM Age: 80 years old Clinical indication: Syncope and collapse TECHNIQUE: Imaging protocol: MR of the head without and with intravenous contrast. Contrast material: PROHANCE; Contrast volume: 16 ml; Contrast route: INTRAVENOUS (IV); COMPARISON: CT Head without contrast 02/20/2021 7:05 PM FINDINGS: Brain: Nonspecific T2/FLAIR hyperintensities of the periventricular and deep subcortical white matter, most likely secondary to chronic small vessel ischemic change. No intracranial hemorrhage or extra-axial fluid collection. No evidence of mass effect or midline shift. No restricted diffusion to suggest acute infarct. No abnormal intracranial enhancement. Cerebral ventricles: Mild prominence of the ventricles and sulci, likely attributed to parenchymal volume loss. Bones/joints: Unremarkable. Paranasal sinuses: Normal as visualized. No acute sinusitis. Mastoid air cells: No mastoid effusion. Orbital cavity: Unremarkable. Soft tissues: Unremarkable. IMPRESSION: 1. No acute intracranial pathology. 2. Chronic findings, as above. Electronically signed by: Reji Lagos On 02/20/2021 23:22:11 PM
[2021-02-21] VITALS (8 sets, daily range): BP systolic 125–141; BP diastolic 64–77; O2SAT 91–93
--- NOTE | 2021-02-21 01:04 | HPEPDOC ---
General Date of Admission Feb 20, 2021 at 21:13 Date of Service: Feb 20, 2021 Attending Physician: DMITRI POWER MD Chief Complaint The patient is a 80-year-old male admitted with a reason for visit of Syncope. History of Present Illness History of present illness: Mr. Falcon is an 80 year old male presenting to the Emergency department for two episodes of syncope earlier this evening between 19:00-20:00. The episodes were witnessed by his Vee who told EMS that the first episode lasted 15-30 seconds and the second episode lasted several minutes. During this time Mr. Falcon was unresponsive, incontinent of urine, and frothing at the mouth. He states that he has had a few episodes of syncope in the last few months that started after he had an accident at work in October. Mr. Falcon works at [employer]; one day while at work he tripped and fell backwards and hit the back of his head on the ground. He had a head CT at [facility] three weeks later that was negative for any acute intracranial pathology. Mr. Falcon tells me that each time he has had a syncopal episode he is sitting down at rest. He states that ever since he fell at work in October, he awakens most mornings to a dull headache located on the top of his head with accompanying dizziness. The headache and dizziness usually remain for the duration of the morning and subside by afternoon. He denies loss of bowel, tongue biting, chest pain or palpitations, shortness of breath, tinnitis, changes in vision, or prior episodes of loss of bladder. He denies seeing an aura or smelling a distinct smell before losing consciousness and is not aware of any triggers. He admits to having leg weakness since October that feels like he is "walking through quicksand". He denies intermittent claudication. Patient is a FULL CODE. Past medical history: Asthma Hypertension Hyperlipidemia History of syncopal episodes Past surgical history: Hammer toe repair Social history: -Former pipe smoker-quit 20+ years ago -Drinks 1 glass of wine with dinner -patient denies illicit drug use -He works at the [employer] and lives with his Family history: Father at 82 years of age. Hypertension Mother at 90 years of age Allergies: See below Review of systems: General: denies fevers, chills, changes in weight. Admits to fatigue HEENT: denies changes in vision or hearing, tinnitus, difficulty swallowing, swollen glands Cardiovascular: denies chest pain or palpitations Pulmonary: denies shortness of breath, cough, pain with inspiration, Abdomen: denies nausea, vomiting, diarrhea, blood in urine or stool. Admits to occasional constipation Extremities: denies swelling, Admits to legs feeling weak Neurology: denies numbness or tingling Skin: denies easy bruising or bleeding Physical examination: General: An elderly male in no acute distress, sitting comfortably. He is able to converse with me comfortably. HEENT: PERRLA, EOMI, mucous membranes are moist and pink. No lymphadenopathy. Neck is supple Cardiovascular: Distant heart sounds, pulses are 2+ and regular throughout, not able to appreciate any murmurs. Capillary refill is <2 seconds Pulmonary: clear to auscultation bilaterally, mild expiratory wheezes heard, no rhonchi or rales noted Abdomen: soft, non tender, positive bowel sounds, no organomegaly Extremities: no edema or cyanosis. strength is 5/5 throughout. Neurology: Full sensation in upper and lower extremities. Cerebellar reflexes intact Skin: warm and dry Psych: patient is alert and oriented x 4 Imaging: Chest x-ray 02/20/21: Cardiomegaly. No evidence of acute cardiopulmonary pathology. Head CT: 02/20/21: IMPRESSION: There is mild age related parenchymal volume loss. White matter changes are demonstrated in the subcortical, centrum semiovale and periventricular white matter consistent with chronic age related small vessel ischemic changes. The degree of ventricular dilatation is normal for age and/or degree of atrophy present. 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 No acute intracranial findings. Brain MRI 02/20/21: No acute intracranial pathology. Assessment:Mr. Falcon is an 80 year old male with a past medical history of asthma, hypertension, hyperlipidemia, and a history of syncopal episodes who presented to the Emergency department for two episodes of syncope earlier this evening between 19:00-20:00. In the ED he was found to have benign labs and negative imaging. He was admitted for further syncope workup. Plan: Loss of consciousness: syncope vs seizure -These episodes started after patient hit head on floor at work in October -Patient loss control of bladder and was noted as "frothing at the mouth" during second episode -Brain MRI ordered- results as above r/o malignancy -Echocardiogram ordered -EEG ordered r/o seizure -Orthostats ordered -Labs wnl -Head CT results as above -Blood glucose 132 Asthma -mild expiratory wheezes appreciated -continue advair inhaler -duonebs as needed for shortness of breath or wheezing Hypertension -patient is currently normotensive -continue chlorthalidone Hyperlipidemia -continue atorvastatin DVT prophylaxis: -continue heparin Disposition: Patient is currently stable. Awaiting the results of the [facility] ocardiogram and EEG. Patient's Vee . Home Medications Scheduled Aspirin (Ecotrin) 81 Mg Tablet.dr, 81 MG PO DAILY, (Reported) M,W,F Atorvastatin Calcium (Atorvastatin Calcium) 10 Mg Tab, 10 MG PO QHS, (Reported) Chlorthalidone (Chlorthalidone) 25 Mg Tablet, 25 MG PO QHS, (Reported) Cholecalciferol (Vitamin D3) (Vitamin D3) 1,000 Unit Tablet, 2,000 UNITS PO DAILY, (Reported) Cyanocobalamin (Vitamin B-12) (Vitamin B-12) 500 Mcg Tab, 500 MCG PO DAILY, (Reported) Flaxseed Oil (Flaxseed Oil) 1,000 Mg Capsule, 1 CAP PO DAILY, (Reported) Mirabegron (Myrbetriq) 50 Mg Tab.er.24h, 50 MG PO DAILY, (Reported) Multivit-Min/FA/Lycopen/Lutein (Centrum Silver Men Tablet) 1 Each Tablet, 1 EACH PO DAILY, (Reported) Ramipril (Ramipril) 2.5 Mg Capsule, 2.5 MG PO QHS, (Reported) Salmeterol/Fluticasone (Advair 250-50 Diskus) 14 Puff/Inhaler Aerp, 1 PUFF INH DAILY, (Reported) Tamsulosin Hcl (Tamsulosin HCl) 0.4 Mg Capsule, 0.4 MG PO DAILY, (Reported) Vits A,C,E/Lutein/Minerals (Ocuvite with Lutein Tablet) 1 Tab Tab, 1 TAB PO DAILY, (Reported) Allergies Coded Allergies: Penicillins (Verified Allergy, Mild, RASH, 02/20/21) A-FIB/CHADSVASC A-FIB History Current/History of A-Fib/PAF?: No Current PO Anticoag Therapy: No Vital Signs Vital Signs Date Time Temp Pulse Resp B/P (MAP) Pulse Ox O2 Delivery O2 Flow Rate FiO2 02/20/21 23:13 97.8 83 18 144/78 (100) 96 Room Air Laboratory Data Labs 24H Laboratory Tests 2 02/20/21 18:17: Immature Granulocyte % (Auto) 0.6, Neutrophils (%) (Auto) 61.6, Lymphocytes (%) (Auto) 23.5L, Monocytes (%) (Auto) 8.7H, Eosinophils (%) (Auto) 4.8H, Basophils (%) (Auto) 0.8, Neutrophils # (Auto) 5.2, Lymphocytes # (Auto) 2.0, Monocytes # (Auto) 0.7, Eosinophils # (Auto) 0.4, Basophils # (Auto) 0.1, Nucleated Red Bloo d Cells % (auto) 0.0, Prothrombin Time 14.3H, Prothromb Time International Ratio 1.07, Activated Partial Thromboplast Time 29.9, Anion Gap 7L, Glomerular Filtration Rate > 60.0, Calcium Level 8.8, Total Bilirubin 0.5, Direct Bilirubin < 0.1, Aspartate Amino Transf (AST/SGOT) 38H, Alanine Aminotransferase (ALT/SGPT) 32, Alkaline Phosphatase 69, Total Creatine Kinase 326H, Creatine Kinase MB 6.0H, Creatine Kinase MB Relative Index 1.84, Troponin I < 0.02, YK-Zka-D-Type Natriuretic Peptide 102, Total Protein 6.6, Albumin 3.3, Albumin/Globulin Ratio 1.0, Lipase 251, Thyroid Stimulating Hormone (TSH) 2.880, Free Thyroxine 1.18 02/20/21 18:21: Coronavirus (COVID-19)(PCR) NEGATIVE, Influenza Type A (RT-PCR) NEGATIVE, Influenza Type B (RT-PCR) NEGATIVE, Respiratory Syncytial Virus (PCR) NEGATIVE CBC/BMP Laboratory Tests 02/20/21 18:17 Plan / VTE VTE Prophylaxis Ordered?: Yes GME ATTESTATION GME ATTESTATION My faculty preceptor for this patient encounter was physically present during the encounter and was fully available. All aspects of the patient interview, examination, medical decision making process, and medical care plan development were reviewed and approved by the faculty preceptor. The faculty preceptor is aware and concurs with the plan as stated in the body of this note and will attest to such by his/her cosignature. ATTENDING NOTE I, Kayode Power, have independently examined this patient and performed my own physical exam, as well as reviewed the documentation and edited where necessary. I have discussed in detail with the resident / student the findings and plan of treatment as documented by the resident / student and edited their note. I agree with their findings and treatment plan and have edited their documentation. I will continue to follow the patient during this hospital stay. MARIJA MILLER DO Feb 21, 2021 01:04 DMITRI POWER MD Feb 21, 2021 06:32
[2021-02-21] MEDS ORDERED: IPRATROPIUM 0.5MG/ALBUTEROL 2.5MG INH SOL UD 3ML (DUONEB) NEB PRN (05:00)
[2021-02-21] MEDS: HEPARIN SOD (PORCINE) 5000UNITS/ML 1ML VIAL/SYRINGE SC SCH ×3 (05:54→20:58)
[2021-02-21 06:57] LABS: HEMATOCRIT 37.7 % (42.0-52.0); HEMOGLOBIN 12.5 g/dl (13.5-17.5); MEAN CORPUSCULAR HEMOGLOBIN 32.4 pg (27.0-33.0); MEAN CORPUSCULAR HGB CONC 33.2 g/dl (32.0-36.5); MEAN CORPUSCULAR VOLUME 97.7 fl (80.0-96.0); PLATELET COUNT, AUTOMATED 170 10^3/uL (150-450); RED BLOOD COUNT 3.86 10^6/uL (4.30-6.10)
[2021-02-21 07:11] LABS: BLOOD UREA NITROGEN 23 MG/DL (7-18); CALCIUM LEVEL 8.7 MG/DL (8.8-10.2); CARBON DIOXIDE LEVEL 29 MEQ/L (21-32); CHLORIDE LEVEL 105 MEQ/L (98-107); CREATININE FOR GFR 1.06 MG/DL (0.70-1.30); GLOMERULAR FILTRATION RATE > 60.0 (>35); GLUCOSE, FASTING 103 MG/DL (70-100); POTASSIUM SERUM 3.7 MEQ/L (3.5-5.1); SODIUM LEVEL 142 MEQ/L (136-145)
[2021-02-21] MEDS: ADVAIR HFA 115/21MCG INHALER INH SCH (08:05)
[2021-02-21] MEDS: DOCUSATE SODIUM 100MG CAPSULE PO SCH ×2 (08:18→20:57)
[2021-02-21] MEDS: TAMSULOSIN 0.4 MG CAP PO SCH (08:19)
--- NOTE | 2021-02-21 10:00 | REP ---
INDICATION: Assess stenosis TECHNIQUE: Carotid ultrasonography was performed bilaterally FINDINGS: Right: CCA systolic: 74.1 centimeters/second CCA diastolic: 11.4 centimeters/second ICA systolic: 54.9 centimeters/second ICA diastolic: 15.6 centimeters/second ICA CCA ratio: 0.7 Left: CCA systolic: 75.7 centimeters/second CCA diastolic: 12.1 centimeters/second ICA systolic: 64.1 centimeters/second ICA diastolic: 16.2 centimeters/second ICA CCA ratio: 0.9 Vertebral artery: Right: Antegrade flow left: Antegrade flow Patchy and linear echogenic material is seen along the carotid arterial [place] some of which casts and acoustic shadow IMPRESSION: According to the SRU criteria there is less than 50% stenosis of the internal carotid artery bilaterally. This is secondary to both calcified and noncalcified atheromatous plaque formation. <Electronically signed by Kalen Blanco > 02/21/21 0918
[2021-02-21] MEDS ORDERED: ASPIRIN 81MG ENTERIC TABLET PO SCH (12:00)
--- NOTE | 2021-02-21 12:08 | IPN ---
PROGRESS NOTE DATE: 02/21/2021 SUBJECTIVE: Patient says that he had a prior syncopal episode at home and was told that it was because of skipping breakfast. Since then he has been eating breakfast in the morning. This time around he did not have any prodromal symptoms. Denies palpitations, lightheadedness or dizziness and has been in his usual state of health the past few days without any hematemesis, bright red blood per rectum, melena or black tarry stools. Patient denies any postictal confusion; he knew where he was and his was trying to wake him up. Telemetry overnight was unremarkable, remains in sinus rhythm. Patient was not orthostatic. Glucose level on arrival yesterday was 132. OBJECTIVE: Vital signs: Temperature 97.8, pulse 65, respiratory rate 14, blood pressure 137/75, 92% on room air. General: Awake, alert, oriented to person, place and time, answering questions appropriately. HEENT: Face is symmetric, tongue is midline, uvula is midline. Neck: No JVD, no thyromegaly, no cervical lymphadenopathy. Lungs: Clear to auscultation, no wheezes, rhonchi or rales. Heart: S1 and S2 sinus rhythm, no murmurs, rubs or gallops. No carotid bruits. No S3. Abdomen: Soft, nontender, nondistended, positive bowel sounds. Extremities: No cyanosis, clubbing or any pitting edema. LABORATORY DATA/IMAGING STUDIES/MICROBIOLOGY: Please see the chart. ASSESSMENT: This is an 80-year-old male with a history of hypertension, hyperlipidemia, asthma, history of syncopal episodes that presented with a syncopal episode at home, found unresponsive, incontinent of urine and frothing at the mouth. Patient had a mechanical fall while working with hardware, hit the back of his head. CT of the head was negative for any intracranial pathology. IMPRESSIONS/PLAN: 1. Syncope versus seizure: MRI of the brain has been reported as normal with no acute intracranial pathology. EEG has been ordered. Patient's carotid Dopplers also have been ordered. Echocardiogram has also been ordered. Neurology consulted for seizure rule out. 2. Hypertension: Controlled on chronic chlorthalidone. No signs of dehydration or volume loss, without vomiting, diarrhea at home. 3. History of asthma: Controlled on DuoNeb and Advair HFA. 4. Dyslipidemia: On chronic Lipitor. 5. Constipation: On Colace twice a day. 6. Disposition: Await echo report, EEG and neurology recommendations. Discharge home in the morning. PT/OT. CAMERON
[2021-02-21] MEDS: ATORVASTATIN 10 MG TAB PO SCH (20:57)
[2021-02-21] MEDS: CHLORTHALIDONE 25 MG TAB PO SCH (20:57)
[2021-02-22] MEDS: HEPARIN SOD (PORCINE) 5000UNITS/ML 1ML VIAL/SYRINGE SC SCH (05:22)
[2021-02-22 06:00] VITALS: BP_SYST 124; BP_SYST 146; BP_DIAS 70; BP_DIAS 86
[2021-02-22 06:37] LABS: HEMATOCRIT 36.7 % (42.0-52.0); HEMOGLOBIN 12.3 g/dl (13.5-17.5); MEAN CORPUSCULAR HEMOGLOBIN 32.2 pg (27.0-33.0); MEAN CORPUSCULAR HGB CONC 33.5 g/dl (32.0-36.5); MEAN CORPUSCULAR VOLUME 96.1 fl (80.0-96.0); PLATELET COUNT, AUTOMATED 171 10^3/uL (150-450); RED BLOOD COUNT 3.82 10^6/uL (4.30-6.10); WHITE BLOOD COUNT 8.3 10^3/uL (4.0-10.0)
[2021-02-22 06:58] LABS: BLOOD UREA NITROGEN 22 MG/DL (7-18); CALCIUM LEVEL 8.8 MG/DL (8.8-10.2); CARBON DIOXIDE LEVEL 31 MEQ/L (21-32); CHLORIDE LEVEL 105 MEQ/L (98-107); CREATININE FOR GFR 1.06 MG/DL (0.70-1.30); GLOMERULAR FILTRATION RATE > 60.0 (>35); GLUCOSE, FASTING 121 MG/DL (70-100); POTASSIUM SERUM 3.3 MEQ/L (3.5-5.1); SODIUM LEVEL 138 MEQ/L (136-145)
--- NOTE | 2021-02-22 07:37 | CR ---
CONSULTATION DATE: 02/21/2021 REFERRING PHYSICIAN: FRED MILLER MD REASON FOR CONSULTATION: Episode of loss of consciousness and concern for seizure. HISTORY OF PRESENT ILLNESS: Charlie Falcon is an 80-year-old man who was brought to [facility] after two episodes of loss of consciousness in the evening. These episodes were witnessed by his who told EMS the first episode lasted for 15-30 seconds and the second episode lasted for several minutes. During these episodes, the patient became unresponsive, incontinent of urine and frothing at his mouth. He had a couple of other episodes of passing out since October 2020 when he fell. 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 His CT scan of his head three weeks after this fall at [facility] was unremarkable. Each time he had an episode of loss of consciousness he was sitting down. He has a dull headache in the morning on top of his head when he wakes up everyday. Headache and dizziness subside by the afternoon. He denies dysphagia, dysarthria, diplopia and urinary incontinence other than these episodes, numbness, weakness of arms and legs or difficulty walking. PAST MEDICAL HISTORY: Asthma, hypertension, dyslipidemia, episodes of loss of consciousness since his fall and head injury in October 2020. Hammertoe repair. SOCIAL HISTORY: He smoked a pipe and quit more than 20 years ago. He drinks a glass of wine with dinner and denies illicit drugs. FAMILY HISTORY: Father had hypertension. Mother is at age 90. REVIEW OF SYSTEMS: All systems were reviewed and found to be noncontributory except as mentioned in the history of present illness. ALLERGIES: Penicillin. HOME MEDICATIONS: 1. Aspirin 81 mg p.o. daily. 2. Atorvastatin 10 mg p.o. daily. 3. Chlorthalidone 25 mg p.o. daily. 4. Vitamin D3 2000 units daily. 5. Vitamin B12 500 mcg p.o. daily. 6. Flax seed oil 1000 mg p.o. daily. 7. Myrbetriq 50 mg p.o. daily. 8. Multivitamin. 9. Ramipril 2.5 mg p.o. daily. 10.Advair one puff inhalation daily. 11.Flomax 0.4 mg p.o. daily. 12.Vitamin A, C, E, etc. PHYSICAL EXAMINATION: Temperature is 97.8, pulse is 83, respiratory rate is 18, blood pressure is 144/78, 96% saturation on room air. Heart: Regular rate and rhythm. Lungs are clear to auscultation. Abdomen is soft, nontender and nondistended. There is no pedal edema. No musculoskeletal abnormalities. No rash. No signs of meningeal irritation. Patient is awake, alert and oriented to place, person and time. Normal speech, comprehension and repetition, extraocular muscles are intact. No facial weakness. Tongue and uvula are midline. There is 5/5 strength in all four extremities. Deep tendon reflexes are 2+ throughout. Normal sensation throughout. Gait is normal. DIAGNOSTIC STUDIES: CT scan of the head showed mild atrophy and small vessel ischemic disease of brain. MRI scan of the brain showed the same. Hemoglobin was 12.6, creatinine was 1.18, BUN 28. ASSESSMENT: Episodes of loss of consciousness. There is concern for seizures and syncope although the duration of his episodes frothing at mouth and incontinence are concerning for seizures. Concussion and head injury in the summer of 2020 as described above. PLAN: 1. Await his EEG. 2. Keppra 500 mg p.o. b.i.d. 3. [facility] Rules and Regulations regarding driving were explained. He is aware that he should not be driving. 4. Follow with our office in 1-2 weeks after hospital discharge.
[2021-02-22] MEDS: ADVAIR HFA 115/21MCG INHALER INH SCH (07:41)
[2021-02-22] MEDS: TAMSULOSIN 0.4 MG CAP PO SCH (08:31)
[2021-02-22] MEDS: DOCUSATE SODIUM 100MG CAPSULE PO SCH (08:31)
[2021-02-22 09:00] VITALS: O2SAT 92
[2021-02-22] MEDS ORDERED: levETIRAcetam 250MG TABLET (KEPPRA) PO SCH ×2 (09:00→21:00)
[2021-02-22] MEDS ORDERED: KEPP1TAB PO (09:16)
[2021-02-22] MEDS ORDERED: levETIRAcetam 250MG TABLET (KEPPRA) PO ONE (09:20)
--- NOTE | 2021-02-22 12:56 | ECHO ---
ECHOCARDIOGRAM DATE OF PROCEDURE: 02/21/2021 Age: 80 Gender: Male Height: 67 inches Weight: 187 pounds Body surface area: 1.97 m2 Inpatient, [facility], room 4223 REFERRING PHYSICIAN: Barb Kim D.O. INDICATION: Syncope. MEASUREMENTS: 2D Measurements: RV - 3.4 cm LV - 4.6 cm Septum 1.1 cm Posterior wall 1.1 cm Aortic root 3.7 cm LA - 4.0 cm LVEF 75% Doppler Measurements: AV 1.79 m/s LVOT - 1.15 m/s LVOT diameter 2.0 cm MV-E 74, A 123, E/A ratio 0.6 Early mitral deceleration time 165 msec E prime medial 6.3 A prime medial 11 E prime lateral 6.7 Average E/E prime ratio 11.4/PCWP - 16 mmHg PV - 0.9 m/s Pulmonary artery acceleration time 134 msec RVSP - 22 mmHg IVC - 2.0 cm COMMENTS: Normal sinus rhythm without intraventricular conduction disturbance. First-degree AV block. M-mode and 2-dimensional echocardiography was performed with pulse, continuous wave, color flow, and tissue Doppler studies. Left ventricular wall thickness upper limits of normal with hyperkinetic wall motion. Borderline left atrial enlargement with grade 1 LV diastolic dysfunction but current mean left atrial pressure upper limits of normal. Normal right heart chamber sizes and wall motion and estimated pulmonary arterial pressure. Normal IVC size and collapse against an elevated central venous pressure. Normal aortic dimensions. Mild aortic valvular sclerosis without functional abnormality. Mild degenerative changes of the mitral valvular apparatus with only trace insufficiency. Normal-appearing tricuspid valve with very mild insufficiency. No apparent intracardiac mass or pericardial effusion.
--- NOTE | 2021-02-22 19:57 | ECGEPIP ---
[facility] - ED Test Date: 2021-02-20 Pat Name: MORRIS ANTHONY Department: Room: [place] [address] Gender: Male [employer] Consultant: PHILIP : [id number] Requested By: Hattie Valentino Order Number: [id number] Reading MD: Charleen Samayoa Measurements Intervals [place] Rate: 73 P: 61 VT: 274 QRS: -24 QRSD: 114 T: 60 QT: 416 QTc: 458 Interpretive Statements Sinus rhythm with 1st degree AV block Right bundle branch block new 07/02/18 Electronically Signed on 02-22-2021 19:57:05 EDT by Charleen Samayoa
--- NOTE | 2021-02-23 09:28 | DSES ---
DISCHARGE SUMMARY DATE OF ADMISSION: 02/20/2021 DATE OF DISCHARGE: 02/22/2021 PRIMARY DISCHARGE DIAGNOSIS: 1. Syncope, rule out seizures with recent concussion and head injury in the summer. 2. Abnormal EKG with first degree AV block. 3. Grade 1 left ventricular diastolic dysfunction, ejection fraction of 75%. 4. Hypertension. 5. Asthma. 6. Dyslipidemia. 7. Constipation. DISCHARGE MEDICATIONS: 1. Keppra 500 mg b.i.d. 2. Aspirin 81 mg daily. 3. Atorvastatin 10 q.h.s. 4. Chlorthalidone 25 q.h.s. 5. Vitamin D 2000 units daily. 6. Vitamin B12, 500 mcg daily. 7. Flax seed oil one daily. 8. Myrbetriq 50 daily. 9. Multivitamin one tablet daily. 10.Ramipril 2.5 q.h.s. 11.Advair 250-50 one puff daily. 12.Flomax 0.4 mg daily. 13.Ocuvite one tablet daily. DISCHARGE INSTRUCTIONS: The patient is not to drive any motorized vehicle or heavy machinery. He is to follow-up with Dr. Yu within one to two weeks of hospital discharge and primary care physician appointment within five days of discharge. He is to be referred to a professor of finance for Holter monitor per family request to Dr. Melendrez's office regarding recurrent syncopal episode. HOSPITAL COURSE: This is an 80-year-old male with a prior history of syncope, had a concussion and head injury in the summer, was found unresponsive, incontinent of urine and frothing at the mouth by his , lasting for about 15 to 30 seconds with second episode lasting for a few minutes. Patient was admitted for a syncopal episode, rule out seizures. Neurologist, Dr. Yu, was consulted and recommended Keppra 500 mg b.i.d., EEG completed. Telemetry showed sinus rhythm. An echocardiogram was negative for any severe valvular disease. Patient had normal glucose level on arrival, 132. He had an episode of low potassium of 3.3 which was supplemented. He cleared Physical Therapy and was discharged in stable condition without recurrent episodes of seizures or syncope during this admission. PHYSICAL EXAMINATION ON DISCHARGE: VITAL SIGNS: Temperature is 98.2, pulse is 76, respiratory rate is 18, blood pressure is 124/70, 94% on room air. GENERAL: Patient is awake, alert and oriented to person, place and time, answering questions appropriately. NECK: No JVD, thyromegaly or cervical lymphadenopathy. LUNGS: Clear to auscultation. No wheezing, rales or rhonchi. HEART: S1 and S2, sinus rhythm. ABDOMEN: Soft, nontender and nondistended. Positive bowel sounds. EXTREMITIES: No cyanosis, clubbing or pitting edema. NEUROLOGIC: Motor function is 5/5 x4 extremities, negative Babinski. Face is symmetric. Tongue is midline. Uvula is midline. No pronator drift. LABORATORY DATA/IMAGING STUDIES/MICROBIOLOGY: Have been reviewed. MRI of the brain is negative. Carotid Dopplers are negative. CT of the head negative for acute intracranial pathology and chest x-ray had no acute cardiopulmonary process. Coronavirus 19 was negative. TIME SPENT ON DISCHARGE: 30 minutes
--- NOTE | 2021-02-24 16:56 | EEG ---
ELECTROENCEPHALOGRAM DATE: 02/21/2021 DIAGNOSIS: Syncope, episode of loss of consciousness with urinary incontinence and foaming at the mouth. EE-21 REFERRING PHYSICIAN: Enrike Zimmer MD HISTORY: The patient is an 80-year-old man who was admitted to [facility] due to two episodes of loss of consciousness. He also states that he had a couple of other episodes since October 2020. In his most recent episodes, he loss consciousness with foaming of his mouth and urinary incontinence. He is currently taking aspirin, ramipril, Flomax, Lipitor, chlorthalidone. TECHNICAL DESCRIPTION: This digital electroencephalogram (EEG) was recorded by 21-scalp, ear and two EKG electrodes and was reviewed in bipolar and referential montages following reformatting in 10-20 international electrode replacement system. INTERPRETATION: The patient was noted to be in a wake and drowsy states during this EEG. Resting and awake background rhythm consisted of 9 Hz alpha activity measuring 15-40 microvolts in amplitude, which was symmetric and reactive to eye opening. Attenuation of posterior dominant rhythm was seen during transition to drowsiness. Stage 1 and 2 sleep was reviewed and was symmetric bilaterally. Hyperventilation was not performed. Photic stimulation remained unremarkable. Electrocardiogram (EKG) revealed normal sinus rhythm. No focal, lateralizing or epileptiform abnormalities were seen. No relevant clinic activity was noted. CONCLUSION: This electroencephalogram (EEG) in awake, drowsiness states, stage 1 and 2 sleep is within normal limits. MTDD
== END 2021-02-22 11:49 | disposition home or self-care (01) | DRG 312 ==
LOC: M ED 18:05 → EDBD 18:05 → M ED INP 21:13 → M MSPAV 23:05
PROVIDERS: ADMIT Family Medicine; ATTEND General Practice
DX: R55 Syncope and collapse (principal); R56.9 Unspecified convulsions; J45.909 Unspecified asthma, uncomplicated; I10 Essential (primary) hypertension; E78.5 Hyperlipidemia, unspecified; I44.0 Atrioventricular block, first degree; K59.00 Constipation, unspecified; Z79.82 Long term (current) use of aspirin; Z79.899 Other long term (current) drug therapy; Z88.0 Allergy status to penicillin; Z20.822 Contact with and (suspected) exposure to COVID-19; Z87.891 Personal history of nicotine dependence; Z87.828 Personal history of other (healed) physical injury and trauma; Z91.81 History of falling

== ENCOUNTER 2021-03-14 09:47 | Inpatient (IN) | payer MEDICARE, OTHER ==
[~2021-03-14] VITALS: Ht 175.3 cm; Wt 84.6 kg
[~2021-03-14 09:47] MED LIST changes: +KEPP1TAB PO
--- OUTSIDE RECORDS SUMMARY | 2021-03-14 09:58 | CCD ---
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 [address] [place] [address] [place] [address] Feb, Tessa Lorenzana Closed head injury, initial encounter S09.90XA and Syncope and collapse R55 IMMUNIZATIONS No Information SOCIAL HISTORY Tobacco Use: Social History Observation Description Date Details (start date - stop date) Never Smoker Sex Assigned At : Social History Observation Description Sex Assigned At Unknown Language: Question Answer Notes Languages spoken: Italian Yarsanism: Question Answer Notes Yarsanism 21 Religion Tobacco Use: Question Answer Notes Are you a: never smoker REASON FOR REFERRAL from 1940 to 2021-03-06 Reason suffered head injury on 10/26 has had 4 episodes of syncope since then. Diagnosis 1 Syncope and collapse (R55) Referral Organization [facility] Edwar Referring Provider First Name Tessa Referring Provider Last Name Salomón Referring Provider Specialty Family Medicine Referred Provider [facility],Neur ology Referred Provider Specialty Neurology Referral Priority Routine General Notes Tessa Lorenzana PA 03/02/20 7:20:12 PM > Neuro in [place] who takes Worker's Clare Alvarez 03/05/2021 9:13:04 AM > faxe to [facility]- they accept w/c Clinical Notes Tessa Lorenzana PA 03/02/20 7:20:35 PM > Please see attached notes, as well as [facility] notes VITAL SIGNS Weight 185 lbs Feb, Height 70 in Feb, BMI 26.54 kg/m2 Feb, Heart Rate 77 /min Feb, Respiratory Rate 18 /min Feb, Temperature 97.6 degrees Fahrenheit Feb, Oximetry 96 Feb, Blood pressure systolic 130 mm Hg Feb, Blood pressure diastolic 60 mm Hg Feb, MEDICATIONS Medication SIG (Take, Route, Frequency, Duration) Notes Start Da te End Date Status Centrum Silver Ultra Mens Active Tamsulosin HCl 0.4 MG 1 capsule Orally Once a day for 30 day(s) Active Flaxseed Oil - as directed Active Myrbetriq 50 MG 1 tablet Orally Once a day Active Advair Diskus 100-50 MCG/DOSE 1 puff Inhalation Twice a day Active B Complex - as directed Orally Activ e Keppra 500 MG 1 tablet Orally every 12 hrs for 30 day(s) Active PreserVision AREDS 2+Multi Vit - as directed Orally Active Chlorthalidone 25 MG 1 tablet in the morning with food Orally Once a day for 30 day(s) Not-Taking Ramipril 2.5 MG 1 capsule Orally Once a day for 30 day(s) Active Aspirin 81 81 MG 1 tablet Orally friday,friday,friday Active Atorvastatin Calcium 10 MG 1 tablet Orally Once a day for 30 day(s) Active D3 50 MCG (1999) 1 tablet Orally Once a day for 30 day(s) Active PROCEDURES No Information RESULTS No Results REASON FOR VISIT F/U [facility] ED, needs referral to neurologist that accepts worker's comp MEDICAL (GENERAL) HISTORY Type Description Date Medical History Asthmatic Medical History hypertension Surgical History hammer toe repair Hospitalization History [facility] 01/2021 Goals Section No Information Health Concerns No Information MEDICAL EQUIPMENT No Information MENTAL STATUS No Information FUNCTIONAL STATUS No Information ASSESSMENTS Encounter Date Diagnosis Assessment Notes Treatment Notes Treatm ent Clinical Notes Feb, Closed head injury, initial encounter (I CD-10 - S09.90XA) Symptoms have resolved, return in 4 weeks just to check up, and he is encouraged to call sooner if he should have any signs or symptoms of concussion Feb, Syncope and collapse (ICD-10 - R55) We w ill refer Mr. Falcon to Dr. Guo in [place] PLAN OF TREATMENT Referrals Referral Date Details suffered head injury on 10/26 has had 4 episodes of syncope since then., Neurology [facility] Next Appt Details 3 Months, 60 min Reason:w/c - head injur y Provider Name:Tessa Lorenzana, 2021-05-0 4 02:00:00 PM, [address] [facility], , [place], [address], Follow Up:3 Months, 60 minw/c - head injury Insurance Providers Payer Name Payer Address Payer Phone Insured Name Patient Relati onship to Insured Coverage Start Date Coverage End Date [address] MORRIS FALCON self 2020
--- OUTSIDE RECORDS SUMMARY | 2021-03-14 10:01 | CCD ---
Author Author [facility] Organization [facility] Address Unknown Phone Unavailable Care Team Providers Care Hatch Tender Name Role Phone Nakita Bedoya PA Unavailable Unavailable Nakita Bedoya Jacinda PA Unavailable Unavailable Nakita Bedoya Jacinda PA Unavailable Unavailable Nakita Bedoay Jacinda PA Unavailable Unavailable Naktia Bedoya Jacinda PA Unavailable Unavailable Nakita Bedoya [...] Rose Ade MS, RPA-C Unavailable Unav ailable Ameena Melendrez MD Unavailable Unavailable Ameena Melendrez MD Unavailable Unavailable Ameena Melendrez MD Unavailable Unavailable Ameena Melendrez MD Unavailable Unavailable Ameena Melendrez MD Unavailable Unavailable Ameena Melendrez MD Unavailable Unavailable Ameena Melendrez MD Unavailable Unavailable Ameena Melendrez MD Unavailable Unavailable Ameena Melendrez MD Unavailable Unavailable Ameena Melendrez MD Unavailable Unavailable Ameena Melendrez MD Unavailable Unavailable Ameena Melendrez MD Unavailable Unavailable Ameena Melendrez MD Unavailable Unavailable Ameena Melendrez MD Unavailable Unavailable Ameena Melendrez MD Unavailable Unavailable Ameena Melendrez MD Unavailable Unavailable Ameena Melendrez MD Unavailable Unavailable Ameena Melendrez MD Unavailable Unavailable Ameena Melendrez MD Unavailable Unavailable Ameena Melendrez MD Unavailable Unavailable Ameena Melendrez MD Unavailable Unavailable Ameena Melendrez MD Unavailable Unavailable Ameena Melendrez MD Unavailable Unavailable Ameena Melendrez MD Unavailable Unavailable Ameena Melendrez MD Unavailable Unavailable Ameena Melendrez MD Unavailable Unavailable Ameena Melendrez MD Unavailable Unavailable Ameena Melendrez MD Unavailable Unavailable Ameena Melendrez MD Unavailable Unavailable Ameena Melendrez MD Unavailable Unavailable Ameena Melendrez MD Unavailable Unavailable Ameena Melendrez MD Unavailable Unavailable Ameena Melendrez MD Unavailable Unavailable Ameena Melendrez MD Unavailable Unavailable Ameena Melendrez MD Unavailable Unavailable Ameena Melendrez MD Unavailable Unavailable Ameena Melendrez MD Unavailable Unavailable Ameena Melendrez MD Unavailable Unavailable Ameena Melendrze MD Unavailable Unavailable Ameena Melendrez MD Unavailable Unavailable Ameena Melendrez MD Unavailable Unavailable Ameena Melendrez MD Unavailable Unavailable Ameena Melendrez MD Unavailable Unavailable Ameena Melendrez MD Unavailable Unavailable Ameena Melendrez MD Unavailable Unavailable Ameena Melendrez MD Unavailable Unavailable Ameena Melendrez MD Unavailable Unavailable Ameena Melendrez MD Unavailable Unavailable Ameena Melendrez MD Unavailable Unavailable Ameena Melendrez MD Unavailable Unavailable Ameena Melendrez MD Unavailable Unavailable Ameena Melendrez MD Unavailable Unavailable Ameena Melendrez MD Unavailable Unavailable Ameena Melendrez MD Unavailable Unavailable Ameena Melendrez MD Unavailable Unavailable Ameena Melendrez MD Unavailable Unavailable Ameena Melendrez MD Unavailable Unavailable Ameena Melendrez MD Unavailable Unavailable Ameena Melendrez MD Unavailable Unavailable OBEN, T VENKATESH MD [...] Unavailable Unavailable Fish, J Kelvin Unavailable Unavailable OBEN T VENKATESH Unavailable Unavailable OBEN, T VENKATESH Unavailable Unavailable OBEN, T VENKATESH MD Unavailable Unavailable OBEN, T VENKATESH MD Unavailable Unavailable OBEN, T VENKATESH Unavailable Unavailable OBEN, T VENKATESH Unavailable Unavailable OBEN, T VENKATESH Unavailable Unavailable OBEN, T VENKATESH MD Unavailable Unavailable OBEN, T VENKATESH MD Unavailable Unavailable OBEN, T VENKATESH MD Unavailable Unavailable OBEN, T VENKATESH MD Unavailable Unavailable OBEN, T VENKATESH Unavailable Unavailable OBEN, T VENKATESH Unavailable Unavailable OBEN, T VENKATESH Unavailable Unavailable OBEN, T VENKATESH Unavailable Unavailable OBEN, T VENKATESH MD Unavailable Unavailable OBEN, T VENKATESH MD Unavailable Unavailable OBEN, T VENKATESH MD Unavailable Unavailable OBEN, T VENKATESH MD Unavailable Unavailable OBEN, T VENKATESH Unavailable Unavailable OBEN, T VENKATESH Unavailable Unavailable OBEN, T VENKATESH Unavailable Unavailable OBEN, T VENKATESH MD Unavailable Unavailable OBEN, T VENKATESH MD Unavailable Unavailable OBEN, T VENKATESH MD Unavailable Unavailable OBEN, T VENKATESH MD Unavailable Unavailable OBEN, T VENKATESH Unavailable Unavailable OBEN, T VENKATESH MD Unavailable [...] is protected by Article 27-F of the [facility] Public Health law. If you continue you may have access to information: Regarding HIV / AIDS; Provided by facilities licensed or operated by the [facility] Office of Mental Health; or Provided by the [facility] Office for People With Developmental Disabilities. If such information is present, then the following [facility] mandated warning applies: This information has [...] law may result in a fine or senior care sentence or both. A general authorization for the release of medical or other information is NOT sufficient authorization for further disc losure. Allergies and Adverse Reactions Type Description Substance Reaction Status Data Source(s ) Propensity to adverse reactions PENICILLINS Penicillins Ac tive [facility] Family History Family Member Name Family Member Gender Family Member Status Date o f Status Description Data Source(s) Unknown Unknown Problem [facility] ([facility] Encounters Encounter Providers Location Date Indications Data Source(s ) [place] [address] [facility] [address] 03/02/2021 12:00:00 AM EDT eCW1 ([facility]) Outpatient Attender: Ameena CONRAD.ZACH-ANYI 05/2020 12:00:00 AM EDT - 02/27/2021 03:05:35 PM EDT [facility] Outpatient [address] [facility] [address] 01/25/2021 12:00:00 AM EDT eCW1 ([facility]) Outpatient Attender: VENKATESH SMALLS MDConsultant: Kelvin Sutton 12/26/2020 02:26:00 PM EDT - 12/26/2020 02:26:00 PM EDT [facility] Office Visit Attender: Ade Abernathy MS, RPA-C Family P ractice 12/26/2020 01:45:00 PM EDT [facility] Emergency Attender: Luis E Ayleen MDConsultant: Kelvin Fish 11/23/2020 02:27:00 PM EDT - 11/23/2020 04:12:00 PM EDT [facility] l Patient discharged. Outpatient Attender: Kelvin Sutton [place] [facility] 11/23/2020 01:00:0 0 PM EDT [facility] ([facility] Outpatient Attender: VENKATESH SMALLS MDConsultant: Kelvin Sutton 10/25/2020 09:42:00 AM EDT - 10/25/2020 09:42:00 AM EDT [facility] Outpatient Attender: VENKATESH SMALLS MD [facility] 10/04/2020 02:00:0 0 PM EDT [facility] ([facility]) Outpatient Attender: VENKATESH SMALLS MDConsultant: Kelvin Sutton 10/04/2020 01:44:00 PM EDT - 10/04/2020 01:44:00 PM EDT [facility] Outpatient Attender: Kelvin Sutton [place] [facility] 08/10/2020 10:20:0 0 AM EDT [facility] ([facility] Outpatient Attender: Kelvin Sutton [place] [facility] 05/04/2020 09:00:0 0 AM EST [facility] ([facility] Outpatient Attender: Jacinda handley 03/07/2020 01:00:00 PM EST [facility] Outpatient Attender: Jacinda handley 02/29/2020 01:00:00 PM EST [facility] ([facility] Outpatient Attender: Kelvin Herman [place] [facility] 01/27/2020 01:00:0 0 PM EDT [facility] ([facility] Immunizations Vaccine Date Status Description Data Source(s) COVID-19 VACC, MRNA(PFIZER)/PF 03/07/2021 12:00:00 AM EST completed [facility] COVID-19 VACCINE Pfizer 03/07/2021 12:00:00 AM EST completed [facility] Vaccine Series Complete: YESThis Data wa s Submitted to [facility]. COVID-19 VACCINE Pfizer 06/18/2020 12:00:00 AM EST completed [facility] Vaccine Series Complete: YESThis Data wa s Submitted to [facility]. COVID-19 VACCINE Pfizer 05/28/2020 12:00:00 AM EST completed [facility] Vaccine Series Complete: NOThis Data was Submitted to [facility]. New in 2012. IIV4 01/27/2020 01:05:00 PM EDT completed [facility] ([facility] Medications Medication Brand Name Start Date Product Form Dose Route Admi nistrative Instructions Pharmacy Instructions Status Indications Reaction Description Data Source(s) 500 mg 02/22/2021 12:00:00 AM EDT tablet 60 TAKE ONE TABLET BY MOUTH TWICE A DAY TAKE ONE TABLET BY MOUTH TWICE A DAY SOLD: 02/22/2021 [facility] Levetiracetam 500 MG Oral Tablet levETIRAcetam (KEPPRA ) 500 MG tablet levETIRAcetam (KEPPRA) 500 MG tablet 02/22/2021 12:00:00 AM EDT 500 m g Oral active Take 500 mg by mouth 2 (two) times a day [facility] atorvastatin 10 MG Oral Tablet atorvastatin (LIPITOR) 10 MG tablet atorvastatin (LIPITOR) 10 MG tablet 02/21/2021 12:00:00 AM EDT 10 mg Oral active Take 10 mg by mouth daily [facility] 2.5 mg 01/23/2021 12:00:00 AM EDT capsule 90 TAKE ONE CAPSULE BY MOUTH EVERY DAY TAKE ONE CAPSULE BY MOUTH EVERY DAY SOLD: 01/27/2021 [facility] Chlorthalidone 25 MG Oral Tablet chlorthalidone (HYGRO TEN) 25 MG tablet chlorthalidone (HYGROTEN) 25 MG tablet 01/23/2021 12:00:00 AM EDT 2 5 mg Oral active Take 25 mg by mouth daily [facility] Ramipril 2.5 MG Oral Capsule ramipril (ALTACE) 2.5 MG capsule ramipril (ALTACE) 2.5 MG capsule 01/23/2021 12:00:00 AM EDT 2.5 mg Oral act jung Take 2.5 mg by mouth daily [facility] 25 mg 01/23/2021 12:00:00 AM EDT tablet 90 TAKE ONE TABLET BY MOUTH EVERY DAY TAKE ONE TABLET BY MOUTH EVERY DAY SOLD: 01/27/2021 [facility] 240 mcg/0.7 mL 01/17/2021 12:00:00 AM EDT syringe 0 DIRECTED IN THE LEFT ARM DIRECTED IN THE LEFT ARM SOLD: 01/17/2021 [facility] 60 ACTUAT Fluticasone propionate 0.25 MG /ACTUAT / salmeterol 0.05 MG/ACTUAT Dry Powder Inhaler [Advair] Advair Diskus 250-50 MCG/DOSE DISKUS Advair Diskus 250- 50 MCG/DOSE DISKUS 01/08/2021 12:00:00 AM EDT active INHALE ONE PUFF BY MOUTH TWICE A DAY [facility] 50 mg 12/27/2020 12:00:00 AM EDT tablet extended release 24 hr 90 TAKE ONE TABLET BY MOUTH ONCE DAILY TAKE ONE TABLET BY MOUTH ONCE DAILY SOLD: 01/08/2021 [facility] 24 HR mirabegron 50 MG Extended Release Oral Tablet [Myrbetriq] Myrbetriq 50 MG TB24 Myrbetriq 50 MG TB24 12/27/2020 12:00:00 AM EDT 1 {tbl} Oral active Take 1 tablet by mouth daily [facility] 24 HR mirabegron 50 MG Extended Release Oral Tablet [Myrbetr iq] Myrbetriq 12/26/2020 12:00:00 AM EDT ORAL active [facility] ([facility]) 24 HR mirabegron 25 MG Extended Release Oral Tablet [Myrbetriq] Myrbetriq 25 MG TB24 Myrbetriq 25 MG TB24 12/19/2020 12:00:00 AM EDT 25 mg Oral active Take 25 mg by mouth daily [facility] atorvastatin 10 MG Oral Tablet ATORVASTATIN CALCIUM 11/24/2020 1 2:00:00 AM EDT tablet 90 TAKE ONE TABLET BY MOUTH EVERY D AY TAKE ONE TABLET BY MOUTH EVERY DAY SOLD: 11/25/2020 [facility] Tamsulosin hydrochloride 0.4 MG Oral Capsule tamsulosi n (FLOMAX) 0.4 MG CAPS tamsulosin (FLOMAX) 0.4 MG CAPS 11/24/2020 12:00:00 AM EDT 0.4 mg O ral active Take 0.4 mg by mouth daily [facility] 0.4 mg 11/24/2020 12:00:00 AM EDT capsule 90 TAKE ONE CAPSULE BY MOUTH EVERY DAY TAKE ONE CAPSULE BY MOUTH EVERY DAY SOLD: 11/25/2020 [facility] atorvastatin 10 MG Oral Tablet ATORVASTATIN CALCIUM 11/24/2020 1 2:00:00 AM EDT tablet 90 TAKE ONE TABLET BY MOUTH EVERY D AY TAKE ONE TABLET BY MOUTH EVERY DAY SOLD: 02/22/2021 [facility] 25 mg 10/26/2020 12:00:00 AM EDT tablet 90 TAKE ONE TABLET BY MOUTH EVERY DAY TAKE ONE TABLET BY MOUTH EVERY DAY SOLD: 10/27/2020 [facility] 2.5 mg 10/26/2020 12:00:00 AM EDT capsule 90 TAKE ONE CAPSULE BY MOUTH EVERY DAY TAKE ONE CAPSULE BY MOUTH EVERY DAY SOLD: 10/27/2020 [facility] POLYETHYLENE GLYCOL 3350 142 MG/ML Oral Solution [Miralax] M iralax 10/26/2020 12:00:00 AM EDT active M [facility] ([facility], ) Magnesium Hydroxide 80 MG/ML Oral Suspension Milk Of Magnesi a 10/26/2020 12:00:00 AM EDT ORAL active M [facility] ([facility], ) 25 mg 10/25/2020 12:00:00 AM [...] 10/25/2020 12:00:00 AM EDT ORAL completed [facility] ([facility]) 25 mg 10/25/2020 12:00:00 AM EDT [...] HCL 08/10/2020 12:00:00 AM EDT active [facility] ([facility] 25 mg 07/26/2020 12:00:00 AM [...] CAPSULE BY MOUTH EVERY DAY SOLD: 04/28/2020 [facility] 25 mg 04/26/2020 12:00:00 AM EST tablet 90 TAKE ONE TABLET BY MOUTH EVERY DAY TAKE ONE TABLET BY MOUTH EVERY DAY SOLD: 04/28/2020 [facility] atorvastatin 10 MG Oral Tablet ATORVASTATIN CALCIUM 02/24/2020 1 2:00:00 AM EDT tablet 90 TAKE ONE TABLET BY MOUTH EVERY D AY TAKE ONE TABLET BY MOUTH EVERY DAY SOLD: 02/26/2020 [facility] 2.5 mg 01/28/2020 12:00:00 AM EDT capsule 90 TAKE ONE CAPSULE BY MOUTH EVERY DAY TAKE ONE CAPSULE BY MOUTH EVERY DAY SOLD: 01/28/2020 [facility] 25 mg 01/28/2020 12:00:00 AM EDT tablet 90 TAKE ONE TABLET BY MOUTH EVERY DAY TAKE ONE TABLET BY MOUTH EVERY DAY SOLD: 01/28/2020 [facility] Ramipril 2.5 MG Oral Capsule Ramipril [...] BY MOUTH TWICE A DAY SOLD: 04/05/2020 [facility] Insurance Providers Payer name Policy type / Coverage type Policy ID Covered democrat ID Covered democrat's relationship to villanueva Policy [place] Plan Information MEDICARE COMPLETE [id number] SP [id number] MEDICARE COMPLETE [id number] SP [id number] MEDICARE COMPLETE [id number] SP [id number] [facility] [place] PPO [id number] SP [id number] [employer] Commercial [id number] Medicare Ppo [id number] Self [id number] Medicare Ppo [employer] MEDICARE O/P [id number] 18 [id number] [employer] MEDICARE O/P [id number] 18 [id number] [employer] Commercial [id number] Self [id number] [place] Primary [id number] Self 0 [id number] [employer] [facility] Medigap Part B [id number] Family Dependent [id number] STATE INSURANCE FUND [id number] SP [id number] Medicare [place] Medicare Primary [id number] Self 0 [id number] [employer] [facility] Medigap Part B [id number] Family Dependent [id number] Medicare [place] Medicare Primary [id number] Self [employer] [facility] Medigap Part B [id number] Family Dependent [facility] Medicare Commercial [id number] Self [employer] O [id number] S [id number] [facility] O [id number] S [id number] MEDICARE [id number] SP [id number] A [employer] Medicare Commercial [id number] Self [id number] [place] [id number] 18 [id number] [facility] -PHYSICIAN [id number] [facility] -O/P [id number] 20 [id number] [facility] MEDICARE COMPLETE [place] [id number] 18 [id number] Problems, Conditions, and Diagnoses Code Display Name Description Problem Type Effective Dates Data Source(s) R55 Syncope and collapse Syncope and collapse Diagnosis 02/27/2021 01:40:51 PM EDT [facility] Y9289 Other specified places as the place of o ccurrence of the external cause Other specified places as the place of occurrence of the external cause Diagnosis 11/23/2020 02:27:00 PM EDT [facility] [id number] Fall on same level from slip ping, tripping and stumbling with subsequent striking against other object, initial encounter Fall on same level from slipping, tripping and stumbling with subsequent striking against other object, initial encounter Diagnosis 11/23/2020 02:27:00 PM EDT [facility] Z7982 snf (current) use of aspirin snf (cu rrent) use of aspirin Diagnosis 11/23/2020 02:27:00 PM EDT [facility] 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, first degree Atrioventri cular block, first degree Diagnosis 11/23/2020 02:27:00 PM EDT [facility] R569 Unspecified convulsions Unspecified convulsions Diagno sis 11/23/2020 02:27:00 PM EDT [facility] K39801 Unspecified asthma, uncomplicated Unspecified as thma, uncomplicated Diagnosis 11/23/2020 02:27:00 PM EDT [facility] I10 Essential (primary) hypertension Essential (primary) h ypertension Diagnosis 11/23/2020 02:27:00 PM EDT [facility] [id number] Concussion with loss of cons ciousness of 30 minutes or less, initial encounter Concussion with loss of consciousness of 30 minutes or less, initial encounter Diagnosis 11/23/2020 02:27:00 PM EDT [facility] [id number] Unspecified injury of head, initial enco unter Unspecified injury of head, initial encounter Diagnosis 11/23/2020 02:27:00 PM EDT [facility] N503 Cyst of epididymis Cyst of epididymis Diagnosis 01:44:00 PM EDT [facility] R32 Unspecified urinary incontinence Unspecified urinary i ncontinence Diagnosis 10/04/2020 01:44:00 PM EDT [facility] R3915 Urgency of urination Urgency of urination Diagnosis 10/04/2020 01:44:00 PM EDT [facility] R350 Frequency of micturition Frequency of micturition Diag nosis 10/04/2020 01:44:00 PM EDT [facility] R9720 Elevated prostate specific antigen [PSA] Elevated prostate specific antigen [PSA] Diagnosis 10/04/2020 01:44:00 PM EDT [facility] R42 Dizziness Dizziness [id number] 02/27/2021 12:00:[address] [facility] R55 Syncope Syncope [id number] 02/27/2021 12:00:[address] [facility] N32.81 Overactive bladder Overactive bladder Problem 12:00:00 AM EDT [facility] ([facility]) [id number] Pure hypercholesterolemia Pure hypercholesterolemia Pr oblem 10/04/2020 12:00:00 AM EDT [facility] ([facility]) [id number] Essential hypertension Essential hypertension Problem 10/04/2020 12:00:00 AM EDT [facility] ([facility]) Surgeries/Procedures Procedure Description Date Indications Data Source(s) ECG ROUTINE ECG W/LEAST 12 LDS W/I&R <td>POCT AMB EKG</td><td>Routine</td><td>02/27/2021 2:38 PM EDT</td><td> Syncope, unspecified syncope type</td><td> </td> 02/27/2021 02:38:00 PM EDT Syncope, unspecified syncope type [facility] Syncope, unspecified syncope type BLOOD COUNT COMPLETE AUTO&AUTO DIFRNTL WBC COUNT <td>C BC AND DIFFERENTIAL</td><td>Routine</td><td>02/22/2021</td><td></td><td> </td> 02/22/2021 12:00:00 AM EDT [facility] BASIC METABOLIC PANEL CALCIUM TOTAL <td>BASIC METABOLI C PANEL</td><td>Routine</td><td>02/22/2021</td><td></td><td> </td> 02/22/2021 12:00:00 AM EDT [facility] THYROID STIMULATING HORMONE TSH <td>TSH</td><td>Routine</td><td>02/20/2021</td><td></td><td> </td> 02/20/2021 12:00:00 AM EDT [facility] BASIC METABOLIC PANEL CALCIUM TOTAL <td>BASIC METABOLI C PANEL</td><td>Routine</td><td>02/20/2021</td><td></td><td> </td> 02/20/2021 12:00:00 AM EDT [facility] Colonoscopy W/ Poly 01/26/2021 12:00:00 AM [facility] PHYSICIAN TELEPHONE EVALUATION 5-10 MIN 12/26/2020 12: 00:00 AM EDT [facility] ([facility]) OFFICE OUTPATIENT VISIT 25 MINUTES 11/23/2020 12:00:00 AM EDT [facility] ([facility] Measurement Post Voiding Residual Urine By Ultrasound,Non-Im aging 10/25/2020 12:00:00 AM EDT [facility] ([facility]) OFFICE OUTPATIENT VISIT 15 MINUTES 10/25/2020 12:00:00 AM EDT [facility] ([facility]) OFFICE OUTPATIENT NEW 20 MINUTES 10/04/2020 12:00:00 A M EDT [facility] ([facility]) OFFICE OUTPATIENT VISIT 25 MINUTES 08/10/2020 12:00:00 AM EDT [facility] ([facility] Results ID Date Data Source [id number] 02/20/2021 06:21:00 PM EDT [facility] Name Value Range Interpretation Code Description Data Denise rce(s) Supporting Document(s) SARS coronavirus 2 RNA [Presence] in Res piratory specimen by ANAND with probe detection NEGATIVE [facility] This lab was ordered by [facility] a nd reported by [facility]. ID Date Data Source [id number] 01/26/2021 01:13:00 PM EDT [facility] Name Value Range Interpretation Code Description Data Denise rce(s) Supporting Document(s) Surgical pathology study Laboratory test result [facility] ([facility], ) FINAL DIAGNOSIS A - Sigmoid colon, polyps, polypectomy: Adenomatous polyp/tubular adenoma fragments. B - Rectal polyp, polypectomy: Hyperplastic polyp. 01/29/2021 - 1248 CLINICAL DIAGNOSIS Colon polyps 01/29/2021 - 722 GROSS DIAGNOSIS A - Received in formalin labeled "sigmoid polyps" is a 0.8 x 0.6 x 0.4 cm. aggregate of mucosal fragments. All in one. B - Received in formalin labeled "rectal polyp" is a 0.5 x 0.3 x 0.3 cm. portion of mucosa. All in one. - 01/29/2021 - 0723 Signed Isabel Holbrook MD 01/29/2021 1405 ID Date Data Source [id number] 01/22/2021 10:40:00 AM EDT [facility] Name Value Range Interpretation Code Description Data Denise rce(s) Supporting Document(s) SARS-CoV-2 (COVID-19) RNA [Presence] in Respiratory specimen by ANAND with probe detection Not Detected [facility] This lab was ordered by [facility] and reported by [facility]. ID Date Data Source [id number] 11/27/2020 09:46:00 AM EDT [facility] [address] [place] [address] PHONE: [phone] FAX: [phone] Name .................. : GABRIELLE Means Acct Number.................. : [id number] ROOM. ................. : TR-06 MR Number ................... : [id number] Stay type ............. : E/R Discharge Date......... ... : 11/23/20 Admit Date ......... : 11/23/20 Admit Phys .................... : AYLEEN Lentz Date of ....... : 1940 Family Phys ................... : HERMAN KELSY Phone .................. : [phone] Age ................................ : 80 Film# .................. .:[id number] Sex ................................. : M Unsigned transcriptions are preliminary reports and do not represent a medical or legal document CT HEAD W/O CONTRAST [id number] COMPLETE:11/23/20 16:01 [place]ON 14416 Reason(s): Head Injury CT OF THE HEAD [...] By CALLY HOLT MD , 11/27/20 09:46, [facility] Transcribe Initials: BEV , Transcribe Date: 11/23/20 23:16, Dictation Date: Copy for: HERMAN WONG via fax Copy for: [place]ERGENC[place] DEPT [place] [facility] Copy for: 710 MED REC DISCHARGED Page 1 of 1 Name Value Range Interpretation Code Description Data Denise rce(s) Supporting Document(s) ID Date Data Source [id number] 11/24/2020 03:41:00 PM EDT [address] [address] RESPIRATORY CARE REPORT ==== ---------NAME------- NUMBER SEX AGE ADMIT DISC. XRAY# F/C TYPEFARCLARISSA Means [id number] M 80 11/23/20 11/23/20 [id number] HEATHER E/R DATE OF : 1940 M/R# [id number] PH#: [phone] TR-06 LOCATION: EMERGENCY DEPT EKG 35991 COMP LETE:11/24/20 07:59 CJM 10255 PHYSICIAN: AYLEEN Lentz Name Value Range Interpretation Code Description Data Denise rce(s) Supporting Document(s) ID Date Data Source [id number] 11/23/2020 02:27:00 PM EDT [facility] 1 OrderSheet [facility] Emergency Department [address] [place] [address] Phone #: [phone] 11/23/2020 14:18 Patient: MORRIS ANTHONY Sex: M : 1940 Age: 80yWEIGHT:82.1 kg (S) HEIGHT:69 inches (S) BMI:26.7ALLERGIES: PenicillinsCHIEF COMPLAINT: headDIAGNOSIS: ConcussionLAB ORDERSOrder Description Priority Entered Acknowledged InitialedCMP STAT 14:54 11/23/2020 14:57 Luis E Olmedo RNCBC w Diff STAT 14:54 11/23/2020 14:57 Luis E Olmedo RNMagnesium STAT 14:54 11/23/2020 14:57 Luis E Olmedo RNDIAGNOSTIC STUDY ORDERSOrder Description Priority Entered Acknowledged InitialedCT Head W/O Cont STAT 14:54 11/23/2020 14:57 José(Oxygen?(No)) Luis E Handy ; Scarlett RN Reason for Study: Head Injury, HeadacheMEDICATION/IV/DRIP/FLUID ORDERSOrder Description Priority Entered Acknowledged InitialedGENERAL ORDERSOrder Description Priority Entered Acknowledged InitialedEKG 14:54 11/23/2020 15:09 Luis E Olmedo RN[Electronically signed by Luis E Handy (18:11 11/23/2020)][Electronically signed by José Pantoja RN (18:48 11/23/2020)][Electronically locked by José Pantoja RN (18:48 11/23/2020)] Name Value Range Interpretation Code Description Data Denise e(s) Supporting Document(s) ID Date Data Source [id number] 11/23/2020 02:27:00 PM EDT [place] [address] Medication Reconciliation Report [facility] Emergency Department [address] [place] [address] Phone #: ext- [phone] 11/23/2020 14:18 Patient: [...] rce(s) Supporting Document(s) ID Date Data Source [id number] 11/23/2020 02:27:00 PM EDT [place] [address] Medication Administration Record [facility] Emergency Department [address] [place] [address] Phone #: ext- [phone] 11/23/2020 14:18 Patient: MORRIS ANTHONY Sex: M : 1940 Age: 80yWeight: 82.1 kgHeight/Length: 69 inBMI: 26.7ALLERGIES: PenicillinsDate/Time Medication Administered Medication Ordered Name Value Range Interpretation Code Description Data Denise rce(s) Supporting Document(s) ID Date Data Source [id number] 11/23/2020 02:27:00 PM EDT [facility] 1 General Instructions [facility] Emergency Department [address] [place] [address] Phone #: ext- [phone] 11/23/2020 14:18 Patient: [...] Release 81 mg, 1 tablet daily, on mo , friday, friday.Flaxseed (Linseed) Oral.Lobectric*.Multivitamin*.Prevavision*.Ramipril Oral.Vitamin B Complex Oral.Understanding of the discharge instructions verbalized by patient.Follow-up with: Kelvin Sutton, , , [address] [place] [address], [facility] Follow up in three days if not well. Call for an appointment. Reason for referral: evaluation. ADDITIONAL INFORMATIONHead Injury with Sleep Monitoring (Adult) 2 General Instructions [facility] Emergency Department [address] [place] [address] Phone #: ext- [phone] 11/23/2020 14:18 Patient: [...] Vision changes Memory loss 3 General Instructions [facility] Emergency Department [address] [place] [address] Phone #: ext- [phone] 11/23/2020 14:18 Patient: [...] may affect your care. 4 General Instructions [facility] Emergency Department [address] [place] [address] Phone #: ext- [phone] 11/23/2020 14:18 Patient: MORRIS ANTHONY Sex: M [...] around the eyes Lethargy or excessive sleepiness [id number] [employer] [place] [address]. All rights reserved. This information is not intended as asubstitute for professional medical care. Always follow your healthcare professional's instructions. You have been given the following additional information: Head Injury with Sleep Monitoring (Adult)(Electronically signed by Luis E Handy 11/23/2020 18:11) Name Value Range Interpretation Code Description Data Denise rce(s) Supporting Document(s) ID Date Data Source [id number] 11/23/2020 02:27:00 PM EDT [facility] 1 Clinical Report - Nurses [facility] Emergency Department [address] [place] [address] Phone #: ext- [phone] 11/23/2020 14:18 Patient: MORRIS ANTHONY Sex: M [...] only last a few seconds. last episode [id number]).Triage time: 14:24 11/23/2020. Acuity: LEVEL 3.Chief Complaint: (? seizures).14:25 11/23/20.Onset. (1 weeks ago). No fever, weakness, cough, difficulty breathing or skin rash. Denies muscleaches.Treatment COLORECTAL SURGEON:None.SEPSIS SCREEN: SIRS SCREEN NEGATIVE. SEPSIS SCREEN NEGATIVE. [...] Pantoja RN.PROBLEMS: 2 Clinical Report - Nurses [facility] Emergency Department [address] [place] [address] Phone #: ext- [phone] 11/23/2020 14:18 Patient: MORRIS ANTHONY Sex: M : 1940 Age: 80y Hy pertension. Hypercholesterolemia. Asthma. --14:48 11/23/20 José Pantoja RN. ADDITIONAL SURGERIES: Circumcision. --14:48 11/23/20 José Pantoja RN. History 14:11/23/20. PAST MEDICAL HX: Hypertension. SOCIAL HX: Never [...] identified. --14:44 11/23/20 José Pantoja RN. Interventions 14:11/23/20. Identification band on patient. To room. --14:44 11/23/20 José Pantoja RN Allergy band on patient. --14:45 11/23/20 José Pantoja RN.PHYSICAL [id number] 11/23/20. Ambulatory to room.GENERAL / NEURO / PSYCH: Alert. Oriented X 4.HEENT: No facial asymmetry noted. Mucous membranes are pink. 3 Clinical Report - Nurses [facility] Emergency Department [address] [place] [address] Phone #: ext- [phone] 11/23/2020 14:18 Patient: MORRIS ANTHONY [facility]#: [id number] Sex: M : 1940 Age: 80y RESPIRATORY: [...] RN 15:02 11/23/20. BP: 160/84. --15:02 11/23/20 [facility] Tech1 EKG time: (15:03 11/23/2020). EKG was performed by a nurse and shown to the ED physician. 1 degree av block. Checked patient name and birthdate. Blood samples drawn by tech. (1500). --15:10 11/23/20 José Pantoja RN Patient transported to CT by wheelchair with mask and instructional media services technician. ([id number]). --15:10 11/23/20 José Pantoja RN Patient returned from CT by wheelchair with mask and instructional media services technician. ([id number]). --15:16 11/23/20 José Pantoja RN 15:58 11/23/20. BP: 133/86. HR: 75. RR: 16. O2 saturation: 94%. --15:58 11/23/20 [facility] Tech1.DISPOSITION / DISCHARGE 15:58 11/23/20. BP: 133/86. [...] spouse verbalized understanding. Written instructions provided in Greek. The patient was discharged by the physician. He was discharged home and accompanied by spouse. He left ambulatory and via private vehicle. Spouse driving. --16:17 11/23/20 José Pantoja RN.Locked/Released at 11/23/2020 18:48 by José Pantoja RN 4 Clinical Report - Nurses [facility] Emergency Department [address] [place] [address] Phone #: ext- [phone] 11/23/2020 14:18 Patient: MORRIS VALDOVINOS Sex: M : 1940 Age: 80y Name Value Range Interpretation Code Description Data Denise rce(s) Supporting Document(s) ID Date Data Source [id number] 11/23/2020 02:27:00 PM EDT [facility] 1 Clinical Report - Physicians/Mid Levels [facility] Emergency Department [address] [place] [address] Phone #: ext- [phone] 11/23/2020 14:18 Patient: [...] Inhalation. 2 Clinical Report - Physicians/Mid Levels [facility] Emergency Department [address] [place] [address] Phone #: ext- [phone] 11/23/2020 14:18 Patient: MORRIS ANTHONY Sex: M [...] 2.0) 3 Clinical Report - Physicians/Mid Levels [facility] Emergency Department [address] [place] [address] Phone #: [phone]- [phone] 11/23/2020 14:18 Patient: MORRIS ANTHONY Sex: M [...] Male GFR Interprentation 20-49 yrs >60 mL/min Izuski09-81 yrs >56 mL/min Normal 60-69 yrs >49 mL/min Normal 70-79yrs>42 mL/min Normal 80 and above >35 mL/min Normal Female GFRInterpretation 20-39 yrs >60 mL/min Normal 40-49 yrs >58 mL/minNormal 50-59 yrs >51 mL/min Normal 60-69 yrs >45 mL/min Drtwdu24-86 yrs >39 mL/min Normal 80 and above [...] MORPH NOT INDICATEDMagnesium: (MAURO: 11/23/2020 15:03) ( [facility] 11/23/2020 15:28) Final results Test Result Flag Units (Reference) MAGNESIUM 2.1 MG/DL (1.7 - 2.2)CT Head W/O Cont: (MAURO: 11/23/2020 14:54) ( [facility] 11/23/2020 16:01) In ProgressCT HEAD W/O CONTRASTReason(s): Head InjuryTRANSPORTATION: S IV? O2? Oxygen?(No) Room: ED 4 Clinical Report - Physicians/Mid Levels [facility] Emergency Department [address] [place] [address] Phone #: ext- [phone] 11/23/2020 14:18 Patient: [id number] Sex: M : 1940 Age: 80y.PROGRESS AND [...] patient. Follow-up with: Kelvin Sutton, , , [address] [place], [place], [facility] Follow up in three days if not well. Call for an appointment. Reason for referral: evaluation. 5 Clinical Report - Physicians/Mid Levels [facility] Emergency Department [address] [place] [address] Phone #: ext- [phone] 11/23/2020 14:18 Patient: MORRIS ANTHONY [facility]#: [id number] Sex: M : 1940 Age: 80y(Electronically signed by Luis E Handy 11/23/2020 18:11) Name Value Range Interpretation Code Description Data Denise rce(s) Supporting Document(s) ID Date Data Source [id number] 11/23/2020 03:03:00 PM EDT [facility] ([facility] Name Value Range Interpretation Code Description Data Denise rce(s) Supporting Document(s) Magnesium [Mass/volume] in Serum or Plasma 2.1 mg/dL 1.7-2.2 [facility] ([facility] ID Date Data Source [id number] 11/23/2020 03:03:00 PM EDT [facility] ([facility] Name Value Range Interpretation Code Description Data Denise rce(s) Supporting Document(s) Comprehensive [facility] Laboratory test result [facility] ([facility] COMPREHENSIVE METABOLIC PANEL Sodium 141 meq/L 134-153 [facility] ([facility] Chloride 102 meq/L 98-107 [facility] ([facility] Potassium 3.7 meq/L 3.6-5.0 [facility] ([facility] Co2 29 meq/L 22-30 [facility] ([facility] Glucose 85 mg/dL 70-99 [facility] ([facility] BUN 19 mg/dL 7-21 [facility] ([facility] Creatinine 1.0 mg/dL 0.7-1.5 [facility] ([facility] BUN/Creat 19 8-27 [facility] ([facility] Total Protein 7.1 g/dL 6.3-8.2 [facility] ([facility] Globulin 2.8 GM/DL 2.4-3.2 [facility] ([facility] Albumin 4.3 g/dL 3.9-5.0 [facility] ([facility] A/G Ratio 1.5 0.8-2.0 [facility] ([facility] Calcium 9.5 mg/dL 8.4-10.2 [facility] ([facility] Total Bili Laboratory test result 0.2-1.3 FL DENT ([facility] Alkaline Phos 146 U/L 38-126 Above high normal MEDE NT ([facility] Sgot/Ast 26 U/L 5-40 [facility] ([facility] SGPT/Alt 22 U/L 7-56 [facility] ([facility] Anion Gap 10.0 mmol/L 8.0-16.0 [facility] ([facility] Age 80 yrs [facility] ([facility] Non-Aa GFR Laboratory test result ME DENT ([facility] Afr Amer GFR Laboratory test result [facility] ([facility] Male GFR Interprentation 20-49 yrs >60 [...] >32 mL/min Normal ID Date Data Source [id number] 11/23/2020 03:03:00 PM EDT [facility] ([facility] Name Value Range Interpretation Code Description Data Denise rce(s) Supporting Document(s) WBC 7.3 10^3/uL 4.2-11.0 [facility] CBC W/Automated Diff Laboratory test result [facility] ([facility] COMPLETE BLOOD COUNT Hemoglobin 13.5 g/dL 14.0-16.0 Below low normal [facility] ( [facility] RBC 4.09 10^6/uL 4.50-6.30 Below low normal [facility] ([facility] Hematocrit 39.5 % 41.0-51.0 Below low normal [facility] ( [facility] MCV 96.6 fL 80.0-94.0 Above high normal [facility] ([facility] MCH 33.0 pg 27.0-34.0 [facility] ([facility] RDW 13.1 % 11.5-14.8 [facility] ([facility] MCHC 34.2 g/dL 31.0-36.0 [facility] ([facility] Platelets 210 10^3/uL 150-450 [facility] MPV 10.1 fL 7.4-10.4 [facility] ([facility] Lymph 13.7 % 25.0-40.0 Below low normal [facility] ( [facility] Neut 75.5 % 37.0-80.0 [facility] ([facility] Dixie 7.9 % 3.0-8.0 [facility] ([facility] Eos 1.8 % 0.0-7.0 [facility] ([facility] Baso 0.7 % 0.0-2.0 [facility] ([facility] %Ig 0.4 % 0.0-0.0 Above high normal [facility] ([facility] %NRBC 0.0 % 0.0-0.0 [facility] ([facility] #Neut 5.53 10^3/uL 2.00-6.90 [facility] ([facility] #Lymph 1.00 10^3/uL 0.60-3.40 [facility] ([facility] #Eos 0.13 10^3/uL 0.00-0.70 [facility] ([facility] #Dixie 0.58 10^3/uL 0.00-0.90 [facility] ([facility] #Baso 0.05 10^3/uL 0.00-0.20 [facility] ([facility] #Ig 0.03 10^3/uL 0.00-0.10 [facility] ([facility] #NRBC 0.00 10^3/uL 0.00-0.00 [facility] ([facility] Manual Diff Laboratory test result M IVAN ([facility] RBC Morph Laboratory test result ME NOE ([facility] ID Date Data Source [id number] 11/23/2020 03:28:00 PM EDT [facility] Name Value Range Interpretation Code Description Data Denise rce(s) Supporting Document(s) Magnesium [Mass/volume] in Serum or Plasma 2.1 MG/DL 1.7 - 2.2 [facility] ID Date Data Source [id number] 11/23/2020 03:28:00 PM EDT [facility] Name Value Range Interpretation Code Description Data Denise rce(s) Supporting Document(s) COMPREHENSIVE METABOLIC PANEL [facility] COMPREHENSIVE METABOLIC PANEL Sodium [Moles/volume] in Serum or Plasma 141 mEq/L 134 - 153 [facility] Potassium [Moles/volume] in Serum or Plasma 3.7 mEq/L 3.6 - 5.0 [facility] Chloride [Moles/volume] in Serum or Plasma 102 mEq/L 98 - 107 [facility] Carbon dioxide, total [Moles/volume] in Serum or Plasma 29 MEQ/L 22 - 30 [facility] Glucose [Mass/volume] in Serum or Plasma 85 MG/DL 70 - 99 [facility] BUN 19 MG/DL 7 - 21 [facility] Creatinine [Mass/volume] in Serum or Plasma 1.0 MG/DL 0.7 - 1.5 [facility] BUN/CREAT 19 8 - 27 [facility] al Protein [Mass/volume] in Serum or Plasma 7.1 G/DL 6.3 - 8.2 [facility] Albumin [Mass/volume] in Serum or Plasma 4.3 G/DL 3.9 - 5.0 [facility] Globulin [Mass/volume] in Serum by calculation 2.8 GM/DL 2.4 - 3.2 [facility] A/G RATIO 1.5 0.8 - 2.0 [facility] Calcium [Mass/volume] in Serum or Plasma 9.5 MG/DL 8.4 - 10.2 [facility] Bilirubin.total [Mass/volume] in Serum or Plasma <0.7 MG/DL 0.2 - 1.3 [facility] Alkaline phosphatase [Enzymatic activity/volume] in Serum or Plasma 146 U/L 38 - 126 H [facility] Aspartate aminotransferase [Enzymatic activity/volume] in Serum or Plasma 26 U/L 5 - 40 [facility] Alanine aminotransferase [Enzymatic activity/volume] in Seru m or Plasma 22 U/L 7 - 56 [facility] Anion gap 3 in Serum or Plasma 10.0 mmol/L 8.0 - 16.0 [facility] AGE 80 yrs [facility] al NON-AA GFR >60 mL/min [facility] ital AFR AMER GFR >60 mL/min [facility] Male GFR In terprentation 20-49 [...] >32 mL/min Normal ID Date Data Source [id number] 11/23/2020 03:13:00 PM EDT [facility] Name Value Range Interpretation Code Description Data Denise rce(s) Supporting Document(s) CBC W/AUTOMATED DIFF [facility] COMPLETE BLOOD COUNT Leukocytes [#/volume] in Blood by Automated count 7.3 10^3/uL 4.2 - 1 1.0 [facility] Erythrocytes [#/volume] in Blood by Automated count 4.09 10^6/uL 4. 50 - 6.30 L [facility] Hemoglobin [Mass/volume] in Blood 13.5 g/dL 14.0 - 16.0 L [facility] Hematocrit [Volume Fraction] of Blood by Automated count 39.5 % 4 1.0 - 51.0 L [facility] Erythrocyte mean corpuscular volume [Entitic volume] by Auto mated count 96.6 fL 80.0 - 94.0 H [facility] Erythrocyte mean corpuscular hemoglobin [Entitic mass] by Automated count 33.0 pg 27.0 - 34.0 [facility] Erythrocyte mean corpuscular hemoglobin concentration [Mass/volume] by Automated count 34.2 g/dL 31.0 - 36.0 [facility] Erythrocyte distribution width [Ratio] by Automated count 13.1 % 11.5 - 14.8 [facility] Platelets [#/volume] in Blood by Automated count 210 10^3/uL 150 - 45 0 [facility] Platelet mean volume [Entitic volume] in Blood by Automated count 10.1 fL 7.4 - 10.4 [facility] Neutrophils/100 leukocytes in Blood by Automated count 75.5 % 37. 0 - 80.0 [facility] Lymphocytes/100 leukocytes in Blood by Manual count 13.7 % 25.0 - 40.0 L [facility] Monocytes/100 leukocytes in Blood by Automated count 7.9 % 3.0 - 8.0 [facility] Eosinophils/100 leukocytes in Blood by Automated count 1.8 % 0.0 - 7.0 [facility] Basophils/100 leukocytes in Blood by Automated count 0.7 % 0.0 - 2.0 [facility] %IG 0.4 % 0.0 - 0.0 [facility] %NRBC 0.0 % 0.0 - 0.0 [facility] al Neutrophils [#/volume] in Blood by Automated count 5.53 10^3/uL 2.00 - 6.90 [facility] Lymphocytes [#/volume] in Blood by Automated count 1.00 10^3/uL 0.60 - 3.40 [facility] Monocytes [#/volume] in Blood by Automated count 0.58 10^3/uL 0.00 - 0.90 [facility] Eosinophils [#/volume] in Blood by Automated count 0.13 10^3/uL 0.00 - 0.70 [facility] Basophils [#/volume] in Blood by Automated count 0.05 10^3/uL 0.00 - 0.20 [facility] #IG 0.03 10^3/uL 0.00 - 0.10 [facility] ospital #NRBC 0.00 10^3/uL 0.00 - 0.00 [facility] ospital MANUAL DIFF NOT INDICATED [facility] RBC MORPH NOT INDICATED [facility] spital ID Date Data Source [id number] 11/16/2020 09:04:00 AM EDT [facility] ([facility] Name Value Range Interpretation Code Description Data Denise rce(s) Supporting Document(s) Appearance of Urine Laboratory test result [facility] ([facility] Color Urine Laboratory test result M EDENT ([facility] Specific [place] 1.025 1.00-1.03 [facility] ([facility] PH Urine 6.5 5.0-8.0 [facility] Glucose Urine Laboratory test result [facility] ([facility] Bilirubin.total [Presence] in Urine by Test strip Laboratory test res ult [facility] ([facility] Blood Urine Laboratory test result M EDENT ([facility] Ketones Laboratory test result [facility] ([facility] Urobilinogen 0.2 EU/dl 0.2-1.0 [facility] Protein Urine Laboratory test result [facility] ([facility] Leukocytes Laboratory test result ME DENT ([facility] Nitrite Laboratory test result [facility] ([facility] ID Date Data Source [id number] 11/16/2020 09:03:00 AM EDT [facility] ([facility] Name Value Range Interpretation Code Description Data Denise rce(s) Supporting Document(s) Creatine kinase [Enzymatic activity/volume] in Serum or Plasma 271 U/L 39-308 HYACINTH ([facility] NORMAL RANGES Age WBC RBC [...] HCT IS 5% LESS SOURCE FOR DATA: [employer] 1800 OPERATION MANUAL( AUTOMATED BLOOD COUNTS AND [...] 2-19 YEARS EXCLUSIVE. ID Date Data Source [id number] 11/16/2020 09:03:00 AM FAINAT [facility] ([facility] Name Value [...] HCT IS 5% LESS SOURCE FOR DATA: [employer] 1800 OPERATION MANUAL( AUTOMATED BLOOD COUNTS AND [...] 2-19 YEARS EXCLUSIVE. Chol 115 mg/dL 0-200 [facility] ([facility] [...] HCT IS 5% LESS SOURCE FOR DATA: [employer] 1800 OPERATION MANUAL( AUTOMATED BLOOD COUNTS AND [...] HCT IS 5% LESS SOURCE FOR DATA: [employer] 1800 OPERATION MANUAL( AUTOMATED BLOOD COUNTS [...] LDL_C 50 Calc 75-129 Below low normal [facility] ( [facility] NORMAL RANGES [...] HCT IS 5% LESS SOURCE FOR DATA: [employer] 1800 OPERATION MANUAL( AUTOMATED BLOOD COUNTS AND [...] 2-19 YEARS EXCLUSIVE. Cho/HDL Ratio 2.0 CALC [facility] ([facility] NORMAL RANGES Age WBC RBC [...] HCT IS 5% LESS SOURCE FOR DATA: [employer] 1800 OPERATION MANUAL( AUTOMATED BLOOD COUNTS AND [...] 2-19 YEARS EXCLUSIVE. ID Date Data Source [id number] 11/16/2020 09:03:00 AM EDT MEDRUDDY ([facility] Name Value Range Interpretation Code Description Data Denise rce(s) Supporting Document(s) Glu 109 mg/dL 70-110 [facility] ([facility], [...] HCT IS 5% LESS SOURCE FOR DATA: [employer] 1800 OPERATION MANUAL( AUTOMATED BLOOD COUNTS AND [...] BUN 27 mg/dL 8-23 Above high normal [facility] NORMAL RANGES Age WBC [...] HCT IS 5% LESS SOURCE FOR DATA: [employer] 1800 OPERATION MANUAL( AUTOMATED BLOOD COUNTS [...] AGED 2-19 YEARS EXCLUSIVE. BUN/Creatinine Ratio 24.1 [facility] ([facility] NORMAL RANGES Age WBC RBC [...] HCT IS 5% LESS SOURCE FOR DATA: [employer] 1800 OPERATION MANUAL( AUTOMATED BLOOD COUNTS AND [...] 2-19 YEARS EXCLUSIVE. Creat 1.1 mg/dL 0.7-1.2 [facility] ([facility] [...] HCT IS 5% LESS SOURCE FOR DATA: [employer] 1800 OPERATION MANUAL( AUTOMATED BLOOD COUNTS [...] 2-19 YEARS EXCLUSIVE. Na 140 mmol/L 136-145 [facility] ([facility] [...] HCT IS 5% LESS SOURCE FOR DATA: [employer] 1800 OPERATION MANUAL( AUTOMATED BLOOD COUNTS AND [...] 2-19 YEARS EXCLUSIVE. K 3.5 mmol/L 3.5-5.1 [facility] ([facility] NORMAL RANGES Age WBC RBC HGB [...] HCT IS 5% LESS SOURCE FOR DATA: [employer] 1800 OPERATION MANUAL( AUTOMATED BLOOD COUNTS AND [...] 2-19 YEARS EXCLUSIVE. CL 100.2 mmol/L 98.0-107.0 [facility] ([facility] NORMAL RANGES Age WBC RBC HGB [...] HCT IS 5% LESS SOURCE FOR DATA: [employer] 1800 OPERATION MANUAL( AUTOMATED BLOOD COUNTS [...] 2-19 YEARS EXCLUSIVE. CA 8.9 mg/dL 8.6-10.2 [facility] ([facility] NORMAL [...] HCT IS 5% LESS SOURCE FOR DATA: [employer] 1800 OPERATION MANUAL( AUTOMATED BLOOD COUNTS AND [...] 2-19 YEARS EXCLUSIVE. Co2 23.9 mmol/L 22.0-29.0 [facility] ([facility] NORMAL RANGES Age WBC RBC [...] HCT IS 5% LESS SOURCE FOR DATA: [employer] 1800 OPERATION MANUAL( AUTOMATED BLOOD COUNTS AND [...] HCT IS 5% LESS SOURCE FOR DATA: [employer] 1800 OPERATION MANUAL( AUTOMATED BLOOD COUNTS AND [...] 2-19 YEARS EXCLUSIVE. Alb 4.2 g/dL 3.5-5.2 [facility] ([facility], [...] HCT IS 5% LESS SOURCE FOR DATA: [employer] 1800 OPERATION MANUAL( AUTOMATED BLOOD COUNTS AND [...] HCT IS 5% LESS SOURCE FOR DATA: [employer] 1800 OPERATION MANUAL( AUTOMATED BLOOD COUNTS AND [...] HCT IS 5% LESS SOURCE FOR DATA: [employer] 1800 OPERATION MANUAL( AUTOMATED BLOOD COUNTS AND [...] YEARS EXCLUSIVE. Alt (SGPT) 22 U/L 0-41 [facility] NORMAL RANGES Age [...] HCT IS 5% LESS SOURCE FOR DATA: [employer] 1800 OPERATION MANUAL( AUTOMATED BLOOD COUNTS [...] 2-19 YEARS EXCLUSIVE. Tbili 0.51 mg/dL 0.0-1.2 [facility] NORMAL RANGES Age [...] HCT IS 5% LESS SOURCE FOR DATA: [employer] 1800 OPERATION MANUAL( AUTOMATED BLOOD COUNTS AND [...] YEARS EXCLUSIVE. Ast (Sgot) 25 U/L 0-40 [facility] ([facility] [...] HCT IS 5% LESS SOURCE FOR DATA: [employer] 1800 OPERATION MANUAL( AUTOMATED BLOOD COUNTS AND [...] YEARS EXCLUSIVE. Osmolality-Calculated 286.1 [facility] ([facility] [...] HCT IS 5% LESS SOURCE FOR DATA: [employer] 1800 OPERATION MANUAL( AUTOMATED BLOOD COUNTS AND [...] 2-19 YEARS EXCLUSIVE. Anion Gap 20 mmol/L [facility] ([facility] [...] HCT IS 5% LESS SOURCE FOR DATA: [employer] 1800 OPERATION MANUAL( AUTOMATED BLOOD COUNTS AND [...] YEARS EXCLUSIVE. eGFR 73 # [facility] ( [facility] NORMAL RANGES Age WBC RBC [...] HCT IS 5% LESS SOURCE FOR DATA: [employer] 1800 OPERATION MANUAL( AUTOMATED BLOOD COUNTS AND [...] INDIVIDUALA AGED 2-19 YEARS EXCLUSIVE. eGFR Non-Afr. Libyan 63 # [facility] ([facility] NORMAL RANGES [...] HCT IS 5% LESS SOURCE FOR DATA: [employer] 1800 OPERATION MANUAL( AUTOMATED BLOOD COUNTS AND [...] 2-19 YEARS EXCLUSIVE. ID Date Data Source [id number] 11/16/2020 09:03:00 AM EDT [facility] ([facility] Name Value Range Interpretation Code Description Data Denise rce(s) Supporting Document(s) WBC 6.5 10E3/uL 4.1-10.9 [facility] ([facility] NORMAL RANGES Age WBC RBC [...] HCT IS 5% LESS SOURCE FOR DATA: [employer] 1800 OPERATION MANUAL( AUTOMATED BLOOD COUNTS AND [...] RBC 3.87 10E6/uL 4.20-6.30 Below low normal [facility] ([facility] NORMAL RANGES Age [...] HCT IS 5% LESS SOURCE FOR DATA: [employer] 1800 OPERATION MANUAL( AUTOMATED BLOOD COUNTS AND [...] 2-19 YEARS EXCLUSIVE. HCT 37.7 % 37.0-51.0 [facility] ([facility] NORMAL [...] HCT IS 5% LESS SOURCE FOR DATA: [employer] 1800 OPERATION MANUAL( AUTOMATED BLOOD COUNTS AND [...] 2-19 YEARS EXCLUSIVE. HGB 12.5 g/dL 12.0-18.0 [facility] ([facility] [...] HCT IS 5% LESS SOURCE FOR DATA: [employer] 1800 OPERATION MANUAL( AUTOMATED BLOOD COUNTS AND [...] MCV 97.4 fL 80.0-97.0 Above high normal [facility] ([facility] NORMAL RANGES Age WBC RBC HGB HCT MCV PLT Adult M 4.1-10.9 4.20-6.30 12.0-18.0 37.0-51.0 80-97 140-440 Adult F 4.1-10.9 4.04-5.48 12.0-18.0 37.0-51.0 80- 140-440 0 -1 Yr 5.0-20.0 3.9-5.9 15-18 [...] HCT IS 5% LESS SOURCE FOR DATA: [employer] 1800 OPERATION MANUAL( AUTOMATED BLOOD COUNTS AND [...] MCH 32.3 pg 26.0-32.0 Above high normal [facility] ([facility] NORMAL [...] HCT IS 5% LESS SOURCE FOR DATA: [employer] 1800 OPERATION MANUAL( AUTOMATED BLOOD COUNTS AND [...] 2-19 YEARS EXCLUSIVE. MCHC 33.2 g/dL 31.0-36.0 [facility] ([facility] [...] HCT IS 5% LESS SOURCE FOR DATA: [employer] 1800 OPERATION MANUAL( AUTOMATED BLOOD COUNTS AND [...] 2-19 YEARS EXCLUSIVE. PLT 217 10E3/uL 140-440 [facility] ([facility] NORMAL RANGES Age WBC RBC [...] HCT IS 5% LESS SOURCE FOR DATA: [employer] D[employer] 1800 OPERATION MANUAL( AUTOMATED BLOOD COUNTS [...] 2-19 YEARS EXCLUSIVE. RDW-CV 13.7 % 11.5-14.5 [facility] ([facility] NORMAL [...] HCT IS 5% LESS SOURCE FOR DATA: [employer] 1800 OPERATION MANUAL( AUTOMATED BLOOD COUNTS AND [...] 2-19 YEARS EXCLUSIVE. Lym% 18.0 % 10.0-58.5 [facility] ([facility], [...] HCT IS 5% LESS SOURCE FOR DATA: [employer] 1800 OPERATION MANUAL( AUTOMATED BLOOD COUNTS AND [...] 2-19 YEARS EXCLUSIVE. Neut% 72.3 % 37.0-92.0 [facility] ([facility] [...] HCT IS 5% LESS SOURCE FOR DATA: [employer] 1800 OPERATION MANUAL( AUTOMATED BLOOD COUNTS AND [...] 2-19 YEARS EXCLUSIVE. MXD% 9.7 % 0.1-24.0 [facility] ([facility] [...] HCT IS 5% LESS SOURCE FOR DATA: [employer] 1800 OPERATION MANUAL( AUTOMATED BLOOD COUNTS AND [...] 2-19 YEARS EXCLUSIVE. Lym# 1.2 10E3/uL 0.6-4.1 [facility] ([facility] NORMAL RANGES Age WBC [...] HCT IS 5% LESS SOURCE FOR DATA: [employer] 1800 OPERATION MANUAL( AUTOMATED BLOOD COUNTS AND [...] 2-19 YEARS EXCLUSIVE. Neut# 4.7 % 2.0-7.8 [facility] ([facility] [...] HCT IS 5% LESS SOURCE FOR DATA: [employer] 1800 OPERATION MANUAL( AUTOMATED BLOOD COUNTS AND [...] 2-19 YEARS EXCLUSIVE. MXD# 0.6 10E3/uL 0.0-1.8 [facility] ([facility] NORMAL RANGES Age WBC RBC [...] HCT IS 5% LESS SOURCE FOR DATA: [employer] 1800 OPERATION MANUAL( AUTOMATED BLOOD COUNTS AND [...] 2-19 YEARS EXCLUSIVE. MPV 10.1 fL 9.0-13.0 [facility] ([facility] NORMAL RANGES [...] HCT IS 5% LESS SOURCE FOR DATA: [employer] 1800 OPERATION MANUAL( AUTOMATED BLOOD COUNTS AND [...] 2-19 YEARS EXCLUSIVE. ID Date Data Source [id number] 10/04/2020 03:08:00 PM EDT [facility] ([facility]) Name Value Range Interpretation Code Description Data Denise rce(s) Supporting Document(s) Color of Urine Laboratory test result [facility] ([facility]) Appearance of Urine Laboratory test result [facility] ([facility]) pH of Urine by Test strip 5 5-9 MEDE NT ([facility]) Spec Caldwell 1.015 1.001-1.030 [facility] ([facility]) Leukocytes Laboratory test result [facility] ([facility]) Nitrate [Presence] in Urine Laboratory test result [facility] ([facility]) Inhouse Glucose Laboratory test result [facility] ([facility]) Protein [Presence] in Urine by Test strip Laboratory test result [facility] ([facility]) Urobilinogen Laboratory test result [facility] ([facility]) Ketones [Presence] in Urine by Test strip Laboratory test result [facility] ([facility]) Bilirubin.total [Presence] in Urine by Test strip Laboratory test res ult [facility] ([facility]) Blood type and Indirect antibody screen panel - Blood Laboratory test result [facility] ([facility]) ID Date Data Source [id number] 08/02/2020 10:53:00 AM EDT [facility] ([facility] Name Value Range Interpretation Code Description Data Denise rce(s) Supporting Document(s) Color Urine Laboratory test result M EDENT ([facility] Appearance of Urine Laboratory test result [facility] ([facility] Specific Caldwell 1.025 1.00-1.03 [facility] ([facility] PH Urine 7.0 5.0-8.0 [facility] Glucose Urine Laboratory test result [facility] ([facility] Bilirubin.total [Presence] in Urine by Test strip Laboratory test res ult [facility] ([facility] Ketones Laboratory test result [facility] ([facility] Blood Urine Laboratory test result M EDENT ([facility] Urobilinogen 0.2 EU/dl 0.2-1.0 [facility] ([facility] Protein Urine Laboratory test result [facility] ([facility] Nitrite Laboratory test result [facility] ([facility] Leukocytes Laboratory test result ME [facility] ([facility] ID Date Data Source [id number] 08/02/2020 08:51:00 AM EDT [facility] ([facility] Name Value Range Interpretation Code Description Data Denise rce(s) Supporting Document(s) Creatine kinase [Enzymatic activity/volume] in Serum or Plasma 290 U/L 39-308 [facility] ([facility] [...] HCT IS 5% LESS SOURCE FOR DATA: [employer] 1800 OPERATION MANUAL( AUTOMATED BLOOD COUNTS AND [...] 2-19 YEARS EXCLUSIVE. ID Date Data Source [id number] 08/02/2020 08:51:00 AM FAINAT [facility] ([facility] Name Value Range Interpretation Code Description Data Denise rce(s) Supporting Document(s) Chol 120 mg/dL 0-200 [facility] ([facility] NORMAL RANGES [...] HCT IS 5% LESS SOURCE FOR DATA: [employer] 1800 OPERATION MANUAL( AUTOMATED BLOOD COUNTS AND [...] 2-19 YEARS EXCLUSIVE. Trig 57 mg/dL 35-200 [facility] ([facility] [...] HCT IS 5% LESS SOURCE FOR DATA: [employer] 1800 OPERATION MANUAL( AUTOMATED BLOOD COUNTS AND [...] in Serum or Plasma 51 mg/dL 35-55 [facility] ([facility] [...] HCT IS 5% LESS SOURCE FOR DATA: [employer] 1800 OPERATION MANUAL( AUTOMATED BLOOD COUNTS AND [...] HCT IS 5% LESS SOURCE FOR DATA: [employer] 1800 OPERATION MANUAL( AUTOMATED BLOOD COUNTS [...] 2-19 YEARS EXCLUSIVE. Cho/HDL Ratio 2.3 CALC [facility] ([facility] NORMAL RANGES Age WBC [...] HCT IS 5% LESS SOURCE FOR DATA: [employer] 1800 OPERATION MANUAL( AUTOMATED BLOOD COUNTS AND [...] 2-19 YEARS EXCLUSIVE. ID Date Data Source [id number] 08/02/2020 08:51:00 AM EDT [facility] ([facility] Name Value Range Interpretation Code Description Data Denise rce(s) Supporting Document(s) Glu 120 mg/dL 70-110 Above high normal [facility] ([facility] NORMAL RANGES Age WBC RBC [...] HCT IS 5% LESS SOURCE FOR DATA: [employer] 1800 OPERATION MANUAL( AUTOMATED BLOOD COUNTS AND [...] BUN 29 mg/dL 8-23 Above high normal [facility] ([facility] NORMAL RANGES Age [...] HCT IS 5% LESS SOURCE FOR DATA: [employer] 1800 OPERATION MANUAL( AUTOMATED BLOOD COUNTS AND [...] 2-19 YEARS EXCLUSIVE. Creat 1.2 mg/dL 0.7-1.2 [facility] ([facility] NORMAL [...] HCT IS 5% LESS SOURCE FOR DATA: [employer] 1800 OPERATION MANUAL( AUTOMATED BLOOD COUNTS [...] 2-19 YEARS EXCLUSIVE. BUN/Creatinine Ratio 24.8 CALC [facility] ([facility] NORMAL RANGES Age WBC RBC [...] HCT IS 5% LESS SOURCE FOR DATA: [employer] 1800 OPERATION MANUAL( AUTOMATED BLOOD COUNTS AND [...] 2-19 YEARS EXCLUSIVE. Na 138 mmol/L 136-145 [facility] ([facility] [...] HCT IS 5% LESS SOURCE FOR DATA: [employer] 1800 OPERATION MANUAL( AUTOMATED BLOOD COUNTS AND [...] 2-19 YEARS EXCLUSIVE. CL 101.1 mmol/L 98.0-107.0 [facility] ([facility] NORMAL RANGES Age WBC RBC [...] HCT IS 5% LESS SOURCE FOR DATA: [employer] 1800 OPERATION MANUAL( AUTOMATED BLOOD COUNTS AND [...] 2-19 YEARS EXCLUSIVE. K 3.8 mmol/L 3.5-5.1 [facility] ([facility] NORMAL RANGES Age WBC RBC [...] HCT IS 5% LESS SOURCE FOR DATA: [employer] 1800 OPERATION MANUAL( AUTOMATED BLOOD COUNTS AND [...] 2-19 YEARS EXCLUSIVE. Co2 25.3 mmol/L 22.0-29.0 [facility] ([facility] NORMAL RANGES Age WBC RBC [...] HCT IS 5% LESS SOURCE FOR DATA: [employer] 1800 OPERATION MANUAL( AUTOMATED BLOOD COUNTS AND [...] 2-19 YEARS EXCLUSIVE. CA 8.7 mg/dL 8.6-10.2 [facility] ([facility] NORMAL [...] HCT IS 5% LESS SOURCE FOR DATA: [employer] 1800 OPERATION MANUAL( AUTOMATED BLOOD COUNTS AND [...] TP 6.3 g/dL 6.6-8.7 Below low normal [facility] ( [facility] NORMAL RANGES Age [...] HCT IS 5% LESS SOURCE FOR DATA: [employer] 1800 OPERATION MANUAL( AUTOMATED BLOOD COUNTS AND [...] HCT IS 5% LESS SOURCE FOR DATA: [employer] 1800 OPERATION MANUAL( AUTOMATED BLOOD COUNTS AND [...] 2-19 YEARS EXCLUSIVE. Alb 4.0 g/dL 3.5-5.2 [facility] ([facility] [...] HCT IS 5% LESS SOURCE FOR DATA: [employer] 1800 OPERATION MANUAL( AUTOMATED BLOOD COUNTS AND [...] 2-19 YEARS EXCLUSIVE. Alp 66.2 U/L 40-129 [facility] ([facility] [...] HCT IS 5% LESS SOURCE FOR DATA: [employer] 1800 OPERATION MANUAL( AUTOMATED BLOOD COUNTS AND [...] YEARS EXCLUSIVE. Alt (SGPT) 25 U/L 0-41 [facility] ([facility] NORMAL RANGES Age [...] HCT IS 5% LESS SOURCE FOR DATA: [employer] 1800 OPERATION MANUAL( AUTOMATED BLOOD COUNTS AND [...] EXCLUSIVE. Ast (Sgot) 27 U/L 0-40 [facility] ([facility] NORMAL RANGES Age [...] HCT IS 5% LESS SOURCE FOR DATA: [employer] 1800 OPERATION MANUAL( AUTOMATED BLOOD COUNTS [...] 2-19 YEARS EXCLUSIVE. Tbili 0.38 mg/dL 0.0-1.2 [facility] ([facility] NORMAL RANGES Age [...] HCT IS 5% LESS SOURCE FOR DATA: [employer] 1800 OPERATION MANUAL( AUTOMATED BLOOD COUNTS AND [...] HCT IS 5% LESS SOURCE FOR DATA: [employer] 1800 OPERATION MANUAL( AUTOMATED BLOOD COUNTS AND [...] YEARS EXCLUSIVE. eGFR 66 # [facility] ( [facility] CKD-EPI Anion Gap 15 mmol/L [facility] ([facility] NORMAL [...] HCT IS 5% LESS SOURCE FOR DATA: [employer] 1800 OPERATION MANUAL( AUTOMATED BLOOD COUNTS AND [...] INDIVIDUALA AGED 2-19 YEARS EXCLUSIVE. eGFR Non-Afr. Libyan 57 # [facility] ([facility] CKD-EPI ID Date Data Source [id number] 08/02/2020 08:51:00 AM EDT [facility] ([facility] Name Value Range Interpretation Code Description Data Denise rce(s) Supporting Document(s) WBC 6.6 10E3/uL 4.1-10.9 [facility] ([facility] NORMAL RANGES Age WBC RBC [...] HCT IS 5% LESS SOURCE FOR DATA: [employer] 1800 OPERATION MANUAL( AUTOMATED BLOOD COUNTS AND [...] 2-19 YEARS EXCLUSIVE. HGB 12.6 g/dL 12.0-18.0 [facility] ([facility] NORMAL RANGES [...] RBC 3.84 10E6/uL 4.20-6.30 Below low normal [facility] ([facility] NORMAL [...] HCT IS 5% LESS SOURCE FOR DATA: [employer] 1800 OPERATION MANUAL( AUTOMATED BLOOD COUNTS AND [...] 2-19 YEARS EXCLUSIVE. HCT 37.8 % 37.0-51.0 [facility] ([facility] NORMAL [...] HCT IS 5% LESS SOURCE FOR DATA: [employer] 1800 OPERATION MANUAL( AUTOMATED BLOOD COUNTS AND [...] MCV 98.4 fL 80.0-97.0 Above high normal [facility] ([facility] NORMAL [...] HCT IS 5% LESS SOURCE FOR DATA: [employer] 1800 OPERATION MANUAL( AUTOMATED BLOOD COUNTS [...] MCH 32.8 pg 26.0-32.0 Above high normal [facility] ([facility] NORMAL [...] HCT IS 5% LESS SOURCE FOR DATA: [employer] 1800 OPERATION MANUAL( AUTOMATED BLOOD COUNTS AND [...] 2-19 YEARS EXCLUSIVE. MCHC 33.3 g/dL 31.0-36.0 [facility] ([facility], [...] HCT IS 5% LESS SOURCE FOR DATA: [employer] 1800 OPERATION MANUAL( AUTOMATED BLOOD COUNTS AND [...] 2-19 YEARS EXCLUSIVE. PLT 292 10E3/uL 140-440 [facility] ([facility] NORMAL RANGES Age WBC RBC [...] HCT IS 5% LESS SOURCE FOR DATA: [employer] 1800 OPERATION MANUAL( AUTOMATED BLOOD COUNTS AND [...] 2-19 YEARS EXCLUSIVE. RDW-CV 13.1 % 11.5-14.5 [facility] ([facility] [...] HCT IS 5% LESS SOURCE FOR DATA: [employer] 1800 OPERATION MANUAL( AUTOMATED BLOOD COUNTS AND [...] 2-19 YEARS EXCLUSIVE. Lym% 19.3 % 10.0-58.5 [facility] ([facility] NORMAL [...] HCT IS 5% LESS SOURCE FOR DATA: [employer] 1800 OPERATION MANUAL( AUTOMATED BLOOD COUNTS AND [...] 2-19 YEARS EXCLUSIVE. Neut% 73.1 % 37.0-92.0 [facility] ([facility] [...] HCT IS 5% LESS SOURCE FOR DATA: [employer] 1800 OPERATION MANUAL( AUTOMATED BLOOD COUNTS AND [...] 2-19 YEARS EXCLUSIVE. MXD% 7.6 % 0.1-24.0 [facility] ([facility] NORMAL [...] HCT IS 5% LESS SOURCE FOR DATA: [employer] 1800 OPERATION MANUAL( AUTOMATED BLOOD COUNTS [...] 2-19 YEARS EXCLUSIVE. Lym# 1.3 10E3/uL 0.6-4.1 [facility] ([facility] NORMAL RANGES Age [...] HCT IS 5% LESS SOURCE FOR DATA: [employer] 1800 OPERATION MANUAL( AUTOMATED BLOOD COUNTS AND [...] 2-19 YEARS EXCLUSIVE. Neut# 4.8 % 2.0-7.8 [facility] ([facility] NORMAL [...] HCT IS 5% LESS SOURCE FOR DATA: [employer] 1800 OPERATION MANUAL( AUTOMATED BLOOD COUNTS AND [...] 2-19 YEARS EXCLUSIVE. MXD# 0.5 10E3/uL 0.0-1.8 [facility] ([facility] NORMAL RANGES Age WBC RBC [...] HCT IS 5% LESS SOURCE FOR DATA: [employer] 1800 OPERATION MANUAL( AUTOMATED BLOOD COUNTS AND [...] 2-19 YEARS EXCLUSIVE. MPV 9.6 fL 9.0-13.0 [facility] NORMAL RANGES Age WBC [...] HCT IS 5% LESS SOURCE FOR DATA: [employer] 1800 OPERATION MANUAL( AUTOMATED BLOOD COUNTS AND [...] 2-19 YEARS EXCLUSIVE. ID Date Data Source [id number] 05/04/2020 10:21:00 AM EST [facility] ([facility] Name Value Range Interpretation Code Description Data Denise rce(s) Supporting Document(s) Prostate specific Ag [Mass/volume] in Serum or Plasma 4.26 ng/mL 0.0-4.0 Above high normal [facility] ([facility] ID Date Data Source [id number] 05/04/2020 10:21:00 AM EST [facility] ([facility] Name Value Range Interpretation Code Description Data Denise rce(s) Supporting Document(s) Chol 126 mg/dL 0-200 [facility] ([facility], [...] HCT IS 5% LESS SOURCE FOR DATA: [employer] 1800 OPERATION MANUAL( AUTOMATED BLOOD COUNTS AND [...] 2-19 YEARS EXCLUSIVE. Trig 54 mg/dL 35-200 [facility] NORMAL RANGES Age WBC [...] HCT IS 5% LESS SOURCE FOR DATA: [employer] 1800 OPERATION MANUAL( AUTOMATED BLOOD COUNTS AND [...] Plasma 61 mg/dL 35-55 Above high normal [facility] (Family [...] HCT IS 5% LESS SOURCE FOR DATA: [employer] 1800 OPERATION MANUAL( AUTOMATED BLOOD COUNTS AND [...] HCT IS 5% LESS SOURCE FOR DATA: [employer] 1800 OPERATION MANUAL( AUTOMATED BLOOD COUNTS AND [...] 2-19 YEARS EXCLUSIVE. Cho/HDL Ratio 2.1 Calc [facility] ([facility] NORMAL RANGES Age WBC RBC [...] HCT IS 5% LESS SOURCE FOR DATA: [employer] 1800 OPERATION MANUAL( AUTOMATED BLOOD COUNTS AND [...] 2-19 YEARS EXCLUSIVE. ID Date Data Source [id number] 05/04/2020 10:21:00 AM EST [facility] ([facility] Name Value Range Interpretation [...] HCT IS 5% LESS SOURCE FOR DATA: [employer] 1800 OPERATION MANUAL( AUTOMATED BLOOD COUNTS AND [...] 29 mg/dL 8-23 Above high normal [facility] ([facility] NORMAL RANGES Age WBC [...] HCT IS 5% LESS SOURCE FOR DATA: [employer] 1800 OPERATION MANUAL( AUTOMATED BLOOD COUNTS AND [...] 2-19 YEARS EXCLUSIVE. Creat 1.1 mg/dL 0.7-1.2 [facility] ([facility] [...] HCT IS 5% LESS SOURCE FOR DATA: [employer] 1800 OPERATION MANUAL( AUTOMATED BLOOD COUNTS AND [...] 2-19 YEARS EXCLUSIVE. BUN/Creatinine Ratio 26.1 CALC [facility] ([facility] NORMAL RANGES Age [...] HCT IS 5% LESS SOURCE FOR DATA: [employer] 1800 OPERATION MANUAL( AUTOMATED BLOOD COUNTS AND [...] 2-19 YEARS EXCLUSIVE. Na 136 mmol/L 136-145 [facility] ([facility] NORMAL [...] HCT IS 5% LESS SOURCE FOR DATA: [employer] 1800 OPERATION MANUAL( AUTOMATED BLOOD COUNTS [...] K 3.2 mmol/L 3.5-5.1 Below low normal [facility] ( [facility] [...] HCT IS 5% LESS SOURCE FOR DATA: [employer] 1800 OPERATION MANUAL( AUTOMATED BLOOD COUNTS AND [...] 2-19 YEARS EXCLUSIVE. Co2 25.7 mmol/L 22.0-29.0 [facility] NORMAL RANGES Age WBC RBC [...] HCT IS 5% LESS SOURCE FOR DATA: [employer] 1800 OPERATION MANUAL( AUTOMATED BLOOD COUNTS [...] 2-19 YEARS EXCLUSIVE. CL 98.6 mmol/L 98.0-107.0 [facility] ([facility] NORMAL RANGES Age WBC [...] HCT IS 5% LESS SOURCE FOR DATA: [employer] 1800 OPERATION MANUAL( AUTOMATED BLOOD COUNTS AND [...] 2-19 YEARS EXCLUSIVE. CA 8.8 mg/dL 8.6-10.2 [facility] ([facility] [...] HCT IS 5% LESS SOURCE FOR DATA: [employer] 1800 OPERATION MANUAL( AUTOMATED BLOOD COUNTS AND [...] HCT IS 5% LESS SOURCE FOR DATA: [employer] 1800 OPERATION MANUAL( AUTOMATED BLOOD COUNTS AND [...] 2-19 YEARS EXCLUSIVE. Alb 4.5 g/dL 3.5-5.2 [facility] NORMAL RANGES Age WBC [...] HCT IS 5% LESS SOURCE FOR DATA: [employer] 1800 OPERATION MANUAL( AUTOMATED BLOOD COUNTS AND [...] 2-19 YEARS EXCLUSIVE. A/G Ratio 2.6 CALC [facility] ([facility] [...] HCT IS 5% LESS SOURCE FOR DATA: [employer] 1800 OPERATION MANUAL( AUTOMATED BLOOD COUNTS AND [...] 2-19 YEARS EXCLUSIVE. Alp 65.3 U/L 40-129 [facility] ([facility], [...] HCT IS 5% LESS SOURCE FOR DATA: [employer] 1800 OPERATION MANUAL( AUTOMATED BLOOD COUNTS AND [...] YEARS EXCLUSIVE. Alt (SGPT) 22 U/L 0-41 [facility] ([facility] NORMAL RANGES Age WBC RBC [...] HCT IS 5% LESS SOURCE FOR DATA: [employer] 1800 OPERATION MANUAL( AUTOMATED BLOOD COUNTS AND [...] HCT IS 5% LESS SOURCE FOR DATA: [employer] 1800 OPERATION MANUAL( AUTOMATED BLOOD COUNTS AND [...] YEARS EXCLUSIVE. Ast (Sgot) 25 U/L 0-40 [facility] ([facility], [...] HCT IS 5% LESS SOURCE FOR DATA: [employer] 1800 OPERATION MANUAL( AUTOMATED BLOOD COUNTS AND [...] 2-19 YEARS EXCLUSIVE. Tbili 0.69 mg/dL 0.0-1.2 [facility] ([facility] NORMAL RANGES Age WBC RBC [...] HCT IS 5% LESS SOURCE FOR DATA: [employer] 1800 OPERATION MANUAL( AUTOMATED BLOOD COUNTS AND [...] 2-19 YEARS EXCLUSIVE. Anion Gap 15 mmol/L [facility] ([facility] NORMAL [...] HCT IS 5% LESS SOURCE FOR DATA: [employer] 1800 OPERATION MANUAL( AUTOMATED BLOOD COUNTS AND [...] INDIVIDUALA AGED 2-19 YEARS EXCLUSIVE. eGFR Non-Afr. Libyan 63 # [facility] ([facility] CKD-EPI eGFR 73 # [facility] ( [facility] CKD-EPI ID Date Data Source [id number] 05/04/2020 10:21:00 AM EST MED[facility] ([facility] Name Value Range Interpretation Code Description Data Denise rce(s) Supporting Document(s) Creatine kinase [Enzymatic activity/volume] in Serum or Plasma 279 U/L 39-308 [facility] ([facility] [...] HCT IS 5% LESS SOURCE FOR DATA: [employer] 1800 OPERATION MANUAL( AUTOMATED BLOOD COUNTS AND [...] 2-19 YEARS EXCLUSIVE. ID Date Data Source [id number] 05/04/2020 10:21:00 AM EST [facility] ([facility] Name Value Range Interpretation Code Description Data Denise rce(s) Supporting Document(s) WBC 9.1 10E3/uL 4.1-10.9 [facility] ([facility] NORMAL RANGES Age WBC RBC [...] HCT IS 5% LESS SOURCE FOR DATA: [employer] 1800 OPERATION MANUAL( AUTOMATED BLOOD COUNTS AND [...] 2-19 YEARS EXCLUSIVE. HGB 13.4 g/dL 12.0-18.0 [facility] [...] HCT IS 5% LESS SOURCE FOR DATA: [employer] 1800 OPERATION MANUAL( AUTOMATED BLOOD COUNTS [...] RBC 4.05 10E6/uL 4.20-6.30 Below low normal [facility] ([facility] NORMAL RANGES [...] HCT IS 5% LESS SOURCE FOR DATA: [employer] 1800 OPERATION MANUAL( AUTOMATED BLOOD COUNTS AND [...] MCV 98.0 fL 80.0-97.0 Above high normal MED[facility] ([facility] NORMAL RANGES Age WBC RBC [...] HCT IS 5% LESS SOURCE FOR DATA: [employer] 1800 OPERATION MANUAL( AUTOMATED BLOOD COUNTS AND [...] 2-19 YEARS EXCLUSIVE. HCT 39.7 % 37.0-51.0 [facility] [...] HCT IS 5% LESS SOURCE FOR DATA: [employer] 1800 OPERATION MANUAL( AUTOMATED BLOOD COUNTS AND [...] 2-19 YEARS EXCLUSIVE. MCHC 33.8 g/dL 31.0-36.0 [facility] ([facility] [...] HCT IS 5% LESS SOURCE FOR DATA: [employer] 1800 OPERATION MANUAL( AUTOMATED BLOOD COUNTS AND [...] MCH 33.1 pg 26.0-32.0 Above high normal [facility] ([facility] NORMAL RANGES Age [...] HCT IS 5% LESS SOURCE FOR DATA: [employer] 1800 OPERATION MANUAL( AUTOMATED BLOOD COUNTS AND [...] 2-19 YEARS EXCLUSIVE. PLT 156 10E3/uL 140-440 [facility] ([facility] NORMAL RANGES Age WBC RBC [...] HCT IS 5% LESS SOURCE FOR DATA: [employer] 1800 OPERATION MANUAL( AUTOMATED BLOOD COUNTS AND [...] 2-19 YEARS EXCLUSIVE. Lym% 16.0 % 10.0-58.5 [facility] ([facility] [...] HCT IS 5% LESS SOURCE FOR DATA: [employer] 1800 OPERATION MANUAL( AUTOMATED BLOOD COUNTS AND [...] 2-19 YEARS EXCLUSIVE. RDW-CV 14.0 % 11.5-14.5 [facility] NORMAL RANGES Age WBC [...] HCT IS 5% LESS SOURCE FOR DATA: [employer] 1800 OPERATION MANUAL( AUTOMATED BLOOD COUNTS AND [...] 2-19 YEARS EXCLUSIVE. Neut% 73.1 % 37.0-92.0 [facility] ([facility] NORMAL [...] HCT IS 5% LESS SOURCE FOR DATA: [employer] 1800 OPERATION MANUAL( AUTOMATED BLOOD COUNTS AND [...] 2-19 YEARS EXCLUSIVE. MXD% 10.9 % 0.1-24.0 [facility] ([facility] NORMAL [...] HCT IS 5% LESS SOURCE FOR DATA: [employer] 1800 OPERATION MANUAL( AUTOMATED BLOOD COUNTS AND [...] 2-19 YEARS EXCLUSIVE. Lym# 1.5 10E3/uL 0.6-4.1 [facility] NORMAL RANGES Age WBC RBC [...] HCT IS 5% LESS SOURCE FOR DATA: [employer] 1800 OPERATION MANUAL( AUTOMATED BLOOD COUNTS AND [...] 2-19 YEARS EXCLUSIVE. Neut# 6.6 % 2.0-7.8 [facility] ([facility] NORMAL [...] HCT IS 5% LESS SOURCE FOR DATA: [employer] 1800 OPERATION MANUAL( AUTOMATED BLOOD COUNTS AND [...] 2-19 YEARS EXCLUSIVE. MPV 11.0 fL 9.0-13.0 [facility] ([facility] [...] HCT IS 5% LESS SOURCE FOR DATA: [employer] 1800 OPERATION MANUAL( AUTOMATED BLOOD COUNTS AND [...] 2-19 YEARS EXCLUSIVE. MXD# 1.0 10E3/uL 0.0-1.8 [facility] NORMAL RANGES Age WBC RBC [...] 2-19 YEARS EXCLUSIVE. ID Date Data Source [id number] 01/19/2020 09:27:00 AM EDT MEDENT ([employer] [facility] Name Value Range Interpretation Code Description Data Denise rce(s) Supporting Document(s) Hemoglobin A1c/Hemoglobin.total in Blood 6.0 % 4.8-5.6 Above high normal MED[facility] ([employer] [facility] <content>Prediabetes: 5.7 - 6.4</content >
<content>Diabetes: >6.4</content>
<content>Glycemic control for adults with diabetes: <7.0</content>
<content></content> ID Date Data Source [id number] 01/19/2020 09:26:00 AM EDT [facility] ([employer] [facility] Name Value Range Interpretation Code Description Data Denise rce(s) Supporting Document(s) Creatine kinase [Enzymatic activity/volume] in Serum or Plasma 3 79 U/L 39-308 Above high normal [facility] ([facility] ) NORMAL RANGES Age WBC [...] HCT IS 5% LESS SOURCE FOR DATA: [employer] 1800 OPERATION MANUAL( AUTOMATED BLOOD COUNTS AND [...] 2-19 YEARS EXCLUSIVE. ID Date Data Source [id number] 01/19/2020 09:26:00 AM EDT [facility] ([facility] Name Value Range Interpretation Code Description Data Denise rce(s) Supporting Document(s) Chol 130 mg/dL 0-200 [facility] ([facility] [...] HCT IS 5% LESS SOURCE FOR DATA: [employer] 1800 OPERATION MANUAL( AUTOMATED BLOOD COUNTS AND [...] HCT IS 5% LESS SOURCE FOR DATA: [employer] 1800 OPERATION MANUAL( AUTOMATED BLOOD COUNTS AND [...] 2-19 YEARS EXCLUSIVE. Trig 56 mg/dL 35-200 [facility] NORMAL RANGES Age WBC [...] IS 5% LESS SOURCE FOR DATA: [employer] 1800 OPERATION MANUAL( AUTOMATED BLOOD COUNTS AND [...] 2-19 YEARS EXCLUSIVE. Cho/HDL Ratio 2.4 CALC [employer] ([facility] NORMAL RANGES Age WBC RBC [...] HCT IS 5% LESS SOURCE FOR DATA: [employer] 1800 OPERATION MANUAL( AUTOMATED BLOOD COUNTS AND [...] HCT IS 5% LESS SOURCE FOR DATA: [employer] 1800 OPERATION MANUAL( AUTOMATED BLOOD COUNTS AND [...] 2-19 YEARS EXCLUSIVE. ID Date Data Source [id number] 01/19/2020 09:26:00 AM EDT [facility] ([facility] Name Value Range Interpretation Code Description Data Denise rce(s) Supporting Document(s) BUN 26 mg/dL 8-23 Above high normal [facility] ([facility] NORMAL RANGES Age WBC [...] Glu 115 mg/dL 70-110 Above high normal [facility] ([facility] [...] HCT IS 5% LESS SOURCE FOR DATA: [employer] 1800 OPERATION MANUAL( AUTOMATED BLOOD COUNTS AND [...] Na 139 mmol/L 136-145 [facility] ([facility] NORMAL RANGES Age WBC RBC HGB [...] HCT IS 5% LESS SOURCE FOR DATA: [employer] 1800 OPERATION MANUAL( AUTOMATED BLOOD COUNTS AND [...] 2-19 YEARS EXCLUSIVE. Creat 1.0 mg/dL 0.7-1.2 [facility] ([facility] [...] HCT IS 5% LESS SOURCE FOR DATA: [employer] 1800 OPERATION MANUAL( AUTOMATED BLOOD COUNTS AND [...] 2-19 YEARS EXCLUSIVE. BUN/Creatinine Ratio 26.4 CALC [facility] ([facility] NORMAL RANGES Age [...] HCT IS 5% LESS SOURCE FOR DATA: [employer] 1800 OPERATION MANUAL( AUTOMATED BLOOD COUNTS AND [...] 2-19 YEARS EXCLUSIVE. CL 101.7 mmol/L 98.0-107.0 [facility] ([facility] NORMAL RANGES Age WBC RBC [...] HCT IS 5% LESS SOURCE FOR DATA: [employer] 1800 OPERATION MANUAL( AUTOMATED BLOOD COUNTS AND [...] 2-19 YEARS EXCLUSIVE. K 3.7 mmol/L 3.5-5.1 [facility] NORMAL RANGES Age [...] HCT IS 5% LESS SOURCE FOR DATA: [employer] 1800 OPERATION MANUAL( AUTOMATED BLOOD COUNTS [...] 2-19 YEARS EXCLUSIVE. CA 9.2 mg/dL 8.6-10.2 [facility] ([facility] NORMAL [...] HCT IS 5% LESS SOURCE FOR DATA: [employer] 1800 OPERATION MANUAL( AUTOMATED BLOOD COUNTS AND [...] TP 6.1 g/dL 6.6-8.7 Below low normal [facility] ( [facility] NORMAL RANGES Age [...] HCT IS 5% LESS SOURCE FOR DATA: [employer] 1800 OPERATION MANUAL( AUTOMATED BLOOD COUNTS AND [...] 2-19 YEARS EXCLUSIVE. Co2 28.0 mmol/L 22.0-29.0 [employer] ([facility] NORMAL RANGES Age WBC RBC [...] HCT IS 5% LESS SOURCE FOR DATA: [employer] 1800 OPERATION MANUAL( AUTOMATED BLOOD COUNTS AND [...] 2-19 YEARS EXCLUSIVE. A/G Ratio 2.4 CALC [facility] ([facility] [...] HCT IS 5% LESS SOURCE FOR DATA: [employer] 1800 OPERATION MANUAL( AUTOMATED BLOOD COUNTS AND [...] 2-19 YEARS EXCLUSIVE. Alb 4.3 g/dL 3.5-5.2 [facility] NORMAL RANGES Age WBC [...] HCT IS 5% LESS SOURCE FOR DATA: [employer] 1800 OPERATION MANUAL( AUTOMATED BLOOD COUNTS AND [...] 2-19 YEARS EXCLUSIVE. Alp 67.4 U/L 40-129 [facility] ([facility] [...] HCT IS 5% LESS SOURCE FOR DATA: [employer] 1800 OPERATION MANUAL( AUTOMATED BLOOD COUNTS AND [...] HCT IS 5% LESS SOURCE FOR DATA: [employer] 1800 OPERATION MANUAL( AUTOMATED BLOOD COUNTS AND [...] 2-19 YEARS EXCLUSIVE. Tbili 0.72 mg/dL 0.0-1.2 [facility] ([facility] NORMAL RANGES Age WBC RBC [...] HCT IS 5% LESS SOURCE FOR DATA: [employer] 1800 OPERATION MANUAL( AUTOMATED BLOOD COUNTS AND [...] YEARS EXCLUSIVE. Ast (Sgot) 29 U/L 0-40 [facility] ([facility] NORMAL [...] HCT IS 5% LESS SOURCE FOR DATA: [employer] 1800 OPERATION MANUAL( AUTOMATED BLOOD COUNTS AND [...] YEARS EXCLUSIVE. Alt (SGPT) 26 U/L 0-41 [facility] ([facility], [...] HCT IS 5% LESS SOURCE FOR DATA: [employer] 1800 OPERATION MANUAL( AUTOMATED BLOOD COUNTS AND [...] 2-19 YEARS EXCLUSIVE. Anion Gap 13 mmol/L [facility] ([facility] [...] HCT IS 5% LESS SOURCE FOR DATA: [employer] 1800 OPERATION MANUAL( AUTOMATED BLOOD COUNTS AND [...] INDIVIDUALA AGED 2-19 YEARS EXCLUSIVE. eGFR Non-Afr. Libyan 71 # [facility] ([facility] CKD-EPI eGFR 83 # [facility] ( [facility] CKD-EPI ID Date Data Source [id number] 01/19/2020 09:26:00 AM EDT [facility] ([facility] Name Value Range Interpretation Code Description Data Denise rce(s) Supporting Document(s) WBC 7.7 10E3/uL 4.1-10.9 [facility] ([facility] NORMAL RANGES Age WBC [...] HCT IS 5% LESS SOURCE FOR DATA: [employer] 1800 OPERATION MANUAL( AUTOMATED BLOOD COUNTS AND [...] 2-19 YEARS EXCLUSIVE. HGB 13.3 g/dL 12.0-18.0 [facility] ([facility] [...] HCT IS 5% LESS SOURCE FOR DATA: [employer] 1800 OPERATION MANUAL( AUTOMATED BLOOD COUNTS AND [...] RBC 3.99 10E6/uL 4.20-6.30 Below low normal MED[facility] (Family [...] HCT IS 5% LESS SOURCE FOR DATA: [employer] 1800 OPERATION MANUAL( AUTOMATED BLOOD COUNTS AND [...] MCH 33.3 pg 26.0-32.0 Above high normal [facility] ([facility] NORMAL RANGES Age [...] HCT IS 5% LESS SOURCE FOR DATA: [employer] 1800 OPERATION MANUAL( AUTOMATED BLOOD COUNTS AND [...] MCV 99.0 fL 80.0-97.0 Above high normal [facility] (Family [...] HCT IS 5% LESS SOURCE FOR DATA: [employer] 1800 OPERATION MANUAL( AUTOMATED BLOOD COUNTS AND [...] 2-19 YEARS EXCLUSIVE. HCT 39.5 % 37.0-51.0 [facility] ([facility] NORMAL [...] HCT IS 5% LESS SOURCE FOR DATA: [employer] 1800 OPERATION MANUAL( AUTOMATED BLOOD COUNTS AND [...] 2-19 YEARS EXCLUSIVE. MCHC 33.7 g/dL 31.0-36.0 [facility] [...] 2-19 YEARS EXCLUSIVE. PLT 162 10E3/uL 140-440 [facility] ([facility] NORMAL RANGES Age WBC RBC [...] HCT IS 5% LESS SOURCE FOR DATA: [employer] 1800 OPERATION MANUAL( AUTOMATED BLOOD COUNTS AND [...] 2-19 YEARS EXCLUSIVE. Lym% 14.8 % 10.0-58.5 [facility] ([facility] [...] HCT IS 5% LESS SOURCE FOR DATA: [employer] 1800 OPERATION MANUAL( AUTOMATED BLOOD COUNTS AND [...] 2-19 YEARS EXCLUSIVE. RDW-CV 13.4 % 11.5-14.5 [facility] ([facility] NORMAL [...] HCT IS 5% LESS SOURCE FOR DATA: [employer] 1800 OPERATION MANUAL( AUTOMATED BLOOD COUNTS AND [...] 2-19 YEARS EXCLUSIVE. Neut% 75.4 % 37.0-92.0 [facility] ([facility] NORMAL [...] HCT IS 5% LESS SOURCE FOR DATA: [employer] 1800 OPERATION MANUAL( AUTOMATED BLOOD COUNTS AND [...] 2-19 YEARS EXCLUSIVE. MXD% 9.8 % 0.1-24.0 [facility] NORMAL RANGES Age WBC [...] HCT IS 5% LESS SOURCE FOR DATA: [employer] 1800 OPERATION MANUAL( AUTOMATED BLOOD COUNTS AND [...] 2-19 YEARS EXCLUSIVE. Lym# 1.1 10E3/uL 0.6-4.1 [facility] NORMAL RANGES Age WBC RBC HGB [...] HCT IS 5% LESS SOURCE FOR DATA: [employer] 1800 OPERATION MANUAL( AUTOMATED BLOOD COUNTS AND [...] 2-19 YEARS EXCLUSIVE. Neut# 5.8 % 2.0-7.8 [facility] ([facility] [...] HCT IS 5% LESS SOURCE FOR DATA: [employer] 1800 OPERATION MANUAL( AUTOMATED BLOOD COUNTS AND [...] 2-19 YEARS EXCLUSIVE. MPV 10.6 fL 9.0-13.0 [facility] ([facility] NORMAL [...] HCT IS 5% LESS SOURCE FOR DATA: [employer] 1800 OPERATION MANUAL( AUTOMATED BLOOD COUNTS AND [...] 2-19 YEARS EXCLUSIVE. MXD# 0.8 10E3/uL 0.0-1.8 [facility] ([facility] NORMAL RANGES Age WBC RBC [...] HCT IS 5% LESS SOURCE FOR DATA: [employer] 1800 OPERATION MANUAL( AUTOMATED BLOOD COUNTS [...] Value Status Description Data Source(s ) Smoking 03/02/2021 12:00:00 AM EDT Never Smoker completed Never S mariahker eCW1 ([facility]) Alcohol intake 02/27/2021 12:00:00 AM EDT Current drinker of al cohol (finding) completed Current drinker of alcohol (finding) [facility] Tobacco use and exposure 02/27/2021 12:00:00 AM EDT Never used co mpleted Never used [facility] Smoking 02/27/2021 12:00:00 AM EDT Former smoker completed Former smoker [facility] Smoking 10/25/2020 12:00:00 AM EDT Quit completed Quit [facility] ([facility]) Smoking 08/10/2020 12:00:00 AM EDT Patient is a former smoker completed Patient is a former smoker [facility] ([facility] ) Vital Signs ID Date Data Source UNK Name Value Range Interpretation Code Description Data Source(s) Body temperature 97.6 [degF] 97.6 [degF] eCW1 ( [facility]) Systolic blood pressure 130 mm[Hg] 130 mm[Hg] e CW1 ([facility]) Diastolic blood pressure 60 mm[Hg] 60 mm[Hg] eCW1 ([facility]) Body weight 185 [lb_av] 185 [lb_av] eCW1 ([facility]ending [facility] to [facility]) Body height 70 [in_i] 70 [in_i] eCW1 ([facility]) Body mass index (BMI) [Ratio] 26.54 kg/m2 26.54 kg/m2 eCW1 ([facility]) Heart rate 77 /min 77 /min eCW1 ([facility]) Respiratory rate 18 /min 18 /min eCW1 ([facility]) Systolic blood pressure 140 mm[Hg] 140 mm[Hg] [facility] Diastolic blood pressure 76 mm[Hg] 76 mm[Hg] [facility] Heart rate 68 /min 68 /min [facility] Body weight 83.462 kg 83.462 kg [facility] Oxygen saturation in Arterial blood by Pulse oximetry 96 % 96 % [facility] Body weight 182.8 [lb_av] 182.8 [lb_av] eCW1 (formerly [facility]) Body weight 82.92 kg 82.92 kg eCW1 ([facility]) Body height 70 [in_i] 70 [in_i] eCW1 ([facility]) Body mass index (BMI) [Ratio] 26.23 kg/m2 26.23 kg/m2 eCW1 ([facility]) Heart rate 80 /min 80 /min eCW1 ([facility]) Respiratory rate 18 /min 18 /min eCW1 ([facility]) Body temperature 97.6 [degF] 97.6 [degF] eCW1 ( [facility]) Systolic blood pressure 144 mm[Hg] 144 mm[Hg] e CW1 ([facility]) Diastolic blood pressure 82 mm[Hg] 82 mm[Hg] eCW1 ([facility]) Body weight 181.00 [lb_av] 181.00 [lb_av] [facility] ([facility] [place] body weight 166 [lb_av] 166 [lb_av] MED[facility] T ([facility] Body mass index (BMI) [Ratio] 26.0 kg/m2 26.0 k g/m2 [facility] ([facility] Oxygen saturation in Arterial blood by Pulse oximetry 97 % 97 % [facility] ([facility] Systolic blood pressure 140 mm[Hg] 140 mm[Hg] M EDENT ([facility] Diastolic blood pressure 70 mm[Hg] 70 mm[Hg] [facility] ([facility] Body temperature 97.8 [degF] 97.8 [degF] [facility] ([facility] Heart rate 68 /min 68 /min [facility] ([facility] Respiratory rate 16 /min 16 /min [facility] ( [facility] Body height 70 [in_i] 70 [in_i] MED[facility] ([facility] 5'10" Systolic blood pressure 142 mm[Hg] 142 mm[Hg] M EDENT ([facility] ) Diastolic blood pressure 72 mm[Hg] 72 mm[Hg] MED[facility] ([facility] ) Body height 69 [in_i] 69 [in_i] MED[facility] ([facility], ) 5'9" Body weight 187.00 [lb_av] 187.00 [lb_av] MEDEN T ([facility]) Body mass index (BMI) [Ratio] 27.6 kg/m2 27.6 k g/m2 [facility] ([facility]) [place] body weight 160 [lb_av] 160 [lb_av] MED[facility] T ([facility]) Body weight 84.823 kg 84.823 kg [facility] ([facility]) Body surface area Derived from formula 2.01 m2 2.01 m2 [facility] ([facility]) Body height 69 [in_i] 69 [in_i] [facility] ([facility]) 5'9" Body weight 187.00 [lb_av] 187.00 [lb_av] MEDEN T ([facility]) Body mass index (BMI) [Ratio] 27.6 kg/m2 27.6 k g/m2 [facility] ([facility]) [place] body weight 160 [lb_av] 160 [lb_av] MEDEN T ([facility]) Body weight 84.823 kg 84.823 kg [facility] ([facility]) Body surface area Derived from formula 2.01 m2 2.01 m2 [facility] ([facility]) Heart rate 66 /min 66 /min [facility] ([facility]) Systolic blood pressure 133 mm[Hg] 133 mm[facility]Hg] [facility] Diastolic blood pressure 80 mm[Hg] 80 mm[Hg] [facility] ([facility]) Oxygen saturation in Arterial blood by Pulse oximetry 94 % 94 % [facility] ([facility]) Body weight 183.00 [lb_av] 183.00 [lb_av] MEDEN T ([facility]) Body weight 83.009 kg 83.009 [facility] Systolic blood pressure 133 mm[Hg] 133 mm[Hg] M EDENT ([facility]) Oxygen saturation in Arterial blood by Pulse oximetry 95 % 95 % [facility] Body weight 183.00 [lb_av] 183.00 [lb_av] MEDEN T ([facility]) Body weight 83.009 kg 83.009 kg MED[facility] ([facility]) Diastolic blood pressure 75 mm[Hg] 75 mm[Hg] [facility] ([facility]) Heart rate 80 /min 80 /min [facility] ([facility]) Body height 69 [in_i] 69 [in_i] MED[facility] ([facility]) 5'9" Body mass index (BMI) [Ratio] 27.0 kg/m2 27.0 k g/m2 [facility] ([facility]) Body surface area Derived from formula 1.99 m2 1.99 m2 [facility] ([facility]) Systolic blood pressure 116 mm[Hg] 116 mm[Hg] M EDENT ([facility] Diastolic blood pressure 66 mm[Hg] 66 mm[Hg] [facility] ([facility] Body temperature 98.1 [degF] 98.1 [degF] [facility] ([facility] Body height 70 [in_i] 70 [in_i] [facility] ([facility] 5'10" Body weight 187.00 [lb_av] 187.00 [lb_av] MEDEN T ([facility] [place] body weight 166 [lb_av] 166 [lb_av] MEDEN [...] mm[Hg] M EDENT ([facility] [place] body weight 166 [lb_av] 166 [lb_av] MEDEN [...] Body height 70 [in_i] 70 [in_i] [facility] ([facility] 5'10" Body weight 192.00 [lb_av] 192.00 [lb_av] MEDEN T ([facility] Body mass index (BMI) [Ratio] 27.5 kg/m2 27.5 k g/m2 [facility] ([facility] Body weight 193.00 [lb_av] 193.00 [lb_av] MEDEN T ([facility] [place] body weight 166 [lb_av] 166 [lb_av] MEDEN [...] Body height 70 [in_i] 70 [in_i] [facility] ([facility] 5'10" [place] body weight 166 [lb_av] 166 [lb_av] MEDEN T ([facility] Body mass index (BMI) [Ratio] 27.8 kg/m2 27.8 k g/m2 [facility] ([facility] Oxygen saturation in Arterial blood by Pulse oximetry 97 % 97 % [facility] ([facility] Systolic blood pressure 146 mm[Hg] 146 mm[Hg] M EDENT ([facility] Diastolic blood pressure 70 mm[Hg] 70 mm[Hg] [facility] ([facility] Body temperature 98.2 [degF] 98.2 [degF] [facility] ([facility] Heart rate 84 /min 84 /min [facility] ([facility] Respiratory rate 16 /min 16 /min [facility] ( [facility] Body height 70 [in_i] 70 [in_i] MED[facility] ([facility] 5'10" Body weight 194.00 [lb_av] 194.00 [lb_av] MEDEN T ([facility] Patient Treatment Plan of Care Planned Activity Planned Date Details Description Data Source (s) Levetiracetam 500 MG Oral Tablet 02/22/2021 12:00:00 AM EDT [facility] atorvastatin 10 MG Oral Tablet 02/21/2021 12:00:00 AM EDT [facility] Ramipril 2.5 MG Oral Capsule 01/23/2021 12:00:00 AM EDT [facility] Chlorthalidone 25 MG Oral Tablet 01/23/2021 12:00:00 AM EDT [facility] 60 ACTUAT Fluticasone propionate 0.25 MG /ACTUAT / salmeterol 0.05 MG/ACTUAT Dry Powder Inhaler [Advair] 01/08/2021 12:00:00 AM EDT [facility] 24 HR mirabegron 50 MG Extended Release Oral Tablet [M yrbetriq] 12/27/2020 12:00:00 AM EDT [facility] 24 HR mirabegron 25 MG Extended Release Oral Tablet [M yrbetriq] 12/19/2020 12:00:00 AM EDT [facility] Tamsulosin hydrochloride 0.4 MG Oral Capsule 11/24/2020 12:00:00 AM EDT [facility]
[2021-03-14 11:07] LABS: HEMATOCRIT 35.1 % (42.0-52.0); HEMOGLOBIN 11.5 g/dl (13.5-17.5); MEAN CORPUSCULAR HEMOGLOBIN 32.3 pg (27.0-33.0); MEAN CORPUSCULAR HGB CONC 32.8 g/dl (32.0-36.5); MEAN CORPUSCULAR VOLUME 98.6 fl (80.0-96.0); PLATELET COUNT, AUTOMATED 154 10^3/uL (150-450); RED BLOOD COUNT 3.56 10^6/uL (4.30-6.10); WHITE BLOOD COUNT 8.9 10^3/uL (4.0-10.0)
--- NOTE | 2021-03-14 11:16 | REP ---
INDICATION: trauma COMPARISON: 02/20/2021 TECHNIQUE: Axial noncontrast images from the skull base to the thoracic inlet with coronal reformations. This CT examination was performed using the following dose reduction techniques: Automated exposure control, adjustment of mA and/or kv according to the patient's size, and use of iterative reconstruction technique. FINDINGS: Atrophy with periventricular leukomalacia and microvascular ischemic changes are appreciated. The ventricles and sulci are symmetric. Erwin-white differentiation is maintained. There is no evidence for acute intracranial hemorrhage, mass/mass effect, pathology or infarction. No extra-axial fluid collection. Calvarium is intact. Paranasal sinuses and mastoid air cells are clear. IMPRESSION: Atrophy and microvascular ischemic changes. No acute intracranial hemorrhage, infarction, or mass/mass effect. <Electronically signed by Guero Mays > 03/14/21 [id number]
--- NOTE | 2021-03-14 11:18 | REP ---
INDICATION: trauma COMPARISON: None. TECHNIQUE: Axial noncontrast images from the skull base to the thoracic inlet with coronal and sagittal re-formations This CT examination was performed using the following dose reduction techniques: Automated exposure control, adjustment of mA and/or kv according to the patient's size, and use of iterative reconstruction technique. FINDINGS: Advanced multilevel degenerative changes include endplate sclerosis, disc space narrowing, osteophytosis and facet arthropathy. Alignment and lordosis maintained. No obvious acute fracture/compression injury or subluxation. Paravertebral soft tissues are within normal limits. IMPRESSION: Advanced multilevel degenerative spondylosis. No acute fracture/compression injury or subluxation appreciated. <Electronically signed by Guero Mays > 03/14/21 [id number]
[2021-03-14 11:19] LABS: INR 1.05; PROTHROMBIN TIME 14.1 SECONDS (12.7-14.5)
--- NOTE | 2021-03-14 11:22 | REP ---
INDICATION: syncope COMPARISON: 01/31/2021 TECHNIQUE: Portable AP view of the chest FINDINGS: The mediastinum and cardiac silhouette are stable and within normal limits for portable technique. The lung villarreal are clear without acute consolidation, effusion, or pneumothorax. Skeletal structures are intact. IMPRESSION: No acute cardiopulmonary process appreciated. <Electronically signed by Guero Mays > 03/14/21 [id number]
--- OUTSIDE RECORDS SUMMARY | 2021-03-14 11:33 | CCD ---
Author Author [facility] Organization [facility] Address Unknown Phone Unavailable Care Team Providers Care Sample Tester Grinder Name Role Phone Nakita Bedoya PA Unavailable Unavailable Nakita Bedoya Jacinda PA Unavailable Unavailable Nakita Bedoya Jacinda PA Unavailable Unavailable aNkita Bedoya Jacinda PA Unavailable Unavailable Nakita Bedoya [...] T VENKATESH MD Unavailable Unavailable OBEN, T VNEKATESH MD Unavailable Unavailable OBEN, T VENKATESH MD [...] is protected by Article 27-F of the [place] Public Health law. If you continue you may have access to information: Regarding HIV / AIDS; Provided by facilities licensed or operated by the [place] [facility] Office of Mental Health; or Provided by the [place] [facility] Office for People With Developmental Disabilities. If such information is present, then the following [facility] mandated warning applies: This information has been [...] law may result in a fine or retirement sentence or both. A general authorization for the release of medical or other information is NOT sufficient authorization for further disc losure. Allergies and Adverse Reactions Type Description Substance Reaction Status Data Source(s ) Propensity to adverse reactions PENICILLINS Penicillins Ac tive [facility] Family History Family Member Name Family Member Gender Family Member Status Date o f Status Description Data Source(s) Unknown Unknown Problem [facility] ([facility] Encounters Encounter Providers Location Date Indications Data Source(s ) [place] [address] [address] 03/02/2021 12:00:00 AM EDT eCW1 ([facility]) Outpatient Attender: Ameena CONRAD.ZACH-ANYI 05/2020 12:00:00 AM EDT - 02/27/2021 03:05:35 PM EDT [facility] [place] [address] [address] 01/25/2021 12:00:00 AM EDT eCW1 ([facility]) Outpatient Attender: VENKATESH SMALLS MDConsultant: Kelvni Sutton 12/26/2020 02:26:00 PM EDT - 12/26/2020 02:26:00 PM EDT [facility] Office Visit Attender: Ade Abernathy MS, RPA-C Family P ractice 12/26/2020 01:45:00 PM EDT [facility] Emergency Attender: Luis E Ayleen MDConsultant: Kelvin Fish 11/23/2020 02:27:00 PM EDT - 11/23/2020 04:12:00 PM EDT [facility] l Patient discharged. Outpatient Attender: Kelvin Sutton [place] Office 11/23/2020 01:00:0 0 PM EDT [facility] ([facility] Outpatient Attender: VENKATESH SMALLS MDConsultant: Kelvin Sutton 10/25/2020 09:42:00 AM EDT - 10/25/2020 09:42:00 AM EDT [facility] Outpatient Attender: VENKATESH SMALLS MD [facility] 10/04/2020 02:00:0 0 PM EDT [facility] ([facility]) Outpatient Attender: VENKATESH SMALLS MDConsultant: Kelvin Sutton 10/04/2020 01:44:00 PM EDT - 10/04/2020 01:44:00 PM EDT [facility] Outpatient Attender: Kelvin Sutton [place] Office 08/10/2020 10:20:0 0 AM EDT [facility] ([facility] Outpatient Attender: Kelvin Sutton [place] Office 05/04/2020 09:00:0 0 AM EST [facility] ([facility] Outpatient Attender: Jacinda handley 03/07/2020 01:00:00 PM EST [facility] Outpatient Attender: Jacinda handley 02/29/2020 01:00:00 PM EST [facility] ([facility] Outpatient Attender: Kelvin Herman [place] Office 01/27/2020 01:00:0 0 PM EDT [facility] ([facility] Immunizations Vaccine Date Status Description Data Source(s) COVID-19 VACC, MRNA(PFIZER)/PF 03/07/2021 12:00:00 AM EST completed [facility] COVID-19 VACCINE Pfizer 03/07/2021 12:00:00 AM EST completed [facility] Vaccine Series Complete: YESThis Data wa s Submitted to [facility]. COVID-19 VACCINE Pfizer 06/18/2020 12:00:00 AM EST completed [facility] Vaccine Series Complete: YESThis Data wa s Submitted to [facility]. COVID-19 VACCINE Pfizer 05/28/2020 12:00:00 AM EST completed [facility] Vaccine Series Complete: NOThis Data was Submitted to [facility]. New in 2012. IIV4 01/27/2020 01:05:00 PM [...] by mouth 2 (two) times a day [facility] atorvastatin 10 MG Oral Tablet atorvastatin (LIPITOR) 10 MG tablet atorvastatin (LIPITOR) 10 MG tablet 02/21/2021 12:00:00 AM EDT 10 mg Oral active Take 10 mg by mouth daily [facility] 2.5 mg 01/23/2021 12:00:00 AM EDT capsule 90 TAKE ONE CAPSULE BY MOUTH EVERY DAY TAKE ONE CAPSULE BY MOUTH EVERY DAY SOLD: 01/27/2021 [facility] Chlorthalidone 25 MG Oral Tablet chlorthalidone (HYGRO TEN) 25 MG tablet chlorthalidone (HYGROTEN) 25 MG tablet 01/23/2021 12:00:00 AM EDT 2 5 mg Oral active Take 25 mg by mouth daily [facility] Ramipril 2.5 MG Oral Capsule ramipril (ALTACE) 2.5 MG capsule ramipril (ALTACE) 2.5 MG capsule 01/23/2021 12:00:00 AM EDT 2.5 mg Oral act jung Take 2.5 mg by mouth daily [facility] 25 mg 01/23/2021 12:00:00 AM EDT tablet [...] ONE PUFF BY MOUTH TWICE A DAY [facility] 50 mg 12/27/2020 12:00:00 AM EDT tablet extended release 24 hr 90 TAKE ONE TABLET BY MOUTH ONCE DAILY TAKE ONE TABLET BY MOUTH ONCE DAILY SOLD: 01/08/2021 [facility] 24 HR mirabegron 50 MG Extended Release Oral Tablet [Myrbetriq] Myrbetriq 50 MG TB24 Myrbetriq 50 MG TB24 12/27/2020 12:00:00 AM EDT 1 {tbl} Oral active Take 1 tablet by mouth daily [facility] 24 HR mirabegron 50 MG Extended Release Oral Tablet [Myrbetr iq] Myrbetriq 12/26/2020 12:00:00 AM EDT ORAL active [facility] ([facility]) 24 HR mirabegron 25 MG Extended Release Oral Tablet [Myrbetriq] Myrbetriq 25 MG TB24 Myrbetriq 25 MG TB24 12/19/2020 12:00:00 AM EDT 25 mg Oral active Take 25 mg by mouth daily [facility] atorvastatin 10 MG Oral Tablet ATORVASTATIN CALCIUM [...] active Take 0.4 mg by mouth daily [facility] 0.4 mg 11/24/2020 12:00:00 AM EDT [...] 10/26/2020 12:00:00 AM EDT active M [facility] ([facility], ) Magnesium Hydroxide 80 MG/ML Oral Suspension Milk Of Magnesi a 10/26/2020 12:00:00 AM EDT ORAL active M [facility] ([facility], ) 25 mg 10/25/2020 12:00:00 AM EDT [...] 10/25/2020 12:00:00 AM EDT ORAL completed [facility] ([facility]) 25 mg 10/25/2020 12:00:00 AM EDT [...] HCL 08/10/2020 12:00:00 AM EDT active [facility] ([facility] 25 mg 07/26/2020 12:00:00 [...] TABLET BY MOUTH EVERY DAY SOLD: 04/28/2020 [facility] atorvastatin 10 MG Oral Tablet ATORVASTATIN [...] type / Coverage type Policy ID Covered libertarian ID Covered libertarian's relationship to villanueva Policy [place] Plan Information MEDICARE COMPLETE [id number] SP [id number] MEDICARE COMPLETE [id number] SP [id number] MEDICARE COMPLETE [id number] SP [id number] [facility] PPO [id number] SP [id number] Proxeon Commercial [id number] Medicare Ppo [id number] Self [id number] Medicare Ppo [place] [place] [id number] 18 [id number] [employer] UNHC MEDICARE O/P [id number] 18 [id number] [employer] MEDICARE O/P [id number] 18 [id number] MEDICARE [id number] SP [id number] A LookUP [id number] Self [id number] Medicare [place] Medicare Primary [id number] Self 0 [id number] [employer] BC Medigap Part B [id number] Family Dependent [id number] [facility] Medicare Commercial [id number] Self 9 [id number] Medicare [facility] Medicare Primary [id number] Self 0 [id number] [employer] BCBS Medigap Part B [id number] Family Dependent [id number] Medicare [facility] Medicare Primary [id number] Self [employer] BCBS Medigap Part B [id number] Family Dependent Unitedhealthcare Medicare Commercial [id number] Self [employer] O [id number] S [id number] [facility] O [id number] S [id number] STATE INSURANCE FUND [id number] SP [id number] [place] MEDICARE COMPLE[place] [id number] 18 [id number] STATE INS FUND -O/P [id number] 20 [id number] STATE INS [facility] [id number] Problems, Conditions, and Diagnoses Code Display Name Description Problem Type Effective Dates Data Source(s) R55 Syncope and collapse Syncope and collapse Diagnosis 02/27/2021 01:40:51 PM EDT [facility] Y9289 Other specified places as the place of o ccurrence of the external cause Other specified places as the place of occurrence of the external cause Diagnosis 11/23/2020 02:27:00 PM EDT [facility] [id number] Fall on same level from slip ping, tripping and stumbling with subsequent striking against other object, initial encounter Fall on same level from slipping, tripping and stumbling with subsequent striking against other object, initial encounter Diagnosis 11/23/2020 02:27:00 PM EDT [facility] Z7982 FDC (current) use of aspirin FDC (cu rrent) use of aspirin Diagnosis 11/23/2020 02:27:00 PM EDT [facility] 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, first degree Atrioventri cular block, first degree Diagnosis 11/23/2020 02:27:00 PM EDT [facility] R569 Unspecified convulsions Unspecified convulsions Diagno sis 11/23/2020 02:27:00 PM EDT [facility] U49441 Unspecified asthma, uncomplicated Unspecified as thma, uncomplicated Diagnosis 11/23/2020 02:27:00 PM EDT [facility] I10 Essential (primary) hypertension Essential (primary) h ypertension Diagnosis 11/23/2020 02:27:00 PM EDT [facility] [id number] Concussion with loss of cons ciousness of 30 minutes or less, initial encounter Concussion with loss of consciousness of 30 minutes or less, initial encounter Diagnosis 11/23/2020 02:27:00 PM EDT [facility] [id number] Unspecified injury of head, initial enco unter Unspecified injury of head, initial encounter Diagnosis 11/23/2020 02:27:00 PM EDT [facility] N503 Cyst of epididymis Cyst of epididymis Diagnosis 01:44:00 PM EDT [facility] R32 Unspecified urinary incontinence Unspecified urinary i ncontinence Diagnosis 10/04/2020 01:44:00 PM EDT [facility] R3915 Urgency of urination Urgency of urination Diagnosis 10/04/2020 01:44:00 PM EDT [facility] R350 Frequency of micturition Frequency of micturition Diag nosis 10/04/2020 01:44:00 PM EDT [facility] R9720 Elevated prostate specific antigen [PSA] Elevated prostate specific antigen [PSA] Diagnosis 10/04/2020 01:44:00 PM EDT [facility] R42 Dizziness Dizziness [id number] 02/27/2021 12:00:00 AM ED [facility] R55 Syncope Syncope [id number] 02/27/2021 12:00:00 AM ED [facility] N32.81 Overactive bladder Overactive bladder Problem 12:00:00 AM EDT [facility] ([facility]) [id number] Pure hypercholesterolemia Pure hypercholesterolemia Pr oblem 10/04/2020 12:00:00 AM EDT [facility] ([facility]) [id number] Essential hypertension Essential hypertension Problem 10/04/2020 12:00:00 AM EDT [facility] ([facility]) Surgeries/Procedures Procedure Description Date Indications Data Source(s) ECG ROUTINE ECG W/LEAST 12 LDS W/I&R <td>POCT AMB EKG</td><td>Routine</td><td>02/27/2021 2:38 PM EDT</td><td> Syncope, unspecified syncope type</td><td> </td> 02/27/2021 02:38:00 PM EDT Syncope, unspecified syncope type [facility] Syncope, unspecified syncope type BLOOD COUNT COMPLETE AUTO&AUTO DIFRNTL WBC COUNT <td>C BC AND DIFFERENTIAL</td><td>Routine</td><td>02/22/2021</td><td></td><td> </td> 02/22/2021 12:00:00 AM EDT [facility] BASIC METABOLIC PANEL CALCIUM TOTAL <td>BASIC METABOLI C PANEL</td><td>Routine</td><td>02/22/2021</td><td></td><td> </td> 02/22/2021 12:00:00 AM EDT [facility] THYROID STIMULATING HORMONE TSH <td>TSH</td><td>Routine</td><td>02/20/2021</td><td></td><td> </td> 02/20/2021 12:00:00 AM EDT [facility] BASIC METABOLIC PANEL CALCIUM TOTAL <td>BASIC METABOLI C PANEL</td><td>Routine</td><td>02/20/2021</td><td></td><td> </td> 02/20/2021 12:00:00 AM EDT [facility] Colonoscopy W/ Poly 01/26/2021 12:00:00 AM EDT [facility] ([facility] PHYSICIAN TELEPHONE EVALUATION 5-10 MIN 12/26/2020 12: 00:00 AM EDT [facility] ([facility]) OFFICE OUTPATIENT VISIT 25 MINUTES 11/23/2020 12:00:00 AM EDT [facility] ([facility] Measurement Post Voiding Residual Urine By Ultrasound,Non-Im aging 10/25/2020 12:00:00 AM EDT [facility] ([facility]) OFFICE OUTPATIENT VISIT 15 MINUTES 10/25/2020 12:00:00 AM EDT [facility] ([facility]) OFFICE OUTPATIENT NEW 20 MINUTES 10/04/2020 12:00:00 A M EDT [facility] ([facility]) OFFICE OUTPATIENT VISIT 25 MINUTES 08/10/2020 12:00:00 AM EDT [facility] ([facility] Results ID Date Data Source [id number] 02/20/2021 06:21:00 PM EDT [facility] Name Value Range Interpretation Code Description Data Denise rce(s) Supporting Document(s) SARS coronavirus 2 RNA [Presence] in Res piratory specimen by ANAND with probe detection NEGATIVE [facility] This lab was ordered by [facility] a nd reported by [facility]. ID Date Data Source [id number] 01/26/2021 01:13:00 PM EDT [facility] ([facility], ) Name Value Range Interpretation Code Description Data Denise rce(s) Supporting Document(s) Surgical pathology study Laboratory test result [facility] ([facility] ) FINAL DIAGNOSIS A - Sigmoid colon, [...] MD 01/29/2021 1405 ID Date Data Source [id number] 01/22/2021 10:40:00 AM EDT [facility] Name Value Range Interpretation Code Description Data Denise rce(s) Supporting Document(s) SARS-CoV-2 (COVID-19) RNA [Presence] in Respiratory specimen by ANAND with probe detection Not Detected [facility] This lab was ordered by [facility] and reported by [email or web address]. ID Date Data Source [id number] 11/27/2020 09:46:00 AM EDT [facility] [address] [place] [address] PHONE: [phone] FAX: [phone] Name .................. : GABRIELLE Means Acct Number.................. : [id number] ROOM. ................. : TR-06 MR Number ................... : [id number] Stay type ............. : E/R Discharge Date......... ... : 11/23/20 Admit Date ......... : 11/23/20 Admit Phys .................... : AYLEEN Lentz Date of ....... : 1940 Family Phys ................... : HERMAN KELSY Phone .................. : [phone] Age ................................ : 80 Film# .................. .:[id number] Sex ................................. : M Unsigned transcriptions are preliminary reports and do not represent a medical or legal document CT HEAD W/O CONTRAST 52100 COMPLETE:11/23/20 16:01 [place] [address] Reason(s): Head Injury CT OF THE HEAD [...] By CALLY HOLT MD , 11/27/20 09:46, [facility] Transcribe Initials: BEV , Transcribe Date: 11/23/20 23:16, Dictation Date: Copy for: HERMAN WONG via fax Copy for: EMERGENCY DEPT via [facility] Copy for: 710 MED REC DISCHARGED Page 1 of 1 Name Value Range Interpretation Code Description Data Denise rce(s) Supporting Document(s) ID Date Data Source [id number] 11/24/2020 03:41:00 PM EDT [address] [address] RESPIRATORY CARE REPORT ==== ---------NAME------- NUMBER SEX AGE ADMIT DISC. XRAY# F/C TYPEFARCLARISSA Means [id number] M 80 11/23/20 11/23/20 [id number] HEATHER E/R DATE OF : 1940 M/R# [id number] PH#: [phone] TR-06 LOCATION: EMERGENCY DEPT EKG 63251 COMP LETE:11/24/20 07:59 CJM 32886 PHYSICIAN: AYLEEN Lentz Name Value Range Interpretation Code Description Data Denise rce(s) Supporting Document(s) ID Date Data Source [id number] 11/23/2020 02:27:00 PM EDT [facility] 1 OrderSheet [facility] Emergency Department [address] [place] [address] Phone #: ext- [phone] 11/23/2020 14:18 Patient: [...] e(s) Supporting Document(s) ID Date Data Source [id number] 11/23/2020 02:27:00 PM EDT [place] [address] Medication Reconciliation Report [facility] Emergency Department [address] [place] [address] Phone #: ext- [phone] 11/23/2020 14:18 Patient: [...] rce(s) Supporting Document(s) ID Date Data Source [id number] 11/23/2020 02:27:00 PM EDT [place] [address] Medication Administration Record [facility] Emergency Department [address] [place] [address] Phone #: ext- [phone] 11/23/2020 14:18 Patient: MORRIS ANTHONY Sex: M : 1940 Age: 80yWeight: 82.1 kgHeight/Length: 69 inBMI: 26.7ALLERGIES: PenicillinsDate/Time Medication Administered Medication Ordered Name Value Range Interpretation Code Description Data Denise rce(s) Supporting Document(s) ID Date Data Source [id number] 11/23/2020 02:27:00 PM EDT [facility] 1 General Instructions [facility] Emergency Department [address] [place] [address] Phone #: ext- [phone] 11/23/2020 14:18 Patient: [...] by patient.Follow-up with: Kelvin Sutton, , , [address] [place] [address], [facility] Follow up in three days if not well. Call for an appointment. Reason for referral: evaluation. ADDITIONAL INFORMATIONHead Injury with Sleep Monitoring (Adult) 2 General Instructions [facility] Emergency Department [address] [place] [address] Phone #: ext- [phone] 11/23/2020 14:18 Patient: [...] Vision changes Memory loss 3 General Instructions [facility] Emergency Department [address] [place] [address] Phone #: ext- [phone] 11/23/2020 14:18 Patient: [...] may affect your care. 4 General Instructions [facility] Emergency Department [address] [place] [address] Phone #: ext- [phone] 11/23/2020 14:18 Patient: MORRIS ANTHONY Sex: M [...] around the eyes Lethargy or excessive sleepiness [id number] [employer]. [address] [place] [address]. All rights reserved. This information is not intended as asubstitute for professional medical care. Always follow your healthcare professional's instructions. You have been given the following additional information: Head Injury with Sleep Monitoring (Adult)(Electronically signed by Luis E Handy 11/23/2020 18:11) Name Value Range Interpretation Code Description Data Denise rce(s) Supporting Document(s) ID Date Data Source [id number] 11/23/2020 02:27:00 PM EDT [facility] 1 Clinical Report - Nurses [facility] Emergency Department [address] [place] [address] Phone #: ext- [phone] 11/23/2020 14:18 Patient: MORRIS ANTHONY Sex: M [...] only last a few seconds. last episode [id number]).Triage time: 14:24 11/23/2020. Acuity: LEVEL 3.Chief Complaint: (? seizures).14:25 11/23/20.Onset. (1 weeks ago). No fever, weakness, cough, difficulty breathing or skin rash. Denies muscleaches.Treatment COOK LARDER:None.SEPSIS SCREEN: SIRS SCREEN NEGATIVE. SEPSIS SCREEN NEGATIVE. [...] Pantoja RN.PROBLEMS: 2 Clinical Report - Nurses [facility] Emergency Department [address] [place] [address] Phone #: ext- [phone] 11/23/2020 14:18 Patient: MORRIS ANTHONY Sex: M [...] on patient. --14:45 11/23/20 José Pantoja RN.PHYSICAL FYSOSADEIF53:44 11/23/20. Ambulatory to room.GENERAL / NEURO / PSYCH: Alert. Oriented X 4.HEENT: No facial asymmetry noted. Mucous membranes are pink. 3 Clinical Report - Nurses [facility] Emergency Department [address] [place] [address] Phone #: ext- [phone] 11/23/2020 14:18 Patient: MORRIS ANTHONY [facility]#: [id number] Sex: M : 1940 Age: 80y RESPIRATORY: [...] RN 15:02 11/23/20. BP: 160/84. --15:02 11/23/20 [facility] Tech1 EKG time: (15:03 11/23/2020). EKG was performed by a nurse and shown to the ED physician. 1 degree av block. Checked patient name and birthdate. Blood samples drawn by tech. (1500). --15:10 11/23/20 José Pantoja RN Patient transported to CT by wheelchair with mask and limited radiology technician. (4955). --15:10 11/23/20 José Pantoja RN Patient returned from CT by wheelchair with mask and limited radiology technician. (1515). --15:16 11/23/20 José Pantoja RN 15:58 11/23/20. BP: 133/86. HR: 75. RR: 16. O2 saturation: 94%. --15:58 11/23/20 [facility] Tech1.DISPOSITION / DISCHARGE 15:58 11/23/20. BP: 133/86. [...] spouse verbalized understanding. Written instructions provided in Guyanese. The patient was discharged by the physician. He was discharged home and accompanied by spouse. He left ambulatory and via private vehicle. Spouse driving. --16:17 11/23/20 José Pantoja RN.Locked/Released at 11/23/2020 18:48 by José Pantoja RN 4 Clinical Report - Nurses [facility] Emergency Department [address] [place] [address] Phone #: ext- [phone] 11/23/2020 14:18 Patient: MORRIS VALDOVINOS Sex: M : 1940 Age: 80y Name Value Range Interpretation Code Description Data Denise rce(s) Supporting Document(s) ID Date Data Source [id number] 11/23/2020 02:27:00 PM EDT [facility] 1 Clinical Report - Physicians/Mid Levels [facility] Emergency Department [address] [place] [address] Phone #: ext- [phone] 11/23/2020 14:18 Patient: [...] Inhalation. 2 Clinical Report - Physicians/Mid Levels [facility] Emergency Department [address] [place] [address] Phone #: ext- [phone] 11/23/2020 14:18 Patient: MORRIS ANTHONY Sex: M [...] 2.0) 3 Clinical Report - Physicians/Mid Levels [facility] Emergency Department [address] [place] [address] Phone #: lye- [phone] 11/23/2020 14:18 Patient: MORRIS ANTHONY Sex: M [...] Male GFR Interprentation 20-49 yrs >60 mL/min Lpmnzh74-55 yrs >56 mL/min Normal 60-69 yrs >49 mL/min Normal 70-79yrs>42 mL/min Normal 80 and above >35 mL/min Normal Female GFRInterpretation 20-39 yrs >60 mL/min Normal 40-49 yrs >58 mL/minNormal 50-59 yrs >51 mL/min Normal 60-69 yrs >45 mL/min Drhobh17-16 yrs >39 mL/min Normal 80 and above [...] MORPH NOT INDICATEDMagnesium: (MAURO: 11/23/2020 15:03) ( [facility] 11/23/[facility] 15:28) Final results Test Result Flag Units (Reference) MAGNESIUM 2.1 MG/DL (1.7 - 2.2)CT Head W/O Cont: (MAURO: 11/23/2020 14:54) ( [facility] 11/23/2020 16:01) In ProgressCT HEAD W/O CONTRASTReason(s): Head InjuryTRANSPORTATION: S IV? O2? Oxygen?(No) Room: ED 4 Clinical Report - Physicians/Mid Levels [facility] Emergency Department [address] [place] [address] Phone #: ext- [phone] 11/23/2020 14:18 [facility]: [id number] Sex: M : 1940 Age: 80y.PROGRESS AND [...] Follow-up with: Kelvin Sutton, , , [address] [place], [place], [facility] Follow up in three days if not well. Call for an appointment. Reason for referral: evaluation. 5 Clinical Report - Physicians/Mid Levels [facility] Emergency Department [address] [place] [address] Phone #: ext- [phone] 11/23/2020 14:18 Patient: MORRIS ANTHONY [facility]#: [id number] Sex: M : 1940 Age: 80y(Electronically signed by Luis E Handy 11/23/2020 18:11) Name Value Range Interpretation Code Description Data Denise rce(s) Supporting Document(s) ID Date Data Source [id number] 11/23/2020 03:03:00 PM EDT [facility] ([facility] Name Value Range Interpretation Code Description Data Denise rce(s) Supporting Document(s) Magnesium [Mass/volume] in Serum or Plasma 2.1 mg/dL 1.7-2.2 [facility] ([facility] ID Date Data Source [id number] 11/23/2020 03:03:00 PM EDT MEDENT ([facility] Creatinine 1.0 mg/dL 0.7-1.5 [facility] ([facility] BUN/Creat 19 8-27 [facility] ([facility] Total Protein 7.1 g/dL 6.3-8.2 MEDENT ([facility] Globulin 2.8 GM/DL 2.4-3.2 [facility] ([facility] Albumin 4.3 g/dL 3.9-5.0 MED[facility] ([facility] A/G Ratio 1.5 0.8-2.0 MED[facility] ([facility] Calcium 9.5 mg/dL 8.4-10.2 MED[facility] ([facility] Total Bili Laboratory test result 0.2-1.3 PA DENT ([facility] Alkaline Phos 146 U/L 38-126 Above high normal MEDE NT ([facility] Sgot/Ast 26 U/L 5-40 MEDENT ([facility] SGPT/Alt 22 U/L 7-56 MED[facility] ([facility] Anion Gap 10.0 mmol/L 8.0-16.0 MED[facility] ([facility] Age 80 yrs MEDENT ([facility] Non-Aa GFR Laboratory test result ME DENT ([facility] Afr Amer GFR Laboratory test result MEDENT ([facility] Male GFR Interprentation 20-49 yrs [...] >32 mL/min Normal ID Date Data Source [id number] 11/23/2020 03:03:00 PM EDT MEDENT ([facility] Name Value Range Interpretation Code Description Data Denise rce(s) Supporting Document(s) WBC 7.3 10^3/uL 4.2-11.0 [facility] CBC W/Automated Diff Laboratory test result MEDENT ([facility] COMPLETE BLOOD COUNT Hemoglobin [...] [facility] Platelets 210 10^3/uL 150-450 MED[facility] ([facility] MPV 10.1 fL 7.4-10.4 [facility] ([facility] Lymph 13.7 % 25.0-40.0 Below low normal [facility] ( [facility] Neut 75.5 % 37.0-80.0 [facility] ([facility] 7.9 % 3.0-8.0 [facility] ([facility] Eos 1.8 % 0.0-7.0 MEDENT ([facility] Baso 0.7 % 0.0-2.0 [facility] ([facility] %Ig 0.4 % 0.0-0.0 Above high normal MEDENT ([facility] %NRBC 0.0 % 0.0-0.0 [facility] ([facility] #Neut 5.53 10^3/uL 2.00-6.90 [facility] ([facility] #Lymph 1.00 10^3/uL 0.60-3.40 MED[facility] ([facility] #Eos 0.13 10^3/uL 0.00-0.70 MED[facility] ([facility] #[facility] 0.58 10^3/uL 0.00-0.90 MED[facility] ([facility] #Baso 0.05 10^3/uL 0.00-0.20 MED[facility] ([facility] #Ig 0.03 10^3/uL 0.00-0.10 [facility] ([facility] #NRBC 0.00 10^3/uL 0.00-0.00 MED[facility] ([facility] Manual Diff Laboratory test result M IVAN ([facility] RBC Morph Laboratory test result ME NOE ([facility] ID Date Data Source [id number] 11/23/2020 03:28:00 PM EDT [facility] Name Value Range Interpretation Code Description Data Denise rce(s) Supporting Document(s) Magnesium [Mass/volume] in Serum or Plasma 2.1 MG/DL 1.7 - 2.2 [facility] ID Date Data Source [id number] 11/23/2020 03:28:00 PM EDT [facility] Name Value Range Interpretation Code Description Data Denise rce(s) Supporting Document(s) COMPREHENSIVE METABOLIC PANEL [facility] COMPREHENSIVE METABOLIC PANEL Sodium [Moles/volume] in Serum or Plasma 141 mEq/L 134 - 153 [facility] Potassium [Moles/volume] in Serum or Plasma 3.7 mEq/L 3.6 - 5.0 [facility] Chloride [Moles/volume] in Serum or Plasma 102 mEq/L 98 - 107 [facility] Carbon dioxide, total [Moles/volume] in Serum or Plasma 29 MEQ/L 22 - 30 [facility] Glucose [Mass/volume] in Serum or Plasma 85 MG/DL 70 - 99 [facility] BUN 19 MG/DL 7 - 21 [facility] Creatinine [Mass/volume] in Serum or Plasma 1.0 MG/DL 0.7 - 1.5 [facility] BUN/CREAT 19 8 - 27 [facility] al Protein [Mass/volume] in Serum or Plasma 7.1 G/DL 6.3 - 8.2 [facility] Albumin [Mass/volume] in Serum or Plasma 4.3 G/DL 3.9 - 5.0 [facility] Globulin [Mass/volume] in Serum by calculation 2.8 GM/DL 2.4 - 3.2 [facility] A/G RATIO 1.5 0.8 - 2.0 [facility] Calcium [Mass/volume] in Serum or Plasma 9.5 MG/DL 8.4 - 10.2 [facility] Bilirubin.total [Mass/volume] in Serum or Plasma <0.7 MG/DL 0.2 - 1.3 [facility] Alkaline phosphatase [Enzymatic activity/volume] in Serum or Plasma 146 U/L 38 - 126 H [facility] Aspartate aminotransferase [Enzymatic activity/volume] in Serum or Plasma 26 U/L 5 - 40 [facility] Alanine aminotransferase [Enzymatic activity/volume] in Seru m or Plasma 22 U/L 7 - 56 [facility] Anion gap 3 in Serum or Plasma 10.0 mmol/L 8.0 - 16.0 [facility] AGE 80 yrs [facility] al NON-AA GFR >60 mL/min [facility] ital AFR AMER GFR >60 mL/min [facility] Ho spital Male GFR In terprentation [...] >32 mL/min Normal ID Date Data Source [id number] 11/23/2020 03:13:00 PM EDT [facility] Name Value Range Interpretation Code Description Data Denise rce(s) Supporting Document(s) CBC W/AUTOMATED DIFF [facility] COMPLETE BLOOD COUNT Leukocytes [#/volume] in Blood by Automated count 7.3 10^3/uL 4.2 - 1 1.0 [facility] Erythrocytes [#/volume] in Blood by Automated count 4.09 10^6/uL 4. 50 - 6.30 L [facility] Hemoglobin [Mass/volume] in Blood 13.5 g/dL 14.0 - 16.0 L [facility] Hematocrit [Volume Fraction] of Blood by Automated count 39.5 % 4 1.0 - 51.0 L [facility] Erythrocyte mean corpuscular volume [Entitic volume] by Auto mated count 96.6 fL 80.0 - 94.0 H [facility] Erythrocyte mean corpuscular hemoglobin [Entitic mass] by Automated count 33.0 pg 27.0 - 34.0 [facility] Erythrocyte mean corpuscular hemoglobin concentration [Mass/volume] by Automated count 34.2 g/dL 31.0 - 36.0 [facility] Erythrocyte distribution width [Ratio] by Automated count 13.1 % 11.5 - 14.8 [facility] Platelets [#/volume] in Blood by Automated count 210 10^3/uL 150 - 45 0 [facility] Platelet mean volume [Entitic volume] in Blood by Automated count 10.1 fL 7.4 - 10.4 [facility] Neutrophils/100 leukocytes in Blood by Automated count 75.5 % 37. 0 - 80.0 [facility] Lymphocytes/100 leukocytes in Blood by Manual count 13.7 % 25.0 - 40.0 L [facility] Monocytes/100 leukocytes in Blood by Automated count 7.9 % 3.0 - 8.0 [facility] Eosinophils/100 leukocytes in Blood by Automated count 1.8 % 0.0 - 7.0 [facility] Basophils/100 leukocytes in Blood by Automated count 0.7 % 0.0 - 2.0 [facility] %IG 0.4 % 0.0 - 0.0 [facility] %NRBC 0.0 % 0.0 - 0.0 [facility] al Neutrophils [#/volume] in Blood by Automated count 5.53 10^3/uL 2.00 - 6.90 [facility] Lymphocytes [#/volume] in Blood by Automated count 1.00 10^3/uL 0.60 - 3.40 [facility] Monocytes [#/volume] in Blood by Automated count 0.58 10^3/uL 0.00 - 0.90 [facility] Eosinophils [#/volume] in Blood by Automated count 0.13 10^3/uL 0.00 - 0.70 [facility] Basophils [#/volume] in Blood by Automated count 0.05 10^3/uL 0.00 - 0.20 [facility] #IG 0.03 10^3/uL 0.00 - 0.10 [facility] ospital #NRBC 0.00 10^3/uL 0.00 - 0.00 [facility] ospital MANUAL DIFF NOT INDICATED [facility] RBC MORPH NOT INDICATED [facility] spital ID Date Data Source [id number] 11/16/2020 09:04:00 AM EDT MEDENT ([facility] Name Value Range Interpretation Code Description Data Denise rce(s) Supporting Document(s) Appearance of Urine Laboratory test result [facility] ([facility] Color Urine Laboratory test result M EDENT ([facility] Specific [place] 1.025 1.00-1.03 MED[facility] ([facility] PH Urine 6.5 [...] [facility] ID Date Data Source [id number] 11/16/2020 09:03:00 AM EDT MED[facility] ([facility] Name Value Range Interpretation Code Description Data Denise rce(s) Supporting Document(s) Creatine kinase [Enzymatic activity/volume] in Serum or Plasma 271 U/L 39-308 HYACINTH ([facility] NORMAL RANGES Age WBC [...] HCT IS 5% LESS SOURCE FOR DATA: [employer] 1800 OPERATION MANUAL( AUTOMATED BLOOD COUNTS AND [...] 2-19 YEARS EXCLUSIVE. ID Date Data Source [id number] 11/16/2020 09:03:00 AM FAINAT HYACINTH ([facility]amil y [...] HCT IS 5% LESS SOURCE FOR DATA: [employer] 1800 OPERATION MANUAL( AUTOMATED BLOOD COUNTS AND [...] HCT IS 5% LESS SOURCE FOR DATA: [employer] 1800 OPERATION MANUAL( AUTOMATED BLOOD COUNTS AND [...] HCT IS 5% LESS SOURCE FOR DATA: [employer] DYN 1800 OPERATION MANUAL( AUTOMATED BLOOD COUNTS [...] LDL_C 50 Calc 75-129 Below low normal [facility] ( [facility] [...] HCT IS 5% LESS SOURCE FOR DATA: [employer] 1800 OPERATION MANUAL( AUTOMATED BLOOD COUNTS AND [...] 2-19 YEARS EXCLUSIVE. Cho/HDL Ratio 2.0 CALC [facility] ([facility] NORMAL RANGES Age WBC [...] HCT IS 5% LESS SOURCE FOR DATA: [employer] 1800 OPERATION MANUAL( AUTOMATED BLOOD COUNTS AND [...] 2-19 YEARS EXCLUSIVE. ID Date Data Source [id number] 11/16/2020 09:03:00 AM EDT MEDRUDDY ([facility] Name Value Range Interpretation [...] HCT IS 5% LESS SOURCE FOR DATA: [employer] 1800 OPERATION MANUAL( AUTOMATED BLOOD COUNTS AND [...] 27 mg/dL 8-23 Above high normal [facility] NORMAL RANGES Age WBC [...] HCT IS 5% LESS SOURCE FOR DATA: [employer] DYN 1800 OPERATION MANUAL( AUTOMATED BLOOD COUNTS [...] AGED 2-19 YEARS EXCLUSIVE. BUN/Creatinine Ratio 24.1 [facility] ([facility] NORMAL RANGES Age [...] HCT IS 5% LESS SOURCE FOR DATA: [employer] 1800 OPERATION MANUAL( AUTOMATED BLOOD COUNTS AND [...] 2-19 YEARS EXCLUSIVE. Creat 1.1 mg/dL 0.7-1.2 [facility] ([facility] [...] HCT IS 5% LESS SOURCE FOR DATA: [employer] DYN 1800 OPERATION MANUAL( AUTOMATED BLOOD COUNTS [...] HCT IS 5% LESS SOURCE FOR DATA: [employer] 1800 OPERATION MANUAL( AUTOMATED BLOOD COUNTS AND [...] 2-19 YEARS EXCLUSIVE. K 3.5 mmol/L 3.5-5.1 [facility] ([facility] NORMAL RANGES Age WBC RBC HGB [...] HCT IS 5% LESS SOURCE FOR DATA: [employer] 1800 OPERATION MANUAL( AUTOMATED BLOOD COUNTS AND [...] 2-19 YEARS EXCLUSIVE. CL 100.2 mmol/L 98.0-107.0 [facility] ([facility] NORMAL RANGES Age WBC RBC HGB [...] HCT IS 5% LESS SOURCE FOR DATA: [employer] DYN 1800 OPERATION MANUAL( AUTOMATED BLOOD COUNTS [...] HCT IS 5% LESS SOURCE FOR DATA: [employer] 1800 OPERATION MANUAL( AUTOMATED BLOOD COUNTS AND [...] 2-19 YEARS EXCLUSIVE. Co2 23.9 mmol/L 22.0-29.0 [facility] ([facility] NORMAL RANGES Age WBC [...] HCT IS 5% LESS SOURCE FOR DATA: [employer] 1800 OPERATION MANUAL( AUTOMATED BLOOD COUNTS AND [...] HCT IS 5% LESS SOURCE FOR DATA: [employer] 1800 OPERATION MANUAL( AUTOMATED BLOOD COUNTS AND [...] HCT IS 5% LESS SOURCE FOR DATA: [employer] 1800 OPERATION MANUAL( AUTOMATED BLOOD COUNTS AND [...] HCT IS 5% LESS SOURCE FOR DATA: [employer] 1800 OPERATION MANUAL( AUTOMATED BLOOD COUNTS AND [...] HCT IS 5% LESS SOURCE FOR DATA: [employer] 1800 OPERATION MANUAL( AUTOMATED BLOOD COUNTS AND [...] YEARS EXCLUSIVE. Alt (SGPT) 22 U/L 0-41 [facility] NORMAL RANGES Age WBC [...] HCT IS 5% LESS SOURCE FOR DATA: [employer]YN 1800 OPERATION MANUAL( AUTOMATED BLOOD COUNTS [...] 2-19 YEARS EXCLUSIVE. Tbili 0.51 mg/dL 0.0-1.2 [facility] NORMAL RANGES Age WBC [...] HCT IS 5% LESS SOURCE FOR DATA: [employer] 1800 OPERATION MANUAL( AUTOMATED BLOOD COUNTS AND [...] HCT IS 5% LESS SOURCE FOR DATA: [employer] 1800 OPERATION MANUAL( AUTOMATED BLOOD COUNTS AND [...] HCT IS 5% LESS SOURCE FOR DATA: [employer] 1800 OPERATION MANUAL( AUTOMATED BLOOD COUNTS AND [...] 2-19 YEARS EXCLUSIVE. Anion Gap 20 mmol/L [facility] ([facility] [...] HCT IS 5% LESS SOURCE FOR DATA: [employer] 1800 OPERATION MANUAL( AUTOMATED BLOOD COUNTS AND [...] YEARS EXCLUSIVE. eGFR 73 # MEDENT ( [facility] NORMAL RANGES Age WBC [...] HCT IS 5% LESS SOURCE FOR DATA: [employer] 1800 OPERATION MANUAL( AUTOMATED BLOOD COUNTS AND [...] INDIVIDUALA AGED 2-19 YEARS EXCLUSIVE. eGFR Non-Afr. Sudanese 63 # [facility] ([facility] [...] HCT IS 5% LESS SOURCE FOR DATA: [employer] 1800 OPERATION MANUAL( AUTOMATED BLOOD COUNTS AND [...] 2-19 YEARS EXCLUSIVE. ID Date Data Source [id number] 11/16/2020 09:03:00 AM EDT MEDENT ([facility] Name Value Range Interpretation Code Description Data Denise rce(s) Supporting Document(s) WBC 6.5 10E3/uL 4.1-10.9 MED[facility] ([facility] NORMAL RANGES Age WBC [...] HCT IS 5% LESS SOURCE FOR DATA: [employer] 1800 OPERATION MANUAL( AUTOMATED BLOOD COUNTS AND [...] RBC 3.87 10E6/uL 4.20-6.30 Below low normal [facility] ([facility] NORMAL RANGES Age [...] HCT IS 5% LESS SOURCE FOR DATA: [employer] 1800 OPERATION MANUAL( AUTOMATED BLOOD COUNTS AND [...] 2-19 YEARS EXCLUSIVE. HCT 37.7 % 37.0-51.0 [facility] ([facility] NORMAL RANGES [...] HCT IS 5% LESS SOURCE FOR DATA: [employer] 1800 OPERATION MANUAL( AUTOMATED BLOOD COUNTS AND [...] HCT IS 5% LESS SOURCE FOR DATA: [employer] 1800 OPERATION MANUAL( AUTOMATED BLOOD COUNTS AND [...] MCV 97.4 fL 80.0-97.0 Above high normal [facility] ([facility] NORMAL RANGES Age [...] HCT IS 5% LESS SOURCE FOR DATA: [employer] 1800 OPERATION MANUAL( AUTOMATED BLOOD COUNTS AND [...] MCH 32.3 pg 26.0-32.0 Above high normal [facility] ([facility] NORMAL [...] HCT IS 5% LESS SOURCE FOR DATA: [employer] 1800 OPERATION MANUAL( AUTOMATED BLOOD COUNTS AND [...] HCT IS 5% LESS SOURCE FOR DATA: [employer] 1800 OPERATION MANUAL( AUTOMATED BLOOD COUNTS AND [...] 2-19 YEARS EXCLUSIVE. PLT 217 10E3/uL 140-440 [facility] ([facility] NORMAL RANGES Age WBC [...] HCT IS 5% LESS SOURCE FOR DATA: [employer] DYN 1800 OPERATION MANUAL( AUTOMATED BLOOD COUNTS [...] 2-19 YEARS EXCLUSIVE. RDW-CV 13.7 % 11.5-14.5 [facility] ([facility] NORMAL RANGES [...] HCT IS 5% LESS SOURCE FOR DATA: [employer] 1800 OPERATION MANUAL( AUTOMATED BLOOD COUNTS AND [...] HCT IS 5% LESS SOURCE FOR DATA: [employer] 1800 OPERATION MANUAL( AUTOMATED BLOOD COUNTS AND [...] 2-19 YEARS EXCLUSIVE. Neut% 72.3 % 37.0-92.0 [facility] ([facility] [...] HCT IS 5% LESS SOURCE FOR DATA: [employer] 1800 OPERATION MANUAL( AUTOMATED BLOOD COUNTS AND [...] 2-19 YEARS EXCLUSIVE. MXD% 9.7 % 0.1-24.0 [facility] ([facility] [...] HCT IS 5% LESS SOURCE FOR DATA: [employer] 1800 OPERATION MANUAL( AUTOMATED BLOOD COUNTS AND [...] EXCLUSIVE. Lym# 1.2 10E3/uL 0.6-4.1 MEDENT ([facility] NORMAL RANGES Age [...] HCT IS 5% LESS SOURCE FOR DATA: [employer] 1800 OPERATION MANUAL( AUTOMATED BLOOD COUNTS AND [...] 2-19 YEARS EXCLUSIVE. Neut# 4.7 % 2.0-7.8 [facility] ([facility] [...] HCT IS 5% LESS SOURCE FOR DATA: [employer] 1800 OPERATION MANUAL( AUTOMATED BLOOD COUNTS AND [...] 2-19 YEARS EXCLUSIVE. MXD# 0.6 10E3/uL 0.0-1.8 [facility] ([facility] NORMAL RANGES Age WBC [...] HCT IS 5% LESS SOURCE FOR DATA: [employer] 1800 OPERATION MANUAL( AUTOMATED BLOOD COUNTS AND [...] YEARS EXCLUSIVE. MPV 10.1 fL 9.0-13.0 HYACINTH ([facility] NORMAL RANGES [...] HCT IS 5% LESS SOURCE FOR DATA: [employer] 1800 OPERATION MANUAL( AUTOMATED BLOOD COUNTS AND [...] 2-19 YEARS EXCLUSIVE. ID Date Data Source [id number] 10/04/2020 03:08:00 PM EDT MEDENT ([facility]) Name Value Range Interpretation Code Description Data Denise rce(s) Supporting Document(s) Color of Urine Laboratory test result MEDENT ([facility]) Appearance of Urine Laboratory test result MEDENT ([facility]) pH of Urine by Test strip 5 5-9 MEDE NT ([facility]) Spec [place] 1.015 1.001-1.030 MEDENT ([facility]) Leukocytes Laboratory test result MEDENT ([facility]) Nitrate [Presence] in Urine Laboratory test result MEDENT ([facility]) Inhouse Glucose Laboratory test result MEDENT ([facility]) Protein [Presence] in Urine by Test strip Laboratory test result MEDENT ([facility]) Urobilinogen Laboratory test result MEDENT ([facility]) Ketones [Presence] in Urine by Test strip Laboratory test result MEDENT ([facility]) Bilirubin.total [Presence] in Urine by Test strip Laboratory test res ult MEDENT ([facility]) Blood type and Indirect antibody screen panel - Blood Laboratory test result MEDENT ([facility]) ID Date Data Source [id number] 08/02/2020 10:53:00 AM EDT [facility] ([facility] Name Value Range Interpretation Code Description Data Denise rce(s) Supporting Document(s) Color Urine Laboratory test result M EDENT ([facility] Appearance of Urine Laboratory test result [facility] ([facility] Specific [place] 1.025 1.00-1.03 MED[facility] ([facility] PH Urine 7.0 5.0-8.0 [facility] Glucose Urine Laboratory test result MED[facility] ([facility] Bilirubin.total [Presence] in Urine by Test strip Laboratory test res ult [facility] ([facility] Ketones Laboratory test result MED[facility] ([facility] Blood Urine Laboratory test result M EDENT ([facility] Urobilinogen 0.2 EU/dl 0.2-1.0 MED[facility] ([facility] Protein Urine Laboratory test result MED[facility] ([facility] Nitrite Laboratory test result MED[facility] ([facility] Leukocytes Laboratory test result ME DENT ([facility] ID Date Data Source [id number] 08/02/2020 08:51:00 AM EDT MEDENT ([facility] [...] HCT IS 5% LESS SOURCE FOR DATA: [employer] 1800 OPERATION MANUAL( AUTOMATED BLOOD COUNTS AND [...] 2-19 YEARS EXCLUSIVE. ID Date Data Source [id number] 08/02/2020 08:51:00 AM FAINAT HYACINTH ([facility] Name Value Range Interpretation Code Description Data Denise rce(s) Supporting Document(s) Chol 120 mg/dL 0-200 MEDRUDDY ([facility] NORMAL RANGES [...] HCT IS 5% LESS SOURCE FOR DATA: [employer] 1800 OPERATION MANUAL( AUTOMATED BLOOD COUNTS AND [...] 2-19 YEARS EXCLUSIVE. Trig 57 mg/dL 35-200 [facility] ([facility] [...] HCT IS 5% LESS SOURCE FOR DATA: [employer] 1800 OPERATION MANUAL( AUTOMATED BLOOD COUNTS AND [...] HCT IS 5% LESS SOURCE FOR DATA: [employer] 1800 OPERATION MANUAL( AUTOMATED BLOOD COUNTS AND [...] HCT IS 5% LESS SOURCE FOR DATA: [employer] 1800 OPERATION MANUAL( AUTOMATED BLOOD COUNTS [...] 2-19 YEARS EXCLUSIVE. Cho/HDL Ratio 2.3 CALC [facility] ([facility] NORMAL RANGES Age WBC [...] HCT IS 5% LESS SOURCE FOR DATA: [employer] 1800 OPERATION MANUAL( AUTOMATED BLOOD COUNTS AND [...] 2-19 YEARS EXCLUSIVE. ID Date Data Source [id number] 08/02/2020 08:51:00 AM EDT MEDENT ([facility] Name Value Range Interpretation Code Description Data Denise rce(s) Supporting Document(s) Glu 120 mg/dL 70-110 Above high normal [facility] ([facility] NORMAL RANGES Age WBC [...] HCT IS 5% LESS SOURCE FOR DATA: [place] 1800 OPERATION MANUAL( AUTOMATED BLOOD COUNTS AND [...] BUN 29 mg/dL 8-23 Above high normal [facility] ([facility] NORMAL RANGES Age [...] HCT IS 5% LESS SOURCE FOR DATA: [employer] 1800 OPERATION MANUAL( AUTOMATED BLOOD COUNTS AND [...] HCT IS 5% LESS SOURCE FOR DATA: [employer] 1800 OPERATION MANUAL( AUTOMATED BLOOD COUNTS [...] 2-19 YEARS EXCLUSIVE. BUN/Creatinine Ratio 24.8 CALC [facility] ([facility] NORMAL RANGES Age [...] HCT IS 5% LESS SOURCE FOR DATA: [place] 1800 OPERATION MANUAL( AUTOMATED BLOOD COUNTS AND [...] 2-19 YEARS EXCLUSIVE. Na 138 mmol/L 136-145 [facility] ([facility] [...] HCT IS 5% LESS SOURCE FOR DATA: [employer] 1800 OPERATION MANUAL( AUTOMATED BLOOD COUNTS AND [...] 2-19 YEARS EXCLUSIVE. CL 101.1 mmol/L 98.0-107.0 [facility] ([facility] NORMAL RANGES Age WBC [...] HCT IS 5% LESS SOURCE FOR DATA: [employer] 1800 OPERATION MANUAL( AUTOMATED BLOOD COUNTS AND [...] 2-19 YEARS EXCLUSIVE. K 3.8 mmol/L 3.5-5.1 [facility] ([facility] NORMAL RANGES Age WBC RBC [...] HCT IS 5% LESS SOURCE FOR DATA: [employer] 1800 OPERATION MANUAL( AUTOMATED BLOOD COUNTS AND [...] 2-19 YEARS EXCLUSIVE. Co2 25.3 mmol/L 22.0-29.0 [place] ([facility] NORMAL RANGES Age WBC [...] HCT IS 5% LESS SOURCE FOR DATA: [employer] 1800 OPERATION MANUAL( AUTOMATED BLOOD COUNTS AND [...] HCT IS 5% LESS SOURCE FOR DATA: [employer] 1800 OPERATION MANUAL( AUTOMATED BLOOD COUNTS AND [...] TP 6.3 g/dL 6.6-8.7 Below low normal [facility] ( [facility] NORMAL RANGES Age [...] HCT IS 5% LESS SOURCE FOR DATA: [employer] 1800 OPERATION MANUAL( AUTOMATED BLOOD COUNTS AND [...] HCT IS 5% LESS SOURCE FOR DATA: [employer] 1800 OPERATION MANUAL( AUTOMATED BLOOD COUNTS AND [...] HCT IS 5% LESS SOURCE FOR DATA: [employer] 1800 OPERATION MANUAL( AUTOMATED BLOOD COUNTS AND [...] 2-19 YEARS EXCLUSIVE. Alp 66.2 U/L 40-129 [facility] ([facility] [...] HCT IS 5% LESS SOURCE FOR DATA: [employer] 1800 OPERATION MANUAL( AUTOMATED BLOOD COUNTS AND [...] YEARS EXCLUSIVE. Alt (SGPT) 25 U/L 0-41 [facility] NORMAL RANGES Age WBC [...] HCT IS 5% LESS SOURCE FOR DATA: [employer] [employer] OPERATION MANUAL( AUTOMATED BLOOD COUNTS AND [...] EXCLUSIVE. Ast (Sgot) 27 U/L 0-40 [facility] ([facility] NORMAL RANGES Age WBC [...] HCT IS 5% LESS SOURCE FOR DATA: [employer] DYN 1800 OPERATION MANUAL( AUTOMATED BLOOD COUNTS [...] 2-19 YEARS EXCLUSIVE. Tbili 0.38 mg/dL 0.0-1.2 [facility] ([facility] NORMAL RANGES Age WBC [...] HCT IS 5% LESS SOURCE FOR DATA: [employer] 1800 OPERATION MANUAL( AUTOMATED BLOOD COUNTS AND [...] HCT IS 5% LESS SOURCE FOR DATA: [employer] 1800 OPERATION MANUAL( AUTOMATED BLOOD COUNTS AND [...] HCT IS 5% LESS SOURCE FOR DATA: [employer] 1800 OPERATION MANUAL( AUTOMATED BLOOD COUNTS AND [...] INDIVIDUALA AGED 2-19 YEARS EXCLUSIVE. eGFR Non-Afr. Sudanese 57 # HYACINTH ([facility] CKD-EPI ID Date Data Source [id number] 08/02/2020 08:51:00 AM EDT HYACINTH ([facility] Name Value Range Interpretation Code Description Data Denise rce(s) Supporting Document(s) WBC 6.6 10E3/uL 4.1-10.9 [facility] ([facility] NORMAL RANGES Age WBC [...] HCT IS 5% LESS SOURCE FOR DATA: [employer] 1800 OPERATION MANUAL( AUTOMATED BLOOD COUNTS AND [...] 2-19 YEARS EXCLUSIVE. HGB 12.6 g/dL 12.0-18.0 [facility] ([facility] NORMAL RANGES [...] RBC 3.84 10E6/uL 4.20-6.30 Below low normal [facility] ([facility] NORMAL [...] HCT IS 5% LESS SOURCE FOR DATA: [employer] 1800 OPERATION MANUAL( AUTOMATED BLOOD COUNTS AND [...] HCT IS 5% LESS SOURCE FOR DATA: [employer] 1800 OPERATION MANUAL( AUTOMATED BLOOD COUNTS AND [...] MCV 98.4 fL 80.0-97.0 Above high normal [facility] ([facility] NORMAL [...] HCT IS 5% LESS SOURCE FOR DATA: [employer] DYN 1800 OPERATION MANUAL( AUTOMATED BLOOD COUNTS [...] MCH 32.8 pg 26.0-32.0 Above high normal [facility] ([facility] NORMAL [...] HCT IS 5% LESS SOURCE FOR DATA: [employer] 1800 OPERATION MANUAL( AUTOMATED BLOOD COUNTS AND [...] HCT IS 5% LESS SOURCE FOR DATA: [employer] 1800 OPERATION MANUAL( AUTOMATED BLOOD COUNTS AND [...] 2-19 YEARS EXCLUSIVE. PLT 292 10E3/uL 140-440 [facility] ([facility] NORMAL RANGES Age WBC [...] HCT IS 5% LESS SOURCE FOR DATA: [employer] 1800 OPERATION MANUAL( AUTOMATED BLOOD COUNTS AND [...] 2-19 YEARS EXCLUSIVE. RDW-CV 13.1 % 11.5-14.5 [facility] ([facility] [...] HCT IS 5% LESS SOURCE FOR DATA: [employer] 1800 OPERATION MANUAL( AUTOMATED BLOOD COUNTS AND [...] 2-19 YEARS EXCLUSIVE. Lym% 19.3 % 10.0-58.5 [facility] ([facility] NORMAL RANGES [...] HCT IS 5% LESS SOURCE FOR DATA: [employer] 1800 OPERATION MANUAL( AUTOMATED BLOOD COUNTS AND [...] 2-19 YEARS EXCLUSIVE. Neut% 73.1 % 37.0-92.0 [facility] ([facility] [...] HCT IS 5% LESS SOURCE FOR DATA: [employer] 1800 OPERATION MANUAL( AUTOMATED BLOOD COUNTS AND [...] HCT IS 5% LESS SOURCE FOR DATA: [employer] DYN 1800 OPERATION MANUAL( AUTOMATED BLOOD COUNTS [...] YEARS EXCLUSIVE. Lym# 1.3 10E3/uL 0.6-4.1 HYACINTH ([facility] NORMAL RANGES Age WBC RBC HGB [...] HCT IS 5% LESS SOURCE FOR DATA: [employer] 1800 OPERATION MANUAL( AUTOMATED BLOOD COUNTS AND [...] 2-19 YEARS EXCLUSIVE. Neut# 4.8 % 2.0-7.8 [facility] ([facility] NORMAL RANGES [...] HCT IS 5% LESS SOURCE FOR DATA: [employer] 1800 OPERATION MANUAL( AUTOMATED BLOOD COUNTS AND [...] YEARS EXCLUSIVE. MXD# 0.5 10E3/uL 0.0-1.8 MEDENT ([facility] NORMAL RANGES Age WBC [...] HCT IS 5% LESS SOURCE FOR DATA: [employer] 1800 OPERATION MANUAL( AUTOMATED BLOOD COUNTS AND [...] 2-19 YEARS EXCLUSIVE. MPV 9.6 fL 9.0-13.0 [facility] NORMAL [...] HCT IS 5% LESS SOURCE FOR DATA: [employer] 1800 OPERATION MANUAL( AUTOMATED BLOOD COUNTS AND [...] 2-19 YEARS EXCLUSIVE. ID Date Data Source [id number] 05/04/2020 10:21:00 AM EST [facility] ([facility] Name Value Range Interpretation Code Description Data Denise rce(s) Supporting Document(s) Prostate specific Ag [Mass/volume] in Serum or Plasma 4.26 ng/mL 0.0-4.0 Above high normal [facility] ([facility] ) ID Date Data Source [id number] 05/04/2020 10:21:00 AM EST MEDENT ([facility] [...] HCT IS 5% LESS SOURCE FOR DATA: [employer] 1800 OPERATION MANUAL( AUTOMATED BLOOD COUNTS AND [...] 2-19 YEARS EXCLUSIVE. Trig 54 mg/dL 35-200 [facility] NORMAL [...] HCT IS 5% LESS SOURCE FOR DATA: [employer] 1800 OPERATION MANUAL( AUTOMATED BLOOD COUNTS AND [...] HCT IS 5% LESS SOURCE FOR DATA: [employer] 1800 OPERATION MANUAL( AUTOMATED BLOOD COUNTS AND [...] HCT IS 5% LESS SOURCE FOR DATA: [employer] 1800 OPERATION MANUAL( AUTOMATED BLOOD COUNTS AND [...] 2-19 YEARS EXCLUSIVE. Cho/HDL Ratio 2.1 Calc [facility] ([facility] NORMAL RANGES Age WBC [...] HCT IS 5% LESS SOURCE FOR DATA: [employer] 1800 OPERATION MANUAL( AUTOMATED BLOOD COUNTS AND [...] 2-19 YEARS EXCLUSIVE. ID Date Data Source [id number] 05/04/2020 10:21:00 AM EST MEDRUDDY ([facility] Name Value Range Interpretation [...] HCT IS 5% LESS SOURCE FOR DATA: [employer] 1800 OPERATION MANUAL( AUTOMATED BLOOD COUNTS AND [...] HCT IS 5% LESS SOURCE FOR DATA: [employer] 1800 OPERATION MANUAL( AUTOMATED BLOOD COUNTS AND [...] 2-19 YEARS EXCLUSIVE. Creat 1.1 mg/dL 0.7-1.2 [facility] ([facility] [...] HCT IS 5% LESS SOURCE FOR DATA: [employer] 1800 OPERATION MANUAL( AUTOMATED BLOOD COUNTS AND [...] 2-19 YEARS EXCLUSIVE. BUN/Creatinine Ratio 26.1 CALC [facility] ([facility] NORMAL RANGES [...] HCT IS 5% LESS SOURCE FOR DATA: [employer] 1800 OPERATION MANUAL( AUTOMATED BLOOD COUNTS AND [...] 2-19 YEARS EXCLUSIVE. Na 136 mmol/L 136-145 [facility] ([facility] NORMAL RANGES [...] HCT IS 5% LESS SOURCE FOR DATA: [employer] DYN 1800 OPERATION MANUAL( AUTOMATED BLOOD COUNTS [...] HCT IS 5% LESS SOURCE FOR DATA: [employer] 1800 OPERATION MANUAL( AUTOMATED BLOOD COUNTS AND [...] 2-19 YEARS EXCLUSIVE. Co2 25.7 mmol/L 22.0-29.0 [facility] ([facility] NORMAL RANGES Age WBC [...] HCT IS 5% LESS SOURCE FOR DATA: [employer] DYN 1800 OPERATION MANUAL( AUTOMATED BLOOD COUNTS [...] 2-19 YEARS EXCLUSIVE. CL 98.6 mmol/L 98.0-107.0 [facility] ([facility] NORMAL RANGES Age WBC [...] HCT IS 5% LESS SOURCE FOR DATA: [employer] 1800 OPERATION MANUAL( AUTOMATED BLOOD COUNTS AND [...] 2-19 YEARS EXCLUSIVE. CA 8.8 mg/dL 8.6-10.2 [facility] ([facility] [...] HCT IS 5% LESS SOURCE FOR DATA: [employer] 1800 OPERATION MANUAL( AUTOMATED BLOOD COUNTS AND [...] HCT IS 5% LESS SOURCE FOR DATA: [employer] 1800 OPERATION MANUAL( AUTOMATED BLOOD COUNTS AND [...] 2-19 YEARS EXCLUSIVE. Alb 4.5 g/dL 3.5-5.2 [facility] ([facility] NORMAL [...] HCT IS 5% LESS SOURCE FOR DATA: [employer] 1800 OPERATION MANUAL( AUTOMATED BLOOD COUNTS AND [...] HCT IS 5% LESS SOURCE FOR DATA: [employer] 1800 OPERATION MANUAL( AUTOMATED BLOOD COUNTS AND [...] HCT IS 5% LESS SOURCE FOR DATA: [employer] 1800 OPERATION MANUAL( AUTOMATED BLOOD COUNTS AND [...] YEARS EXCLUSIVE. Alt (SGPT) 22 U/L 0-41 [facility] ([facility] NORMAL RANGES Age WBC RBC [...] HCT IS 5% LESS SOURCE FOR DATA: [employer] 1800 OPERATION MANUAL( AUTOMATED BLOOD COUNTS AND [...] HCT IS 5% LESS SOURCE FOR DATA: [employer] 1800 OPERATION MANUAL( AUTOMATED BLOOD COUNTS AND [...] HCT IS 5% LESS SOURCE FOR DATA: [employer] 1800 OPERATION MANUAL( AUTOMATED BLOOD COUNTS AND [...] 2-19 YEARS EXCLUSIVE. Tbili 0.69 mg/dL 0.0-1.2 [facility] ([facility] NORMAL RANGES Age WBC RBC [...] HCT IS 5% LESS SOURCE FOR DATA: [employer] 1800 OPERATION MANUAL( AUTOMATED BLOOD COUNTS AND [...] HCT IS 5% LESS SOURCE FOR DATA: [employer] 1800 OPERATION MANUAL( AUTOMATED BLOOD COUNTS AND [...] INDIVIDUALA AGED 2-19 YEARS EXCLUSIVE. eGFR Non-Afr. Sudanese 63 # [facility] ([facility] CKD-EPI eGFR 73 # [facility] ( [facility] CKD-EPI ID Date Data Source [id number] 05/04/2020 10:21:00 AM EST MEDENT ([facility] Name Value Range Interpretation [...] HCT IS 5% LESS SOURCE FOR DATA: [employer] 1800 OPERATION MANUAL( AUTOMATED BLOOD COUNTS AND [...] 2-19 YEARS EXCLUSIVE. ID Date Data Source [id number] 05/04/2020 10:21:00 AM EST MEDENT ([facility] Name Value Range [...] HCT IS 5% LESS SOURCE FOR DATA: [employer] 1800 OPERATION MANUAL( AUTOMATED BLOOD COUNTS AND [...] 2-19 YEARS EXCLUSIVE. HGB 13.4 g/dL 12.0-18.0 [facility] ([facility] [...] HCT IS 5% LESS SOURCE FOR DATA: [employer] DYN 1800 OPERATION MANUAL( AUTOMATED BLOOD COUNTS [...] RBC 4.05 10E6/uL 4.20-6.30 Below low normal [facility] ([facility] NORMAL RANGES Age [...] HCT IS 5% LESS SOURCE FOR DATA: [employer] 1800 OPERATION MANUAL( AUTOMATED BLOOD COUNTS AND [...] 98.0 fL 80.0-97.0 Above high normal MEDENT ([facility] NORMAL RANGES Age WBC [...] HCT IS 5% LESS SOURCE FOR DATA: [employer] 1800 OPERATION MANUAL( AUTOMATED BLOOD COUNTS AND [...] 2-19 YEARS EXCLUSIVE. HCT 39.7 % 37.0-51.0 [facility] ([facility] [...] HCT IS 5% LESS SOURCE FOR DATA: [employer] 1800 OPERATION MANUAL( AUTOMATED BLOOD COUNTS AND [...] HCT IS 5% LESS SOURCE FOR DATA: [employer] 1800 OPERATION MANUAL( AUTOMATED BLOOD COUNTS AND [...] MCH 33.1 pg 26.0-32.0 Above high normal [facility] ([facility] NORMAL RANGES Age [...] HCT IS 5% LESS SOURCE FOR DATA: [employer] 1800 OPERATION MANUAL( AUTOMATED BLOOD COUNTS AND [...] 2-19 YEARS EXCLUSIVE. PLT 156 10E3/uL 140-440 [facility] ([facility] NORMAL RANGES Age WBC [...] HCT IS 5% LESS SOURCE FOR DATA: [employer] 1800 OPERATION MANUAL( AUTOMATED BLOOD COUNTS AND [...] HCT IS 5% LESS SOURCE FOR DATA: [employer] 1800 OPERATION MANUAL( AUTOMATED BLOOD COUNTS AND [...] YEARS EXCLUSIVE. RDW-CV 14.0 % 11.5-14.5 [facility]ACIN[facility] ([facility] NORMAL [...] HCT IS 5% LESS SOURCE FOR DATA: [employer] 1800 OPERATION MANUAL( AUTOMATED BLOOD COUNTS AND [...] 2-19 YEARS EXCLUSIVE. Neut% 73.1 % 37.0-92.0 [facility] ([facility] NORMAL RANGES [...] HCT IS 5% LESS SOURCE FOR DATA: [employer] 1800 OPERATION MANUAL( AUTOMATED BLOOD COUNTS AND [...] HCT IS 5% LESS SOURCE FOR DATA: [employer] 1800 OPERATION MANUAL( AUTOMATED BLOOD COUNTS AND [...] 2-19 YEARS EXCLUSIVE. Lym# 1.5 10E3/uL 0.6-4.1 [facility] ([facility] NORMAL RANGES Age WBC [...] HCT IS 5% LESS SOURCE FOR DATA: [employer] 1800 OPERATION MANUAL( AUTOMATED BLOOD COUNTS AND [...] 2-19 YEARS EXCLUSIVE. Neut# 6.6 % 2.0-7.8 [facility] ([facility] NORMAL RANGES [...] HCT IS 5% LESS SOURCE FOR DATA: [employer] 1800 OPERATION MANUAL( AUTOMATED BLOOD COUNTS AND [...] HCT IS 5% LESS SOURCE FOR DATA: [employer] 1800 OPERATION MANUAL( AUTOMATED BLOOD COUNTS AND [...] 2-19 YEARS EXCLUSIVE. MXD# 1.0 10E3/uL 0.0-1.8 [facility] ([facility] NORMAL RANGES Age WBC [...] 2-19 YEARS EXCLUSIVE. ID Date Data Source [id number] 01/19/2020 09:27:00 AM EDT MEDENT ([employer] [facility] Name Value Range Interpretation Code Description Data Denise rce(s) Supporting Document(s) Hemoglobin A1c/Hemoglobin.total in Blood 6.0 % 4.8-5.6 Above high normal MEDENT ([facility] <content>Prediabetes: 5.7 - 6.4</content >
<content>Diabetes: >6.4</content>
<content>Glycemic control for adults with diabetes: <7.0</content>
<content></content> ID Date Data Source [id number] 01/19/2020 09:26:00 AM EDT MEDENT ([employer] [facility] Name Value Range Interpretation Code Description Data Denise rce(s) Supporting Document(s) Creatine kinase [Enzymatic activity/volume] in Serum or Plasma 3 79 U/L 39-308 Above high normal [facility] ([facility] ) NORMAL RANGES Age WBC [...] HCT IS 5% LESS SOURCE FOR DATA: [employer] 1800 OPERATION MANUAL( AUTOMATED BLOOD COUNTS AND [...] 2-19 YEARS EXCLUSIVE. ID Date Data Source [id number] 01/19/2020 09:26:00 AM EDT MEDENT ([facility] Name Value Range Interpretation [...] HCT IS 5% LESS SOURCE FOR DATA: [employer] 1800 OPERATION MANUAL( AUTOMATED BLOOD COUNTS AND [...] HCT IS 5% LESS SOURCE FOR DATA: [employer] 1800 OPERATION MANUAL( AUTOMATED BLOOD COUNTS AND [...] 2-19 YEARS EXCLUSIVE. Trig 56 mg/dL 35-200 [facility] ([facility] [...] IS 5% LESS SOURCE FOR DATA: [employer] 1800 OPERATION MANUAL( AUTOMATED BLOOD COUNTS AND [...] 2-19 YEARS EXCLUSIVE. Cho/HDL Ratio 2.4 CALC [facility] ([facility] NORMAL RANGES Age WBC [...] HCT IS 5% LESS SOURCE FOR DATA: [employer] 1800 OPERATION MANUAL( AUTOMATED BLOOD COUNTS AND [...] HCT IS 5% LESS SOURCE FOR DATA: [employer] 1800 OPERATION MANUAL( AUTOMATED BLOOD COUNTS AND [...] 2-19 YEARS EXCLUSIVE. ID Date Data Source [id number] 01/19/2020 09:26:00 AM EDT MEDENT ([facility] [...] HCT IS 5% LESS SOURCE FOR DATA: [employer] 1800 OPERATION MANUAL( AUTOMATED BLOOD COUNTS AND [...] Na 139 mmol/L 136-145 MED[facility] ([facility] NORMAL RANGES Age WBC RBC HGB [...] HCT IS 5% LESS SOURCE FOR DATA: [employer] 1800 OPERATION MANUAL( AUTOMATED BLOOD COUNTS AND [...] 2-19 YEARS EXCLUSIVE. Creat 1.0 mg/dL 0.7-1.2 [facility] ([facility] [...] HCT IS 5% LESS SOURCE FOR DATA: [employer] 1800 OPERATION MANUAL( AUTOMATED BLOOD COUNTS AND [...] 2-19 YEARS EXCLUSIVE. BUN/Creatinine Ratio 26.4 CALC [facility] ([facility] NORMAL RANGES [...] HCT IS 5% LESS SOURCE FOR DATA: [employer] 1800 OPERATION MANUAL( AUTOMATED BLOOD COUNTS AND [...] HCT IS 5% LESS SOURCE FOR DATA: [employer] 1800 OPERATION MANUAL( AUTOMATED BLOOD COUNTS AND [...] 2-19 YEARS EXCLUSIVE. K 3.7 mmol/L 3.5-5.1 [facility] ([facility] NORMAL RANGES Age WBC [...] HCT IS 5% LESS SOURCE FOR DATA: [employer] DYN 1800 OPERATION MANUAL( AUTOMATED BLOOD COUNTS [...] HCT IS 5% LESS SOURCE FOR DATA: [employer] 1800 OPERATION MANUAL( AUTOMATED BLOOD COUNTS AND [...] TP 6.1 g/dL 6.6-8.7 Below low normal [facility] ( [facility] NORMAL RANGES Age [...] HCT IS 5% LESS SOURCE FOR DATA: [employer] 1800 OPERATION MANUAL( AUTOMATED BLOOD COUNTS AND [...] 2-19 YEARS EXCLUSIVE. Co2 28.0 mmol/L 22.0-29.0 [place] ([facility] NORMAL RANGES Age WBC [...] HCT IS 5% LESS SOURCE FOR DATA: [employer] 1800 OPERATION MANUAL( AUTOMATED BLOOD COUNTS AND [...] HCT IS 5% LESS SOURCE FOR DATA: [employer] 1800 OPERATION MANUAL( AUTOMATED BLOOD COUNTS AND [...] 2-19 YEARS EXCLUSIVE. Alb 4.3 g/dL 3.5-5.2 [facility] ([facility] [...] HCT IS 5% LESS SOURCE FOR DATA: [employer] 1800 OPERATION MANUAL( AUTOMATED BLOOD COUNTS AND [...] 2-19 YEARS EXCLUSIVE. Alp 67.4 U/L 40-129 [facility] ([facility] [...] HCT IS 5% LESS SOURCE FOR DATA: [employer] 1800 OPERATION MANUAL( AUTOMATED BLOOD COUNTS AND [...] HCT IS 5% LESS SOURCE FOR DATA: [employer] 1800 OPERATION MANUAL( AUTOMATED BLOOD COUNTS AND [...] 2-19 YEARS EXCLUSIVE. Tbili 0.72 mg/dL 0.0-1.2 [facility] ([facility] NORMAL RANGES Age WBC RBC [...] HCT IS 5% LESS SOURCE FOR DATA: [employer] 1800 OPERATION MANUAL( AUTOMATED BLOOD COUNTS AND [...] YEARS EXCLUSIVE. Ast (Sgot) 29 U/L 0-40 [facility] ([facility] NORMAL RANGES [...] HCT IS 5% LESS SOURCE FOR DATA: [employer] 1800 OPERATION MANUAL( AUTOMATED BLOOD COUNTS AND [...] HCT IS 5% LESS SOURCE FOR DATA: [employer] 1800 OPERATION MANUAL( AUTOMATED BLOOD COUNTS AND [...] 2-19 YEARS EXCLUSIVE. Anion Gap 13 mmol/L [facility] ([facility] [...] HCT IS 5% LESS SOURCE FOR DATA: [employer] 1800 OPERATION MANUAL( AUTOMATED BLOOD COUNTS AND [...] INDIVIDUALA AGED 2-19 YEARS EXCLUSIVE. eGFR Non-Afr. Sudanese 71 # MEDRUDDY ([facility] CKD-EPI eGFR 83 # [facility] ( [facility] CKD-EPI ID Date Data Source [id number] 01/19/2020 09:26:00 AM EDT MEDENT ([facility] Name Value Range Interpretation Code Description Data Denise rce(s) Supporting Document(s) WBC 7.7 10E3/uL 4.1-10.9 MEDRUDDY ([facility] NORMAL RANGES Age [...] HCT IS 5% LESS SOURCE FOR DATA: [employer] 1800 OPERATION MANUAL( AUTOMATED BLOOD COUNTS AND [...] 2-19 YEARS EXCLUSIVE. HGB 13.3 g/dL 12.0-18.0 [facility] ([facility] [...] HCT IS 5% LESS SOURCE FOR DATA: [employer] 1800 OPERATION MANUAL( AUTOMATED BLOOD COUNTS AND [...] HCT IS 5% LESS SOURCE FOR DATA: [employer] 1800 OPERATION MANUAL( AUTOMATED BLOOD COUNTS AND [...] MCH 33.3 pg 26.0-32.0 Above high normal [facility] ([facility] NORMAL RANGES Age [...] HCT IS 5% LESS SOURCE FOR DATA: [employer] 1800 OPERATION MANUAL( AUTOMATED BLOOD COUNTS AND [...] HCT IS 5% LESS SOURCE FOR DATA: [employer] 1800 OPERATION MANUAL( AUTOMATED BLOOD COUNTS AND [...] HCT IS 5% LESS SOURCE FOR DATA: [employer] 1800 OPERATION MANUAL( AUTOMATED BLOOD COUNTS AND [...] 2-19 YEARS EXCLUSIVE. MCHC 33.7 g/dL 31.0-36.0 [facility] ([facility] [...] YEARS EXCLUSIVE. PLT 162 10E3/uL 140-440 HYACINTH ([facility] NORMAL RANGES Age WBC [...] HCT IS 5% LESS SOURCE FOR DATA: [employer] 1800 OPERATION MANUAL( AUTOMATED BLOOD COUNTS AND [...] HCT IS 5% LESS SOURCE FOR DATA: [employer] 1800 OPERATION MANUAL( AUTOMATED BLOOD COUNTS AND [...] 2-19 YEARS EXCLUSIVE. RDW-CV 13.4 % 11.5-14.5 [facility] ([facility] NORMAL RANGES [...] HCT IS 5% LESS SOURCE FOR DATA: [employer] 1800 OPERATION MANUAL( AUTOMATED BLOOD COUNTS AND [...] HCT IS 5% LESS SOURCE FOR DATA: [employer] 1800 OPERATION MANUAL( AUTOMATED BLOOD COUNTS AND [...] 2-19 YEARS EXCLUSIVE. MXD% 9.8 % 0.1-24.0 [facility] NORMAL [...] HCT IS 5% LESS SOURCE FOR DATA: [employer] 1800 OPERATION MANUAL( AUTOMATED BLOOD COUNTS AND [...] 2-19 YEARS EXCLUSIVE. Lym# 1.1 10E3/uL 0.6-4.1 [facility] ([facility] NORMAL RANGES Age WBC RBC HGB [...] HCT IS 5% LESS SOURCE FOR DATA: [employer] 1800 OPERATION MANUAL( AUTOMATED BLOOD COUNTS AND [...] 2-19 YEARS EXCLUSIVE. Neut# 5.8 % 2.0-7.8 [facility] ([facility] [...] HCT IS 5% LESS SOURCE FOR DATA: [employer] 1800 OPERATION MANUAL( AUTOMATED BLOOD COUNTS AND [...] 2-19 YEARS EXCLUSIVE. MPV 10.6 fL 9.0-13.0 [facility] ([facility] NORMAL RANGES [...] HCT IS 5% LESS SOURCE FOR DATA: [employer] 1800 OPERATION MANUAL( AUTOMATED BLOOD COUNTS AND [...] 2-19 YEARS EXCLUSIVE. MXD# 0.8 10E3/uL 0.0-1.8 [facility] ([facility] NORMAL RANGES Age WBC [...] HCT IS 5% LESS SOURCE FOR DATA: [employer]YN 1800 OPERATION MANUAL( AUTOMATED BLOOD COUNTS [...] Never Smoker completed Never S mariahker eCW1 ([facility]) Alcohol intake 02/27/2021 12:00:00 AM EDT Current drinker of al cohol (finding) completed Current drinker of alcohol (finding) [facility] Tobacco use and exposure 02/27/2021 12:00:00 AM EDT Never used co mpleted Never used [facility] Smoking 02/27/2021 12:00:00 AM EDT Former smoker completed Former smoker [facility] Smoking 10/25/2020 12:00:00 AM EDT Quit completed Quit MEDENT ([facility]) Smoking 08/10/2020 12:00:00 AM EDT Patient is a former smoker completed Patient is a former smoker MED[facility] ([facility] Vital Signs ID Date Data Source UNK Name Value Range Interpretation Code Description Data Source(s) Body temperature 97.6 [degF] 97.6 [degF] eCW1 ( [facility]) Systolic blood pressure 130 mm[Hg] 130 mm[Hg] e CW1 ([facility]) Diastolic blood pressure 60 mm[Hg] 60 mm[Hg] eCW1 ([facility]) Body weight 185 [lb_av] 185 [lb_av] eCW1 ([facility]) Body height 70 [in_i] 70 [in_i] eCW1 ([facility]) Body mass index (BMI) [Ratio] 26.54 kg/m2 26.54 kg/m2 eCW1 ([facility]) Heart rate 77 /min 77 /min eCW1 ([facility]) Respiratory rate 18 /min 18 /min eCW1 ([facility]) Body weight 83.462 kg 83.462 kg [facility] Systolic blood pressure 140 mm[Hg] 140 mm[Hg] [facility] Oxygen saturation in Arterial blood by Pulse oximetry 96 % 96 % [facility] Diastolic blood pressure 76 mm[Hg] 76 mm[Hg] [facility] Heart rate 68 /min 68 /min [facility] Body weight 182.8 [lb_av] 182.8 [lb_av] eCW1 ([facility]) Body weight 82.92 kg 82.92 kg eCW1 ([facility]) Body height 70 [in_i] 70 [in_i] eCW1 ([facility]) Body mass index (BMI) [Ratio] 26.23 kg/m2 26.23 kg/m2 eCW1 ([facility]) Heart rate 80 /min 80 /min eCW1 ([facility]) Respiratory rate 18 /min 18 /min eCW1 ([facility]) Body temperature 97.6 [degF] 97.6 [degF] eCW1 ( [facility]) Systolic blood pressure 144 mm[Hg] 144 mm[Hg] e CW1 ([facility]) Diastolic blood pressure 82 mm[Hg] 82 mm[Hg] eCW1 ([facility]) Body weight 181.00 [lb_av] 181.00 [lb_av] MEDEN T ([facility] [place] body weight 166 [lb_av] 166 [lb_av] MEDEN T ([facility] Body mass index (BMI) [Ratio] 26.0 kg/m2 26.0 k g/m2 MEDENT ([facility] Oxygen saturation in Arterial blood by Pulse oximetry 97 % 97 % [facility] ([facility] Systolic blood pressure 140 mm[Hg] 140 mm[Hg] M EDENT ([facility] Diastolic blood pressure 70 mm[Hg] 70 mm[Hg] [facility] ([facility] Body temperature 97.8 [degF] 97.8 [degF] [facility] ([facility] Heart rate 68 /min 68 /min [facility] ([facility] Respiratory rate 16 /min 16 /min [facility] ( [facility] Body height 70 [in_i] 70 [in_i] [facility] ([facility] 5'10" Body mass index (BMI) [Ratio] 27.6 kg/m2 27.6 k g/m2 [facility] ([facility], ) Body weight 187.00 [lb_av] 187.00 [lb_av] MEDEN T ([facility], ) Systolic blood pressure 142 mm[Hg] 142 mm[Hg] [facility] Diastolic blood pressure 72 mm[Hg] 72 mm[Hg] [facility] Body height 69 [in_i] 69 [in_i] [facility] ([facility]) 5'9" Body weight 84.823 kg 84.823 kg [facility] ([facility]) Body height 69 [in_i] 69 [in_i] [facility] ([facility]) 5'9" Body surface area Derived from formula 2.01 m2 2.01 m2 [facility] [place] body weight 160 [lb_av] 160 [lb_av] [facility] T ([facility]) Body weight 187.00 [lb_av] 187.00 [lb_av] [facility] T ([facility]) Body mass index (BMI) [Ratio] 27.6 kg/m2 27.6 k g/m2 [facility] [place] body weight 160 [lb_av] 160 [lb_av] [facility] T ([facility]) Body weight 84.823 kg 84.823 kg [facility] ([facility]) Body surface area Derived from formula 2.01 m2 2.01 m2 [facility] ([facility] Heart rate 66 /min 66 /min [facility] ([facility]) Systolic blood pressure 133 mm[Hg] 133 mm[Hg] M EDENT ([facility]) Diastolic blood pressure 80 mm[Hg] 80 mm[Hg] [facility] ([facility]) Oxygen saturation in Arterial blood by Pulse oximetry 94 % 94 % [facility] ([facility]) Body weight 183.00 [lb_av] 183.00 [lb_av] MEDEN T ([facility]) Body weight 83.009 kg 83.009 kg [facility] ([facility]) Systolic blood pressure 133 mm[Hg] 133 mm[Hg] M EDENT ([facility]) Oxygen saturation in Arterial blood by Pulse oximetry 95 % 95 % [facility] Body weight 183.00 [lb_av] 183.00 [lb_av] MEDEN T ([facility]) Body weight 83.009 kg 83.009 kg [facility] ([facility]) Diastolic blood pressure 75 mm[Hg] 75 mm[Hg] [facility] ([facility]) Heart rate 80 /min 80 /min [facility] ([facility]) Body height 69 [in_i] 69 [in_i] [facility] ([facility]) 5'9" Body mass index (BMI) [Ratio] 27.0 kg/m2 27.0 k g/m2 [facility] ([facility]) Body surface area Derived from formula 1.99 m2 1.99 m2 [facility] ([facility]) Systolic blood pressure 116 mm[Hg] 116 mm[Hg] M EDENT ([facility] Diastolic blood pressure 66 mm[Hg] 66 mm[Hg] [facility] ([facility] Body temperature 98.1 [degF] 98.1 [degF] [facility] ([facility] Body height 70 [in_i] 70 [in_i] [facility] ([facility] 5'10" Body weight 187.00 [lb_av] 187.00 [lb_av] MEDEN T ([facility] [place] body weight 166 [lb_av] 166 [lb_av] MEDEN [...] 97 % [facility] ([facility] Oxygen saturation in Arterial blood by Pulse oximetry 97 % 97 % [facility] ([facility] Systolic blood pressure 128 mm[Hg] 128 mm[Hg] M EDENT ([facility] [place] body weight 166 [lb_av] 166 [lb_av] MEDEN T ([facility] Diastolic blood pressure 62 mm[Hg] 62 mm[Hg] [facility] ([facility] Body temperature 97.4 [degF] 97.4 [degF] [facility] ([facility] Heart rate 84 /min 84 /min [facility] ([facility] Respiratory rate 16 /min 16 /min [facility] ( [facility] Body height 70 [in_i] 70 [in_i] [facility] ([facility] 5'10" Body weight 192.00 [lb_av] 192.00 [lb_av] MEDEN T ([facility] Body mass index (BMI) [Ratio] 27.5 kg/m2 27.5 k g/m2 [facility] ([facility] Body weight 193.00 [lb_av] 193.00 [lb_av] MEDEN T ([facility] [place] body weight 166 [lb_av] 166 [lb_av] MEDEN [...] Body height 70 [in_i] 70 [in_i] [facility] ([facility] 5'10" [place] body weight 166 [lb_av] 166 [lb_av] MEDEN T ([facility] Body mass index (BMI) [Ratio] 27.8 kg/m2 27.8 k g/m2 [facility] ([facility] Oxygen saturation in Arterial blood by Pulse oximetry 97 % 97 % [facility] ([facility] Systolic blood pressure 146 mm[Hg] 146 mm[Hg] M EDENT ([facility] Diastolic blood pressure 70 mm[Hg] 70 mm[Hg] [facility] ([facility] Body temperature 98.2 [degF] 98.2 [degF] [facility] ([facility] Heart rate 84 /min 84 /min [facility] ([facility] Respiratory rate 16 /min 16 /min [facility] ( [facility] Body height 70 [in_i] 70 [in_i] [facility] ([facility] 5'10" Body weight 194.00 [lb_av] 194.00 [lb_av] MEDEN T ([facility] Patient Treatment Plan of Care Planned Activity Planned Date Details Description Data Source (s) Levetiracetam 500 MG Oral Tablet 02/22/2021 12:00:00 AM EDT [facility] atorvastatin 10 MG Oral Tablet 02/21/2021 12:00:00 AM EDT [facility] Ramipril 2.5 MG Oral Capsule 01/23/2021 12:00:00 AM EDT [facility] Chlorthalidone 25 MG Oral Tablet 01/23/2021 12:00:00 AM EDT [facility] 60 ACTUAT Fluticasone propionate 0.25 MG /ACTUAT / salmeterol 0.05 MG/ACTUAT Dry Powder Inhaler [Advair] 01/08/2021 12:00:00 AM EDT [facility] 24 HR mirabegron 50 MG Extended Release Oral Tablet [M yrbetriq] 12/27/2020 12:00:00 AM EDT [facility] 24 HR mirabegron 25 MG Extended Release Oral Tablet [M yrbetriq] 12/19/2020 12:00:00 AM EDT [facility] Tamsulosin hydrochloride 0.4 MG Oral Capsule 11/24/2020 12:00:00 AM EDT [facility]
[2021-03-14 11:37] LABS: ALBUMIN 3.2 GM/DL (3.2-5.2); ALT/SGPT 27 U/L (12-78); BILIRUBIN,TOTAL 0.7 MG/DL (0.2-1.0); BLOOD UREA NITROGEN 22 MG/DL (7-18); CALCIUM LEVEL 8.6 MG/DL (8.8-10.2); CARBON DIOXIDE LEVEL 29 MEQ/L (21-32); CHLORIDE LEVEL 106 MEQ/L (98-107); GLOMERULAR FILTRATION RATE > 60.0 (>35); GLUCOSE, FASTING 120 MG/DL (70-100); SODIUM LEVEL 140 MEQ/L (136-145); TOTAL PROTEIN 5.8 GM/DL (6.4-8.2)
--- OUTSIDE RECORDS SUMMARY | 2021-03-14 11:42 | CCD ---
Author Author [facility] Organization [facility] Address Unknown Phone Unavailable Care Team Providers Care Velvet Steamer Name Role Phone Nakita Bedoya PA Unavailable [...] is protected by Article 27-F of the [facility] Public Health law. If you continue you may have access to information: Regarding HIV / AIDS; Provided by facilities licensed or operated by the [facility] Office of Mental Health; or Provided by the [facility] Office for People With Developmental Disabilities. If such information is present, then the following [facility] mandated warning applies: This information [...] law may result in a fine or long-term sentence or both. A general authorization for the release of medical or other information is NOT sufficient authorization for further disc losure. Allergies and Adverse Reactions Type Description Substance Reaction Status Data Source(s ) Propensity to adverse reactions PENICILLINS Penicillins Ac tive [facility] Family History Family Member Name Family Member Gender Family Member Status Date o f Status Description Data Source(s) Unknown Unknown Problem [facility] ([facility] Encounters Encounter Providers Location Date Indications Data Source(s ) [place] [address] [address] 03/02/2021 12:00:00 AM EDT eCW1 ([facility]) Outpatient Attender: Ameena CONRAD.ZACH-ANYI 05/2020 12:00:00 AM EDT - 02/27/2021 03:05:35 PM EDT [facility] Outpatient [address] [address] 01/25/2021 12:00:00 AM EDT eCW1 ([facility]) Outpatient Attender: VENKATESH SMALLS MDConsultant: Kelvin Sutton 12/26/2020 02:26:00 PM EDT - 12/26/2020 02:26:[address] [facility] Office Visit Attender: Ade Abernathy MS, RPA-C Family P ractice 12/26/2020 01:45:00 PM EDT [facility] Emergency Attender: Luis E Ayleen MDConsultant: Kelvin Fish 11/23/2020 02:27:00 PM EDT - 11/23/2020 04:12:00 PM EDT [facility] l Patient discharged. Outpatient Attender: Kelvin Sutton [place] [facility] 11/23/2020 01:00:0 0 PM EDT [facility] ([facility] Outpatient Attender: VENKATESH SMALLS MDConsultant: Kelvin Sutton 10/25/2020 09:42:00 AM EDT - 10/25/2020 09:42:[address] [facility] Outpatient Attender: VENKATESH SMALLS MD [facility] 10/04/2020 02:00:0 0 PM EDT MED[facility] ([facility]) Outpatient Attender: VENKATESH SMALLS MDConsultant: Kelvin Sutton 10/04/2020 01:44:00 PM EDT - 10/04/2020 01:44:00 PM EDT [facility] Outpatient Attender: Kelvin Sutton [place] [facility] 08/10/2020 10:20:0 0 AM EDT [facility] ([facility] Outpatient Attender: Kelvin Sutton [place] [facility] 05/04/2020 09:00:0 0 AM EST [facility] ([facility] Outpatient Attender: Jacinda handley 03/07/2020 01:00:00 PM EST [facility] Outpatient Attender: Jacinda handley 02/29/2020 01:00:00 PM EST [facility] ([facility] Outpatient Attender: Kelvin Herman [place] [facility] 01/27/2020 01:00:0 0 PM EDT [facility] ([facility] Immunizations Vaccine Date Status Description Data Source(s) COVID-19 VACC, MRNA(PFIZER)/PF 03/07/2021 12:00:00 AM EST completed [facility] COVID-19 VACCINE Pfizer 03/07/2021 12:00:00 AM EST completed [facility] Vaccine Series Complete: YESThis Data wa s Submitted to [facility] Via [employer]. COVID-19 VACCINE Pfizer 06/18/2020 12:00:00 AM EST completed [facility] Vaccine Series Complete: YESThis Data wa s Submitted to [facility] Via [employer]. COVID-19 VACCINE Pfizer 05/28/2020 12:00:00 AM EST completed [facility] Vaccine Series Complete: NOThis Data was Submitted to [facility] Via [employer]. New in 2012. IIV4 01/27/2020 01:05:00 PM [...] by mouth 2 (two) times a day [facility] atorvastatin 10 MG Oral Tablet atorvastatin (LIPITOR) 10 MG tablet atorvastatin (LIPITOR) 10 MG tablet 02/21/2021 12:00:00 AM EDT 10 mg Oral active Take 10 mg by mouth daily [facility] 2.5 mg 01/23/2021 12:00:00 AM EDT capsule 90 TAKE ONE CAPSULE BY MOUTH EVERY DAY TAKE ONE CAPSULE BY MOUTH EVERY DAY SOLD: 01/27/2021 [facility] Chlorthalidone 25 MG Oral Tablet chlorthalidone (HYGRO TEN) 25 MG tablet chlorthalidone (HYGROTEN) 25 MG tablet 01/23/2021 12:00:00 AM EDT 2 5 mg Oral active Take 25 mg by mouth daily [facility] Ramipril 2.5 MG Oral Capsule ramipril (ALTACE) 2.5 MG capsule ramipril (ALTACE) 2.5 MG capsule 01/23/2021 12:00:00 AM EDT 2.5 mg Oral act jung Take 2.5 mg by mouth daily [facility] 25 mg 01/23/2021 12:00:00 AM [...] ONE PUFF BY MOUTH TWICE A DAY [facility] 50 mg 12/27/2020 12:00:00 AM [...] active Take 1 tablet by mouth daily [facility] 24 HR mirabegron 50 MG Extended Release Oral Tablet [Myrbetr iq] Myrbetriq 12/26/2020 12:00:00 AM EDT ORAL active MED[facility] ([facility]) 24 HR mirabegron 25 MG Extended Release Oral Tablet [Myrbetriq] Myrbetriq 25 MG TB24 Myrbetriq 25 MG TB24 12/19/2020 12:00:00 AM EDT 25 mg Oral active Take 25 mg by mouth daily [facility] atorvastatin 10 MG Oral Tablet [...] active Take 0.4 mg by mouth daily [facility] 0.4 mg 11/24/2020 12:00:00 AM EDT [...] 10/26/2020 12:00:00 AM EDT active M EDENT ([facility], ) Magnesium Hydroxide 80 MG/ML Oral Suspension Milk Of Magnesi a 10/26/2020 12:00:00 AM EDT ORAL active M EDENT ([facility], ) 25 mg 10/25/2020 12:00:00 AM EDT [...] 10/25/2020 12:00:00 AM EDT ORAL completed [facility] ([facility]) 25 mg 10/25/2020 12:00:00 AM EDT [...] 12:00:00 AM EDT active MED[facility] ([facility] 25 mg 07/26/2020 12:00:00 [...] villanueva Policy Villanueva Plan Information MEDICARE COMPLETE [id number] SP [id number] MEDICARE COMPLETE [id number] SP [id number] MEDICARE COMPLETE [id number] SP [id number] [facility] PPO [id number] SP [id number] En[employer] Commercial [phone] Medicare Ppo [id number] Self [phone] Medicare Ppo [place] [place] [id number] 18 [id number] [employer] UN[employer] MEDICARE O/P [id number] 18 [id number] [employer] MEDICARE O/P [id number] 18 [id number] MEDICARE [id number] SP [id number] A [employer] [id number] Self [id number] Medicare [place] Medicare Primary [id number] Self 0 [id number] [employer] Medigap Part B [id number] Family Dependent [id number] [facility] Medicare Commercial [id number] Self 9 [id number] Medicare [facility] Medicare Primary [id number] Self 0 [id number] [employer] BCBS Medigap Part B [id number] Family Dependent [id number] Medicare [facility] Medicare Primary [id number] Self [employer] BCBS Medigap Part B [id number] Family Dependent Unitedhealthcare Medicare Commercial [id number] Self [employer] O [id number] S 9 [id number] [facility] O [id number] S [id number] STATE INSURANCE FUND [id number] SP [id number] [place] [id number] 18 [id number] STATE INS FUND -O/P [id number] 20 [id number] STATE INS [facility] [id number] Problems, Conditions, and Diagnoses Code Display Name Description Problem Type Effective Dates Data Source(s) R55 Syncope and collapse Syncope and collapse Diagnosis 02/27/2021 01:40:51 PM EDT [facility] Y9289 Other specified places as the place of o ccurrence of the external cause Other specified places as the place of occurrence of the external cause Diagnosis 11/23/2020 02:27:00 PM EDT [facility] [id number] Fall on same level from slip ping, tripping and stumbling with subsequent striking against other object, initial encounter Fall on same level from slipping, tripping and stumbling with subsequent striking against other object, initial encounter Diagnosis 11/23/2020 02:27:00 PM EDT [facility] Z7982 custodial (current) use of aspirin custodial (cu rrent) use of aspirin Diagnosis 11/23/2020 02:27:00 PM EDT [facility] 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, first degree Atrioventri cular block, first degree Diagnosis 11/23/2020 02:27:00 PM EDT [facility] R569 Unspecified convulsions Unspecified convulsions Diagno sis 11/23/2020 02:27:00 PM EDT [facility] H10130 Unspecified asthma, uncomplicated Unspecified as thma, uncomplicated Diagnosis 11/23/2020 02:27:00 PM EDT [facility] I10 Essential (primary) hypertension Essential (primary) h ypertension Diagnosis 11/23/2020 02:27:00 PM EDT [facility] [id number] Concussion with loss of cons ciousness of 30 minutes or less, initial encounter Concussion with loss of consciousness of 30 minutes or less, initial encounter Diagnosis 11/23/2020 02:27:00 PM EDT [facility] M1986VD Unspecified injury of head, initial enco unter Unspecified injury of head, initial encounter Diagnosis 11/23/2020 02:27:00 PM EDT [facility] N503 Cyst of epididymis Cyst of epididymis Diagnosis 01:44:00 PM EDT [facility] R32 Unspecified urinary incontinence Unspecified urinary i ncontinence Diagnosis 10/04/2020 01:44:00 PM EDT [facility] R3915 Urgency of urination Urgency of urination Diagnosis 10/04/2020 01:44:00 PM EDT [facility] R350 Frequency of micturition Frequency of micturition Diag nosis 10/04/2020 01:44:00 PM EDT [facility] R9720 Elevated prostate specific antigen [PSA] Elevated prostate specific antigen [PSA] Diagnosis 10/04/2020 01:44:00 PM EDT [facility] R42 Dizziness Dizziness [id number] 02/27/2021 12:00:00 AM ED [facility] R55 Syncope Syncope [id number] 02/27/2021 12:00:00 AM ED [facility] N32.81 Overactive bladder Overactive bladder Problem 12:00:00 AM EDT [facility] ([facility]) [id number] Pure hypercholesterolemia Pure hypercholesterolemia Pr oblem 10/04/2020 12:00:00 AM EDT [facility] ([facility]) [id number] Essential hypertension Essential hypertension Problem 10/04/2020 12:00:00 AM EDT [facility] ([facility]) Surgeries/Procedures Procedure Description Date Indications Data Source(s) ECG ROUTINE ECG W/LEAST 12 LDS W/I&R <td>POCT AMB EKG</td><td>Routine</td><td>02/27/2021 2:38 PM EDT</td><td> Syncope, unspecified syncope type</td><td> </td> 02/27/2021 02:38:00 PM EDT Syncope, unspecified syncope type [facility] Syncope, unspecified syncope type BLOOD COUNT COMPLETE AUTO&AUTO DIFRNTL WBC COUNT <td>C BC AND DIFFERENTIAL</td><td>Routine</td><td>02/22/2021</td><td></td><td> </td> 02/22/2021 12:00:00 AM EDT [facility] BASIC METABOLIC PANEL CALCIUM TOTAL <td>BASIC METABOLI C PANEL</td><td>Routine</td><td>02/22/2021</td><td></td><td> </td> 02/22/2021 12:00:00 AM EDT [facility] THYROID STIMULATING HORMONE TSH <td>TSH</td><td>Routine</td><td>02/20/2021</td><td></td><td> </td> 02/20/2021 12:00:00 AM EDT [facility] BASIC METABOLIC PANEL CALCIUM TOTAL <td>BASIC METABOLI C PANEL</td><td>Routine</td><td>02/20/2021</td><td></td><td> </td> 02/20/2021 12:00:00 AM EDT [facility] Colonoscopy W/ Poly 01/26/2021 12:00:00 AM EDT [facility] ([facility], ) PHYSICIAN TELEPHONE EVALUATION 5-10 MIN 12/26/2020 12: 00:00 AM EDT MED[facility] ([facility]) OFFICE OUTPATIENT VISIT 25 MINUTES 11/23/2020 12:00:00 AM EDT MED[facility] ([facility] Measurement Post Voiding Residual Urine By Ultrasound,Non-Im aging 10/25/2020 12:00:00 AM EDT MED[facility] ([facility]) OFFICE OUTPATIENT VISIT 15 MINUTES 10/25/2020 12:00:00 AM EDT [facility] ([facility]) OFFICE OUTPATIENT NEW 20 MINUTES 10/04/2020 12:00:00 A M EDT MED[facility] ([facility]) OFFICE OUTPATIENT VISIT 25 MINUTES 08/10/2020 12:00:00 AM EDT [facility] ([facility] Results ID Date Data Source [id number] 02/20/2021 06:21:00 PM EDT [facility] Name Value Range Interpretation Code Description Data Denise rce(s) Supporting Document(s) SARS coronavirus 2 RNA [Presence] in Res piratory specimen by ANAND with probe detection NEGATIVE [facility] This lab was ordered by [facility] a nd reported by [facility]. ID Date Data Source [id number] 01/26/2021 01:13:00 PM EDT [facility], ) Name Value Range Interpretation Code Description Data Denise rce(s) Supporting Document(s) Surgical pathology study Laboratory test result [facility] ([facility], ) FINAL DIAGNOSIS A - Sigmoid colon, [...] MD 01/29/2021 1405 ID Date Data Source [id number] 01/22/2021 10:40:00 AM EDT [facility] Name Value Range Interpretation Code Description Data Denise rce(s) Supporting Document(s) SARS-CoV-2 (COVID-19) RNA [Presence] in Respiratory specimen by ANAND with probe detection Not Detected [facility] This lab was ordered by [facility] and reported by [facility]. ID Date Data Source [id number] 11/27/2020 09:46:00 AM EDT [facility] [address] [place] [address] PHONE: [phone] FAX: [phone] Name .................. : GABRIELLE Means Acct Number.................. : [id number] ROOM. ................. : TR-06 MR Number ................... : [id number] Stay type ............. : E/R Discharge Date......... ... : 11/23/20 Admit Date ......... : 11/23/20 Admit Phys .................... : AYLEEN Lentz Date of ....... : 1940 Family Phys ................... : HERMAN KELSY Phone .................. : [phone] Age ................................ : 80 Film# .................. .:[id number] Sex ................................. : M Unsigned transcriptions are preliminary reports and do not represent a medical or legal document CT HEAD W/O CONTRAST 99232 COMPLETE:11/23/20 16:01 [place] [address]117 Reason(s): Head Injury CT OF THE HEAD [...] By CALLY HOLT MD , 11/27/20 09:46, [facility] Transcribe Initials: BEV , Transcribe Date: 11/23/20 23:16, Dictation Date: Copy for: HERMAN WONG via fax Copy for: EMERGENCY DEPT via [facility] Copy for: 710 MED REC DISCHARGED Page 1 of 1 Name Value Range Interpretation Code Description Data Denise rce(s) Supporting Document(s) ID Date Data Source [id number] 11/24/2020 03:41:00 PM EDT [address] [address] RESPIRATORY CARE REPORT ==== ---------NAME------- NUMBER SEX AGE ADMIT DISC. XRAY# F/C TYPEFARCLARISSA Means [id number] M 80 11/23/20 11/23/20 [id number] HEATHER E/R DATE OF : 1940 M/R# [id number] PH#: [phone] TR-06 LOCATION: EMERGENCY DEPT EKG 29535 COMP LETE:11/24/20 07:59 CJM 38975 PHYSICIAN: AYLEEN Lentz Name Value Range Interpretation Code Description Data Denise rce(s) Supporting Document(s) ID Date Data Source [id number] 11/23/2020 02:27:00 PM EDT [facility] 1 OrderSheet [facility] Emergency Department [address] [place] [address] Phone #: ext- [phone] 11/23/2020 14:18 Patient: [...] e(s) Supporting Document(s) ID Date Data Source [id number] 11/23/2020 02:27:00 PM EDT [place] [address] Medication Reconciliation Report [facility] Emergency Department [address] [place] [address] Phone #: ext- [phone] 11/23/2020 14:18 Patient: [...] rce(s) Supporting Document(s) ID Date Data Source [id number] 11/23/2020 02:27:00 PM EDT [place] [address] Medication Administration Record [facility] Emergency Department [address] [place] [address] Phone #: ext- [phone] 11/23/2020 14:18 Patient: MORRIS ANTHONY Sex: M : 1940 Age: 80yWeight: 82.1 kgHeight/Length: 69 inBMI: 26.7ALLERGIES: PenicillinsDate/Time Medication Administered Medication Ordered Name Value Range Interpretation Code Description Data Denise rce(s) Supporting Document(s) ID Date Data Source [id number] 11/23/2020 02:27:00 PM EDT [facility] 1 General Instructions [facility] Emergency Department [address] [place] [address] Phone #: ext- [phone] 11/23/2020 14:18 Patient: [...] by patient.Follow-up with: Kelvin Sutton, , , [address] [place] [address], Critical access hospital Follow up in three days if not well. Call for an appointment. Reason for referral: evaluation. ADDITIONAL INFORMATIONHead Injury with Sleep Monitoring (Adult) 2 General Instructions [facility] Emergency Department [address] [place] [address] Phone #: ext- [phone] 11/23/2020 14:18 Patient: [...] Vision changes Memory loss 3 General Instructions [facility] Emergency Department [address] [place] [address] Phone #: ext- [phone] 11/23/2020 14:18 Patient: [...] may affect your care. 4 General Instructions [facility] Emergency Department [address] [place] [address] Phone #: ext- [phone] 11/23/2020 14:18 Patient: MORRIS ANTHONY Sex: M [...] around the eyes Lethargy or excessive sleepiness [id number] [employer] [place] [address]. All rights reserved. This information is not intended as asubstitute for professional medical care. Always follow your healthcare professional's instructions. You have been given the following additional information: Head Injury with Sleep Monitoring (Adult)(Electronically signed by Luis E Handy 11/23/2020 18:11) Name Value Range Interpretation Code Description Data Denise rce(s) Supporting Document(s) ID Date Data Source [id number] 11/23/2020 02:27:00 PM EDT [facility] 1 Clinical Report - Nurses [facility] Emergency Department [address] [place] [address] Phone #: ext- [phone] 11/23/2020 14:18 Patient: MORRIS ANTHONY Sex: M [...] only last a few seconds. last episode [id number]).Triage time: 14:24 11/23/2020. Acuity: LEVEL 3.Chief Complaint: (? seizures).14:25 11/23/20.Onset. (1 weeks ago). No fever, weakness, cough, difficulty breathing or skin rash. 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 SEPSIS SCREEN NEGATIVE. [...] Pantoja RN.PROBLEMS: 2 Clinical Report - Nurses [facility] Emergency Department [address] [place] [address] Phone #: ext- [phone] 11/23/2020 14:18 Patient: MORRIS ANTHONY Sex: M [...] on patient. --14:45 11/23/20 José Pantoja RN.PHYSICAL OOPRFNGDPZ26:44 11/23/20. Ambulatory to room.GENERAL / NEURO / PSYCH: Alert. Oriented X 4.HEENT: No facial asymmetry noted. Mucous membranes are pink. 3 Clinical Report - Nurses [facility] Emergency Department [address] [place] [address] Phone #: ext- [phone] 11/23/2020 14:18 Patient: MORRIS ANTHONY [facility] [id number] Sex: M : 1940 Age: 80y RESPIRATORY: Respirations not labored. Chest nontender. Breath sounds within normal limits. CVS: Capillary refill less than 2 seconds. Pulses within normal limits. GI / : Abdomen soft and nontender and normal bowel sounds. SKIN: Skin is warm and dry. --14:44 11/23/20 Jsoé Pantoja RN.NURSING PROGRESS NOTES14:45 11/23/20. Head of bed elevated 75 degrees. Two patient identifiers checked. Call light placed inreach. Bed placed in lowest position. Brakes of bed on. Patient ready for evaluation- ED physiciannotified. --14:45 11/23/20 José Pantoja RN 15:02 11/23/20. BP: 160/84. --15:02 11/23/20 [facility] Tech1 EKG time: (15:03 11/23/2020). EKG was performed by a nurse and shown to the ED physician. 1 degree av block. Checked patient name and birthdate. Blood samples drawn by tech. (1500). --15:10 11/23/20 José Pantoja RN Patient transported to CT by wheelchair with mask and technology trainer. (4535). --15:10 11/23/20 José Pantoja RN Patient returned from CT by wheelchair with mask and technology trainer. (1515). --15:16 11/23/20 José Pantoja RN 15:58 11/23/20. BP: 133/86. HR: 75. RR: 16. O2 saturation: 94%. --15:58 11/23/20 [facility] Tech1.DISPOSITION / DISCHARGE 15:58 11/23/20. BP: 133/86. [...] spouse verbalized understanding. Written instructions provided in Malagasy. The patient was discharged by the physician. He was discharged home and accompanied by spouse. He left ambulatory and via private vehicle. Spouse driving. --16:17 11/23/20 José Pantoja RN.Locked/Released at 11/23/2020 18:48 by José Pantoja RN 4 Clinical Report - Nurses [facility] Emergency Department [address] [place] [address] Phone #: ext- [phone] 11/23/2020 14:18 Patient: MORRIS VALDOVINOS Sex: M : 1940 Age: 80y Name Value Range Interpretation Code Description Data Denise rce(s) Supporting Document(s) ID Date Data Source [id number] 11/23/2020 02:27:00 PM EDT [facility] 1 Clinical Report - Physicians/Mid Levels [facility] Emergency Department [address] [place] [address] Phone #: ext- [phone] 11/23/2020 14:18 Patient: [...] Inhalation. 2 Clinical Report - Physicians/Mid Levels [facility] Emergency Department [address] [place] [address] Phone #: ext- [phone] 11/23/2020 14:18 Patient: MORRIS ANTHONY Sex: M [...] 2.0) 3 Clinical Report - Physicians/Mid Levels [facility] Emergency Department [address] [place] [address] Phone #: [phone]- [phone] 11/23/2020 14:18 Patient: MORRIS ANTHONY Sex: M [...] Male GFR Interprentation 20-49 yrs >60 mL/min Eejiir40-19 yrs >56 mL/min Normal 60-69 yrs >49 mL/min Normal 70-79yrs>42 mL/min Normal 80 and above >35 mL/min Normal Female GFRInterpretation 20-39 yrs >60 mL/min Normal 40-49 yrs >58 mL/minNormal 50-59 yrs >51 mL/min Normal 60-69 yrs >45 mL/min Ouefyr44-53 yrs >39 mL/min Normal 80 and above [...] MORPH NOT INDICATEDMagnesium: (MAURO: 11/23/2020 15:03) ( [facility] [place] [facility] 11/23[place] 15:28) Final results Test Result Flag Units (Reference) MAGNESIUM 2.1 MG/DL (1.7 - 2.2)CT Head W/O Cont: (MAURO: 11/23/2020 14:54) ( [facility] [place] 11/23/2020 16:01) In ProgressCT HEAD W/O CONTRASTReason(s): Head InjuryTRANSPORTATION: S IV? O2? Oxygen?(No) Room: ED 4 Clinical Report - Physicians/Mid Levels [facility] Emergency Department [address] [place] [address] Phone #: ext- [phone] 11/23/2020 14:18 [facility]: [id number] Sex: M : 1940 Age: 80y.PROGRESS AND [...] Follow-up with: Kelvin Sutton, , , [address] [place], [place], Critical access hospital Follow up in three days if not well. Call for an appointment. Reason for referral: evaluation. 5 Clinical Report - Physicians/Mid Levels [facility] Emergency Department [address] [place] [address] Phone #: ext- [phone] 11/23/2020 14:18 Patient: MORRIS [facility] [id number] Sex: M : 1940 Age: 80y(Electronically signed by Luis E Handy 11/23/2020 18:11) Name Value Range Interpretation Code Description Data Denise rce(s) Supporting Document(s) ID Date Data Source [id number] 11/23/2020 03:03:00 PM EDT [facility] ([facility] Name Value Range Interpretation Code Description Data Denise rce(s) Supporting Document(s) Magnesium [Mass/volume] in Serum or Plasma 2.1 mg/dL 1.7-2.2 [facility] ([facility] ID Date Data Source [id number] 11/23/2020 03:03:00 PM EDT [facility] ([facility] Creatinine 1.0 mg/dL 0.7-1.5 [facility] ([facility] BUN/Creat 19 8-27 [facility] ([facility] Total Protein 7.1 g/dL 6.3-8.2 [facility] ([facility] Globulin 2.8 GM/DL 2.4-3.2 [facility] ([facility] Albumin 4.3 g/dL 3.9-5.0 [facility] ([facility] A/G Ratio 1.5 0.8-2.0 [facility] ([facility] Calcium 9.5 mg/dL 8.4-10.2 [facility] ([facility] Total Bili Laboratory test result 0.2-1.3 [place] DENT ([facility] Alkaline Phos 146 U/L 38-126 Above high normal MEDE NT ([facility] Sgot/Ast 26 U/L 5-40 [facility] ([facility] SGPT/Alt 22 U/L 7-56 [facility] ([facility] Anion Gap 10.0 mmol/L 8.0-16.0 [facility] ([facility] Age 80 yrs [facility] ([facility] Non-Aa GFR Laboratory test result ME DENT ([facility] Afr Amer GFR Laboratory test result MEDENT ([facility] Male GFR Interprentation 20-49 yrs [...] >32 mL/min Normal ID Date Data Source [id number] 11/23/2020 03:03:00 PM EDT [facility] ([facility] Name Value Range Interpretation Code Description Data Denise rce(s) Supporting Document(s) WBC 7.3 10^3/uL 4.2-11.0 [facility] CBC W/Automated Diff Laboratory test result [facility] ([facility] COMPLETE BLOOD COUNT Hemoglobin 13.5 [...] [facility] Platelets 210 10^3/uL 150-450 [facility] ([facility] MPV 10.1 fL 7.4-10.4 [facility] ([facility] Lymph 13.7 % 25.0-40.0 Below low normal [facility] ( [facility] Neut 75.5 % 37.0-80.0 [facility] ([facility] [place] 7.9 % 3.0-8.0 [facility] ([facility] Eos 1.8 % 0.0-7.0 [facility] ([facility] Baso 0.7 % 0.0-2.0 [facility] ([facility] %Ig 0.4 % 0.0-0.0 Above high normal [facility] ([facility] %NRBC 0.0 % 0.0-0.0 [facility] ([facility] #Neut 5.53 10^3/uL 2.00-6.90 [facility] ([facility] #Lymph 1.00 10^3/uL 0.60-3.40 [facility] ([facility] #Eos 0.13 10^3/uL 0.00-0.70 [facility] ([facility] #Caddo 0.58 10^3/uL 0.00-0.90 [facility] ([facility] #Baso 0.05 10^3/uL 0.00-0.20 [facility] ([facility] #Ig 0.03 10^3/uL 0.00-0.10 [facility] ([facility] #NRBC 0.00 10^3/uL 0.00-0.00 [facility] ([facility] Manual Diff Laboratory test result M IVAN ([facility] RBC Morph Laboratory test result ME NOE ([facility] ID Date Data Source [id number] 11/23/2020 03:28:00 PM EDT [facility] Name Value Range Interpretation Code Description Data Denise rce(s) Supporting Document(s) Magnesium [Mass/volume] in Serum or Plasma 2.1 MG/DL 1.7 - 2.2 [facility] ID Date Data Source [id number] 11/23/2020 03:28:00 PM EDT [facility] Name Value Range Interpretation Code Description Data Denise rce(s) Supporting Document(s) COMPREHENSIVE METABOLIC PANEL [facility] COMPREHENSIVE METABOLIC PANEL Sodium [Moles/volume] in Serum or Plasma 141 mEq/L 134 - 153 [facility] Potassium [Moles/volume] in Serum or Plasma 3.7 mEq/L 3.6 - 5.0 [facility] Chloride [Moles/volume] in Serum or Plasma 102 mEq/L 98 - 107 [facility] Carbon dioxide, total [Moles/volume] in Serum or Plasma 29 MEQ/L 22 - 30 [facility] Glucose [Mass/volume] in Serum or Plasma 85 MG/DL 70 - 99 [facility] BUN 19 MG/DL 7 - 21 [facility] Creatinine [Mass/volume] in Serum or Plasma 1.0 MG/DL 0.7 - 1.5 [facility] BUN/CREAT 19 8 - 27 [facility] al Protein [Mass/volume] in Serum or Plasma 7.1 G/DL 6.3 - 8.2 [facility] Albumin [Mass/volume] in Serum or Plasma 4.3 G/DL 3.9 - 5.0 [facility] Globulin [Mass/volume] in Serum by calculation 2.8 GM/DL 2.4 - 3.2 [facility] A/G RATIO 1.5 0.8 - 2.0 [facility] Calcium [Mass/volume] in Serum or Plasma 9.5 MG/DL 8.4 - 10.2 [facility] Bilirubin.total [Mass/volume] in Serum or Plasma <0.7 MG/DL 0.2 - 1.3 [facility] Alkaline phosphatase [Enzymatic activity/volume] in Serum or Plasma 146 U/L 38 - 126 H [facility] Aspartate aminotransferase [Enzymatic activity/volume] in Serum or Plasma 26 U/L 5 - 40 [facility] Alanine aminotransferase [Enzymatic activity/volume] in Seru m or Plasma 22 U/L 7 - 56 [facility] Anion gap 3 in Serum or Plasma 10.0 mmol/L 8.0 - 16.0 [facility] AGE 80 yrs [facility] al NON-AA GFR >60 mL/min [facility] ital AFR AMER GFR >60 mL/min [facility] Ho spital Male GFR In terprentation [...] >32 mL/min Normal ID Date Data Source [id number] 11/23/2020 03:13:00 PM EDT [facility] Name Value Range Interpretation Code Description Data Denise rce(s) Supporting Document(s) CBC W/AUTOMATED DIFF [facility] COMPLETE BLOOD COUNT Leukocytes [#/volume] in Blood by Automated count 7.3 10^3/uL 4.2 - 1 1.0 [facility] Erythrocytes [#/volume] in Blood by Automated count 4.09 10^6/uL 4. 50 - 6.30 L [facility] Hemoglobin [Mass/volume] in Blood 13.5 g/dL 14.0 - 16.0 L [facility] Hematocrit [Volume Fraction] of Blood by Automated count 39.5 % 4 1.0 - 51.0 L [facility] Erythrocyte mean corpuscular volume [Entitic volume] by Auto mated count 96.6 fL 80.0 - 94.0 H [facility] Erythrocyte mean corpuscular hemoglobin [Entitic mass] by Automated count 33.0 pg 27.0 - 34.0 [facility] Erythrocyte mean corpuscular hemoglobin concentration [Mass/volume] by Automated count 34.2 g/dL 31.0 - 36.0 [facility] Erythrocyte distribution width [Ratio] by Automated count 13.1 % 11.5 - 14.8 [facility] Platelets [#/volume] in Blood by Automated count 210 10^3/uL 150 - 45 0 [facility] Platelet mean volume [Entitic volume] in Blood by Automated count 10.1 fL 7.4 - 10.4 [facility] Neutrophils/100 leukocytes in Blood by Automated count 75.5 % 37. 0 - 80.0 [facility] Lymphocytes/100 leukocytes in Blood by Manual count 13.7 % 25.0 - 40.0 L [facility] Monocytes/100 leukocytes in Blood by Automated count 7.9 % 3.0 - 8.0 [facility] Eosinophils/100 leukocytes in Blood by Automated count 1.8 % 0.0 - 7.0 [facility] Basophils/100 leukocytes in Blood by Automated count 0.7 % 0.0 - 2.0 [facility] %IG 0.4 % 0.0 - 0.[address] %NRBC 0.0 % 0.0 - 0.0 [facility] al Neutrophils [#/volume] in Blood by Automated count 5.53 10^3/uL 2.00 - 6.90 [facility] Lymphocytes [#/volume] in Blood by Automated count 1.00 10^3/uL 0.60 - 3.40 [facility] Monocytes [#/volume] in Blood by Automated count 0.58 10^3/uL 0.00 - 0.90 [facility] Eosinophils [#/volume] in Blood by Automated count 0.13 10^3/uL 0.00 - 0.70 [facility] Basophils [#/volume] in Blood by Automated count 0.05 10^3/uL 0.00 - 0.20 [facility] #IG 0.03 10^3/uL 0.00 - 0.10 [facility] ospital #NRBC 0.00 10^3/uL 0.00 - 0.00 [facility] ospital MANUAL DIFF NOT INDICATED [facility] RBC MORPH NOT INDICATED [facility] spital ID Date Data Source [id number] 11/16/2020 09:04:00 AM EDT [facility] ([facility] Name Value Range Interpretation Code Description Data Denise rce(s) Supporting Document(s) Appearance of Urine Laboratory test result [facility] ([facility] Color Urine Laboratory test result M EDENT ([facility] Specific [place] 1.025 1.00-1.03 [facility] ([facility] PH [...] [facility] ID Date Data Source [id number] 11/16/2020 09:03:00 AM EDT [facility] ([facility] Name Value Range Interpretation Code Description Data Denise rce(s) Supporting Document(s) Creatine kinase [Enzymatic activity/volume] in Serum or Plasma 271 U/L 39-308 HYACINTH ([facility] NORMAL RANGES Age WBC RBC [...] HCT IS 5% LESS SOURCE FOR DATA: [employer] 1800 OPERATION MANUAL( AUTOMATED BLOOD COUNTS AND [...] 2-19 YEARS EXCLUSIVE. ID Date Data Source [id number] 11/16/2020 09:03:00 AM FAINAT HYACINTH ([facility] [...] HCT IS 5% LESS SOURCE FOR DATA: [employer] 1800 OPERATION MANUAL( AUTOMATED BLOOD COUNTS AND [...] HCT IS 5% LESS SOURCE FOR DATA: [employer] 1800 OPERATION MANUAL( AUTOMATED BLOOD COUNTS AND [...] HCT IS 5% LESS SOURCE FOR DATA: [employer] 1800 OPERATION MANUAL( AUTOMATED BLOOD COUNTS [...] LDL_C 50 Calc 75-129 Below low normal [facility] ( [facility] NORMAL RANGES [...] HCT IS 5% LESS SOURCE FOR DATA: [employer] 1800 OPERATION MANUAL( AUTOMATED BLOOD COUNTS AND [...] 2-19 YEARS EXCLUSIVE. Cho/HDL Ratio 2.0 CALC [facility] ([facility] NORMAL RANGES Age WBC [...] HCT IS 5% LESS SOURCE FOR DATA: [employer] 1800 OPERATION MANUAL( AUTOMATED BLOOD COUNTS AND [...] 2-19 YEARS EXCLUSIVE. ID Date Data Source [id number] 11/16/2020 09:03:00 AM EDT MEDRUDDY ([facility] Name Value Range Interpretation Code Description Data Ednise rce(s) Supporting Document(s) Glu 109 mg/dL 70-110 [...] HCT IS 5% LESS SOURCE FOR DATA: [employer] 1800 OPERATION MANUAL( AUTOMATED BLOOD COUNTS AND [...] 27 mg/dL 8-23 Above high normal [facility] ([facility] NORMAL RANGES Age WBC [...] HCT IS 5% LESS SOURCE FOR DATA: [employer] 1800 OPERATION MANUAL( AUTOMATED BLOOD COUNTS [...] AGED 2-19 YEARS EXCLUSIVE. BUN/Creatinine Ratio 24.1 [facility] ([facility] NORMAL RANGES Age [...] HCT IS 5% LESS SOURCE FOR DATA: [employer] 1800 OPERATION MANUAL( AUTOMATED BLOOD COUNTS AND [...] 2-19 YEARS EXCLUSIVE. Creat 1.1 mg/dL 0.7-1.2 [facility] ([facility] NORMAL [...] HCT IS 5% LESS SOURCE FOR DATA: [employer] 1800 OPERATION MANUAL( AUTOMATED BLOOD COUNTS [...] HCT IS 5% LESS SOURCE FOR DATA: [employer] 1800 OPERATION MANUAL( AUTOMATED BLOOD COUNTS AND [...] 2-19 YEARS EXCLUSIVE. K 3.5 mmol/L 3.5-5.1 [facility] ([facility] NORMAL RANGES [...] HCT IS 5% LESS SOURCE FOR DATA: [employer] 1800 OPERATION MANUAL( AUTOMATED BLOOD COUNTS AND [...] 2-19 YEARS EXCLUSIVE. CL 100.2 mmol/L 98.0-107.0 [facility] ([facility] NORMAL RANGES Age WBC RBC HGB [...] HCT IS 5% LESS SOURCE FOR DATA: [employer] 1800 OPERATION MANUAL( AUTOMATED BLOOD COUNTS [...] HCT IS 5% LESS SOURCE FOR DATA: [employer] 1800 OPERATION MANUAL( AUTOMATED BLOOD COUNTS AND [...] 2-19 YEARS EXCLUSIVE. Co2 23.9 mmol/L 22.0-29.0 [facility] ([facility] NORMAL RANGES [...] HCT IS 5% LESS SOURCE FOR DATA: [employer] 1800 OPERATION MANUAL( AUTOMATED BLOOD COUNTS AND [...] HCT IS 5% LESS SOURCE FOR DATA: [employer] 1800 OPERATION MANUAL( AUTOMATED BLOOD COUNTS AND [...] HCT IS 5% LESS SOURCE FOR DATA: [employer] 1800 OPERATION MANUAL( AUTOMATED BLOOD COUNTS AND [...] HCT IS 5% LESS SOURCE FOR DATA: [employer] 1800 OPERATION MANUAL( AUTOMATED BLOOD COUNTS AND [...] HCT IS 5% LESS SOURCE FOR DATA: [employer] 1800 OPERATION MANUAL( AUTOMATED BLOOD COUNTS AND [...] YEARS EXCLUSIVE. Alt (SGPT) 22 U/L 0-41 [facility] ([facility] NORMAL RANGES [...] HCT IS 5% LESS SOURCE FOR DATA: [employer] 1800 OPERATION MANUAL( AUTOMATED BLOOD COUNTS [...] 2-19 YEARS EXCLUSIVE. Tbili 0.51 mg/dL 0.0-1.2 [facility] ([facility] NORMAL RANGES [...] HCT IS 5% LESS SOURCE FOR DATA: [employer] 1800 OPERATION MANUAL( AUTOMATED BLOOD COUNTS AND [...] HCT IS 5% LESS SOURCE FOR DATA: [employer] 1800 OPERATION MANUAL( AUTOMATED BLOOD COUNTS AND [...] HCT IS 5% LESS SOURCE FOR DATA: [employer] 1800 OPERATION MANUAL( AUTOMATED BLOOD COUNTS AND [...] 2-19 YEARS EXCLUSIVE. Anion Gap 20 mmol/L [facility] ([facility] NORMAL [...] HCT IS 5% LESS SOURCE FOR DATA: [employer] 1800 OPERATION MANUAL( AUTOMATED BLOOD COUNTS AND [...] YEARS EXCLUSIVE. eGFR 73 # [facility] ( [facility] NORMAL RANGES Age WBC RBC [...] HCT IS 5% LESS SOURCE FOR DATA: [employer] 1800 OPERATION MANUAL( AUTOMATED BLOOD COUNTS AND [...] INDIVIDUALA AGED 2-19 YEARS EXCLUSIVE. eGFR Non-Afr. Jamaican 63 # [facility] ([facility] [...] HCT IS 5% LESS SOURCE FOR DATA: [employer] 1800 OPERATION MANUAL( AUTOMATED BLOOD COUNTS AND [...] 2-19 YEARS EXCLUSIVE. ID Date Data Source [id number] 11/16/2020 09:03:00 AM EDT [facility] ([facility] Name Value Range [...] HCT IS 5% LESS SOURCE FOR DATA: [employer] 1800 OPERATION MANUAL( AUTOMATED BLOOD COUNTS AND [...] RBC 3.87 10E6/uL 4.20-6.30 Below low normal [facility] ([facility] NORMAL RANGES Age [...] HCT IS 5% LESS SOURCE FOR DATA: [employer] 1800 OPERATION MANUAL( AUTOMATED BLOOD COUNTS AND [...] 2-19 YEARS EXCLUSIVE. HCT 37.7 % 37.0-51.0 [facility] ([facility] NORMAL [...] HCT IS 5% LESS SOURCE FOR DATA: [employer] 1800 OPERATION MANUAL( AUTOMATED BLOOD COUNTS AND [...] HCT IS 5% LESS SOURCE FOR DATA: [employer] 1800 OPERATION MANUAL( AUTOMATED BLOOD COUNTS AND [...] MCV 97.4 fL 80.0-97.0 Above high normal [facility] ([facility] NORMAL RANGES Age [...] HCT IS 5% LESS SOURCE FOR DATA: [employer] 1800 OPERATION MANUAL( AUTOMATED BLOOD COUNTS AND [...] MCH 32.3 pg 26.0-32.0 Above high normal [facility] ([facility] NORMAL RANGES [...] HCT IS 5% LESS SOURCE FOR DATA: [employer] 1800 OPERATION MANUAL( AUTOMATED BLOOD COUNTS AND [...] HCT IS 5% LESS SOURCE FOR DATA: [employer] 1800 OPERATION MANUAL( AUTOMATED BLOOD COUNTS AND [...] 2-19 YEARS EXCLUSIVE. PLT 217 10E3/uL 140-440 [facility] ([facility] NORMAL RANGES [...] HCT IS 5% LESS SOURCE FOR DATA: [employer] 1800 OPERATION MANUAL( AUTOMATED BLOOD COUNTS [...] 2-19 YEARS EXCLUSIVE. RDW-CV 13.7 % 11.5-14.5 [facility] ([facility] NORMAL [...] HCT IS 5% LESS SOURCE FOR DATA: [employer] 1800 OPERATION MANUAL( AUTOMATED BLOOD COUNTS AND [...] HCT IS 5% LESS SOURCE FOR DATA: [employer] 1800 OPERATION MANUAL( AUTOMATED BLOOD COUNTS AND [...] 2-19 YEARS EXCLUSIVE. Neut% 72.3 % 37.0-92.0 [facility] ([facility] NORMAL [...] HCT IS 5% LESS SOURCE FOR DATA: [employer] 1800 OPERATION MANUAL( AUTOMATED BLOOD COUNTS AND [...] 2-19 YEARS EXCLUSIVE. MXD% 9.7 % 0.1-24.0 [facility] ([facility] NORMAL [...] HCT IS 5% LESS SOURCE FOR DATA: [employer] 1800 OPERATION MANUAL( AUTOMATED BLOOD COUNTS AND [...] EXCLUSIVE. Lym# 1.2 10E3/uL 0.6-4.1 [facility] ([facility] NORMAL RANGES Age WBC [...] HCT IS 5% LESS SOURCE FOR DATA: [employer] 1800 OPERATION MANUAL( AUTOMATED BLOOD COUNTS AND [...] 2-19 YEARS EXCLUSIVE. Neut# 4.7 % 2.0-7.8 [facility] ([facility] NORMAL [...] HCT IS 5% LESS SOURCE FOR DATA: [employer] 1800 OPERATION MANUAL( AUTOMATED BLOOD COUNTS AND [...] 2-19 YEARS EXCLUSIVE. MXD# 0.6 10E3/uL 0.0-1.8 [facility] ([facility] NORMAL RANGES [...] HCT IS 5% LESS SOURCE FOR DATA: [employer] 1800 OPERATION MANUAL( AUTOMATED BLOOD COUNTS AND [...] YEARS EXCLUSIVE. MPV 10.1 fL 9.0-13.0 HYACINTH ([facility] NORMAL RANGES [...] HCT IS 5% LESS SOURCE FOR DATA: [employer] 1800 OPERATION MANUAL( AUTOMATED BLOOD COUNTS AND [...] 2-19 YEARS EXCLUSIVE. ID Date Data Source [id number] 10/04/2020 03:08:00 PM EDT MED[facility] ([facility]) Name Value Range Interpretation Code Description Data Denise rce(s) Supporting Document(s) Color of Urine Laboratory test result MEDENT ([facility]) Appearance of Urine Laboratory test result MEDENT ([facility]) pH of Urine by Test strip 5 5-9 MEDE NT ([facility]) Spec [place] 1.015 1.001-1.030 [facility] ([facility]) Leukocytes Laboratory test result MEDENT ([facility]) Nitrate [Presence] in Urine Laboratory test result MEDENT ([facility]) Inhouse Glucose Laboratory test result MEDENT ([facility]) Protein [Presence] in Urine by Test strip Laboratory test result [facility] ([facility]) Urobilinogen Laboratory test result MED[facility] ([facility]) Ketones [Presence] in Urine by Test strip Laboratory test result MED[facility] ([facility]) Bilirubin.total [Presence] in Urine by Test strip Laboratory test res ult MEDENT ([facility]) Blood type and Indirect antibody screen panel - Blood Laboratory test result [facility] ([facility]) ID Date Data Source [id number] 08/02/2020 10:53:00 AM EDT [facility] ([facility] Name Value Range Interpretation Code Description Data Denise rce(s) Supporting Document(s) Color Urine Laboratory test result M EDENT ([facility] Appearance of Urine Laboratory test result [facility] ([facility] Specific [place] 1.025 1.00-1.03 [facility] ([facility] PH Urine 7.0 5.0-8.0 [facility] Glucose Urine Laboratory test result [facility] ([facility] Bilirubin.total [Presence] in Urine by Test strip Laboratory test res ult [facility] ([facility] Ketones Laboratory test result [facility] ([facility] Blood Urine Laboratory test result M EDENT ([facility] Urobilinogen 0.2 EU/dl 0.2-1.0 [facility] ([facility] Protein Urine Laboratory test result [facility] ([facility] Nitrite Laboratory test result [facility] ([facility] Leukocytes Laboratory test result ME DENT ([facility] ID Date Data Source [id number] 08/02/2020 08:51:00 AM EDT MEDENT ([facility] [...] HCT IS 5% LESS SOURCE FOR DATA: [employer] 1800 OPERATION MANUAL( AUTOMATED BLOOD COUNTS AND [...] 2-19 YEARS EXCLUSIVE. ID Date Data Source [id number] 08/02/2020 08:51:00 AM FAINAT HYACINTH ([facility] Name Value Range Interpretation Code Description Data Denise rce(s) Supporting Document(s) Chol 120 mg/dL 0-200 MEDRUDDY ([facility] NORMAL RANGES [...] HCT IS 5% LESS SOURCE FOR DATA: [employer] 1800 OPERATION MANUAL( AUTOMATED BLOOD COUNTS AND [...] 2-19 YEARS EXCLUSIVE. Trig 57 mg/dL 35-200 [facility] ([facility] NORMAL [...] HCT IS 5% LESS SOURCE FOR DATA: [employer] 1800 OPERATION MANUAL( AUTOMATED BLOOD COUNTS AND [...] HCT IS 5% LESS SOURCE FOR DATA: [employer] 1800 OPERATION MANUAL( AUTOMATED BLOOD COUNTS AND [...] HCT IS 5% LESS SOURCE FOR DATA: [employer] 1800 OPERATION MANUAL( AUTOMATED BLOOD COUNTS [...] 2-19 YEARS EXCLUSIVE. Cho/HDL Ratio 2.3 CALC [facility] ([facility] NORMAL RANGES Age WBC [...] HCT IS 5% LESS SOURCE FOR DATA: [employer] 1800 OPERATION MANUAL( AUTOMATED BLOOD COUNTS AND [...] 2-19 YEARS EXCLUSIVE. ID Date Data Source [id number] 08/02/2020 08:51:00 AM EDT [facility] ([facility] Name Value Range Interpretation Code Description Data Denise rce(s) Supporting Document(s) Glu 120 mg/dL 70-110 Above high normal [facility] ([facility] NORMAL RANGES Age WBC RBC [...] HCT IS 5% LESS SOURCE FOR DATA: [employer] 1800 OPERATION MANUAL( AUTOMATED BLOOD COUNTS AND [...] BUN 29 mg/dL 8-23 Above high normal [facility] ([facility] NORMAL RANGES Age [...] HCT IS 5% LESS SOURCE FOR DATA: [employer] 1800 OPERATION MANUAL( AUTOMATED BLOOD COUNTS AND [...] HCT IS 5% LESS SOURCE FOR DATA: [employer] 1800 OPERATION MANUAL( AUTOMATED BLOOD COUNTS [...] 2-19 YEARS EXCLUSIVE. BUN/Creatinine Ratio 24.8 CALC [facility] ([facility] NORMAL RANGES Age [...] HCT IS 5% LESS SOURCE FOR DATA: [employer] 1800 OPERATION MANUAL( AUTOMATED BLOOD COUNTS AND [...] 2-19 YEARS EXCLUSIVE. Na 138 mmol/L 136-145 [facility] ([facility] NORMAL [...] HCT IS 5% LESS SOURCE FOR DATA: [employer] 1800 OPERATION MANUAL( AUTOMATED BLOOD COUNTS AND [...] 2-19 YEARS EXCLUSIVE. CL 101.1 mmol/L 98.0-107.0 [facility] ([facility] NORMAL RANGES Age WBC [...] HCT IS 5% LESS SOURCE FOR DATA: [employer] 1800 OPERATION MANUAL( AUTOMATED BLOOD COUNTS AND [...] 2-19 YEARS EXCLUSIVE. K 3.8 mmol/L 3.5-5.1 [facility] ([facility] NORMAL RANGES Age WBC RBC [...] HCT IS 5% LESS SOURCE FOR DATA: [employer] 1800 OPERATION MANUAL( AUTOMATED BLOOD COUNTS AND [...] 2-19 YEARS EXCLUSIVE. Co2 25.3 mmol/L 22.0-29.0 [employer] ([facility] NORMAL RANGES Age [...] HCT IS 5% LESS SOURCE FOR DATA: [employer] 1800 OPERATION MANUAL( AUTOMATED BLOOD COUNTS AND [...] HCT IS 5% LESS SOURCE FOR DATA: [employer] 1800 OPERATION MANUAL( AUTOMATED BLOOD COUNTS AND [...] TP 6.3 g/dL 6.6-8.7 Below low normal [facility] ( [facility] NORMAL RANGES Age [...] HCT IS 5% LESS SOURCE FOR DATA: [employer] 1800 OPERATION MANUAL( AUTOMATED BLOOD COUNTS AND [...] HCT IS 5% LESS SOURCE FOR DATA: [employer] 1800 OPERATION MANUAL( AUTOMATED BLOOD COUNTS AND [...] HCT IS 5% LESS SOURCE FOR DATA: [employer] 1800 OPERATION MANUAL( AUTOMATED BLOOD COUNTS AND [...] 2-19 YEARS EXCLUSIVE. Alp 66.2 U/L 40-129 [facility] ([facility] NORMAL [...] HCT IS 5% LESS SOURCE FOR DATA: [employer] 1800 OPERATION MANUAL( AUTOMATED BLOOD COUNTS AND [...] YEARS EXCLUSIVE. Alt (SGPT) 25 U/L 0-41 [facility] NORMAL RANGES [...] HCT IS 5% LESS SOURCE FOR DATA: [employer] 1800 OPERATION MANUAL( AUTOMATED BLOOD COUNTS AND [...] EXCLUSIVE. Ast (Sgot) 27 U/L 0-40 [facility] ([facility] NORMAL RANGES [...] HCT IS 5% LESS SOURCE FOR DATA: [employer] 1800 OPERATION MANUAL( AUTOMATED BLOOD COUNTS [...] 2-19 YEARS EXCLUSIVE. Tbili 0.38 mg/dL 0.0-1.2 [facility] ([facility] NORMAL RANGES [...] HCT IS 5% LESS SOURCE FOR DATA: [employer] 1800 OPERATION MANUAL( AUTOMATED BLOOD COUNTS AND [...] HCT IS 5% LESS SOURCE FOR DATA: [employer] 1800 OPERATION MANUAL( AUTOMATED BLOOD COUNTS AND [...] HCT IS 5% LESS SOURCE FOR DATA: [employer] 1800 OPERATION MANUAL( AUTOMATED BLOOD COUNTS AND [...] INDIVIDUALA AGED 2-19 YEARS EXCLUSIVE. eGFR Non-Afr. Jamaican 57 # [facility] ([facility] CKD-EPI ID Date Data Source [id number] 08/02/2020 08:51:00 AM EDT [facility] ([facility] Name Value Range [...] HCT IS 5% LESS SOURCE FOR DATA: [employer] 1800 OPERATION MANUAL( AUTOMATED BLOOD COUNTS AND [...] 2-19 YEARS EXCLUSIVE. HGB 12.6 g/dL 12.0-18.0 [facility] ([facility] NORMAL RANGES [...] RBC 3.84 10E6/uL 4.20-6.30 Below low normal [facility] ([facility] NORMAL RANGES [...] HCT IS 5% LESS SOURCE FOR DATA: [employer] 1800 OPERATION MANUAL( AUTOMATED BLOOD COUNTS AND [...] HCT IS 5% LESS SOURCE FOR DATA: [employer] 1800 OPERATION MANUAL( AUTOMATED BLOOD COUNTS AND [...] MCV 98.4 fL 80.0-97.0 Above high normal [facility] ([facility] NORMAL RANGES [...] HCT IS 5% LESS SOURCE FOR DATA: [employer] 1800 OPERATION MANUAL( AUTOMATED BLOOD COUNTS [...] MCH 32.8 pg 26.0-32.0 Above high normal [facility] ([facility] NORMAL RANGES [...] HCT IS 5% LESS SOURCE FOR DATA: [employer] 1800 OPERATION MANUAL( AUTOMATED BLOOD COUNTS AND [...] HCT IS 5% LESS SOURCE FOR DATA: [employer] 1800 OPERATION MANUAL( AUTOMATED BLOOD COUNTS AND [...] 2-19 YEARS EXCLUSIVE. PLT 292 10E3/uL 140-440 [facility] ([facility] NORMAL RANGES [...] HCT IS 5% LESS SOURCE FOR DATA: [employer] 1800 OPERATION MANUAL( AUTOMATED BLOOD COUNTS AND [...] 2-19 YEARS EXCLUSIVE. RDW-CV 13.1 % 11.5-14.5 [facility] ([facility] NORMAL [...] HCT IS 5% LESS SOURCE FOR DATA: [employer] 1800 OPERATION MANUAL( AUTOMATED BLOOD COUNTS AND [...] 2-19 YEARS EXCLUSIVE. Lym% 19.3 % 10.0-58.5 [facility] ([facility] NORMAL [...] HCT IS 5% LESS SOURCE FOR DATA: [employer] 1800 OPERATION MANUAL( AUTOMATED BLOOD COUNTS AND [...] 2-19 YEARS EXCLUSIVE. Neut% 73.1 % 37.0-92.0 [facility] ([facility] NORMAL [...] HCT IS 5% LESS SOURCE FOR DATA: [employer] 1800 OPERATION MANUAL( AUTOMATED BLOOD COUNTS AND [...] HCT IS 5% LESS SOURCE FOR DATA: [employer] 1800 OPERATION MANUAL( AUTOMATED BLOOD COUNTS [...] YEARS EXCLUSIVE. Lym# 1.3 10E3/uL 0.6-4.1 [facility] ([facility] NORMAL RANGES Age [...] HCT IS 5% LESS SOURCE FOR DATA: [employer] 1800 OPERATION MANUAL( AUTOMATED BLOOD COUNTS AND [...] 2-19 YEARS EXCLUSIVE. Neut# 4.8 % 2.0-7.8 [facility] ([facility] NORMAL [...] HCT IS 5% LESS SOURCE FOR DATA: [employer] 1800 OPERATION MANUAL( AUTOMATED BLOOD COUNTS AND [...] HCT IS 5% LESS SOURCE FOR DATA: [employer] 1800 OPERATION MANUAL( AUTOMATED BLOOD COUNTS AND [...] 2-19 YEARS EXCLUSIVE. MPV 9.6 fL 9.0-13.0 [facility] NORMAL RANGES Age [...] HCT IS 5% LESS SOURCE FOR DATA: [employer] 1800 OPERATION MANUAL( AUTOMATED BLOOD COUNTS AND [...] 2-19 YEARS EXCLUSIVE. ID Date Data Source [id number] 05/04/2020 10:21:00 AM EST [facility] ([facility] Name Value Range Interpretation Code Description Data Denise rce(s) Supporting Document(s) Prostate specific Ag [Mass/volume] in Serum or Plasma 4.26 ng/mL 0.0-4.0 Above high normal [facility] ([facility] ) ID Date Data Source [id number] 05/04/2020 10:21:00 AM EST [facility] ([facility] [...] HCT IS 5% LESS SOURCE FOR DATA: [employer] 1800 OPERATION MANUAL( AUTOMATED BLOOD COUNTS AND [...] 2-19 YEARS EXCLUSIVE. Trig 54 mg/dL 35-200 [facility] NORMAL RANGES Age [...] HCT IS 5% LESS SOURCE FOR DATA: [employer] 1800 OPERATION MANUAL( AUTOMATED BLOOD COUNTS AND [...] HCT IS 5% LESS SOURCE FOR DATA: [employer] 1800 OPERATION MANUAL( AUTOMATED BLOOD COUNTS AND [...] HCT IS 5% LESS SOURCE FOR DATA: [employer] 1800 OPERATION MANUAL( AUTOMATED BLOOD COUNTS AND [...] 2-19 YEARS EXCLUSIVE. Cho/HDL Ratio 2.1 Calc [facility] ([facility] NORMAL RANGES Age WBC RBC HGB [...] HCT IS 5% LESS SOURCE FOR DATA: [employer] 1800 OPERATION MANUAL( AUTOMATED BLOOD COUNTS AND [...] 2-19 YEARS EXCLUSIVE. ID Date Data Source [id number] 05/04/2020 10:21:00 AM EST [facility] ([facility] Name Value Range [...] HCT IS 5% LESS SOURCE FOR DATA: [employer] 1800 OPERATION MANUAL( AUTOMATED BLOOD COUNTS AND [...] HCT IS 5% LESS SOURCE FOR DATA: [employer] 1800 OPERATION MANUAL( AUTOMATED BLOOD COUNTS AND [...] 2-19 YEARS EXCLUSIVE. Creat 1.1 mg/dL 0.7-1.2 [facility] ([facility] NORMAL [...] HCT IS 5% LESS SOURCE FOR DATA: [employer] 1800 OPERATION MANUAL( AUTOMATED BLOOD COUNTS AND [...] 2-19 YEARS EXCLUSIVE. BUN/Creatinine Ratio 26.1 CALC [facility] ([facility] NORMAL [...] HCT IS 5% LESS SOURCE FOR DATA: [employer] 1800 OPERATION MANUAL( AUTOMATED BLOOD COUNTS AND [...] 2-19 YEARS EXCLUSIVE. Na 136 mmol/L 136-145 [facility] ([facility] NORMAL [...] HCT IS 5% LESS SOURCE FOR DATA: [employer] 1800 OPERATION MANUAL( AUTOMATED BLOOD COUNTS [...] HCT IS 5% LESS SOURCE FOR DATA: [employer] 1800 OPERATION MANUAL( AUTOMATED BLOOD COUNTS AND [...] 2-19 YEARS EXCLUSIVE. Co2 25.7 mmol/L 22.0-29.0 [facility] ([facility] NORMAL RANGES [...] HCT IS 5% LESS SOURCE FOR DATA: [employer] 1800 OPERATION MANUAL( AUTOMATED BLOOD COUNTS [...] 2-19 YEARS EXCLUSIVE. CL 98.6 mmol/L 98.0-107.0 [facility] ([facility] NORMAL RANGES Age [...] HCT IS 5% LESS SOURCE FOR DATA: [employer] 1800 OPERATION MANUAL( AUTOMATED BLOOD COUNTS AND [...] 2-19 YEARS EXCLUSIVE. CA 8.8 mg/dL 8.6-10.2 [facility] ([facility] NORMAL [...] HCT IS 5% LESS SOURCE FOR DATA: [employer] 1800 OPERATION MANUAL( AUTOMATED BLOOD COUNTS AND [...] HCT IS 5% LESS SOURCE FOR DATA: [employer] 1800 OPERATION MANUAL( AUTOMATED BLOOD COUNTS AND [...] 2-19 YEARS EXCLUSIVE. Alb 4.5 g/dL 3.5-5.2 [facility] NORMAL RANGES Age [...] HCT IS 5% LESS SOURCE FOR DATA: [employer] 1800 OPERATION MANUAL( AUTOMATED BLOOD COUNTS AND [...] HCT IS 5% LESS SOURCE FOR DATA: [employer] 1800 OPERATION MANUAL( AUTOMATED BLOOD COUNTS AND [...] HCT IS 5% LESS SOURCE FOR DATA: [employer] 1800 OPERATION MANUAL( AUTOMATED BLOOD COUNTS AND [...] YEARS EXCLUSIVE. Alt (SGPT) 22 U/L 0-41 [facility] ([facility] NORMAL RANGES Age WBC RBC [...] HCT IS 5% LESS SOURCE FOR DATA: [employer] 1800 OPERATION MANUAL( AUTOMATED BLOOD COUNTS AND [...] HCT IS 5% LESS SOURCE FOR DATA: [employer] 1800 OPERATION MANUAL( AUTOMATED BLOOD COUNTS AND [...] HCT IS 5% LESS SOURCE FOR DATA: [employer] 1800 OPERATION MANUAL( AUTOMATED BLOOD COUNTS AND [...] 2-19 YEARS EXCLUSIVE. Tbili 0.69 mg/dL 0.0-1.2 [facility] ([facility] NORMAL RANGES Age WBC RBC [...] HCT IS 5% LESS SOURCE FOR DATA: [employer] 1800 OPERATION MANUAL( AUTOMATED BLOOD COUNTS AND [...] HCT IS 5% LESS SOURCE FOR DATA: [employer] 1800 OPERATION MANUAL( AUTOMATED BLOOD COUNTS AND [...] INDIVIDUALA AGED 2-19 YEARS EXCLUSIVE. eGFR Non-Afr. Jamaican 63 # [facility] ([facility] CKD-EPI eGFR 73 # [facility] ( [facility] CKD-EPI ID Date Data Source [id number] 05/04/2020 10:21:00 AM EST [facility] ([facility] Name Value Range [...] HCT IS 5% LESS SOURCE FOR DATA: [employer] 1800 OPERATION MANUAL( AUTOMATED BLOOD COUNTS AND [...] 2-19 YEARS EXCLUSIVE. ID Date Data Source [id number] 05/04/2020 10:21:00 AM EST [facility] ([facility] Name [...] HCT IS 5% LESS SOURCE FOR DATA: [employer] 1800 OPERATION MANUAL( AUTOMATED BLOOD COUNTS AND [...] 2-19 YEARS EXCLUSIVE. HGB 13.4 g/dL 12.0-18.0 [facility] ([facility] NORMAL [...] HCT IS 5% LESS SOURCE FOR DATA: [employer] 1800 OPERATION MANUAL( AUTOMATED BLOOD COUNTS [...] RBC 4.05 10E6/uL 4.20-6.30 Below low normal [facility] ([facility] NORMAL RANGES [...] HCT IS 5% LESS SOURCE FOR DATA: [employer] 1800 OPERATION MANUAL( AUTOMATED BLOOD COUNTS AND [...] 98.0 fL 80.0-97.0 Above high normal [facility] ([facility] NORMAL RANGES Age WBC RBC [...] HCT IS 5% LESS SOURCE FOR DATA: [employer] 1800 OPERATION MANUAL( AUTOMATED BLOOD COUNTS AND [...] 2-19 YEARS EXCLUSIVE. HCT 39.7 % 37.0-51.0 [facility] ([facility] NORMAL [...] HCT IS 5% LESS SOURCE FOR DATA: [employer] 1800 OPERATION MANUAL( AUTOMATED BLOOD COUNTS AND [...] HCT IS 5% LESS SOURCE FOR DATA: [employer] 1800 OPERATION MANUAL( AUTOMATED BLOOD COUNTS AND [...] MCH 33.1 pg 26.0-32.0 Above high normal [facility] ([facility] NORMAL RANGES Age [...] HCT IS 5% LESS SOURCE FOR DATA: [employer] 1800 OPERATION MANUAL( AUTOMATED BLOOD COUNTS AND [...] 2-19 YEARS EXCLUSIVE. PLT 156 10E3/uL 140-440 [facility] ([facility] NORMAL RANGES [...] HCT IS 5% LESS SOURCE FOR DATA: [employer] 1800 OPERATION MANUAL( AUTOMATED BLOOD COUNTS AND [...] HCT IS 5% LESS SOURCE FOR DATA: [employer] 1800 OPERATION MANUAL( AUTOMATED BLOOD COUNTS AND [...] YEARS EXCLUSIVE. RDW-CV 14.0 % 11.5-14.5 [facility] ([facility] NORMAL RANGES Age [...] HCT IS 5% LESS SOURCE FOR DATA: [employer] 1800 OPERATION MANUAL( AUTOMATED BLOOD COUNTS AND [...] 2-19 YEARS EXCLUSIVE. Neut% 73.1 % 37.0-92.0 [facility] ([facility] NORMAL [...] HCT IS 5% LESS SOURCE FOR DATA: [employer] 1800 OPERATION MANUAL( AUTOMATED BLOOD COUNTS AND [...] HCT IS 5% LESS SOURCE FOR DATA: [employer] 1800 OPERATION MANUAL( AUTOMATED BLOOD COUNTS AND [...] 2-19 YEARS EXCLUSIVE. Lym# 1.5 10E3/uL 0.6-4.1 [facility] ([facility] NORMAL RANGES [...] HCT IS 5% LESS SOURCE FOR DATA: [employer] 1800 OPERATION MANUAL( AUTOMATED BLOOD COUNTS AND [...] 2-19 YEARS EXCLUSIVE. Neut# 6.6 % 2.0-7.8 [facility] ([facility] NORMAL [...] HCT IS 5% LESS SOURCE FOR DATA: [employer] 1800 OPERATION MANUAL( AUTOMATED BLOOD COUNTS AND [...] HCT IS 5% LESS SOURCE FOR DATA: [employer] 1800 OPERATION MANUAL( AUTOMATED BLOOD COUNTS AND [...] 2-19 YEARS EXCLUSIVE. MXD# 1.0 10E3/uL 0.0-1.8 [facility] ([facility] NORMAL RANGES [...] 2-19 YEARS EXCLUSIVE. ID Date Data Source [id number] 01/19/2020 09:27:00 AM EDT [facility] ([facility] Name Value Range Interpretation Code Description Data Denise rce(s) Supporting Document(s) Hemoglobin A1c/Hemoglobin.total in Blood 6.0 % 4.8-5.6 Above high normal [facility] ([employer] [facility] <content>Prediabetes: 5.7 - 6.4</content >
<content>Diabetes: >6.4</content>
<content>Glycemic control for adults with diabetes: <7.0</content>
<content></content> ID Date Data Source [id number] 01/19/2020 09:26:00 AM EDT [facility] ([employer] [facility] Name Value Range Interpretation Code Description Data Denise rce(s) Supporting Document(s) Creatine kinase [Enzymatic activity/volume] in Serum or Plasma 3 79 U/L 39-308 Above high normal [facility] ([facility] ) NORMAL RANGES Age WBC [...] HCT IS 5% LESS SOURCE FOR DATA: [employer] 1800 OPERATION MANUAL( AUTOMATED BLOOD COUNTS AND [...] 2-19 YEARS EXCLUSIVE. ID Date Data Source [id number] 01/19/2020 09:26:00 AM EDT [facility] ([facility] Name Value Range [...] HCT IS 5% LESS SOURCE FOR DATA: [employer] 1800 OPERATION MANUAL( AUTOMATED BLOOD COUNTS AND [...] HCT IS 5% LESS SOURCE FOR DATA: [employer] 1800 OPERATION MANUAL( AUTOMATED BLOOD COUNTS AND [...] 2-19 YEARS EXCLUSIVE. Trig 56 mg/dL 35-200 [facility] ([facility] NORMAL RANGES Age [...] IS 5% LESS SOURCE FOR DATA: [employer] 1800 OPERATION MANUAL( AUTOMATED BLOOD COUNTS [...] 2-19 YEARS EXCLUSIVE. Cho/HDL Ratio 2.4 CALC [employer] ([facility] NORMAL RANGES Age WBC RBC HGB [...] HCT IS 5% LESS SOURCE FOR DATA: [employer] 1800 OPERATION MANUAL( AUTOMATED BLOOD COUNTS AND [...] HCT IS 5% LESS SOURCE FOR DATA: [employer] 1800 OPERATION MANUAL( AUTOMATED BLOOD COUNTS AND [...] 2-19 YEARS EXCLUSIVE. ID Date Data Source [id number] 01/19/2020 09:26:00 AM EDT [facility] ([facility] [...] HCT IS 5% LESS SOURCE FOR DATA: [employer] 1800 OPERATION MANUAL( AUTOMATED BLOOD COUNTS AND [...] Na 139 mmol/L 136-145 [facility] ([facility] NORMAL RANGES Age WBC [...] HCT IS 5% LESS SOURCE FOR DATA: [employer] 1800 OPERATION MANUAL( AUTOMATED BLOOD COUNTS AND [...] 2-19 YEARS EXCLUSIVE. Creat 1.0 mg/dL 0.7-1.2 [facility] ([facility] NORMAL [...] HCT IS 5% LESS SOURCE FOR DATA: [employer] 1800 OPERATION MANUAL( AUTOMATED BLOOD COUNTS AND [...] 2-19 YEARS EXCLUSIVE. BUN/Creatinine Ratio 26.4 CALC [facility] ([facility] NORMAL [...] HCT IS 5% LESS SOURCE FOR DATA: [employer] 1800 OPERATION MANUAL( AUTOMATED BLOOD COUNTS AND [...] HCT IS 5% LESS SOURCE FOR DATA: [employer] 1800 OPERATION MANUAL( AUTOMATED BLOOD COUNTS AND [...] 2-19 YEARS EXCLUSIVE. K 3.7 mmol/L 3.5-5.1 [facility] ([facility] NORMAL RANGES [...] HCT IS 5% LESS SOURCE FOR DATA: [employer] 1800 OPERATION MANUAL( AUTOMATED BLOOD COUNTS [...] HCT IS 5% LESS SOURCE FOR DATA: [employer] 1800 OPERATION MANUAL( AUTOMATED BLOOD COUNTS AND [...] TP 6.1 g/dL 6.6-8.7 Below low normal [facility] ( [facility] NORMAL RANGES Age [...] HCT IS 5% LESS SOURCE FOR DATA: [employer] 1800 OPERATION MANUAL( AUTOMATED BLOOD COUNTS AND [...] 2-19 YEARS EXCLUSIVE. Co2 28.0 mmol/L 22.0-29.0 [employer] ([facility] NORMAL RANGES Age [...] HCT IS 5% LESS SOURCE FOR DATA: [employer] 1800 OPERATION MANUAL( AUTOMATED BLOOD COUNTS AND [...] HCT IS 5% LESS SOURCE FOR DATA: [employer] 1800 OPERATION MANUAL( AUTOMATED BLOOD COUNTS AND [...] 2-19 YEARS EXCLUSIVE. Alb 4.3 g/dL 3.5-5.2 [facility] ([facility] NORMAL RANGES Age [...] HCT IS 5% LESS SOURCE FOR DATA: [employer] 1800 OPERATION MANUAL( AUTOMATED BLOOD COUNTS AND [...] 2-19 YEARS EXCLUSIVE. Alp 67.4 U/L 40-129 [facility] ([facility] NORMAL [...] HCT IS 5% LESS SOURCE FOR DATA: [employer] 1800 OPERATION MANUAL( AUTOMATED BLOOD COUNTS AND [...] HCT IS 5% LESS SOURCE FOR DATA: [employer] 1800 OPERATION MANUAL( AUTOMATED BLOOD COUNTS AND [...] 2-19 YEARS EXCLUSIVE. Tbili 0.72 mg/dL 0.0-1.2 [facility] ([facility] NORMAL RANGES Age WBC RBC [...] HCT IS 5% LESS SOURCE FOR DATA: [employer] 1800 OPERATION MANUAL( AUTOMATED BLOOD COUNTS AND [...] YEARS EXCLUSIVE. Ast (Sgot) 29 U/L 0-40 [facility] ([facility] NORMAL [...] HCT IS 5% LESS SOURCE FOR DATA: [employer] 1800 OPERATION MANUAL( AUTOMATED BLOOD COUNTS AND [...] HCT IS 5% LESS SOURCE FOR DATA: [employer] 1800 OPERATION MANUAL( AUTOMATED BLOOD COUNTS AND [...] 2-19 YEARS EXCLUSIVE. Anion Gap 13 mmol/L [facility] ([facility] NORMAL [...] HCT IS 5% LESS SOURCE FOR DATA: [employer] 1800 OPERATION MANUAL( AUTOMATED BLOOD COUNTS AND [...] INDIVIDUALA AGED 2-19 YEARS EXCLUSIVE. eGFR Non-Afr. Jamaican 71 # [facility] ([facility] CKD-EPI eGFR 83 # [facility] ( [facility] CKD-EPI ID Date Data Source [id number] 01/19/2020 09:26:00 AM EDT [facility] ([facility] Name Value Range Interpretation Code Description Data Denise rce(s) Supporting Document(s) WBC 7.7 10E3/uL 4.1-10.9 [facility] ([facility] NORMAL RANGES Age WBC [...] HCT IS 5% LESS SOURCE FOR DATA: [employer] 1800 OPERATION MANUAL( AUTOMATED BLOOD COUNTS AND [...] 2-19 YEARS EXCLUSIVE. HGB 13.3 g/dL 12.0-18.0 [facility] ([facility] NORMAL [...] HCT IS 5% LESS SOURCE FOR DATA: [employer] 1800 OPERATION MANUAL( AUTOMATED BLOOD COUNTS AND [...] HCT IS 5% LESS SOURCE FOR DATA: [employer] 1800 OPERATION MANUAL( AUTOMATED BLOOD COUNTS AND [...] MCH 33.3 pg 26.0-32.0 Above high normal [facility] ([facility] NORMAL RANGES Age [...] HCT IS 5% LESS SOURCE FOR DATA: [employer] 1800 OPERATION MANUAL( AUTOMATED BLOOD COUNTS AND [...] HCT IS 5% LESS SOURCE FOR DATA: [employer] 1800 OPERATION MANUAL( AUTOMATED BLOOD COUNTS AND [...] HCT IS 5% LESS SOURCE FOR DATA: [employer] 1800 OPERATION MANUAL( AUTOMATED BLOOD COUNTS AND [...] 2-19 YEARS EXCLUSIVE. MCHC 33.7 g/dL 31.0-36.0 [facility] ([facility] NORMAL [...] HCT IS 5% LESS SOURCE FOR DATA: [employer] 1800 OPERATION MANUAL( AUTOMATED BLOOD COUNTS AND [...] HCT IS 5% LESS SOURCE FOR DATA: [employer] 1800 OPERATION MANUAL( AUTOMATED BLOOD COUNTS AND [...] 2-19 YEARS EXCLUSIVE. RDW-CV 13.4 % 11.5-14.5 [facility] ([facility] NORMAL [...] HCT IS 5% LESS SOURCE FOR DATA: [employer] 1800 OPERATION MANUAL( AUTOMATED BLOOD COUNTS AND [...] HCT IS 5% LESS SOURCE FOR DATA: [employer] 1800 OPERATION MANUAL( AUTOMATED BLOOD COUNTS AND [...] 2-19 YEARS EXCLUSIVE. MXD% 9.8 % 0.1-24.0 [facility] NORMAL RANGES Age [...] HCT IS 5% LESS SOURCE FOR DATA: [employer] 1800 OPERATION MANUAL( AUTOMATED BLOOD COUNTS AND [...] 2-19 YEARS EXCLUSIVE. Lym# 1.1 10E3/uL 0.6-4.1 [facility] ([facility] NORMAL RANGES Age WBC RBC HGB [...] HCT IS 5% LESS SOURCE FOR DATA: [employer] 1800 OPERATION MANUAL( AUTOMATED BLOOD COUNTS AND [...] 2-19 YEARS EXCLUSIVE. Neut# 5.8 % 2.0-7.8 [facility] ([facility] NORMAL [...] HCT IS 5% LESS SOURCE FOR DATA: [employer] 1800 OPERATION MANUAL( AUTOMATED BLOOD COUNTS AND [...] 2-19 YEARS EXCLUSIVE. MPV 10.6 fL 9.0-13.0 [facility] ([facility] NORMAL [...] HCT IS 5% LESS SOURCE FOR DATA: [employer] 1800 OPERATION MANUAL( AUTOMATED BLOOD COUNTS AND [...] 2-19 YEARS EXCLUSIVE. MXD# 0.8 10E3/uL 0.0-1.8 [facility] ([facility] NORMAL RANGES [...] HCT IS 5% LESS SOURCE FOR DATA: [employer] 1800 OPERATION MANUAL( AUTOMATED BLOOD COUNTS [...] Never Smoker completed Never S mariahker eCW1 ([facility]) Alcohol intake 02/27/2021 12:00:00 AM EDT Current drinker of al cohol (finding) completed Current drinker of alcohol (finding) [facility] Tobacco use and exposure 02/27/2021 12:00:00 AM EDT Never used co mpleted Never used [facility] Smoking 02/27/2021 12:00:00 AM EDT Former smoker completed Former smoker [facility] Smoking 10/25/2020 12:00:00 AM EDT Quit completed Quit [facility] ([facility]) Smoking 08/10/2020 12:00:00 AM EDT Patient is a former smoker completed Patient is a former smoker [facility] ([facility] Vital Signs ID Date Data Source UNK Name Value Range Interpretation Code Description Data Source(s) Body temperature 97.6 [degF] 97.6 [degF] eCW1 ( [facility]) Systolic blood pressure 130 mm[Hg] 130 mm[Hg] e CW1 ([facility]) Diastolic blood pressure 60 mm[Hg] 60 mm[Hg] eCW1 ([facility]) Body weight 185 [lb_av] 185 [lb_av] eCW1 ([facility]) Body height 70 [in_i] 70 [in_i] eCW1 ([facility]) Body mass index (BMI) [Ratio] 26.54 kg/m2 26.54 kg/m2 eCW1 ([facility]) Heart rate 77 /min 77 /min eCW1 ([facility]) Respiratory rate 18 /min 18 /min eCW1 ([facility]) Systolic blood pressure 140 mm[Hg] 140 mm[Hg] [facility] Diastolic blood pressure 76 mm[Hg] 76 mm[Hg] [facility] Heart rate 68 /min 68 /min [facility] Body weight 83.462 kg 83.462 kg [facility] Oxygen saturation in Arterial blood by Pulse oximetry 96 % 96 % [facility] Body weight 182.8 [lb_av] 182.8 [lb_av] eCW1 ([facility]) Body weight 82.92 kg 82.92 kg eCW1 ([facility]) Body height 70 [in_i] 70 [in_i] eCW1 ([facility]) Body mass index (BMI) [Ratio] 26.23 kg/m2 26.23 kg/m2 eCW1 ([facility]) Heart rate 80 /min 80 /min eCW1 ([facility]) Respiratory rate 18 /min 18 /min eCW1 ([facility]) Body temperature 97.6 [degF] 97.6 [degF] eCW1 ( [facility]) Systolic blood pressure 144 mm[Hg] 144 mm[Hg] e CW1 ([facility]) Diastolic blood pressure 82 mm[Hg] 82 mm[Hg] eCW1 ([facility]) Body weight 181.00 [lb_av] 181.00 [lb_av] MEDEN T ([facility] [place] body weight 166 [lb_av] 166 [lb_av] MEDEN [...] height 70 [in_i] 70 [in_i] MEDENT ([facility] 5'10" Systolic blood pressure 142 mm[Hg] 142 mm[Hg] M EDENT ([facility], ) Diastolic blood pressure 72 mm[Hg] 72 mm[Hg] MEDENT ([facility], ) Body height 69 [in_i] 69 [in_i] MEDENT ([facility], ) 5'9" Body weight 187.00 [lb_av] 187.00 [lb_av] MEDEN T ([facility]) Body mass index (BMI) [Ratio] 27.6 kg/m2 27.6 k g/m2 [facility] ([facility]) [place] body weight 160 [lb_av] 160 [lb_av] MEDEN T ([facility]) Body weight 84.823 kg 84.823 kg [facility] ([facility]) Body surface area Derived from formula 2.01 m2 2.01 m2 [facility] ([facility]) Body height 69 [in_i] 69 [in_i] [facility] ([facility]) 5'9" Body weight 187.00 [lb_av] 187.00 [lb_av] MEDEN T ([facility]) Body mass index (BMI) [Ratio] 27.6 kg/m2 27.6 k g/m2 [facility] ([facility]) [place] body weight 160 [lb_av] 160 [lb_av] MEDEN T ([facility]) Body weight 84.823 kg 84.823 kg [facility] ([facility]) Body surface area Derived from formula 2.01 m2 2.01 m2 [facility] ([facility]) Heart rate 66 /min 66 /min [facility] ([facility]) Systolic blood pressure 133 mm[Hg] 133 mm[Hg] [facility] Diastolic blood pressure 80 mm[Hg] 80 mm[Hg] [facility] ([facility]) Oxygen saturation in Arterial blood by Pulse oximetry 94 % 94 % [facility] ([facility]) Body weight 183.00 [lb_av] 183.00 [lb_av] MEDEN T ([facility]) Body weight 83.009 kg 83.009 [facility] Systolic blood pressure 133 mm[Hg] 133 mm[Hg] M EDENT ([facility]) Oxygen saturation in Arterial blood by Pulse oximetry 95 % 95 % [facility] Body weight 183.00 [lb_av] 183.00 [lb_av] MEDEN T ([facility]) Body weight 83.009 kg 83.009 kg MEDENT ([facility]) Diastolic blood pressure 75 mm[Hg] 75 mm[Hg] MEDENT ([facility]) Heart rate 80 /min 80 /min MEDENT ([facility]) Body height 69 [in_i] 69 [in_i] MEDENT ([facility]) 5'9" Body mass index (BMI) [Ratio] 27.0 kg/m2 27.0 k g/m2 MEDENT ([facility]) Body surface area Derived from formula 1.99 m2 1.99 m2 MEDENT ([facility]) Systolic blood pressure 116 mm[Hg] 116 mm[Hg] M EDENT ([facility] Diastolic blood pressure 66 mm[Hg] 66 mm[Hg] MEDENT ([facility] Body temperature 98.1 [degF] 98.1 [degF] MEDENT ([facility] Body height 70 [in_i] 70 [in_i] MEDENT ([facility] 5'10" Body weight 187.00 [lb_av] 187.00 [lb_av] MEDEN T ([facility] [place] body weight 166 [lb_av] 166 [lb_av] MEDEN [...] mm[Hg] M EDENT ([facility] [place] body weight 166 [lb_av] 166 [lb_av] MEDEN [...] height 70 [in_i] 70 [in_i] MEDENT ([facility] 5'10" Body weight 192.00 [lb_av] 192.00 [lb_av] MEDEN T ([facility] Body mass index (BMI) [Ratio] 27.5 kg/m2 27.5 k g/m2 MEDENT ([facility] Body weight 193.00 [lb_av] 193.00 [lb_av] MEDEN T ([facility] [place] body weight 166 [lb_av] 166 [lb_av] MEDEN [...] height 70 [in_i] 70 [in_i] MEDENT ([facility] 5'10" [place] body weight 166 [lb_av] 166 [lb_av] MEDEN T ([facility] Body mass index (BMI) [Ratio] 27.8 kg/m2 27.8 k g/m2 MEDENT ([facility] Oxygen saturation in Arterial blood by Pulse oximetry 97 % 97 % MEDRUDDY ([facility] Systolic blood pressure 146 mm[Hg] 146 mm[Hg] M EDENT ([facility] Diastolic blood pressure 70 mm[Hg] 70 mm[Hg] MEDENT ([facility] Body temperature 98.2 [degF] 98.2 [degF] MEDENT ([facility] Heart rate 84 /min 84 /min MEDENT ([facility] Respiratory rate 16 /min 16 /min MEDRUDDY ( [facility] Body height 70 [in_i] 70 [in_i] MEDENT ([facility] 5'10" Body weight 194.00 [lb_av] 194.00 [lb_av] MEDEN T ([facility] Patient Treatment Plan of Care Planned Activity Planned Date Details Description Data Source (s) Levetiracetam 500 MG Oral Tablet 02/22/2021 12:00:00 AM EDT [facility] atorvastatin 10 MG Oral Tablet 02/21/2021 12:00:00 AM EDT [facility] Ramipril 2.5 MG Oral Capsule 01/23/2021 12:00:00 AM EDT [facility] Chlorthalidone 25 MG Oral Tablet 01/23/2021 12:00:00 AM EDT [facility] 60 ACTUAT Fluticasone propionate 0.25 MG /ACTUAT / salmeterol 0.05 MG/ACTUAT Dry Powder Inhaler [Advair] 01/08/2021 12:00:00 AM EDT [facility] 24 HR mirabegron 50 MG Extended Release Oral Tablet [M yrbetriq] 12/27/2020 12:00:00 AM EDT [facility] 24 HR mirabegron 25 MG Extended Release Oral Tablet [M yrbetriq] 12/19/2020 12:00:00 AM EDT [facility] Tamsulosin hydrochloride 0.4 MG Oral Capsule 11/24/2020 12:00:00 AM EDT [facility]
[2021-03-14] MEDS ORDERED: ACETAMINOPHEN TAB 650MG DOSE (2X325MG) PO PRN (11:50)
[2021-03-14] MEDS: NS 1,000 ML IV SCH ×2 (11:55→23:30)
[2021-03-14] MEDS ORDERED: ALBUTEROL 90 MCG/ACT 8GM HFA INHALER INH PRN ×2 (12:10→18:20)
[2021-03-14 12:22] LABS: CK-MB VALUE MASS 5.6 NG/ML (<3.6); CPK CREATINE PHOSPHOKINASE 229 U/L (39-308); MB/CK RELATIVE INDEX 2.45 (< OR =4); TROPONIN I < 0.02 NG/ML (< 0.10)
[2021-03-14 14:16] LABS: FREE T4 1.21 NG/DL (0.76-1.46)
[2021-03-14 14:18] LABS: TOTAL T3 84.2 NG/DL (60.0-181.0)
[2021-03-14 14:21] LABS: RSV AMPLIFICATION NEGATIVE (NEGATIVE)
[2021-03-14] MEDS ORDERED: ONDANSETRON 4MG/2ML VIAL As Ordered ONE (15:16)
[2021-03-14] MEDS ORDERED: LIDOCAINE 2% 100MG/5ML SDV (FOR ANES.) As Ordered ONE (15:16)
[2021-03-14] MEDS ORDERED: fentaNYL 100 MCG/2 ML INJECTION (J3010) As Ordered ONE (15:16)
[2021-03-14] MEDS ORDERED: propofoL 200 MG/20 ML VIAL As Ordered ONE (15:16)
[2021-03-14] MEDS ORDERED: MIDAZOLAM INJ 2MG/2ML VIAL (J2250 PER 1MG) As Ordered ONE (15:16)
[2021-03-14] MEDS ORDERED: LIDOCAINE 1% SDV 30ML VIAL As Ordered ONE (15:56)
[2021-03-14] MEDS ORDERED: AMIODARONE 150MG/3ML INJ (J0282) As Ordered ONE (15:56)
[2021-03-14] MEDS ORDERED: ISOVUE-300 61% 50ML VIAL As Ordered ONE (15:56)
--- NOTE | 2021-03-14 16:52 | HPEPDOC ---
[facility] Medical History & Physical Date of Admission Mar 14, 2021 Date of Service: Mar 14, 2021 Attending Physician: SUNITA HUERTAS MD History and Physical CHIEF COMPLAINT: Concerns of slow heart rate, in the 50's and below HISTORY OF PRESENT ILLNESS: Charlie Falcon is an 80 year old man who presented to the ED with concern over his slow heart rate. He has a history of recurrent syncope so measured his HR and brought himself in. His most recent syncopal episode was two days \\prior where he fell and hit the side of his face against a table. His noted urinary incontinence and frothing at the mouth during this recent episode and a duration of 15- 30 seconds. Patient denies any proceeding symptoms before his syncopal episodes other than "knowing it was coming". In ED patient was found to have 2:1 heart block. Patient denies headache, SOB, chest pain, abdominal pain, changes in stool. Patient did note post-nasal drip due to seasonal allergies causing an intermittent cough. PAST MEDICAL HISTORY: 1. Asthma 2. HTN 3. Hyperlipidemia 4. Recurrent syncope 5. Overactive bladder 6. BPH PAST SURGICAL HISTORY: 1. Hammer toe correction 2. Described some sort of upper tooth extraction many years ago SOCIAL HISTORY: Employment: Works at [employer] Tobacco use:Pipe smoker 2-+ years ago ETOH: 1 glass of wine w/ dinner Illicit drug use: Denies use FAMILY HISTORY: Father: Father age 82, had HTN Mother: age 90, patient mentioned she had cardiomegaly at time of Siblings: Younger sister with arthritis ALLERGIES: Please see below. REVIEW OF SYSTEMS: 10 point review of systems was negative aside from pertinent positives in HPI HOME MEDICATIONS: Please see below. PHYSICAL EXAMINATION: VITAL SIGNS: Temperature , pulse , respiratory rate , blood pressure , pulse oximetry % on room air. GENERAL APPEARANCE: Patient appeared comfortable and relaxed, no acute distress or agitation. HEENT: Ecchymoses of the left face due to his recent syncopal episode where he fell. PERRLA. CARDIOVASCULAR: Regular rate and rhythm, no murmurs heard. Patient was paced at time of PE. LUNGS: Mild wheezing likely due to asthma. Denies SOB. ABDOMEN: Normoactive bowel sounds, no pain or guarding. MUSCULOSKELETAL: 5/5 muscle strength bilaterally. NEUROLOGICAL: CN 2-12 intact, sensation in limbs unaffected. LABORATORY DATA: See below. IMAGING: - Head CT: "FINDINGS: Atrophy with periventricular leukomalacia and microvascular ischemic changes are appreciated. The ventricles and sulci are symmetric. Erwin-white differentiation is maintained. There is no evidence for acute intracranial hemorrhage, mass/mass effect, pathology or infarction. No extra-axial fluid collection. Calvarium is intact. Paranasal sinuses and mastoid air cells are clear. IMPRESSION: Atrophy and microvascular ischemic changes. No acute intracranial hemorrhage, infarction, or mass/mass effect." - Chest CT: "FINDINGS: The mediastinum and cardiac silhouette are stable and within normal limits for portable technique. The lung villarreal are clear without acute consolidation, effusion, or pneumothorax. Skeletal structures are intact. IMPRESSION: No acute cardiopulmonary process appreciated." - C-Spine CT: "FINDINGS: Advanced multilevel degenerative changes include endplate sclerosis, disc space narrowing, osteophytosis and facet arthropathy. Alignment and lordosis maintained. No obvious acute fracture/compression injury or subluxation. Paravertebral soft tissues are within normal limits. IMPRESSION: Advanced multilevel degenerative spondylosis. No acute fracture/compression injury or subluxation appreciated." MICROBIOLOGY: Please see below. ASSESSMENT: Charlie Falcon is an 80 year old male with a pmhx of recurrent syncopal episodes and cc of bradycardia found to have first degree \\AV block and concerning for either orthostatic or cardiogenic syncope. . PLAN: #. Syncope - likely 2/2 symptomatic bradycardia - 2/2 heart block (2:1) - EKG reviewed - pacer pads placed upon admission to ED - Will check thyroid function / lyme disease serology - Cardiology has been consulted and will be implanting a pacemaker - Cardiology was consulted, we appreciate their assistance in patient care - Will keep patient NPO at this time #. Asthma - Albuterol prescribed prn - Continue salmeterol/fluticasone #. Facial ecchymoses - likely 2/2 recent fall - CT imaging negative for further injury other than bruising - Pain management with NSAIDS PRN #. Hypertension - BP currently well controlled - Will hold chlorthalidone - c/w ramipril #. Hyperlipidemia - Continue Atorvastatin 10mg tav PO #. Overactive bladder - Continue Mirabegron 50mg PO daily #. BPH - Continue Tamsulosin Hcl 0.4 mg PO daily DVT prophylaxis - c/w TEDs/Sequentials for now - Will start Heparin SQ post surgery Vital Signs Vital Signs Date Time Temp Pulse Resp B/P (MAP) Pulse Ox O2 Delivery O2 Flow Rate FiO2 03/14/21 14:45 76 144/79 (100) 03/14/21 12:32 93 03/14/21 09:48 97.6 16 Room Air Laboratory Data Labs 24H Laboratory Tests 2 03/14/21 10:52: Nucleated Red Blood Cells % (auto) 0.0, Prothrombin Time 14.1H, Prothromb Time International Ratio 1.05, Anion Gap 5L, Glomerular Filtration Rate > 60.0, Calcium Level 8.6L, Total Bilirubin 0.7, Aspartate Amino Transf (AST/SGOT) 18, Alanine Aminotransferase (ALT/SGPT) 27, Alkaline Phosphatase 62, Total Creatine Kinase 229, Creatine Kinase MB 5.6H, Creatine Kinase MB Relative Index 2.45, Troponin I < 0.02, Total Protein 5.8L, Albumin 3.2, Albumin/Globulin Ratio 1.2, Thyroid Stimulating Hormone (TSH) 1.410, Free Thyroxine 1.21, Total Triiodothyronine 84.2 03/14/21 13:15: Coronavirus (COVID-19)(PCR) NEGATIVE, Influenza Type A (RT-PCR) NEGATIVE, Influenza Type B (RT-PCR) NEGATIVE, Respiratory Syncytial Virus (PCR) NEGATIVE CBC/BMP Laboratory Tests 03/14/21 10:52 Home Medications Scheduled Aspirin (Ecotrin) 81 Mg Tablet.dr, 81 MG PO DAILY M,W,F Atorvastatin Calcium (Atorvastatin Calcium) 10 Mg Tab, 10 MG PO QHS Chlorthalidone (Chlorthalidone) 25 Mg Tablet, 25 MG PO QHS Cholecalciferol (Vitamin D3) (Vitamin D3) 1,000 Unit Tablet, 2,000 UNITS PO DAILY Cyanocobalamin (Vitamin B-12) (Vitamin B-12) 500 Mcg Tab, 500 MCG PO DAILY Flaxseed Oil (Flaxseed Oil) 1,000 Mg Capsule, 1 CAP PO DAILY Levetiracetam (Keppra) 500 Mg Tablet, 500 MG PO BID Mirabegron (Myrbetriq) 50 Mg Tab.er.24h, 50 MG PO DAILY Multivit-Min/FA/Lycopen/Lutein (Centrum Silver Men Tablet) 1 Each Tablet, 1 EACH PO DAILY Ramipril (Ramipril) 2.5 Mg Capsule, 2.5 MG PO QHS Salmeterol/Fluticasone (Advair 250-50 Diskus) 14 Puff/Inhaler Aerp, 1 PUFF INH DAILY Tamsulosin Hcl (Tamsulosin HCl) 0.4 Mg Capsule, 0.4 MG PO DAILY Vits A,C,E/Lutein/Minerals (Ocuvite with Lutein Tablet) 1 Tab Tab, 1 TAB PO DAILY Allergies Coded Allergies: Penicillins (Verified Allergy, Mild, RASH, 02/20/21) A-FIB/CHADSVASC A-FIB History Current/History of A-Fib/PAF?: No GME ATTESTATION GME ATTESTATION My faculty preceptor for this patient encounter was physically present during the encounter and was fully available. All aspects of the patient interview, examination, medical decision making process, and medical care plan development were reviewed and approved by the faculty preceptor. The faculty preceptor is aware and concurs with the plan as stated in the body of this note and will attest to such by his/her cosignature. ATTENDING NOTE I, Sunita Huertas, have independently examined this patient and performed my own physical exam, as well as reviewed the documentation and edited where necessary with the resident. For medical students we have performed the physical exam together and discussed medical decision making and I have verified the history. I have discussed in detail with the resident / student the findings and plan of treatment as documented by the resident / student and edited their note. I agree with their findings and treatment plan and have edited their documentation. I will continue to follow the patient during this hospital stay. SHENA CASSIDY S-3 Mar 14, 2021 16:52 SUNITA HUERTAS MD Mar 14, 2021 17:34
[2021-03-14] MEDS ORDERED: ceFAZolin 2 GM/D5W 50 ML IV BAG (J0690 PER 500MG) As Ordered ONE ×2 (17:09→17:10)
[2021-03-14] MEDS ORDERED: ACETAMINOPHEN 1000MG 100ML IV BTL (OFIRMEV) (J0131 PER 10MG) As Ordered ONE (17:33)
[2021-03-14] MEDS ORDERED: THROMBIN SOLN 5,000 UNITS VIAL As Ordered ONE (17:56)
[2021-03-14] MEDS ORDERED: traMADol 50 MG TAB PO PRN (18:35)
--- NOTE | 2021-03-14 18:43 | REP ---
INDICATION: Post pacer implant COMPARISON: 03/14/2021 TECHNIQUE: Portable AP view of the chest FINDINGS: The mediastinum and cardiac silhouette are stable and within normal limits for portable technique. Recently placed pacemaker noted. The lung villarreal are clear without acute consolidation, effusion, or pneumothorax. Skeletal structures are intact. IMPRESSION: No acute cardiopulmonary process appreciated. New pacemaker. <Electronically signed by Guero Mays > 03/14/21 0122
[2021-03-14] MEDS ORDERED: LR 1,000 ML IV SCH (18:55)
[2021-03-14] MEDS ORDERED: ONDANSETRON 4MG/2ML VIAL IV PRN (18:55)
[2021-03-14] MEDS ORDERED: oxyCODONE 5MG TAB PO PRN (18:55)
[2021-03-14] MEDS ORDERED: fentaNYL 100 MCG/2 ML INJECTION (J3010) IV PRN (18:55)
[2021-03-14] MEDS: ADVAIR HFA 230/21MCG INHALER INH SCH (20:00)
[2021-03-14] MEDS ORDERED: ASPI-161 PO (20:32)
[2021-03-14] MEDS ORDERED: OCUVTAB4 PO (20:32)
[2021-03-14] MEDS ORDERED: KEPP1TAB PO (20:32)
[2021-03-14] MEDS ORDERED: HOME MED LIST COMPLETE! XX SCH (20:35)
[2021-03-14] MEDS ORDERED: TAMSULOSIN 0.4 MG CAP PO SCH (21:00)
[2021-03-14] MEDS ORDERED: ATORVASTATIN 20 MG TAB PO SCH (21:00)
--- NOTE | 2021-03-14 22:17 | CR ---
CARDIOLOGY CONSULTATION DATE: 03/14/2021 REFERRING PHYSICIAN: Dr. Charleen Gonzalez, Emergency Room Physician CONSULTING PHYSICIAN: Yariel Lowry M.D. INDICATION: Recurrent syncope/bradyarrhythmia. 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 For the past few months, he has experienced intermittent episodes of dizziness and has suffered three episodes of syncope, the first in October 2020 occurred at work and he collapsed, sustaining blunt head trauma. The episode was fleeting but was associated with mild incontinence. No apparent seizure activity. He was transported to the hospital and monitored without specific etiology being determined. Two subsequent episodes were also fleeting, all occurring with him in a standing or sitting position. An episode two weeks ago, he sustained a laceration to the left side of his face. The last episode was two days ago. So today he had been feeling the same sensation and presented to the Emergency Room. While on telemetry and on EKG intermittent high grade AV block was observed with heart rate of 40 BPM. In light of that, the patient was referred to our pacemaker service for consideration of a dual chamber pacemaker implant. OTHER CARDINAL CARDIAC SYMPTOMS: Reports having had a treadmill study performed in the remote past as part of a health evaluation with his occupation prior to beginning an exercise program. No abnormality was determined. He is unaware of an abnormal EKG. He does not have a problem with heartburn, reflux, dysphagia, or GI bleeding. He is followed by Dr. Mcginnis, Gastroenterology for colonic polyps and had several small polyps removed only three weeks ago. He was exposed to second hand smoke growing up and did smoke briefly, cigarettes but smoked a pipe for many years, stopping in 2005. He has a prior history of asthma and is receiving Advair inhaler twice daily. He rarely uses a rescue inhaler. He currently does not have a cough. No history of hemoptysis or pneumonia. Customarily does not feel restricted by dyspnea. He sleeps well with no orthopnea. Nocturia times one is chronic. He does have a history of prostatism, on Flomax. Unaware of prior rheumatic fever or heart murmur. History of hypertension since his 70's with home blood pressure readings 130/70. Unaware of cardiomegaly. No significant weight problem (weighed 130 pounds at age 18; max weight 218 pounds 5 years ago; currently 180 pounds). Seldom has fleeting awareness of his heart action. No associated symptoms. No documented rhythm disturbance. No family history of premature coronary heart disease or sudden . No congenital deafness. He drinks 3-4 cups of caffeinated coffee daily and will drink two glasses of wine. Nonsmoker at this time. No history of thyroid dysfunction. He does admit to using Afrin Nasal [place] for chronic sinusitis for many years. Near syncope and syncope as mentioned above. No history of lateralizing neurological deficits, flank pain or blue toe syndrome. No history of claudication but occasional nocturnal leg cramps. No history of varicose veins or phlebitis but has noticed some ankle swelling. CORONARY RISK FACTORS: male gender, advanced age, hypertension, hypercholesterolemia treated with Atorvastatin more than 10 years. No glucose intolerance or diabetes. Glycosylated hemoglobin measuring 5.7-6. Prior smoking history but no family history of premature coronary artery disease. OTHER PAST MEDICAL HISTORY: 1. Colonic polyps and colonic polypectomy. 2. Left foot hammertoe surgery. 3. Ten years ago underwent total upper jaw teeth extraction. 4. Prostatism with urgency, receiving combination Flomax and Myrbetriq. SYSTEMS REVIEW: He does not usually have a problem with headaches, has corrective lenses. Cataracts do not need intervention at this time. No hearing problems. Regular bowel habit. Denies any orthopedic problems. Prior history of Penicillin allergy. All other systems review is negative. MEDICATIONS: 1. Chlorthalidone 25 mg daily. 2. Ramipril 2.5 mg daily. 3. Atorvastatin 10 mg daily. 4. Aspirin 81 mg three times a week. 5. Tamsulosin 0.4 mg q. h.s. 6. Myrbetriq ER 50 mg daily. 7. Multivitamins. PHYSICAL EXAMINATION: GENERAL APPEARANCE: A pleasant elderly male lying with the head of the bed elevated 30 degrees. VITAL SIGNS: Heart rate currently 76 beats per minute and regular. Blood pressure 169/70, respiratory rate 16, O2 saturation 96% on supplemental oxygen by nasal prongs. Afebrile. Weight 186 pounds, height 69 inches, BMI 27.5. EYES: Normal conjunctivae and lids. No xanthelasma. ENT/MOUTH: Currently wearing a mask because of our COVID pandemic. NECK: Trachea midline, thyroid not enlarged. Jugular veins were not elevated. RESPIRATORY: Normal chest configuration and chest expansion with good air entry over both lung villarreal no abnormal adventitious sounds. CARDIOVASCULAR: Apical impulse at the midclavicular line fifth intercostal space. Soft S1, normal intensity of S2, with persistent S2 splitting. No audible gallop with soft systolic ejection murmur along the left sternal border and right base but not radiating to the neck or the apex. No diastolic murmur or rub. Normal carotid upstrokes and volume with no bruits. Upper and lower extremity pulses were symmetrical and normal. Abdominal aorta was not palpable. No bruits. EXTREMITIES: He has pitting edema one third up both lower legs. No obvious varicose veins. No clubbing, peripheral cyanosis or splinter hemorrhages. GI: Soft, nontender abdomen with no hepatosplenomegaly. Normoactive bowel sounds. Rectal examination not indication. MUSCULOSKELETAL: No obvious joint deformities. He was not assessed at this time but his muscular strength and tone appear to be normal. SKIN: No rashes, hematic lesions, pallor or icterus. Well healing laceration left side of his face. NEURO/PSYCH: Bright, alert and orientated and gave a lucid history. Eye, facial and extremity movements were symmetrical and normal. Normal spine curvature. No abnormal movements or tremors. INVESTIGATIONS: Portable upright chest x-ray reviewed independently showed heart size upper limits of normal for this technique. Thoracic aorta was normal. Normal appearing pulmonary trunk. Slight degree of pulmonary vascular congestion. Accentuated interstitial markings but no localized infiltrate, curly B lines or pleural effusion. Skeletal structures appear to be normal. EKG: Underlying sinus rhythm at 80 BPM with 2/1 AV conduction. Right bundle branch block. Prominent right precordial R waves. Could not rule out prior posterior wall infarction or right ventricular hypertrophy. Tracing from February 20, 2021 showed sinus rhythm with a first degree AV block and right bundle branch block, and the right bundle branch block was new from July 02, 2018. BLOOD WORK: Hemoglobin 11.5 with normal blood cell indices. Normal white blood cell count and platelet count. Normal PT/INR. Electrolytes were normal with BUN 22, creatinine 1.2. Glomerular filtration rate greater than 60, random glucose 120. Normal liver function studies. Total CPK 229 with troponin-I less than 0.02. Recent pro BNP level was normal at 102. Liver function studies were normal. Ultra sensitive TSH was 1.4. ECHOCARDIOGRAM: Performed February 21, 2021 showed again a sinus rhythm with first degree AV block and right bundle branch block. Normal left ventricular size, wall thickness and hyperkinetic wall motion port. Borderline left atrial enlargement with grade one LV diastolic dysfunction but currently normal estimated mean left atrial pressure. Normal right heart chamber sizes and wall motion and estimated polyarterial pressure. Normal IVC size and collapse against an elevated central venous pressure. Normal aortic dimensions. Mild aortic valvular sclerosis and mild degenerative changes of the mitral valvular apparatus with no more than trace mitral insufficiency. Normal appearing tricuspid valve. No apparent endocardiac mass or pericardial effusion. IMPRESSION/PLAN: 1. Recurrent syncope: Undoubtedly as we have been able to observe in the Emergency Room, this has been related to intermittent high grade AV block. Had been given a trial of Keppra anticonvulsant therapy which of course has not remedied his problem. 2. Intermittent AV block: his EKG shows evidence of conduction disturbance, likely degenerative with previously documented first degree AV block and right bundle branch block, and now intermittent high grade AV block associated with his syncope. There does not appear to be any clear cut reversible element to his conduction disturbance. We have recommended implantation of permanent dual chamber pacemaker. The indication, procedure and potential risks were discussed with the patient who appears to understand and agree. We will proceed as soon as we can with permanent dual chamber pacemaker implant under monitored local anesthesia. 3. Abnormal EKG: despite prominent right precordial R waves, his recent echocardiogram does not show any localized posterior wall motion abnormalities to suggest prior infarct, and his right ventricle and pulmonary arterial pressures are well within normal limits. No sign of right ventricular hypertrophy. He certainly does have multiple coronary risk factors and may benefit from an objective assessment of his coronary prognosis at a later date. 4. Essential hypertension: Apparently a longstanding problem effectively managed with home blood pressure readings considered well within normal range. His EKG does not show a left atrial conduction disturbance, left axis and his recent echocardiogram shows normal left ventricular size, well thickness and systolic function. He has borderline left atrial enlargement and grade one LV diastolic function may simply a manifestation of his age, but his hypertension may be contributing as well. We have discussed the above impressions and plans with the patient, who appears to understand and agree. Further testing and management will depend on his response to pacemaker implant. Dr. Klevin Sutton, Family Physician [facility]
[2021-03-14 22:28] VITALS: BP 131/62
[2021-03-14] MEDS: ramipriL 5 MG CAP PO SCH (23:16)
[2021-03-14] MEDS: DOCUSATE SODIUM 100MG CAPSULE PO SCH (23:31)
[2021-03-14] MEDS: levETIRAcetam 250MG TABLET (KEPPRA) PO SCH (23:33)
[2021-03-15] VITALS: BP 126/60
[2021-03-15 00:49] LABS: CK-MB VALUE MASS 3.7 NG/ML (<3.6); MB/CK RELATIVE INDEX 2.15 (< OR =4)
[2021-03-15 01:23] LABS: TROPONIN I 0.1 NG/ML (< 0.10)
[2021-03-15] MEDS: ceFAZolin SOD 1 GM in D5W MINI-BAG PLUS 50 ML IV SCH ×3 (03:28→17:16)
[2021-03-15 04:00] VITALS: BP 120/65
--- NOTE | 2021-03-15 06:57 | RO ---
OPERATIVE NOTE DATE OF OPERATION: 03/14/2021 PREOPERATIVE DIAGNOSES: 1. Recurrent syncope. 2. Intermittent high-grade atrioventricular (AV) block. 3. Abnormal EKG - right bundle branch block. POSTOPERATIVE DIAGNOSES: 1. Recurrent syncope. 2. Intermittent high-grade atrioventricular (AV) block. 3. Abnormal EKG - right bundle branch block. TITLE OF PROCEDURE: Implantation of permanent dual-chamber pacemaker. IMPLANTING RESISTANCE BRAZER/SURGEON: Yariel Lowry MD ANESTHESIOLOGIST: Aaron Berry MD TYPE OF ANESTHESIA: Monitored local anesthesia. DESCRIPTION OF PROCEDURE: With the patient in the fasting state, having signed informed consent and having received Ancef 2 grams IV premedication, the patient was taken to the operating theatre. Numerous skin electrodes were applied to facilitate continuous echocardiographic monitoring. Self-adhesive cardioverting/defibrillating pads had been previously placed and were connected to a bedside cardioverter defibrillator/noninvasive pacing system. The left subclavian region was prepped and draped in the usual fashion and the skin was infiltrated with 1% Xylocaine. The left axillary vein was catheterized using the micropuncture technique. A 5-cm linear incision was made several centimeters below and parallel to the left clavicle. Dissection was carried down to the level of the pectoralis fascia and a pocket was fashioned below the level of the incision line. Two bipolar screw-in active fixation steroid-eluting pacing leads were then positioned to the high right atrial appendage and right ventricular outflow tract under fluoroscopic and electrocardiographic control. The ventricular lead ([employer], model number [id number], serial number [id number]) measurements were focal and stimulation threshold 05 V/0.4 ms/impedance 694 ohms. The R wave amplitude measured 13.2 mV. The right atrial lead ([employer], model number [id number], serial number [id number]) measurements were focal and stimulation threshold 0.6 V/0.4 ms/impedance 635 ohms. The P wave amplitude measured 3.0 mV. These leads were secured in position with sleeves sutured at their insertion site. They were then connected to a new dual-chamber pulse generator ([employer], MRI compatible, model number [id number], serial number [id number]) and appropriate DDD pacing was documented. The device was then placed in the pocket and secured in position with a suture through the upper right-hand corner of the epoxy header. The subcutaneous tissues were approximated using a running chromic suture and the skin was closed using mesha. A dry dressing was applied and the patient was returned to the recovery room in good condition. No apparent complications. Estimated blood loss: 5 ml. Postoperative portable upright chest x-ray showed good lead position with no pneumothorax. His EKG postoperatively showed normal sinus rhythm with atrial sensing and tracking with consistent ventricular pacing showing a normal axis and left bundle branch block pattern in keeping with (right ventricular) RV outflow tract stimulation. The patient will be monitored overnight on telemetry and will receive an additional three doses of Ancef 1 gram IV every 8 hours. I anticipate his discharge tomorrow afternoon.
[2021-03-15 07:03] LABS: ALBUMIN 2.9 GM/DL (3.2-5.2); ALT/SGPT 23 U/L (12-78); BILIRUBIN,TOTAL 0.7 MG/DL (0.2-1.0); BLOOD UREA NITROGEN 16 MG/DL (7-18); CARBON DIOXIDE LEVEL 27 MEQ/L (21-32); CHLORIDE LEVEL 111 MEQ/L (98-107); GLOMERULAR FILTRATION RATE > 60.0 (>35); GLUCOSE, FASTING 89 MG/DL (70-100); POTASSIUM SERUM 4.1 MEQ/L (3.5-5.1); SODIUM LEVEL 143 MEQ/L (136-145); TOTAL PROTEIN 5.7 GM/DL (6.4-8.2)
[2021-03-15] MEDS: ADVAIR HFA 230/21MCG INHALER INH SCH (07:20)
[2021-03-15 08:00] VITALS: BP 154/73
[2021-03-15 08:24] LABS: CK-MB VALUE MASS 2.5 NG/ML (<3.6); MB/CK RELATIVE INDEX 1.72 (< OR =4); TROPONIN I 0.06 NG/ML (< 0.10)
--- NOTE | 2021-03-15 08:25 | IPNPDOC ---
Text Note Date of Service Charlie Falcon is a pleasant 80 year old male with a pmhx of recurrent syncope who was admitted with a cc of bradycardia and was found to have 1st degree AV block, intermittent high grade AV block and RBB on EKG. Cardiology was consulted and spoke with the patient regarding the risks for pacemaker implantation and that was put in. Today the patient says he feels better and that he's no longer dizzy, as opposed to presentation yesterday. Patient denies nausea, constipation, abdominal pain, headache, dysuria, SOB, and chest pain. ROS: A 10 point review of systems was negative aside from pertinent positives in HPI. Objective: - HEENT: Mucous membranes moist, laceration and ecchymoses of the left face appears to be healing well - Cardiac: Regular rate and rhythm, no murmurs or palpitations. - Pulmonary: CTA, no rales, rhonchi, or wheezing. - Abdominal: No pain on palpation, no distention. Normal bowel sounds in all 4 quadrants. Assessment/Plan Charlie Falcon is an 80 year old male with a history of recurrent syncope and first degree AV heart block with a right bundle branch block. #. Recurrent Syncope - Found to have 1st degree AV block and RBB as well as intermittent high grade AV block - Cardiology notes this as the reason for his syncopal episodes - Pacemaker implanted - Follow up with Neurology outpatient to r/o seizures, continue on Keppra at home #. Asthma - Albuterol prescribed prn - Continue salmeterol/fluticasone #. Facial ecchymoses - likely 2/2 recent fall - CT imaging negative for further injury other than bruising - Pain management with NSAIDS PRN #. Hypertension - BP currently well controlled - Will hold chlorthalidone - c/w ramipril #. Hyperlipidemia - Continue Atorvastatin 10mg tav PO #. Overactive bladder - Continue Mirabegron 50mg PO daily #. BPH - Continue Tamsulosin Hcl 0.4 mg PO daily DVT prophylaxis - c/w TEDs/Sequentials for now - Heparin started SQ post surgery The patient was seen on 03/15/21. VS,Fishbone, I+O VS, Fishbone, I+O Laboratory Tests 03/14/21 10:52 03/15/21 06:20 Vital Signs Date Time Temp Pulse Resp B/P (MAP) Pulse Ox O2 Delivery O2 Flow Rate FiO2 03/15/21 04:05 2.0 03/15/21 04:00 97.2 69 17 120/65 (83) 94 Room Air I&O- Last 24 Hours up to 6 AM 03/15/21 06:00 Intake Total 1620 ml Output Total 530 ml Balance 1090 ml GME ATTESTATION GME ATTESTATION My faculty preceptor for this patient encounter was physically present during the encounter and was fully available. All aspects of the patient interview, examination, medical decision making process, and medical care plan development were reviewed and approved by the faculty preceptor. The faculty preceptor is aware and concurs with the plan as stated in the body of this note and will attest to such by his/her cosignature. SHENA CASSIDY OMS-3 Mar 15, 2021 08:25
--- NOTE | 2021-03-15 08:36 | ECGEPIP ---
[facility] Test Date: 2021-03-14 Pat Name: MORRIS ANTHONY Department: Room: [place] [address] Gender: Male General Contractor: CANDIDO : 1940 Requested By: Yariel Lowry Order Number: [id number] Reading MD: Yariel Lowry Measurements Intervals [place] Rate: 71 P: 104 UT: 170 QRS: 201 QRSD: 176 T: 113 QT: 478 QTc: 519 Interpretive Statements normal sinus rhythm Dual-chamber pacemaker with atrial sensing and tracking and consistent ventricular pacing Paced QRS complexes with rightward axis and LEFT BUNDLE BRANCH BLOCK configuration in keeping with RV outflow tract stimulation Pacemaker new from earlier the same day Electronically Signed on 03-15-2021 8:36:00 EST by Yariel Lowry
--- NOTE | 2021-03-15 08:45 | ECGEPIP ---
[facility] Test Date: 2021-03-15 Pat Name: MORRIS ANTHONY Department: Room: [place] [address] Gender: Male [employer] Coordinator: RAYMON : 1940 Requested By: Yariel Lowry Order Number: [id number] Reading MD: Yariel Lowry Measurements Intervals [place] Rate: 79 P: 70 [place]: 204 QRS: 40 QRSD: 138 T: 55 QT: 424 QTc: 486 Interpretive Statements dual-chamber pacemaker with appropriate atrial sensing and tracking and consistent ventricular pacing Paced QRS complexes with normal axis and LEFT BUNDLE BRANCH BLOCK configuration in keeping with right ventricular outflow tract stimulation. Current tracing shows correct arm lead connection Electronically Signed on 03-15-2021 8:45:00 EST by Yariel Lowry
[2021-03-15] MEDS: levETIRAcetam 250MG TABLET (KEPPRA) PO SCH (08:59)
[2021-03-15 09:00] VITALS: BP 154/73
[2021-03-15] MEDS: DOCUSATE SODIUM 100MG CAPSULE PO SCH (09:00)
[2021-03-15] MEDS ORDERED: TAMSULOSIN 0.4 MG CAP PO SCH (09:00)
[2021-03-15] MEDS ORDERED: CYANOCOBALAMIN 500 MCG TAB PO SCH (09:00)
[2021-03-15] MEDS ORDERED: VITAMIN D 1,000 INTERNATIONAL UNITS TABLET PO SCH (09:00)
[2021-03-15] MEDS: ramipriL 5 MG CAP PO SCH (09:00)
[2021-03-15] MEDS ORDERED: OCUVITE 1 TAB PO SCH (09:00)
[2021-03-15] MEDS ORDERED: CHLO125TA PO ×2 (09:27→09:30)
[2021-03-15] MEDS ORDERED: ACET1TAB55 PO (09:27)
[2021-03-15] MEDS ORDERED: VENTAER INH (09:27)
[2021-03-15] MEDS ORDERED: ATOR1TAB21 PO (09:27)
--- NOTE | 2021-03-15 09:28 | REP ---
INDICATION: Post pacemaker implant COMPARISON: 03/14/2021 TECHNIQUE: PA and lateral. FINDINGS: Pacemaker in stable position. Mediastinum and cardiac silhouette stable. No cardiomegaly. Lung villarreal demonstrate chronic stable changes. No acute consolidation, effusion, or pneumothorax. Skeletal structures intact. IMPRESSION: No acute cardiopulmonary process. <Electronically signed by Guero Mays > 03/15/21 [id number]
[2021-03-15] MEDS ORDERED: COLA100C5 PO (09:30)
[2021-03-15 16:00] VITALS: BP 137/70
--- NOTE | 2021-03-15 16:28 | DS.PDOC ---
Discharge Summary General Date of Admission Mar 14, 2021 at 11:32 Date of Discharge 03/15/2021 Attending Physician: SUNITA SAUCEDA MD Discharge Summary PROCEDURES PERFORMED DURING STAY: Implantation of permanent dual-chamber pacemaker on 03/14/2021 ADMITTING DIAGNOSES: 1. Syncope likely 2/2 symptomatic heart block 2. Asthma 3. Facial ecchymoses - likely 2/2 recent fall 4. Hypertension 5. Hyperlipidemia 6. Overactive bladder 7. BPH DISCHARGE DIAGNOSES: 1. Recurrent Syncope 2. Facial ecchymoses - likely 2/2 recent fall 3. Hypertension 4. Hyperlipidemia 5. Overactive bladder 6. BPH 7. Intermittent high-grade atrioventricular block 8. Right bundle branch block on EKG COMPLICATIONS/CHIEF COMPLAINT: Low heart rate, recent syncope HISTORY OF PRESENT ILLNESS: is a very pleasant 80 year old male with recurrent syncope presented to [facility] for concerns of slow heart rate in the 50s and syncope event 2 days prior to ER arrival. With the syncope episode, witnessed by , the patient fell and hit left side of his face. He lost consciousness for a few seconds and regained consciousness spontaneously. Patient denies any prodrome including chest pain, palpitation, other than "knowing it was coming" He denied seizure activities, urinary/bowel incontinence, or post-ictal state associated with the most syncope episode. HOSPITAL COURSE:Patient was found to have 1st degree AV block and RBB as well as intermittent high grade AV block. Cardiac pacer was placed on patient. Economic Development Director Dr. Lowry was consulted, and a permanent dual-chamber pacemaker was placed. In ED patient was found to have 2:1 heart block. Patient denies headache, SOB, chest pain, abdominal pain, changes in stool. Patient did note post-nasal drip due to seasonal allergies causing an intermittent cough. DISCHARGE MEDICATIONS: Please see below. ALLERGIES: Please see below. PHYSICAL EXAMINATION ON DISCHARGE: VITAL SIGNS: Please see below. GENERAL: Alert and awake, not in acute distress HEENT: Head normocephalic, no conjunctiva injection. NECK: Supple CARDIOVASCULAR EXAMINATION: Regular rate and rhythm RESPIRATORY EXAMINATION: Mild wheezing auscultated bilaterally. No crackles upon auscultation or labored breathing. ABDOMINAL EXAMINATION: Soft, abdominal sound auscultated in all 4 quadrants. No guarding or distention. EXTREMITIES: Spontaneous movement in all 4 extremities SKIN: Ecchymosis on left face. Minimal amount of blood oozing/dried blood on left face under dressing. Left anterior chest wall dressing present NEUROLOGICAL EXAMINATION: A&OX3, carrying normal conversations. Memory intact PSYCHIATRIC EXAMINATION: Mood and affect stable LABORATORY DATA: Please see below. IMAGING: CXR 03/15/2021 showed "No acute cardiopulmonary process." CXR 03/14/2021 showed "Showed "No acute cardiopulmonary process appreciated. New pacemaker." Head CT showed "Atrophy and microvascular ischemic changes. No acute intracranial hemorrhage, infarction, or mass/mass effect." Chest X ray 03/14/2021 showed "No acute cardiopulmonary process appreciated." Cervical spine CT showed "Advanced multilevel degenerative spondylosis. No acute fracture/compression injury or subluxation appreciated." PROGNOSIS: Fair ACTIVITY: [As tolerated]. DIET: Low salt diet DISCHARGE PLAN AND INSTRUCTIONS: 1. Please follow up with cardiology in 1 week 2. Please follow up with your primary care provider in 1 week 3. Return to the ER if you experience any problems ITEMS TO FOLLOWUP ON ON OUTPATIENT: 1. Recurrent syncope 2. Keppra use DISCHARGE CONDITION: [Stable]. TIME SPENT ON DISCHARGE: [38] minutes. Vital Signs/I&Os Vital Signs Date Time Temp Pulse Resp B/P (MAP) Pulse Ox O2 Delivery O2 Flow Rate FiO2 03/15/21 09:00 154/73 03/15/21 08:00 97.3 80 18 94 Room Air 03/15/21 08:00 1.0 I&O- Last 24 Hours up to 6 AM 03/15/21 06:00 Intake Total 1620 ml Output Total 530 ml Balance 1090 ml Laboratory Data Labs 24H Laboratory Tests 2 03/15/21 00:00: Total Creatine Kinase 172, Creatine Kinase MB 3.7H, Creatine Kinase MB Relative Index 2.15, Troponin I 0.10# 03/15/21 06:18: Total Creatine Kinase 145, Creatine Kinase MB 2.5, Creatine Kinase MB Relative Index 1.72, Troponin I 0.06# 03/15/21 06:20: Anion Gap 5L, Glomerular Filtration Rate > 60.0, Calcium Level 8.0L, Total Bilir ubin 0.7, Aspartate Amino Transf (AST/SGOT) 19, Alanine Aminotransferase (ALT/SGPT) 23, Alkaline Phosphatase 64, Total Protein 5.7L, Albumin 2.9L, Albumin/Globulin Ratio 1.0 CBC/BMP Laboratory Tests 03/15/21 06:20 Discharge Medications Scheduled Aspirin (Aspirin EC) 81 Mg Tablet.dr, 81 MG PO 3XW, (Reported) FRIDAY, FRIDAY AND FRIDAY Atorvastatin Calcium (Atorvastatin Calcium) 10 Mg Tab, 10 MG PO QHS, (Reported) Atorvastatin Calcium (Atorvastatin Calcium) 20 Mg Tablet, 20 MG PO QHS Chlorthalidone (Chlorthalidone) 25 Mg Tablet, 25 MG PO QHS, (Reported) Chlorthalidone (Chlorthalidone) 25 Mg Tablet, 0.5 TAB PO DAILY Cholecalciferol (Vitamin D3) (Vitamin D3) 1,000 Unit Tablet, 2,000 UNITS PO DA FREDI, (Reported) Cyanocobalamin (Vitamin B-12) (Vitamin B-12) 500 Mcg Tab, 500 MCG PO DAILY, (Reported) Flaxseed Oil (Flaxseed Oil) 1,000 Mg Capsule, 1 CAP PO DAILY, (Reported) Levetiracetam (Keppra) 500 Mg Tablet, 500 MG PO BID, (Reported) Mirabegron (Myrbetriq) 50 Mg Tab.er.24h, 50 MG PO DAILY, (Reported) Multivit-Min/FA/Lycopen/Lutein (Centrum Silver Men Tablet) 1 Each Tablet, 1 EACH PO DAILY, (Reported) Ramipril (Ramipril) 2.5 Mg Capsule, 2.5 MG PO QHS, (Reported) Salmeterol/Fluticasone (Advair 250-50 Diskus) 14 Puff/Inhaler Aerp, 1 PUFF INH QHS, (Reported) Tamsulosin Hcl (Tamsulosin HCl) 0.4 Mg Capsule, 0.4 MG PO DAILY, (Reported) Vit A/Vit C/Vit E/Zinc/Copper (Preservision Areds Tablet) 1 Each Tablet, 1 TAB PO BID, (Reported) Scheduled PRN Acetaminophen (Acetaminophen) 325 Mg Tablet, 650 MG PO Q4H PRN for MILD PAIN or TEMP > 101 Albuterol Sulfate (Ventolin Hfa) 18 Gm Hfa.aer.ad, 2 PUFF INH Q6HP PRN for SHORTNESS OF BREATH Docusate Sodium (Colace) 100 Mg Capsule, 100 MG PO BIDP PRN for BOWEL CARE/CONSTIPATION Allergies Coded Allergies: Penicillins (Verified Allergy, Mild, RASH, 02/20/21) GME ATTESTATION GME ATTESTATION My faculty preceptor for this patient encounter was physically present during the encounter and was fully available. All aspects of the patient interview, examination, medical decision making process, and medical care plan development were reviewed and approved by the faculty preceptor. The faculty preceptor is aware and concurs with the plan as stated in the body of this note and will attest to such by his/her cosignature. ATTENDING NOTE I, Sunita Sauceda, have independently examined this patient and performed my own physical exam, as well as reviewed the documentation and edited where necessary with the resident. For medical students we have performed the physical exam together and discussed medical decision making and I have verified the history. I have discussed in detail with the resident / student the findings and plan of treatment as documented by the resident / student and edited their note. I agree with their findings and treatment plan and have edited their documentation. I will continue to follow the patient during this hospital stay. Time spent on discharge 35 minutes ARIELLA PARSONS DO Mar 15, 2021 16:28 SUNITA SAUCEDA MD Mar 15, 2021 18:09
--- NOTE | 2021-03-15 21:16 | IPN ---
CARDIOLOGY PACEMAKER PROGRESS NOTE DATE: 03/15/2021 SUBJECTIVE: Following his pacemaker implant yesterday, the patient has been free of any further faintness. Has only minor incisional discomfort. Has been up in the room without problems. OBJECTIVE: Pleasant elderly male currently lying comfortably with the head of the bed elevated 30 degrees. Heart rate 79 beats per minute and regular, blood pressure 137/70, respiratory rate 18, oxygen saturation 95% on room air, afebrile. Bright, alert and oriented. Trachea midline. Neck veins were not elevated. Normal chest expansion. His pacemaker incision left subclavian region seems to be healing well with minimal erythema. No significant drainage. His dressing was changed. INVESTIGATIONS: Chest x-ray PA and left lateral study was reviewed independently and shows normal appearing heart size and greater vessels with clear lung villarreal. Stable atrial and ventricular pacing lead position with pulse generator left subclavian region. EKG: Tracing taken this morning reviewed independently shows underlying sinus rhythm at 79 beats per minute. Appropriate atrial sensing and tracking with consistent ventricular pacing. Paced QRS complexes have a normal axis with left bundle branch block configuration in keeping with right ventricular (RV) outflow tract stimulation. No change from tracing the evening before. MANAGER COMBINATION: This shows appropriate pacing, as mentioned above. IMPRESSION/PLAN: 1. Recurrent near syncope/syncope: At this point, he has been free of any further dizziness. We have no doubt that his collapses were not seizures, but his intermittent high atrioventricular (AV) block. 2. AV block: No recurrent episodes now that his pacemaker is in position. His incision is healing well. Complete interrogation of his device was performed this afternoon showing excellent intracardiac electrograms and pacing thresholds with ample battery voltage in excess of 10 year life expectancy. His chest x-ray shows good, stable lead position and EKG and printer slotter helper show appropriate pacer function. 3. Abnormal EKG: As mentioned above, he does have multiple coronary risk factors and it may well be prudent to consider a pharmacological stress heart scan at a later date. 4. Essential hypertension. No symptoms or signs of congestion. Blood pressure appears to be adequately controlled with the use of ramipril 5 mg and we would reintroduce a low dose chlorthalidone at 12.5 mg daily. We agree he should be able to be discharged today to resume customary no added salt diet. We have encouraged him to perform only light activities of daily living with his left arm and avoid getting his incision wet until his mesha are removed in our office. He has an appointment for one week from today. Current medications will include chlorthalidone 25 mg tablets, 1/2 table daily, ramipril 5 mg tables, one tablet daily, aspirin 81 mg daily, Flomax 0.4 mg daily, mirabegron 50 mg of the ER daily with atorvastatin 20 mg daily, Advair Diskus 250/50 one inhalation twice a day and albuterol inhaler two puffs every 8 hours as needed for shortness of breath. He can continue to use acetaminophen for incisional discomfort. He can continue his multivitamins including vitamin B12, vitamin D3, flaxseed, in combination with vitamin A, vitamin C, vitamin E, zinc and copper. At this point, he should be able to discontinue his Keppra. He has been encouraged to contact our office should he notice any abnormal erythema, swelling or discharge.
[2021-03-16 16:09] LABS: Lyme Disease IgG/IgM Antibodie <0.91 ISR (0.00-0.90); Lyme Disease IgM Ab Quantitati <0.80 index (0.00-0.79)
--- NOTE | 2021-03-17 07:31 | ECGEPIP ---
[facility] - ED Test Date: 2021-03-14 Pat Name: MORRIS ANTHONY Department: Room: - Gender: Male Behavioral Health Therapist: MARIAM : 1940 Requested By: Charleen Samayoa Order Number: [id number] Reading MD: Charleen Samayoa Measurements Intervals [place] Rate: 40 P: 67 OR: 272 QRS: -14 QRSD: 126 T: 36 QT: 466 QTc: 379 Interpretive Statements high grade AV block Right bundle branch block clinical correlation Electronically Signed on 03-17-2021 7:31:24 EST by Charleen Samayoa
== END 2021-03-15 19:26 | disposition home or self-care (01) | DRG 244 ==
LOC: M ED 09:47 → M ED INP 11:32 → M PCU 22:28
PROVIDERS: ADMIT Internal Medicine; ATTEND Internal Medicine
PROC: 02H63JZ Insertion of Pacemaker Lead into Right Atrium, Percutaneous Approach (ICD-10-PCS; 2021-03-14)
PROC: 02HK3JZ Insertion of Pacemaker Lead into Right Ventricle, Percutaneous Approach (ICD-10-PCS; 2021-03-14)
PROC: 0JH606Z Insertion of Pacemaker, Dual Chamber into Chest Subcutaneous Tissue and Fascia, Open Approach (ICD-10-PCS; principal; 2021-03-14 17:00)
DX: I44.2 Atrioventricular block, complete (principal); J45.909 Unspecified asthma, uncomplicated; I10 Essential (primary) hypertension; E78.5 Hyperlipidemia, unspecified; N32.81 Overactive bladder; R39.15 Urgency of urination; N40.1 Benign prostatic hyperplasia with lower urinary tract symptoms; R55 Syncope and collapse; I45.10 Unspecified right bundle-branch block; Z87.891 Personal history of nicotine dependence; Z20.822 Contact with and (suspected) exposure to COVID-19; Z79.82 Long term (current) use of aspirin; Z79.899 Other long term (current) drug therapy; Z88.0 Allergy status to penicillin; Z86.010 Personal history of colon polyps

== ENCOUNTER → 2022-12-06 | Outpatient (CLI) | payer MEDICARE, OTHER ==
[~2022-12-06] MED LIST changes: +ACET1TAB55 PO; +ASPI-161 PO; +ATOR1TAB21 PO; +COLA100C5 PO; -D31000TA2 PO; +OCUVTAB4 PO; +VENTAER INH; +VITA100093 PO
[2022-12-06 16:42] LABS: BASO # 0.1 10^3/uL (0.0-0.2); BASO % 0.4 % (0.0-1.0); BLOOD UREA NITROGEN 32 MG/DL (9-23); CALCIUM LEVEL 8.2 MG/DL (8.3-10.6); CARBON DIOXIDE LEVEL 33 MMOL/L (20-31); CHLORIDE LEVEL 98 MMOL/L (98-107); CREATININE FOR GFR 1.01 MG/DL (0.70-1.30); EOS # 0.1 10^3/uL (0.0-0.5); EOS % 0.4 % (0.0-3.0); GLOMERULAR FILTRATION RATE > 60.0 (>35); GLUCOSE, FASTING 204 MG/DL (74-106); HEMATOCRIT 38.2 % (42.0-52.0); HEMOGLOBIN 12.2 g/dl (13.5-17.5); LYMPH # 0.8 10^3/uL (1.5-5.0); LYMPH % 5.3 % (24.0-44.0); MEAN CORPUSCULAR HEMOGLOBIN 31.3 pg (27.0-33.0); MEAN CORPUSCULAR HGB CONC 31.9 g/dl (32.0-36.5); MEAN CORPUSCULAR VOLUME 97.9 fl (80.0-96.0); MONO # 0.9 10^3/uL (0.0-0.8); MONO % 6.6 % (2.0-8.0); NEUTROPHILS # 12.4 10^3/uL (1.5-8.5); NEUTROPHILS % 86.7 % (36.0-66.0); PLATELET COUNT, AUTOMATED 320 10^3/uL (150-450); POTASSIUM SERUM 3.2 MMOL/L (3.5-5.1); SODIUM LEVEL 138 MMOL/L (136-145); WHITE BLOOD COUNT 14.3 10^3/uL (4.0-10.0)
== END ==
LOC: M WUC 11:25
PROVIDERS: ATTEND Nurse Practitioner Family
DX: J90 Pleural effusion, not elsewhere classified (principal); R91.8 Other nonspecific abnormal finding of lung field; E78.5 Hyperlipidemia, unspecified; I10 Essential (primary) hypertension; R60.0 Localized edema; J45.30 Mild persistent asthma, uncomplicated

== ENCOUNTER → 2023-03-06 | Outpatient (REF) | payer MEDICARE, OTHER ==
[2023-03-06 13:29] LABS: BLOOD UREA NITROGEN 34 MG/DL (9-23); CALCIUM LEVEL 8.3 MG/DL (8.3-10.6); CARBON DIOXIDE LEVEL 27 MMOL/L (20-31); CHLORIDE LEVEL 109 MMOL/L (98-107); CREATININE FOR GFR 1.18 MG/DL (0.70-1.30); GLOMERULAR FILTRATION RATE > 60.0 (>35); GLUCOSE, FASTING 167 MG/DL (74-106); POTASSIUM SERUM 3.8 MMOL/L (3.5-5.1); SODIUM LEVEL 145 MMOL/L (136-145)
== END ==
LOC: M LAB REF 11:50
PROVIDERS: ATTEND Physician Assistant
DX: I50.42 Chronic combined systolic (congestive) and diastolic (congestive) heart failure (principal); R97.20 Elevated prostate specific antigen [PSA]

== ENCOUNTER → 2023-06-27 | Outpatient (CLI) | payer MEDICARE, OTHER ==
[~2023-06-27] MED LIST changes: -ASPI-161 PO; +ASPI-615 PO
[2023-06-27 13:25] LABS: CALCIUM LEVEL 8.9 MG/DL (8.3-10.6); CREATININE FOR GFR 1.61 MG/DL (0.70-1.30); MAGNESIUM LEVEL 2.2 MG/DL (1.8-2.4); POTASSIUM SERUM 4.3 MMOL/L (3.5-5.1)
== END ==
LOC: M PLALAB 10:01
PROVIDERS: ATTEND Physician Assistant
DX: I50.42 Chronic combined systolic (congestive) and diastolic (congestive) heart failure (principal)

== ENCOUNTER → 2023-07-30 | Outpatient (CLI) | payer MEDICARE ==
[2023-07-30 15:23] LABS: CALCIUM LEVEL 8.7 MG/DL (8.3-10.6); CREATININE FOR GFR 1.38 MG/DL (0.70-1.30); GLOMERULAR FILTRATION RATE 52.5 (>35); MAGNESIUM LEVEL 1.9 MG/DL (1.8-2.4); POTASSIUM SERUM 4.1 MMOL/L (3.5-5.1)
== END ==
LOC: M PLALAB 13:04
PROVIDERS: ATTEND Physician Assistant
DX: I50.42 Chronic combined systolic (congestive) and diastolic (congestive) heart failure (principal)

== ENCOUNTER → 2023-07-30 | Outpatient (CLI) | payer MEDICARE | LOC: M PLALAB 13:06 | PROVIDERS: ATTEND Physician Assistant | DX: R97.20 Elevated prostate specific antigen [PSA] (principal); Z12.5 Encounter for screening for malignant neoplasm of prostate ==

== ENCOUNTER → 2023-07-30 | Outpatient (CLI) | payer MEDICARE ==
[2023-07-30 15:22] LABS: APPEARANCE, URINE CLEAR (CLEAR); BACTERIA, URINE AUTO 1+ (NEGATIVE); BILIRUBIN, URINE AUTO NEGATIVE (NEGATIVE); BLOOD, URINE BLOOD NEGATIVE (NEGATIVE); COLOR, URINE STRAW (YELLOW); GLUCOSE, URINE (UA) AUTO NEGATIVE (NEGATIVE); KETONE, URINE AUTO NEGATIVE (NEGATIVE); LEUKOCYTE ESTERASE, URINE AUTO 1+ (NEGATIVE); MUCUS, URINE SMALL (NEGATIVE); NITRITE, URINE AUTO NEGATIVE (NEGATIVE); PROTEIN, URINE AUTO NEGATIVE (NEGATIVE); RBC, URINE AUTO 0 /HPF (0-3); SPECIFIC GRAVITY URINE AUTO 1.006 (1.002-1.035); SQUAMOUS EPITHELIAL CELL UR AU 0 /HPF (0-6); UROBILINOGEN, URINE AUTO 0.2 mg/dL (0.0-2.0); WBC, URINE AUTO 4 /HPF (0-3)
[2023-07-30 15:23] LABS: HEMATOCRIT 32.3 % (42.0-52.0); HEMOGLOBIN 10.5 g/dl (13.5-17.5); MEAN CORPUSCULAR HGB CONC 32.5 g/dl (32.0-36.5); MEAN CORPUSCULAR VOLUME 101.6 fl (80.0-96.0); PLATELET COUNT, AUTOMATED 195 10^3/uL (150-450); RED BLOOD COUNT 3.18 10^6/uL (4.30-6.10); WHITE BLOOD COUNT 8.3 10^3/uL (4.0-10.0)
[2023-07-30 15:49] LABS: ALBUMIN 3.4 G/DL (3.2-5.2); BILIRUBIN,TOTAL 0.7 MG/DL (0.3-1.2); CHOLESTEROL RISK RATIO 2.34 (<5); CREATININE FOR GFR 1.43 MG/DL (0.70-1.30); GLOMERULAR FILTRATION RATE 50.4 (>35); HDL CHOLESTEROL 47.8 MG/DL (>40); LDL CHOLESTEROL 48.6 MG/DL (<100); NON-HDL-C 64.2 MG/DL; POTASSIUM SERUM 4.1 MMOL/L (3.5-5.1); TOTAL PROTEIN 6.5 G/DL (5.7-8.2)
== END ==
LOC: M PLALAB 13:02
PROVIDERS: ATTEND Family Medicine
DX: Z01.818 Encounter for other preprocedural examination (principal); E78.5 Hyperlipidemia, unspecified; Z12.5 Encounter for screening for malignant neoplasm of prostate; R97.20 Elevated prostate specific antigen [PSA]; I11.0 Hypertensive heart disease with heart failure
CPT/HCPCS: 36415; 80048; 80053; 80061; 81001; 83735; 85027; G0103

== ENCOUNTER → 2023-11-12 | Outpatient (CLI) | payer MEDICARE ==
[~2023-11-12] MED LIST changes: -ALBU1TAB4 PO; +ALBU4TAB9 PO; -RAMI1CAP22 PO; +RAMI2.5C42 PO
[2023-11-12 16:20] LABS: CREATININE FOR GFR 1.36 MG/DL (0.70-1.30); GLOMERULAR FILTRATION RATE 53.3 (>35); MAGNESIUM LEVEL 2.2 MG/DL (1.8-2.4); POTASSIUM SERUM 4.5 MMOL/L (3.5-5.1)
== END ==
LOC: M PLALAB 12:09
PROVIDERS: ATTEND Physician Assistant
DX: I50.42 Chronic combined systolic (congestive) and diastolic (congestive) heart failure (principal)

== ENCOUNTER → 2023-12-03 | Outpatient (CLI) | payer MEDICARE | LOC: M PLAIMG 07:58 | PROVIDERS: ATTEND Physician Assistant | DX: I50.42 Chronic combined systolic (congestive) and diastolic (congestive) heart failure (principal) ==

== ENCOUNTER → 2024-01-05 | Outpatient (CLI) | payer MEDICARE ==
[2024-01-05 15:48] LABS: CREATININE FOR GFR 1.61 MG/DL (0.70-1.30); GLOMERULAR FILTRATION RATE 43.8 (>35); MAGNESIUM LEVEL 2.2 MG/DL (1.8-2.4); POTASSIUM SERUM 4.8 MMOL/L (3.5-5.1)
== END ==
LOC: M PLALAB 11:52
PROVIDERS: ATTEND Physician Assistant
DX: I50.42 Chronic combined systolic (congestive) and diastolic (congestive) heart failure (principal)

== ENCOUNTER → 2024-01-23 | Outpatient (CLI) | payer MEDICARE | LOC: M ONCR 10:39 | PROVIDERS: ATTEND General Practice | DX: C61 Malignant neoplasm of prostate (principal); R33.9 Retention of urine, unspecified; R35.0 Frequency of micturition; N40.1 Benign prostatic hyperplasia with lower urinary tract symptoms; Z79.82 Long term (current) use of aspirin; Z79.899 Other long term (current) drug therapy; Z80.1 Family history of malignant neoplasm of trachea, bronchus and lung; Z87.891 Personal history of nicotine dependence; Z88.0 Allergy status to penicillin ==

== ENCOUNTER → 2024-01-29 | Outpatient (CLI) | payer MEDICARE | LOC: M PLALAB 11:08 | PROVIDERS: ATTEND Specialist | DX: N40.1 Benign prostatic hyperplasia with lower urinary tract symptoms (principal); R97.20 Elevated prostate specific antigen [PSA]; Z12.5 Encounter for screening for malignant neoplasm of prostate | CPT/HCPCS: 36415; G0103 ==

== ENCOUNTER 2024-03-24 08:05 | Outpatient (RCR) | payer MEDICARE | END 2024-03-27 | LOC: M ONCR 08:05 | PROVIDERS: ATTEND General Practice | DX: Z51.0 Encounter for antineoplastic radiation therapy (principal); C61 Malignant neoplasm of prostate ==

== ENCOUNTER → 2024-03-29 | Outpatient (CLI) | payer MEDICARE ==
[2024-03-29 15:41] LABS: CALCIUM LEVEL 8.7 MG/DL (8.3-10.6); CREATININE FOR GFR 1.6 MG/DL (0.70-1.30); GLOMERULAR FILTRATION RATE 44.2 (>35); MAGNESIUM LEVEL 2.4 MG/DL (1.8-2.4); POTASSIUM SERUM 4.9 MMOL/L (3.5-5.1)
== END ==
LOC: M PLALAB 13:39
PROVIDERS: ATTEND Physician Assistant
DX: I50.42 Chronic combined systolic (congestive) and diastolic (congestive) heart failure (principal)

== ENCOUNTER 2024-04-20 08:02 | Outpatient (RCR) | payer MEDICARE ==
[~2024-04-20 08:02] MED LIST changes: -ADV250INH INH; +ADVA1AER9 INH
== END 2024-04-27 ==
LOC: M ONCR 08:02
PROVIDERS: ATTEND General Practice
DX: Z51.0 Encounter for antineoplastic radiation therapy (principal); C61 Malignant neoplasm of prostate; I50.42 Chronic combined systolic (congestive) and diastolic (congestive) heart failure

== ENCOUNTER → 2024-04-30 | Outpatient (CLI) | payer MEDICARE ==
[2024-04-30 13:17] LABS: CALCIUM LEVEL 8.9 MG/DL (8.3-10.6); CREATININE FOR GFR 1.66 MG/DL (0.70-1.30); GLOMERULAR FILTRATION RATE 42.3 (>35); POTASSIUM SERUM 4.7 MMOL/L (3.5-5.1)
== END ==
LOC: M PLALAB 10:24
PROVIDERS: ATTEND Physician Assistant
DX: I50.42 Chronic combined systolic (congestive) and diastolic (congestive) heart failure (principal)

== ENCOUNTER → 2024-06-03 | Outpatient (CLI) | payer MEDICARE ==
[2024-06-03 13:26] LABS: CALCIUM LEVEL 8.7 MG/DL (8.3-10.6); CREATININE FOR GFR 1.36 MG/DL (0.70-1.30); GLOMERULAR FILTRATION RATE 53.3 (>35); POTASSIUM SERUM 5.1 MMOL/L (3.5-5.1)
== END ==
LOC: M PLALAB 09:31
PROVIDERS: ATTEND Physician Assistant
DX: I50.41 Acute combined systolic (congestive) and diastolic (congestive) heart failure (principal)

== ENCOUNTER → 2024-07-28 | Outpatient (CLI) | payer MEDICARE ==
[2024-07-28 16:10] LABS: CALCIUM LEVEL 8.6 MG/DL (8.3-10.6); CREATININE FOR GFR 1.3 MG/DL (0.70-1.30); GLOMERULAR FILTRATION RATE 56.1 (>35); POTASSIUM SERUM 4.6 MMOL/L (3.5-5.1)
== END ==
LOC: M PLALAB 13:16
PROVIDERS: ATTEND Physician Assistant
DX: I50.42 Chronic combined systolic (congestive) and diastolic (congestive) heart failure (principal)

== ENCOUNTER → 2024-07-28 | Outpatient (CLI) | payer MEDICARE | LOC: M PLALAB 13:14 | PROVIDERS: ATTEND Physician Assistant | DX: C61 Malignant neoplasm of prostate (principal) ==

== ENCOUNTER → 2024-08-13 | Outpatient (CLI) | payer MEDICARE | LOC: M RAD 11:52 | PROVIDERS: ATTEND Physician Assistant | DX: I87.313 Chronic venous hypertension (idiopathic) with ulcer of bilateral lower extremity (principal); L97.912 Non-pressure chronic ulcer of unspecified part of right lower leg with fat layer exposed; L97.922 Non-pressure chronic ulcer of unspecified part of left lower leg with fat layer exposed; I89.0 Lymphedema, not elsewhere classified ==

== ENCOUNTER → 2024-08-18 | Outpatient (CLI) | payer MEDICARE | LOC: M ONCR 08:01 | PROVIDERS: ATTEND General Practice | DX: C61 Malignant neoplasm of prostate (principal); Z87.891 Personal history of nicotine dependence; Z88.0 Allergy status to penicillin; Z88.1 Allergy status to other antibiotic agents; Z79.82 Long term (current) use of aspirin; Z79.899 Other long term (current) drug therapy; Z79.51 Long term (current) use of inhaled steroids; Z92.3 Personal history of irradiation ==

== ENCOUNTER → 2024-09-08 | Outpatient (POV) | payer MEDICARE ==
[~2024-09-08] VITALS: Ht 175.3 cm; Wt 90.9 kg
[~2024-09-08] MED LIST changes: +ENTR1TAB PO; +SPIR-10 PO; +TORS20TA2 PO
[2024-09-08 14:00] VITALS: BP 132/72; O2SAT 97
== END ==
LOC: M IRPOV 13:38
PROVIDERS: ATTEND Radiology Diagnostic Radiology
DX: I87.313 Chronic venous hypertension (idiopathic) with ulcer of bilateral lower extremity (principal); I87.2 Venous insufficiency (chronic) (peripheral); I11.0 Hypertensive heart disease with heart failure; R60.0 Localized edema; Z79.82 Long term (current) use of aspirin; Z79.899 Other long term (current) drug therapy; Z80.0 Family history of malignant neoplasm of digestive organs; Z82.0 Family history of epilepsy and other diseases of the nervous system; Z82.49 Family history of ischemic heart disease and other diseases of the circulatory system; Z85.46 Personal history of malignant neoplasm of prostate; Z87.891 Personal history of nicotine dependence; Z88.0 Allergy status to penicillin

== ENCOUNTER → 2024-09-13 | Outpatient (CLI) | payer MEDICARE ==
[2024-09-13 14:31] LABS: CALCIUM LEVEL 8.8 MG/DL (8.3-10.6); CREATININE FOR GFR 1.58 MG/DL (0.70-1.30); GLOMERULAR FILTRATION RATE 43.1 (>35); POTASSIUM SERUM 4.5 MMOL/L (3.5-5.1)
== END ==
LOC: M PLALAB 11:12
PROVIDERS: ATTEND Physician Assistant
DX: I50.42 Chronic combined systolic (congestive) and diastolic (congestive) heart failure (principal)

== ENCOUNTER → 2024-11-01 | Outpatient (CLI) | payer MEDICARE ==
[2024-11-01 14:44] LABS: CALCIUM LEVEL 8.7 MG/DL (8.3-10.6); CARBON DIOXIDE LEVEL 26.0 MMOL/L (20-31); CHLORIDE LEVEL 111.0 MMOL/L (98-107); CREATININE FOR GFR 1.55 MG/DL (0.70-1.30); GLOMERULAR FILTRATION RATE 43.9 (>35); POTASSIUM SERUM 4.6 MMOL/L (3.5-5.1); SODIUM LEVEL 146.0 MMOL/L (136-145)
== END ==
LOC: M PLALAB 10:24
PROVIDERS: ATTEND Physician Assistant
DX: I50.42 Chronic combined systolic (congestive) and diastolic (congestive) heart failure (principal)

== ENCOUNTER → 2024-11-01 | Outpatient (CLI) | payer MEDICARE ==
[2024-11-01 14:24] LABS: APPEARANCE, URINE CLEAR (CLEAR); BACTERIA, URINE AUTO NEGATIVE (NEGATIVE); BILIRUBIN, URINE AUTO NEGATIVE (NEGATIVE); BLOOD, URINE BLOOD NEGATIVE (NEGATIVE); GLUCOSE, URINE (UA) AUTO NEGATIVE (NEGATIVE); KETONE, URINE AUTO NEGATIVE (NEGATIVE); LEUKOCYTE ESTERASE, URINE AUTO NEGATIVE (NEGATIVE); MUCUS, URINE SMALL (NEGATIVE); NITRITE, URINE AUTO NEGATIVE (NEGATIVE); PROTEIN, URINE AUTO NEGATIVE (NEGATIVE); RBC, URINE AUTO 7 /HPF (0-3); SPECIFIC GRAVITY URINE AUTO 1.019 (1.002-1.035); SQUAMOUS EPITHELIAL CELL UR AU 1 /HPF (0-6); UROBILINOGEN, URINE AUTO 0.2 mg/dL (0.0-2.0); WBC, URINE AUTO 0 /HPF (0-3)
[2024-11-01 14:41] LABS: ALT/SGPT 19.0 U/L (7.0-40); AST/SGOT 21.0 U/L (<34); CALCIUM LEVEL 8.6 MG/DL (8.3-10.6); CARBON DIOXIDE LEVEL 26.0 MMOL/L (20-31); CHLORIDE LEVEL 111.0 MMOL/L (98-107); CHOLESTEROL LEVEL 97.0 MG/DL (<200); CHOLESTEROL RISK RATIO 2.37 (<5); CREATININE FOR GFR 1.55 MG/DL (0.70-1.30); GLOMERULAR FILTRATION RATE 43.9 (>35); LDL CHOLESTEROL 34.1 MG/DL (<100); NON-HDL-C 56.1 MG/DL; POTASSIUM SERUM 4.7 MMOL/L (3.5-5.1); SODIUM LEVEL 147.0 MMOL/L (136-145); TRIGLYCERIDES LEVEL 110.0 MG/DL (<150)
[2024-11-01 14:43] LABS: BASO # 0.1 10^3/uL (0.0-0.2); BASO % 0.7 % (0.0-1.0); EOS # 0.3 10^3/uL (0.0-0.5); EOS % 3.8 % (0.0-3.0); LYMPH # 0.8 10^3/uL (1.5-5.0); LYMPH % 11.6 % (24.0-44.0); MONO # 0.6 10^3/uL (0.0-0.8); MONO % 8.6 % (2.0-8.0); NEUTROPHILS # 5.4 10^3/uL (1.5-8.5); NEUTROPHILS % 75.0 % (36.0-66.0); PLATELET COUNT, AUTOMATED 183 10^3/uL (150-450)
[2024-11-01 15:09] LABS: CREATININE, URINE 141.5 MG/DL; MALB URINE SIEMENS 20.0 MG/L; MAU/CREAT RATIO 14.1 MCG/MG (0.0-30.0)
== END ==
LOC: M PLALAB 10:26
PROVIDERS: ATTEND Family Medicine
DX: I10 Essential (primary) hypertension (principal); E78.2 Mixed hyperlipidemia; I25.10 Atherosclerotic heart disease of native coronary artery without angina pectoris; I50.42 Chronic combined systolic (congestive) and diastolic (congestive) heart failure

== ENCOUNTER → 2024-11-22 | Outpatient (CLI) | payer MEDICARE | LOC: M RAD 12:00 | PROVIDERS: ATTEND Radiology Diagnostic Radiology | DX: I87.2 Venous insufficiency (chronic) (peripheral) (principal); I87.313 Chronic venous hypertension (idiopathic) with ulcer of bilateral lower extremity ==

== ENCOUNTER → 2024-12-14 | Outpatient (REF) | payer MEDICARE ==
[2024-12-14 17:42] LABS: IRON (FE) 60.0 UG/DL (65-175); PERCENT SATURATION 26.4 % (19.7-50.0)
== END ==
LOC: M LAB REF 16:59
PROVIDERS: ATTEND Internal Medicine Nephrology
DX: D50.9 Iron deficiency anemia, unspecified (principal)

== ENCOUNTER → 2025-01-11 | Outpatient (CLI) | payer MEDICARE ==
[~2025-01-11] MED LIST changes: -VITA500T17 PO; +VITA500T8 PO
== END ==
LOC: M RAD 12:30
PROVIDERS: ATTEND Internal Medicine Nephrology
DX: N18.31 Chronic kidney disease, stage 3a (principal)

== ENCOUNTER → 2025-01-19 | Outpatient (POV) | payer MEDICARE ==
[~2025-01-19] VITALS: Ht 175.3 cm; Wt 90.9 kg
[2025-01-19 11:04] VITALS: BP 142/68; O2SAT 95
== END ==
LOC: M IRPOV 10:43
PROVIDERS: ATTEND Registered Nurse School
DX: I87.313 Chronic venous hypertension (idiopathic) with ulcer of bilateral lower extremity (principal); L97.929 Non-pressure chronic ulcer of unspecified part of left lower leg with unspecified severity; L97.219 Non-pressure chronic ulcer of right calf with unspecified severity; R60.0 Localized edema; Z88.0 Allergy status to penicillin

== ENCOUNTER → 2025-01-31 | Outpatient (CLI) | payer MEDICARE | LOC: M PLALAB 10:54 | PROVIDERS: ATTEND Physician Assistant | DX: C61 Malignant neoplasm of prostate (principal) ==

== ENCOUNTER → 2025-02-08 | Outpatient (CLI) | payer MEDICARE | LOC: M RAD 12:55 | PROVIDERS: ATTEND Registered Nurse School | DX: I87.8 Other specified disorders of veins (principal) ==

== ENCOUNTER → 2025-02-16 | Outpatient (POV) | payer MEDICARE ==
[~2025-02-16] VITALS: Ht 175.3 cm; Wt 90.9 kg
[2025-02-16 08:28] VITALS: BP 134/62; O2SAT 95
== END ==
LOC: M IRPOV 08:12
PROVIDERS: ATTEND Registered Nurse School
DX: I87.2 Venous insufficiency (chronic) (peripheral) (principal); R60.0 Localized edema; I10 Essential (primary) hypertension; Z79.82 Long term (current) use of aspirin; Z88.0 Allergy status to penicillin

== ENCOUNTER → 2025-02-23 | Outpatient (CLI) | payer MEDICARE | LOC: M ONCR 08:00 | PROVIDERS: ATTEND General Practice | DX: C61 Malignant neoplasm of prostate (principal); R35.0 Frequency of micturition; Z92.3 Personal history of irradiation; Z87.891 Personal history of nicotine dependence; Z88.0 Allergy status to penicillin; Z88.1 Allergy status to other antibiotic agents; Z79.51 Long term (current) use of inhaled steroids; Z79.82 Long term (current) use of aspirin; Z79.899 Other long term (current) drug therapy ==